=== PATIENT | female | born 1985 | race Caucasian/White ===

== ENCOUNTER 2020-05-22 14:00 | Outpatient (REF) | payer OTHER, SELFPAY ==
[2020-05-25 16:51] LABS: BV Int Neg Control Negative (Negative); BV Int Pos Control Positive (Positive)
[2020-05-26 09:27] LABS: CT PCR NOT DETECTED (Not Detect.); NG PCR NOT DETECTED (Not Detect.)
[2020-06-11 21:22] LABS: HPV mRNA E6/E7 Not Detected (Not Detected)
== END 2020-05-22 14:01 | disposition home or self-care (01) ==
LOC: HO.LNP 14:00
PROVIDERS: Visit Provider Physician Assistant
DX: Z12.4 Encounter for screening for malignant neoplasm of cervix (principal); Z11.51 Encounter for screening for human papillomavirus (HPV); Z13.1 Encounter for screening for diabetes mellitus; Z20.2 Contact with and (suspected) exposure to infections with a predominantly sexual mode of transmission
CPT/HCPCS: 87480; 87491; 87510; 87591; 87624; 87625; 87660; 88142

== ENCOUNTER → 2020-05-22 15:44 | Outpatient (BNVA) | payer OTHER, SELFPAY | PROVIDERS: Visit Provider Advanced Practice Midwife | DX: N92.0 Excessive and frequent menstruation with regular cycle (principal); N94.6 Dysmenorrhea, unspecified; R10.2 Pelvic and perineal pain; Z87.42 Personal history of other diseases of the female genital tract; Z53.29 Procedure and treatment not carried out because of patient's decision for other reasons | CPT/HCPCS: 99214 ==

== ENCOUNTER → 2020-06-08 16:03 | Outpatient (BNVA) | payer OTHER, SELFPAY | PROVIDERS: Visit Provider Obstetrics & Gynecology | DX: N92.0 Excessive and frequent menstruation with regular cycle (principal); R10.2 Pelvic and perineal pain | CPT/HCPCS: 99212 ==

== ENCOUNTER 2020-06-22 16:17 | Outpatient (REF) | payer OTHER, SELFPAY ==
--- NOTE | 2020-06-22 16:21 | US_ITS ---
EXAMINATION: PELVIC ULTRASOUND CLINICAL INFORMATION: Excessive and frequent menstruation with irregular cycle COMPARISON: Previous pelvic ultrasound most recent February [address] of the abdomen and pelvis March 2018 TECHNIQUE: Transabdominal and transvaginal pelvic ultrasound was performed. Transvaginal exam was performed for better visualization of the uterus and ovaries. FINDINGS: The uterus is anteverted and measures 8.3 x 3.5 x 5.3 cm in dimension. There is a heterogeneous predominantly hyperechoic area in the right side of the uterus in the myometrium. This measures approximately 0.8 cm. This was not appreciated on previous ultrasound exams. No other focal uterine lesion is seen. Endometrial thickness is normal estimated at 1.3 cm. There are nabothian cysts in the cervix. The ovaries are normal-appearing. The right ovary measures 3 x 1.8 x 2 cm and the left ovary measures 2.7 x 1.6 x 2.1 cm. There is no fluid in the pelvis. US/US transvaginal IMPRESSION: Normal thickness endometrium. 0.8 cm heterogeneous predominantly hyperechoic area in the right side of the uterus questionable for a fibroid. This was not seen on previous ultrasound.
--- NOTE | 2020-06-22 16:21 | US_ITS ---
EXAMINATION: PELVIC ULTRASOUND CLINICAL INFORMATION: Excessive and frequent menstruation with irregular cycle COMPARISON: Previous pelvic ultrasound most recent February [address] of the abdomen and pelvis March 2018 TECHNIQUE: Transabdominal and transvaginal pelvic ultrasound was performed. Transvaginal exam was performed for better visualization of the uterus and ovaries. FINDINGS: The uterus is anteverted and measures 8.3 x 3.5 x 5.3 cm in dimension. There is a heterogeneous predominantly hyperechoic area in the right side of the uterus in the myometrium. This measures approximately 0.8 cm. This was not appreciated on previous ultrasound exams. No other focal uterine lesion is seen. Endometrial thickness is normal estimated at 1.3 cm. There are nabothian cysts in the cervix. The ovaries are normal-appearing. The right ovary measures 3 x 1.8 x 2 cm and the left ovary measures 2.7 x 1.6 x 2.1 cm. There is no fluid in the pelvis. US/US pelvic complete IMPRESSION: Normal thickness endometrium. 0.8 cm heterogeneous predominantly hyperechoic area in the right side of the uterus questionable for a fibroid. This was not seen on previous ultrasound.
== END 2020-06-22 16:18 | disposition home or self-care (01) ==
LOC: HO.US 16:17
PROVIDERS: Visit Provider Advanced Practice Midwife
DX: N92.1 Excessive and frequent menstruation with irregular cycle (principal); Z20.2 Contact with and (suspected) exposure to infections with a predominantly sexual mode of transmission
CPT/HCPCS: 76830; 76856

== ENCOUNTER 2020-06-22 16:57 | Outpatient (REF) | payer OTHER, SELFPAY ==
[2020-06-22 17:57] LABS: Hematocrit 40.3 % (37-47); Hemoglobin 13.4 g/dl (12.0-16.0); Mean Corpuscular HGB Conc 33.3 g/dl (31.0-35.0); Mean Corpuscular Hemoglobin 30.4 pg (27.0-33.0); Mean Corpuscular Volume 91.4 fL (80-98); Mean Platelet Volume 10.5 fL (9.4-12.3); Platelet Count 364 X10*3/uL (160-400); Red Blood Count 4.41 X10*6/uL (4.20-5.50); Red Cell Distribution Width 12.7 % (11.0-16.0); White Blood Count 11.2 X10*3/uL (4.8-10.8)
[2020-06-22 18:42] LABS: HCG Quantitative < 2 mIU/mL; Thyroid Stimulating Hormone 0.46 uIU/mL (0.32-4.0)
[2020-06-22 18:45] LABS: Glucose Urine UA NEG (NEG); Leukocyte Esterase Urine NEG (NEG); Nitrite Urine NEG (NEG); Urine Blood NEG (NEG); Urine Ketones NEG (NEG); Urine Protein NEG (NEG-TRACE)
[2020-06-22 18:46] LABS: Appearance Urine CLEAR; Color Urine YELLOW
[2020-06-22 18:47] LABS: UPreg QC Valid YES; Urine Pregnancy NEGATIVE (NEGATIVE)
== END 2020-06-22 16:58 | disposition home or self-care (01) ==
LOC: HO.LAB 16:57
PROVIDERS: Visit Provider Obstetrics & Gynecology
DX: N92.0 Excessive and frequent menstruation with regular cycle (principal); R10.2 Pelvic and perineal pain; Z20.2 Contact with and (suspected) exposure to infections with a predominantly sexual mode of transmission
CPT/HCPCS: 36415; 81003; 81025; 84443; 84702; 85027

== ENCOUNTER → 2020-07-15 11:36 | Outpatient (BNVA) | payer OTHER, SELFPAY | PROVIDERS: Visit Provider Obstetrics & Gynecology | DX: Z76.89 Persons encountering health services in other specified circumstances (principal) ==

== ENCOUNTER → 2020-07-17 13:02 | Outpatient (BNVA) | payer OTHER, SELFPAY | PROVIDERS: Visit Provider Obstetrics & Gynecology | DX: N92.0 Excessive and frequent menstruation with regular cycle (principal) | CPT/HCPCS: 96372; J1050 ==

== ENCOUNTER → 2020-10-05 13:28 | Outpatient (BNVA) | payer OTHER, SELFPAY | PROVIDERS: Visit Provider Advanced Practice Midwife | DX: Z30.42 Encounter for surveillance of injectable contraceptive (principal) | CPT/HCPCS: 96372; 99211 ==

== ENCOUNTER → 2020-12-28 15:31 | Outpatient (BNVA) | payer OTHER, SELFPAY | PROVIDERS: Visit Provider Advanced Practice Midwife | DX: Z30.42 Encounter for surveillance of injectable contraceptive (principal) | CPT/HCPCS: 96372; 99211; J1050 ==

== ENCOUNTER → 2021-02-16 09:40 | Outpatient (BNVA) | payer OTHER, SELFPAY | PROVIDERS: Visit Provider Obstetrics & Gynecology | DX: N92.0 Excessive and frequent menstruation with regular cycle (principal) | CPT/HCPCS: 99212 ==

== ENCOUNTER 2021-03-16 14:46 | Outpatient (REF) | payer OTHER, SELFPAY ==
--- NOTE | ~2021-03-16 | US_ITS ---
EXAMINATION: US PELVIS CLINICAL INFORMATION: Abnormal uterine and vaginal bleeding. COMPARISON: CT abdomen/pelvis 03/10/2018. Ultrasound pelvis 06/22/2020. TECHNIQUE: Ultrasound of the pelvis is performed using both transabdominal and transvaginal transducers along with Doppler. Transvaginal imaging is performed due to inadequate visualization transabdominally. FINDINGS: Uterus: The uterus is anteverted and anteflexed measuring 9.1 cm in length, 3.6 cm AP and 4.3 cm in transverse dimension. The endometrial thickness is 0.8 cm. There is a hypoechoic lesion in the right body of uterus measuring 0.8 x 0.7 x 0.9 cm, likely a small fibroid. It was not seen previously. No additional lesions seen. The double wall endometrial thickness is 0.8 mm. A small nabothian cyst is seen in the cervix. A scar is seen. The uterus is smooth in contour and has normal myometrial echogenicity. No visible fibroid. Adnexa: Both ovaries are visualized. There is normal color flow to the adnexa. There is no ovarian torsion. There is no pelvic ascites or fluid collection. Right ovary measures 2.3 x 1.4 x 1.3 cm and volume 2.2 mL. There is a small echogenic calcification. Previously right ovary measured 3.0 x 1.8 x 2.0 cm. Left ovary measures 2.7 x 1.9 x 1.9 cm and volume 5.1 mL. There is a small dominant ovarian follicle. Previously left ovary measured 2.7 x 1.6 x 2.1 cm. US/US pelvic and transvaginal IMPRESSION: New small right uterine fibroid. Small nabothian cysts in the cervix. Punctate calcification right ovary. Otherwise, both ovaries are unremarkable.
== END 2021-03-16 14:47 | disposition home or self-care (01) ==
LOC: HO.US 14:46
PROVIDERS: Visit Provider Obstetrics & Gynecology
DX: N93.9 Abnormal uterine and vaginal bleeding, unspecified (principal)
CPT/HCPCS: 76830; 76856

== ENCOUNTER 2021-03-17 10:17 | Outpatient (REF) | payer OTHER, SELFPAY ==
[2021-03-17 11:18] LABS: Hematocrit 40.7 % (37-47); Hemoglobin 13.9 g/dl (12.0-16.0); Mean Corpuscular HGB Conc 34.2 g/dl (31.0-35.0); Mean Corpuscular Hemoglobin 31.3 pg (27.0-33.0); Mean Corpuscular Volume 91.7 fL (80-98); Mean Platelet Volume 10.8 fL (9.4-12.3); Platelet Count 311 X10*3/uL (160-400); Red Blood Count 4.44 X10*6/uL (4.20-5.50); Red Cell Distribution Width 13.2 % (11.0-16.0); White Blood Count 11.4 X10*3/uL (4.8-10.8)
[2021-03-17 12:50] LABS: TSH reflex Free T4 1.33 uIU/mL (0.32-4.0)
[2021-03-17 13:14] LABS: HCG Quantitative < 2 mIU/mL
== END 2021-03-17 10:18 | disposition home or self-care (01) ==
LOC: HO.LAB 10:17
PROVIDERS: Visit Provider Obstetrics & Gynecology
DX: N93.9 Abnormal uterine and vaginal bleeding, unspecified (principal); N92.0 Excessive and frequent menstruation with regular cycle
CPT/HCPCS: 36415; 84443; 84702; 85027; 99212

== ENCOUNTER → 2021-03-24 12:05 | Outpatient (BNVA) | payer OTHER, SELFPAY | PROVIDERS: Visit Provider Obstetrics & Gynecology ==

== ENCOUNTER → 2021-03-26 11:12 | Outpatient (BNVA) | payer OTHER, SELFPAY | PROVIDERS: Visit Provider Obstetrics & Gynecology | DX: Z30.42 Encounter for surveillance of injectable contraceptive (principal) | CPT/HCPCS: 96372; 99211 ==

== ENCOUNTER → 2021-06-17 15:20 | Outpatient (BNVA) | payer OTHER, SELFPAY | PROVIDERS: Visit Provider Obstetrics & Gynecology | DX: Z30.42 Encounter for surveillance of injectable contraceptive (principal) | CPT/HCPCS: 96372; 99211 ==

== ENCOUNTER → 2021-09-02 15:16 | Outpatient (BNVA) | payer OTHER, SELFPAY | PROVIDERS: Visit Provider Obstetrics & Gynecology | DX: Z30.42 Encounter for surveillance of injectable contraceptive (principal) | CPT/HCPCS: 96372; 99211 ==

== ENCOUNTER → 2021-09-22 16:10 | Outpatient (BNVA) | payer OTHER, SELFPAY | PROVIDERS: Visit Provider Obstetrics & Gynecology ==

== ENCOUNTER → 2021-11-16 12:16 | Outpatient (BNVA) | payer OTHER, SELFPAY | PROVIDERS: Visit Provider Obstetrics & Gynecology | DX: Z13.89 Encounter for screening for other disorder (principal) ==

== ENCOUNTER 2021-11-24 14:32 | Outpatient (REF) | payer OTHER, SELFPAY ==
--- NOTE | ~2021-11-24 | US_ITS ---
EXAMINATION: US PELVIS CLINICAL INFORMATION: Pelvic pain COMPARISON: Previous pelvic ultrasound most recent March 2021 TECHNIQUE: Ultrasound of the pelvis is performed using both transabdominal and transvaginal transducers along with Doppler. Transvaginal imaging is performed due to inadequate visualization transabdominally. FINDINGS: The uterus is anteverted and measures 7.8 x 3.9 x 5.2 cm. There is a 0.8 x 0.6 x 0.8 cm hypoechoic area in the right uterine body and 0.4 x 0.4 x 0.5 cm hypoechoic area in the posterior uterine body questionable for small fibroids. No other focal uterine lesion is seen. Endometrial thickness is normal. The ovaries are normal. The right ovary measures 2.8 x 1.8 x 1.6 cm. The left ovary measures 2.3 x 1.7 x 1.5 cm. There is no fluid in the pelvis. US/US pelvic and transvaginal IMPRESSION: 2 small hypoechoic areas questionable for small fibroids. Otherwise unremarkable exam.
== END 2021-11-24 14:33 | disposition home or self-care (01) ==
LOC: HO.US 14:32
PROVIDERS: Visit Provider Obstetrics & Gynecology
DX: N93.9 Abnormal uterine and vaginal bleeding, unspecified (principal)
CPT/HCPCS: 76830; 76856

== ENCOUNTER → 2021-11-26 09:42 | Outpatient (BNVA) | payer OTHER, SELFPAY | PROVIDERS: Visit Provider Obstetrics & Gynecology | DX: Z30.42 Encounter for surveillance of injectable contraceptive (principal) | CPT/HCPCS: 96372; 99211 ==

== ENCOUNTER 2022-01-07 13:29 | Outpatient (REF) | payer OTHER, SELFPAY ==
[2022-01-08 10:20] LABS: CT PCR NOT DETECTED (Not Detect.); NG PCR NOT DETECTED (Not Detect.)
[2022-01-08 10:25] LABS: BV Int Neg Control Negative (Negative); BV Int Pos Control Positive (Positive)
[2022-01-12 06:08] LABS: HPV mRNA E6/E7 rflx Not Detected (Not Detected)
== END 2022-01-07 13:30 | disposition home or self-care (01) ==
LOC: HO.LAB 13:29
PROVIDERS: Visit Provider Advanced Practice Midwife
DX: Z01.419 Encounter for gynecological examination (general) (routine) without abnormal findings (principal); Z11.3 Encounter for screening for infections with a predominantly sexual mode of transmission; Z11.4 Encounter for screening for human immunodeficiency virus [HIV]; Z11.51 Encounter for screening for human papillomavirus (HPV); Z11.59 Encounter for screening for other viral diseases; N94.6 Dysmenorrhea, unspecified; E66.01 Morbid (severe) obesity due to excess calories; Z68.38 Body mass index [BMI] 38.0-38.9, adult; Z87.42 Personal history of other diseases of the female genital tract
CPT/HCPCS: 87480; 87491; 87510; 87591; 87624; 87660; 88142

== ENCOUNTER → 2022-02-14 15:23 | Outpatient (BNVA) | payer OTHER, SELFPAY | PROVIDERS: Visit Provider Obstetrics & Gynecology | DX: Z30.42 Encounter for surveillance of injectable contraceptive (principal); N93.9 Abnormal uterine and vaginal bleeding, unspecified | CPT/HCPCS: 96372; 99211 ==

== ENCOUNTER → 2022-05-05 13:22 | Outpatient (BNVA) | payer OTHER, SELFPAY | PROVIDERS: Visit Provider Obstetrics & Gynecology | DX: Z30.42 Encounter for surveillance of injectable contraceptive (principal) | CPT/HCPCS: 96372; 99211 ==

== ENCOUNTER → 2022-07-28 09:54 | Outpatient (BNVA) | payer OTHER, SELFPAY | PROVIDERS: Visit Provider Advanced Practice Midwife | DX: Z30.42 Encounter for surveillance of injectable contraceptive (principal) | CPT/HCPCS: 96372; 99211 ==

== ENCOUNTER → 2022-10-24 09:22 | Outpatient (BNVA) | payer MEDICAID, SELFPAY | PROVIDERS: Visit Provider Advanced Practice Midwife | DX: N93.9 Abnormal uterine and vaginal bleeding, unspecified (principal) | CPT/HCPCS: 96372; 99211 ==

== ENCOUNTER → 2023-01-11 09:17 | Outpatient (BNVA) | payer MEDICAID, SELFPAY | PROVIDERS: Visit Provider Advanced Practice Midwife | DX: Z30.42 Encounter for surveillance of injectable contraceptive (principal) | CPT/HCPCS: 96372; 99211 ==

== ENCOUNTER 2023-03-29 09:07 | Outpatient (AMB) | payer MEDICAID, SELFPAY ==
[2023-03-29 09:26] VITALS: BMI 39.8
--- NOTE | 2023-03-29 09:26 | AM.OFFVISNUR ---
Intake Vital Signs 03/29/23 09:26 Height 5 ft 2 in Weight 98.6 kg BMI 39.8 Intake Visit Reasons: Depo Allergies ibuprofen [From MOTRIN] Allergy (Unknown, Verified 01/07/22 13:33) ITCHY/HIVES Office Procedures Depo Questionnaire If YES to any of the following questions, please consult a provider. Date of last injection: 01/11/23 Date of last menstrual period: 02/13/23 Date of last gynecology exam: 02/03/22 Menstrual pattern since last injection has been: Normal Irregular bleeding?: Yes Breast lumps or other breast changes?: No Changes in weight or appetite?: No Depression or changes in mood?: No Abnormal hair growth or loss?: No Skin problems (rash, acne, discoloration)?: No Pain at the injection site?: No Headaches?: No Nervousness?: No Abdominal pain or cramping?: Yes Dizziness or nausea?: No Fatigue or weakness?: No Decrease in sexual drive?: Yes Chest pain or shortness of breath?: No Swelling in arms or legs?: No Any other problems or concerns?: c/o irr bleeding, month prior to her shot being due. Form completed by?: Tima Mullen LPN Office Meds Depo-Provera Performing Provider: Milan Burns MD Administered by: Triny Mullen LPN on 03/29/23 09:27 Dose Route Admin Location Lot Number Expiration Date NDC Color Tester 150 mg IM rt. deltoid [id number] 01/04/25 36498-400-03 [facility] Coding Level of Care Code Established Pt Est Pt Level 1 (91319) Patient Type Established History Problem Focused Exam Problem Focused Medical Decision Making Straight Forward Diagnoses Time Spent (min) 20 Assessment & Plan Assessment & Plan Orders: Orders AMB Medroxyprogesterone Injection Patient Supplied Today N93.9 - Abnormal uterine and vaginal bleeding, unspecified
== END 2023-03-29 10:04 | disposition home or self-care (01) ==
LOC: HO.HWS 09:07
PROVIDERS: Visit Provider Obstetrics & Gynecology
DX: N93.9 Abnormal uterine and vaginal bleeding, unspecified (principal)

== ENCOUNTER → 2023-03-29 09:07 | Outpatient (BNVA) | payer MEDICAID, SELFPAY | PROVIDERS: Visit Provider Obstetrics & Gynecology | DX: Z30.42 Encounter for surveillance of injectable contraceptive (principal) | CPT/HCPCS: 96372; 99211; J1050 ==

== ENCOUNTER 2023-07-17 10:18 | Outpatient (AMB) | payer MEDICAID, SELFPAY ==
[2023-07-17 11:01] VITALS: BMI 39.8
--- NOTE | 2023-07-17 11:01 | AM.OFFVISNUR ---
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 Pt is late for injection, last injection 03/29/23 and pt missed appts d/t transportation issues. Pt does not have sex with men. Discussed issues with Irene BryantGuán[place] and she okays late injection. Pt has no c/o today except for cramping as this injection is late (should have been completed by 06/28/23). Today, denies any sexual activity in the past 2 weeks. Pt tolerated injection well. She will return in 12 weeks for next scheduled injection. Office Procedures Depo Questionnaire If YES to any of the following questions, please consult a provider. Date of last injection: 03/29/23 Date of last gynecology exam: 01/07/22 Menstrual pattern since last injection has been: Not Applicable Irregular bleeding?: No Breast lumps or other breast changes?: No Changes in weight or appetite?: No Depression or changes in mood?: No Abnormal hair growth or loss?: No Skin problems (rash, acne, discoloration)?: No Pain at the injection site?: No Headaches?: No Nervousness?: No Abdominal pain or cramping?: No Dizziness or nausea?: No Fatigue or weakness?: No Decrease in sexual drive?: No Chest pain or shortness of breath?: No Swelling in arms or legs?: No Form completed by?: Nohemi Mai press worker helper Meds Depo-Provera 150 mg/mL intramuscular syringe Performing Provider: Milan Burns MD [place] [facility] [place] [facility] Administered by: Nohemi Mai on 07/17/23 11:02 Dose Route Admin Location Dispensed Lot Number Expiration Date [facility] Education Supervisor 150 mg IM right deltoid 1 mL [id number] 08/07/25 21077-081-55 [facility] Results AMB Test Urine AMB Test Urine Negative Last Edit by Nohemi Mai on 07/17/23 11:22 Coding Level of Care Code Established Pt Est Pt Level 1 (85215) Patient Type Established History Problem Focused Medical Decision Making Straight Forward Time Spent (min) 12 Assessment & Plan Assessment & Plan Plan Schedule next depo injection in 12 weeks. Orders: Orders AMB Medroxyprogesterone Injection Patient Supplied Today Z30.42 - Encounter for surveillance of injectable contraceptive Patient Instructions: Pt will schedule next depo provera injection in 12 weeks. Pt verbalizes understanding and agrees with plan. No further questions.
== END 2023-07-17 10:31 | disposition home or self-care (01) ==
LOC: HO.HWS 10:18
PROVIDERS: Visit Provider Obstetrics & Gynecology
DX: Z30.42 Encounter for surveillance of injectable contraceptive (principal)

== ENCOUNTER → 2023-07-17 10:18 | Outpatient (BNVA) | payer MEDICAID, SELFPAY | PROVIDERS: Visit Provider Obstetrics & Gynecology | DX: Z30.42 Encounter for surveillance of injectable contraceptive (principal) | CPT/HCPCS: 96372; 99211; J1050 ==

== ENCOUNTER 2023-10-13 09:36 | Outpatient (AMB) | payer MEDICAID, SELFPAY ==
--- NOTE | 2023-10-13 10:10 | AM.OFFVISNUR ---
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 She reports she has AUB and cramping ~1 month before her injection is due. She has lost ~9 lbs in the last 3 months. She also reports a new diagnosis of diverticulitis for which she has been hospitalized She is watching her diet, cutting back on sugars and she has joined a gym. She is excited about her weight loss and feels proud. She was encouraged to keep up the good work! Brooks has an appt with Dr Burns for AG on 11/22/23. She wants to discuss further interventions to control AUB and cramping but she is aware she needs to start the process with a control trial to see if that helps. Pt tolerated injection well and has scheduled her next injection for the end of December. She will need refills on Depo provera which she will discuss with Dr Burns in November. Office Procedures Depo Questionnaire If YES to any of the following questions, please consult a provider. Menstrual pattern since last injection has been: Not Applicable Irregular bleeding?: Yes Breast lumps or other breast changes?: No Changes in weight or appetite?: Yes Depression or changes in mood?: No Abnormal hair growth or loss?: No Skin problems (rash, acne, discoloration)?: No Pain at the injection site?: No Headaches?: No Nervousness?: No Abdominal pain or cramping?: Yes Dizziness or nausea?: No Fatigue or weakness?: No Decrease in sexual drive?: No Chest pain or shortness of breath?: No Swelling in arms or legs?: No Any other problems or concerns?: Pt reports she has been hospitalized recently for diverticulitis Form completed by?: Nohemi Mai RN Office Meds Depo-Provera 150 mg/mL intramuscular syringe Performing Provider: Milan Burns MD Performing [place] [facility] [place] [facility] [place] [facility] Administered by: Nohemi Mai on 10/13/23 10:20 Dose Route Admin Location Dispensed Lot Number Expiration Date NDC Generalist 150 mg IM right deltoid 1 mL [id number] 11/04/25 84423-736-11 [facility] Coding Level of Care Code Established Pt Est Pt Level 1 (96975) Patient Type Established History Problem Focused Medical Decision Making Low Complexity Time Spent (min) 15 Assessment & Plan Assessment & Plan Plan Pt has already scheduled her next injection for the end of December Orders: Orders AMB Medroxyprogesterone Injection Patient Supplied Today Z30.42 - Encounter for surveillance of injectable contraceptive
[2023-10-13 10:11] VITALS: BMI 38.2
== END 2023-10-13 10:09 | disposition home or self-care (01) ==
LOC: HO.HWS 09:36
PROVIDERS: Visit Provider Obstetrics & Gynecology
DX: Z30.42 Encounter for surveillance of injectable contraceptive (principal)

== ENCOUNTER → 2023-10-13 09:36 | Outpatient (BNVA) | payer MEDICAID, SELFPAY | PROVIDERS: Visit Provider Obstetrics & Gynecology | DX: Z30.42 Encounter for surveillance of injectable contraceptive (principal) | CPT/HCPCS: 96372; 99211; J1050 ==

== ENCOUNTER 2024-01-02 10:49 | Outpatient (AMB) | payer MEDICAID, SELFPAY ==
--- NOTE | 2024-01-02 11:27 | A.OFFVIS_ITS ---
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 Allergies ibuprofen [From MOTRIN] Allergy (Unknown, Verified 01/07/22 13:33) ITCHY/HIVES HPI Comments Details: Here for Depo-Provera and annual exam [facility] Medical History Anxiety Morbid obesity with BMI of 45.0-49.9, adult Dysmenorrhea (~2017) Hx of ectopic Surgical History H/O hand surgery Hx of section Family History Maternal Aunt Breast cancer Cervical cancer Social History Alcohol intake: current Alcohol intake frequency: a few times a month Sexual orientation: Lesbian/Gifford/Homosexual Gender identity: Female Female Reproductive History Menstrual Age of Menarche: 14 Date of last pap smear: 01/10/22 Assessment & Plan Assessment & Plan (1) Depo-Provera contraceptive status: Code(s): Z30.42 - Encounter for surveillance of injectable contraceptive Category: Medical Plan: Depo-Provera 150 mg IM given to the patient by the RN. The patient was not seen by the provider. The patient rescheduled her annual exam Plan The patient is schedule her annual exam Orders: Orders AMB Medroxyprogesterone Injection Patient Supplied Today Z30.42 - Encounter for surveillance of injectable contraceptive Medications: New Depo-Provera (medroxyprogesterone) 150 mg IM ONCE 1 mL 0RF NS Z30.42 - Encounter for surveillance of injectable contraceptive Coding Level of Care Code Left Without Being Seen Diagnoses Depo-Provera contraceptive status Z30.42
== END 2024-01-02 11:34 | disposition left against medical advice (07) ==
PROVIDERS: Visit Provider Obstetrics & Gynecology
DX: Z30.42 Encounter for surveillance of injectable contraceptive (principal)

== ENCOUNTER → 2024-01-02 10:49 | Outpatient (BNVA) | payer MEDICAID, SELFPAY | PROVIDERS: Visit Provider Obstetrics & Gynecology | DX: Z30.42 Encounter for surveillance of injectable contraceptive (principal) | CPT/HCPCS: 96372; J1050 ==

== ENCOUNTER 2024-03-25 09:25 | Outpatient (AMB) | payer MEDICAID, SELFPAY ==
--- NOTE | 2024-03-25 09:46 | AM.OFFVISNUR ---
Vital Signs 03/25/24 09:47 Height 5 ft 2 in Weight 90.889 kg BMI 36.6 Intake Visit Reasons: depo Allergies ibuprofen [From MOTRIN] Allergy (Unknown, Verified 01/07/22 13:33) ITCHY/HIVES Nursing Note Brooks is here for her Depo-provera inj, She is recovering from having her Ostomy reversed. Pt denies any complaints re her Depo-Provera. pt aware she needs to have her AG or she may not be able to get refills. Office Procedures Depo Questionnaire If YES to any of the following questions, please consult a provider. Date of last injection: 01/02/24 Date of last gynecology exam: 01/27/22 Menstrual pattern since last injection has been: Not Applicable Irregular bleeding?: No Breast lumps or other breast changes?: No Changes in weight or appetite?: No Depression or changes in mood?: No Abnormal hair growth or loss?: No Skin problems (rash, acne, discoloration)?: No Pain at the injection site?: No Headaches?: No Nervousness?: No Abdominal pain or cramping?: No Dizziness or nausea?: No Fatigue or weakness?: No Decrease in sexual drive?: No Chest pain or shortness of breath?: No Swelling in arms or legs?: No Form completed by?: Tima Mullen LPN Office Meds Depo-Provera 150 mg/mL intramuscular syringe Performing Provider: Brandi Castle CNM Performing Location: [facility] [place] [facility] Administered by: Triny Mlulen LPN on 03/25/24 09:50 Dose Route Admin Location Dispensed Lot Number Expiration Date [facility] Branding Machine Operator 150 mg IM left deltoid 1 mL [id number] 07/06/26 90746-103-88 [facility] Assessment & Plan Assessment & Plan Orders: Orders AMB Medroxyprogesterone Injection Patient Supplied Today N93.9 - Abnormal uterine and vaginal bleeding, unspecified Medications: New Depo-Provera (medroxyprogesterone) 150 mg IM ONCE 1 mL 0RF NS N93.9 - Abnormal uterine and vaginal bleeding, unspecified
[2024-03-25 09:47] VITALS: BMI 36.6
--- OUTSIDE RECORDS SUMMARY | 2024-03-27 07:38 | XMS_ITS | Continuity of Care Document ---
Author Organization [facility] As formerly [facility] Address [address] [place] [address] [address] [place] [address]- Care Team Providers Care Sheet Rock Installer Name Role Phone Cindy DALEY, Melyssa Primary Care Physician Encounter [facility] Date(s): 02/14/24 - 03/15/24 [facility] [address] [place] [address]- Allergies, Adverse Reactions, Alerts Substance Reaction Severity Status ibuprofen 1 Hives Active 1swelling,hives Immunizations Given and Recorded Vaccine Date Status Refusal Reason tetanus/diphtheria/pertussis, acel(Tdap) 06/06/13 Given Medications Barrier strips [id number] Barrier strips [id number], See Instructions, # 80 each, Refills 11, Tot. Refills 11, Maintenance, use as needed for ostomy maintaince. Dx ileostomy Z93.2, 02/13/24 9:14:00 EDT, Supply Start Date: 02/13/24 Status: Ordered Brava barrier rings Brava barrier rings, See Instructions, # 40 each, Refills 11, Tot. Refills 11, Maintenance, use as needed for ostomy maintaince. Dx ileostomy Z93.2, 02/13/24 9:14:00 EDT, Supply Start Date: 02/13/24 Status: Ordered coloplast bags #85924 coloplast bags #[id number], See Instructions, # 20 each, Refills 11, Tot. Refills 11, Maintenance, use as needed for ostomy care Dx. ileostomy Z93.2, 01/02/24 15:45:00 EDT, Compound Start Date: 01/02/24 Status: Ordered convatec bags #[id number] convatec bags #[id number], See Instructions, # 20 each, Refills 11, Tot. Refills 11, Maintenance, use as needed for ostomy care Dx. ileostomy Z93.2, 01/11/24 13:19:00 EDT, Compound Start Date: 01/11/24 Status: Ordered Convatec bags (#[id number]) Convatec bags (#[id number]), See Instructions, # 40 each, Refills 11, Tot. Refills 11, Maintenance, useas needed for ostomy maintaince. Dx ileostomy Z93.2, 02/13/24 9:14:00 EDT, Supply Start Date: 02/13/24 Status: Ordered Convatec flange (#280792) Convatec flange (#731769), See Instructions, # 40 each, Refills 11, Tot. Refills 11, Maintenance, use as needed for ostomy maintaince. Dx ileostomy Z93.2, 02/13/24 9:14:00 EDT, Supply Start Date: 02/13/24 Status: Ordered convatec flange# [id number] convatec flange# [id number], See Instructions, # 20 each, Refills 11, Tot. Refills 11, Maintenance, useas needed for ostomy care Dx. ileostomy Z93.2, 01/11/24 13:27:00 EDT, Compound Start Date: 01/11/24 Status: Ordered ConvaTec Ostomy [facility] #[id number] ConvaTec Ostomy [facility] #[id number], See Instructions, # 20 each, Refills 11, Tot. Refills 11,Maintenance, Use as needed for ostomy maintaince. Dx ileostomy Z93.2, 01/05/24 15:39:00 EDT, Supply Start Date: 01/05/24 Status: Ordered ConvaTec Ostomy Pouch #[id number] ConvaTec Ostomy Pouch #[id number], See Instructions, # 20 each, Refills 11, Tot. Refills 11, Maintenance, Use as needed for ostomy maintaince. Dx ileostomy Z93.2, 01/05/24 15:27:00 EDT, Supply Start Date: 01/05/24 Status: Ordered diazepam 5 mg oral tablet 5 mg, 1, tablet, By Mouth, Every 8 hours, PRN, Do not take the same time as oxycodone., # 21 tablet, Refills 0, Tot. Refills 0, Maintenance, Spasm, 12/20/23 16:46:00 EDT, Route to Pharmacy Electronically, [facility] #[id number], Partial fill upon... Start Date: 12/20/23 Status: Ordered lidocaine 5% topical film 1 patch, Topically, 2 times a day, remove patches after 12 hours, # 15 patch, 0 Refills, Maintenance, 01/30/24 12:17:00 EDT, Film, [facility] #[id number], Partial fill upon patient request if the prescription is for a schedule II opioid drug., 1... Start Date: 01/30/24 Status: Ordered loperamide 2 mg oral capsule 4 mg, 2, capsule, By Mouth, 4 times a day, for 30 days, take 1/2 hour before meals and at bed time,# 240 capsule, Refills 5, Tot. Refills 5, Acute 07/17/24 15:35:00 EST, 01/19/24 15:35:00 EDT, [facility], [facility] #0... Start Date: 01/19/24 Stop Date: 07/17/24 Status: Ordered loperamide 2 mg oral tablet See Instructions, take 2 tablets by mouth 30 minutes before meals and at bedtime, # 240 tablet, 4 Refills, Maintenance, 01/03/24 16:27:00 EDT, Tablet, [facility] #[id number], Partial fill upon patient request if the prescription is for a schedule... Start Date: 01/03/24 Status: Ordered loperamide 2 mg oral tablet See Instructions, take 1 tablet by mouth 30 minutes before meals and at bedtime, # 120 tablet, 4 Refills, Maintenance, 12/21/23 15:35:00 EDT, Tablet, [facility] #[id number], Partial fill upon patient request if the prescription is for a schedule... Start Date: 12/21/23 Status: Ordered medroxyPROGESTERone 150 mg/mL intramuscular suspension 1 mL = 150 mg, Intramuscular, Every 3 months, Maintenance, 11/26/23 18:41:00 EDT, Suspension, Partial fill upon patient request if the prescription is for a schedule II opioid drug. Start Date: 11/26/23 Status: Ordered No sting skin prep spray No sting skin prep spray, See Instructions, # 1 each, Refills 11, Tot. Refills 11, Maintenance, useas needed for ostomy maintaince. Dx ileostomy Z93.2, 02/13/24 9:14:00 EDT, Supply Start Date: 02/13/24 Status: Ordered ondansetron 4 mg oral tablet, disintegrating 1 tablet = 4 mg, By Mouth, Every 8 hours, PRN Nausea & Vomiting, # 24 tablet, 0 Refills, Maintenance, 11/19/23 9:55:00 EDT, Tablet, [facility] #[id number], Partial fill upon patient request if the prescription is for a schedule II opioid drug., 1... Start Date: 11/19/23 Status: Ordered ostomy belt 4215 ostomy belt 4215, See Instructions, # 1 each, Refills 11, Tot. Refills 11, Maintenance, use as needed for ostomy care. Dx ileostomy Z93.2, 01/11/24 13:19:00 EDT, Compound Start Date: 01/11/24 Status: Ordered oxyCODONE 10 mg oral tablet 1 tablet = 10 mg, By Mouth, 3 times a day, PRN as needed for pain, # 12 tablet, 0 Refills, Maintenance, 01/30/24 13:16:00 EDT, Tablet, [facility] #[id number], Partial fill upon patient request if the prescription is for a schedule II opioid drug.... Start Date: 01/30/24 Status: Ordered oxyCODONE 20 mg oral tablet 1 tablet = 20 mg, By Mouth, Every 8 hours, Do not take the same time as diazepam., # 21 tablet, 0 Refills, Maintenance, 12/20/23 16:46:00 EDT, Tablet, [facility] #[id number], Partial fill upon patient request if the prescription is for a schedule... Start Date: 12/20/23 Status: Ordered straight brava strips [id number] straight brava strips 857127, See Instructions, # 80 each, Refills 11, Tot. Refills 11, Maintenance, use as needed for ostomy care Dx ileostomy Z 93.2, 01/11/24 13:19:00 EDT, Compound Start Date: 01/11/24 Status: Ordered walker walker, See Instructions, # 1 each, Refills 0, Tot. Refills 0, Maintenance, walker, 12/14/23 10:15:00 EDT, Supply Start Date: 12/14/23 Status: Ordered Problem List Condition Confirmation Course Effective Dates Status H ealth Status Informant Diverticulitis large intestine Confirmed Active Obese class I Confirmed Active Social History Social History Type Response Smoking Status Use: 4 or less cigar ettes(less than 1/4 pack)/day in last 30 days;Former smoker, quit more than 30 days ago entered on: 07/13/23 Sex Female Implantable Device List Procedure Provider Procedure Date Device Type Site Resection Colon Left Open Jada Chiang MD 12/07/23 Unk nown Colon Device Identifier Serial Number Lot or Batch Number Manufacturing Date Expiration Date Distinct Identification Code MRI Safety Implantable Status Assigning Authority Unknown Unknown [id number] Unknown 07/06/27 Unknown Unknown Active Un known Procedure Provider Procedure Date Device Type Site Resection Colon Left Open Jada Chiang MD 12/07/23 Unk nown Colon Device Identifier Serial Number Lot or Batch Number Manufacturing Date Expiration Date Distinct Identification Code MRI Safety Implantable Status Assigning Authority Unknown Unknown [id number] Unknown 12/05/27 Unknown Unknown Active Unk nown Procedure Provider Procedure Date Device Type Site Resection Colon Left Open Jada Chiang MD 12/07/23 Unk nown Colon Device Identifier Serial Number Lot or Batch Number Manufacturing Date Expiration Date Distinct Identification Code MRI Safety Implantable Status Assigning Authority Unknown Unknown [id number] Unknown 05/06/28 Unknown Unknown Active Unknown Procedure Provider Procedure Date Device Type Site Resection Colon Left Open Jada Chiang MD 12/07/23 Unk nown Colon Device Identifier Serial Number Lot or Batch Number Manufacturing Date Expiration Date Distinct Identification Code MRI Safety Implantable Status Assigning Authority Unknown Unknown Unknown 02/04/28 Unknown Unknown Active Unk nown Procedure Provider Procedure Date Device Type Site Resection Colon Left Open Jada Chiang MD 12/07/23 Unk nown Colon Device Identifier Serial Number Lot or Batch Number Manufacturing Date Expiration Date Distinct Identification Code MRI Safety Implantable Status Assigning Authority Unknown Unknown [id number] Y Unknown 11/05/27 Unknown Unknown Active Unknown Procedure Provider Procedure Date Device Type Site Resection Colon Left Open Jada Chiang MD 12/07/23 Unk nown Colon Device Identifier Serial Number Lot or Batch Number Manufacturing Date Expiration Date Distinct Identification Code MRI Safety Implantable Status Assigning Authority Unknown Unknown [id number] Unknown 01/05/28 Unknown Unknown Active Unk nown Procedure Provider Procedure Date Device Type Site Resection Colon Left Open Андрей Jada 12/07/23 Unk nown Colon Device Identifier Serial Number Lot or Batch Number Manufacturing Date Expiration Date Distinct Identification Code MRI Safety Implantable Status Assigning Authority Unknown Unknown [id number] Unknown 03/06/28 Unknown Unknown Active Unk nown Procedure Provider Procedure Date Device Type Site Resection Colon Left Open Jada Chiang MD 12/07/23 Unk nown Colon Device Identifier Serial Number Lot or Batch Number Manufacturing Date Expiration Date Distinct Identification Code MRI Safety Implantable Status Assigning Authority Unknown Unknown [id number] Unknown 12/05/27 Unknown Unknown Active Unk nown Patient Care team information Care Team Personnel Name: Bertha Kolb RN Position: [facility] RN Member Role: Primary Care Nurse Name: Ashley Domínguez RN Position: [facility] RN Member Role: Primary Care Nurse Name: Maame Pearce Position: [facility] Outreach Member Role: Lifetime Consulting Physician Name: Charline Terrazas RN Position: [facility] RN Member Role: Primary Care Nurse Name: Efrain Long RN Position: [facility] RN Member Role: Primary Care Nurse Name: Melyssa White NP Position: Reference Physician Member Role: PCP Address: Address: [address] [place] [address] Name: Nida Ferro RN Position: [facility] RN Member Role: Primary Care Nurse Name: Kaur Wilson RN Position: [facility] RN Member Role: Primary Care Nurse Name: Shasha Chou RN Position: [facility] RN Member Role: Primary Care Nurse Name: Alison Brewer RN Position: [facility] RN Member Role: Primary Care Nurse Name: Adamaris Lynn RN Position: [facility] RN Member Role: Primary Care Nurse Name: Rosario Schwarz RN Position: [facility] SN RN Member Role: Primary Care Nurse Name: Marianne Jesus RN Position: [facility] RN Member Role: Primary Care Nurse Name: Jacquelyn Merchant RN Position: [facility] RN Member Role: Primary Care Nurse Name: Susannah Scanlon RN Position: [facility] RN Member Role: Primary Care Nurse Name: Kriss Pena RN Position: [facility] RN Member Role: Primary Care Nurse Name: Maine Marcial RN Position: S RN Member Role: Primary Care Nurse Name: Lolita Peres RN Position: S RN Member Role: Primary Care Nurse Name: Michael Syed RN Position: S RN Member Role: Primary Care Nurse Care Team Related Persons Name: SERGIO GORDON Address: home [address] [place] [address] Name: EMILY REYNOLDS Address: [place] [address] Name: KATHERIN MONDRAGON Address: home [address] [address]
--- OUTSIDE RECORDS SUMMARY | 2024-03-27 07:38 | XMS_ITS | Continuity of Care Document ---
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 Trade Promotion Analyst Name Role Phone Melyssa White NP Primary Care Physician Encounter [facility] Date(s): 02/09/24 - 03/10/24 [facility] [address] [place] [address]- Allergies, Adverse Reactions, Alerts Substance Reaction Severity Status ibuprofen 1 Hives Active 1swelling,hives Immunizations Given and Recorded Vaccine Date Status Refusal Reason tetanus/diphtheria/pertussis, acel(Tdap) 06/06/13 Given Medications Barrier strips [id number] Barrier strips 183255, See Instructions, # 80 each, Refills 11, [...] Start Date: 02/13/24 Status: Ordered coloplast bags #76439 coloplast bags #57079, See Instructions, # 20 each, Refills 11, Tot. Refills 11, Maintenance, use as needed for ostomy care Dx. ileostomy Z93.2, 01/02/24 15:45:00 EDT, Compound Start Date: 01/02/24 Status: Ordered convatec bags #045041 convatec bags #476525, See Instructions, # 20 each, Refills 11, Tot. Refills 11, Maintenance, use as needed for ostomy care Dx. ileostomy Z93.2, 01/11/24 13:19:00 EDT, Compound Start Date: 01/11/24 Status: Ordered Convatec bags (#549632) Convatec bags (#809524), See Instructions, # 40 each, Refills 11, Tot. Refills 11, Maintenance, useas needed for ostomy maintaince. Dx ileostomy Z93.2, 02/13/24 9:14:00 EDT, Supply Start Date: 02/13/24 Status: Ordered Convatec flange (#482942) Convatec flange (#723194), See Instructions, # 40 each, Refills 11, Tot. Refills 11, Maintenance, use as needed for ostomy maintaince. Dx ileostomy Z93.2, 02/13/24 9:14:00 EDT, Supply Start Date: 02/13/24 Status: Ordered convatec flange# [id number] convatec flange# 082587, See Instructions, # 20 each, Refills 11, Tot. Refills 11, Maintenance, useas needed for ostomy care Dx. ileostomy Z93.2, 01/11/24 13:27:00 EDT, Compound Start Date: 01/11/24 Status: Ordered ConvaTec Ostomy [facility] #038806 ConvaTec Ostomy [facility] #884859, See Instructions, # 20 each, Refills 11, Tot. Refills 11,Maintenance, Use as needed for ostomy maintaince. Dx ileostomy Z93.2, 01/05/24 15:39:00 EDT, Supply Start Date: 01/05/24 Status: Ordered ConvaTec Ostomy Pouch #449696 ConvaTec Ostomy Pouch #[id number], See Instructions, # 20 each, Refills 11, [...] 12/20/23 16:46:00 EDT, Route to Pharmacy Electronically, [facility] #[id number], Partial fill upon... Start Date: 12/20/23 Status: Ordered lidocaine 5% topical film 1 patch, Topically, 2 times a day, remove patches after 12 hours, # 15 patch, 0 Refills, Maintenance, 01/30/24 12:17:00 EDT, Film, [facility] #[id number], Partial fill upon patient request if the [...] EST, 01/19/24 15:35:00 EDT, [facility], [facility] #0... Start Date: 01/19/24 Stop Date: 07/17/24 Status: Ordered loperamide 2 mg oral tablet See Instructions, take 2 tablets by mouth 30 minutes before meals and at bedtime, # 240 tablet, 4 Refills, Maintenance, 01/03/24 16:27:00 EDT, Tablet, [facility] #[id number], Partial fill upon patient request if the prescription is for a schedule... Start Date: 01/03/24 Status: Ordered loperamide 2 mg oral tablet See Instructions, take 1 tablet by mouth 30 minutes before meals and at bedtime, # 120 tablet, 4 Refills, Maintenance, 12/21/23 15:35:00 EDT, Tablet, [facility] #[id number], Partial fill upon patient request if the [...] 0 Refills, Maintenance, 11/19/23 9:55:00 EDT, Tablet, [facility] #[id number], Partial fill upon patient request if the [...] 0 Refills, Maintenance, 01/30/24 13:16:00 EDT, Tablet, [facility] #[id number], Partial fill upon patient request if the prescription is for a schedule II opioid drug.... Start Date: 01/30/24 Status: Ordered oxyCODONE 20 mg oral tablet 1 tablet = 20 mg, By Mouth, Every 8 hours, Do not take the same time as diazepam., # 21 tablet, 0 Refills, Maintenance, 12/20/23 16:46:00 EDT, Tablet, [facility] #[id number], Partial fill upon patient request if the prescription is for a schedule... Start Date: 12/20/23 Status: Ordered straight brava strips 580042 straight brava strips 501807, See Instructions, # 80 each, Refills 11, [...] Safety Implantable Status Assigning Authority Unknown Unknown [id number] Unknown 07/06/27 Unknown Unknown Active Un known Procedure Provider Procedure Date Device Type Site Resection Colon Left Open Jada Chiang MD 12/07/23 Unk nown Colon Device Identifier Serial Number Lot or Batch Number Manufacturing Date Expiration Date Distinct Identification Code MRI Safety Implantable Status Assigning Authority Unknown Unknown [id number] Unknown 12/05/27 Unknown Unknown Active Unk nown Procedure Provider Procedure Date Device Type Site Resection Colon Left Open Jada Chiang MD 12/07/23 Unk nown Colon Device Identifier Serial Number Lot or Batch Number Manufacturing Date Expiration Date Distinct Identification Code MRI Safety Implantable Status Assigning Authority Unknown Unknown [id number] Y Unknown 05/06/28 Unknown Unknown Active Unknown [...] Safety Implantable Status Assigning Authority Unknown Unknown [id number] Y Unknown 11/05/27 Unknown Unknown Active Unknown Procedure Provider Procedure Date Device Type Site Resection Colon Left Open Jada Chiang MD 12/07/23 Unk nown Colon Device Identifier Serial Number Lot or Batch Number Manufacturing Date Expiration Date Distinct Identification Code MRI Safety Implantable Status Assigning Authority Unknown Unknown [id number] Unknown 01/05/28 Unknown Unknown Active Unk nown Procedure Provider Procedure Date Device Type Site Resection Colon Left Open Андрей Jada 12/07/23 Unk nown Colon Device Identifier Serial Number Lot or Batch Number Manufacturing Date Expiration Date Distinct Identification Code MRI Safety Implantable Status Assigning Authority Unknown Unknown [id number] Unknown 03/06/28 Unknown Unknown Active Unk nown Procedure Provider Procedure Date Device Type Site Resection Colon Left Open Андрей Jada 12/07/23 Unk nown Colon Device Identifier Serial Number Lot or Batch Number Manufacturing Date Expiration Date Distinct Identification Code MRI Safety Implantable Status Assigning Authority Unknown Unknown [id number] Unknown 12/05/27 Unknown Unknown Active Unk nown Patient Care team information Care Team Personnel Name: Bertha Kolb RN Position: [facility] RN Member Role: Primary Care Nurse Name: Ashley Domínguez RN Position: [facility] RN Member Role: Primary Care Nurse Name: Maame Pearce Position: [facility] Outreach Member Role: Lifetime Consulting Physician Name: Charline Terrazas RN Position: [facility] RN Member Role: Primary Care Nurse Name: Efrain Long RN Position: [facility] RN Member Role: Primary Care Nurse Name: Melyssa White NP Position: Reference Physician Member Role: PCP Address: Address: [address] [place] [address] Name: Nida Ferro RN Position: [facility] RN Member Role: Primary Care Nurse Name: Kaur Wilson RN Position: [facility] RN Member Role: Primary Care Nurse Name: Shasha Chou RN Position: [facility] RN Member Role: Primary Care Nurse Name: Alison Brewer RN Position: [facility] RN Member Role: Primary Care Nurse Name: Adamaris Lynn RN Position: [facility] RN Member Role: Primary Care Nurse Name: Rosario Schwarz RN Position: [facility] SN RN Member Role: Primary Care Nurse Name: Marianne Jesus RN Position: [facility] RN Member Role: Primary Care Nurse Name: Kriss Pena RN Position: [facility] RN Member Role: Primary Care Nurse Name: [place] Marcial RN Position: [facility] RN Member Role: Primary Care Nurse Name: Lolita Peres RN Position: S RN Member Role: Primary Care Nurse Name: Michael Syed RN Position: S RN Member Role: Primary Care Nurse Care Team Related Persons Name: SERGIO GORDON Address: [address] [place] [address] Name: EMILY REYNOLDS Address: [place] [address] Name: KATHERIN MONDRAGON Address: home [address] [address]
--- OUTSIDE RECORDS SUMMARY | 2024-03-27 07:38 | XMS_ITS | Continuity of Care Document ---
Author Organization [facility] Address [address] [place] [address] [address] [place] [address]- Care Team Providers Care Insurance Policy Clerk Name Role Phone Cindy DALEY, Melyssa Primary Care Physician [place] [facility] [place]15[place] - 02/14/[address] [place] [address]- Allergies, Adverse Reactions, Alerts Substance Reaction Severity Status ibuprofen 1 Hives Active 1swelling,hives Immunizations Given and Recorded Vaccine Date Status Refusal Reason tetanus/diphtheria/pertussis, acel(Tdap) 06/06/13 Given Medications Barrier strips [id number] Barrier strips [id number], See Instructions, # 80 each, Refills 11, [...] Start Date: 02/13/24 Status: Ordered coloplast bags #84612 coloplast bags #09691, See Instructions, # 20 each, Refills 11, Tot. Refills 11, Maintenance, use as needed for ostomy care Dx. ileostomy Z93.2, 01/02/24 15:45:00 EDT, Compound Start Date: 01/02/24 Status: Ordered convatec bags #[id number] convatec bags #[id number], See Instructions, # 20 each, Refills 11, Tot. Refills 11, Maintenance, use as needed for ostomy care Dx. ileostomy Z93.2, 01/11/24 13:19:00 EDT, Compound Start Date: 01/11/24 Status: Ordered Convatec bags (#076041) Convatec bags (#497147), See Instructions, # 40 each, Refills 11, Tot. Refills 11, Maintenance, useas needed for ostomy maintaince. Dx ileostomy Z93.2, 02/13/24 9:14:00 EDT, Supply Start Date: 02/13/24 Status: Ordered Convatec flange (#379648) Convatec flange (#540062), See Instructions, # 40 each, Refills 11, Tot. Refills 11, Maintenance, use as needed for ostomy maintaince. Dx ileostomy Z93.2, 02/13/24 9:14:00 EDT, Supply Start Date: 02/13/24 Status: Ordered convatec flange# [id number] convatec flange# [id number], See Instructions, # 20 each, Refills 11, Tot. Refills 11, Maintenance, useas needed for ostomy care Dx. ileostomy Z93.2, 01/11/24 13:27:00 EDT, Compound Start Date: 01/11/24 Status: Ordered ConvaTec Ostomy [facility] Flange #[id number] ConvaTec Ostomy [place] Flange #[id number], See Instructions, # 20 each, Refills 11, Tot. Refills 11,Maintenance, Use as needed for ostomy maintaince. Dx ileostomy Z93.2, 01/05/24 15:39:00 EDT, Supply Start Date: 01/05/24 Status: Ordered ConvaTec Ostomy Pouch #[id number] ConvaTec Ostomy Pouch #[id number], See Instructions, # 20 each, Refills 11, [...] 12/20/23 16:46:00 EDT, Route to Pharmacy Electronically, [facility][id number], Partial fill upon... Start Date: 12/20/23 Status: Ordered lidocaine 5% topical film 1 patch, Topically, 2 times a day, remove patches after 12 hours, # 15 patch, 0 Refills, Maintenance, 01/30/24 12:17:00 EDT, Film, [facility] #[id number], Partial fill upon patient request if the [...] EST, 01/19/24 15:35:00 EDT, [facility], [facility]... Start Date: 01/19/24 Stop Date: 07/17/24 Status: Ordered loperamide 2 mg oral tablet See Instructions, take 2 tablets by mouth 30 minutes before meals and at bedtime, # 240 tablet, 4 Refills, Maintenance, 01/03/24 16:27:00 EDT, Tablet, [facility] #[id number], Partial fill upon patient request if the prescription is for a schedule... Start Date: 01/03/24 Status: Ordered loperamide 2 mg oral tablet See Instructions, take 1 tablet by mouth 30 minutes before meals and at bedtime, # 120 tablet, 4 Refills, Maintenance, 12/21/23 15:35:00 EDT, Tablet, [facility] #[id number], Partial fill upon patient request if the [...] 0 Refills, Maintenance, 11/19/23 9:55:00 EDT, Tablet, [facility][id number], Partial fill upon patient request if the [...] 0 Refills, Maintenance, 01/30/24 13:16:00 EDT, Tablet, [facility][id number], Partial fill upon patient request if the prescription is for a schedule II opioid drug.... Start Date: 01/30/24 Status: Ordered oxyCODONE 20 mg oral tablet 1 tablet = 20 mg, By Mouth, Every 8 hours, Do not take the same time as diazepam., # 21 tablet, 0 Refills, Maintenance, 12/20/23 16:46:00 EDT, Tablet, [facility] #[id number], Partial fill upon patient request if the prescription is for a schedule... Start Date: 12/20/23 Status: Ordered straight brava strips [id number] straight brava strips [id number], See Instructions, # 80 each, Refills 11, [...] Safety Implantable Status Assigning Authority Unknown Unknown [id number] Unknown 07/06/27 Unknown Unknown Active Un known Procedure Provider Procedure Date Device Type Site Resection Colon Left Open Jada Chiang MD 12/07/23 Unk nown Colon Device Identifier Serial Number Lot or Batch Number Manufacturing Date Expiration Date Distinct Identification Code MRI Safety Implantable Status Assigning Authority Unknown Unknown [id number] Unknown 12/05/27 Unknown Unknown Active Unk nown Procedure Provider Procedure Date Device Type Site Resection Colon Left Open Jada Chiang MD 12/07/23 Unk nown Colon Device Identifier Serial Number Lot or Batch Number Manufacturing Date Expiration Date Distinct Identification Code MRI Safety Implantable Status Assigning Authority Unknown Unknown [id number] Y Unknown 05/06/28 Unknown Unknown Active Unknown [...] Left Open Jada Chiang MD 12/07/23 Unk nowheath Colon Device Identifier Serial Number Lot or Batch Number Manufacturing Date Expiration Date Distinct Identification Code MRI Safety Implantable Status Assigning Authority Unknown Unknown [id number] Y Unknown 11/05/27 Unknown Unknown Active Unknown Procedure Provider Procedure Date Device Type Site Resection Colon Left Open Jada Chiang MD 12/07/23 Unk nown Colon Device Identifier Serial Number Lot or Batch Number Manufacturing Date Expiration Date Distinct Identification Code MRI Safety Implantable Status Assigning Authority Unknown Unknown [id number] Unknown 01/05/28 Unknown Unknown Active Unk nown Procedure Provider Procedure Date Device Type Site Resection Colon Left Open Jada Chiang MD 12/07/23 Unk nown Colon Device Identifier Serial Number Lot or Batch Number Manufacturing Date Expiration Date Distinct Identification Code MRI Safety Implantable Status Assigning Authority Unknown Unknown [id number] Unknown 03/06/28 Unknown Unknown Active Unk nown Procedure Provider Procedure Date Device Type Site Resection Colon Left Open Jada Chiang MD 12/07/23 Unk nown Colon Device Identifier Serial Number Lot or Batch Number Manufacturing Date Expiration Date Distinct Identification Code MRI Safety Implantable Status Assigning Authority Unknown Unknown [id number] Unknown 12/05/27 Unknown Unknown Active Unk nown Patient Care team information Care Team Personnel Name: Bertha Kolb RN Position: [facility] RN Member Role: Primary Care Nurse Name: Ashley Domínguez RN Position: [facility] RN Member Role: Primary Care Nurse Name: Maame Pearce Position: [facility] Outreach Member Role: Lifetime Consulting Physician Name: Charline Terrazas RN Position: [facility] RN Member Role: Primary Care Nurse Name: Efrain Long RN Position: [facility] RN Member Role: Primary Care Nurse Name: Melyssa White NP Position: Reference Physician Member Role: PCP Address: Address: [address] [place] [address] Name: Nida Ferro RN Position: [facility] RN Member Role: Primary Care Nurse Name: Kaur Wilson RN Position: [facility] RN Member Role: Primary Care Nurse Name: Shasha Chou RN Position: [facility] RN Member Role: Primary Care Nurse Name: Alison Brewer RN Position: [facility] RN Member Role: Primary Care Nurse Name: Adamaris Lynn RN Position: [facility] RN Member Role: Primary Care Nurse Name: Rosario Schwarz RN Position: [facility] SN RN Member Role: Primary Care Nurse Name: Marianne Jesus RN Position: [facility] RN Member Role: Primary Care Nurse Name: Kriss Pena RN Position: [facility] RN Member Role: Primary Care Nurse Name: Maine Marcial RN Position: [facility] RN Member Role: Primary Care Nurse Name: Lolita Peres RN Position: S RN Member Role: Primary Care Nurse Name: Michael Syed RN Position: S RN Member Role: Primary Care Nurse Care Team Related Persons Name: SERGIO GORDON Address: [address] [place] [address] Name: EMILY REYNOLDS Address: [place] [address] Name: KATHERIN MONDRAGON Address: home [address] [address]
--- OUTSIDE RECORDS SUMMARY | 2024-03-27 07:38 | XMS_ITS | Continuity of Care Document ---
Author Organization [facility] Address [address] [place] [address] [address] [place] [address]- Care Team Providers Care General Agent Name Role Phone Melyssa White NP Primary Care Physician [phone] Encounter [facility] [place] Date(s): 01/31/24 - 03/01/24 [facility] [address] [place] [address]- Allergies, Adverse Reactions, Alerts Substance Reaction Severity Status ibuprofen 1 Hives Active 1swelling,hives Immunizations Given and Recorded Vaccine Date Status Refusal Reason tetanus/diphtheria/pertussis, acel(Tdap) 06/06/13 Given Medications Barrier strips [id number] Barrier strips 406520, See Instructions, # 80 each, Refills 11, [...] Start Date: 02/13/24 Status: Ordered coloplast bags #71215 coloplast bags #89780, See Instructions, # 20 each, Refills 11, Tot. Refills 11, Maintenance, use as needed for ostomy care Dx. ileostomy Z93.2, 01/02/24 15:45:00 EDT, Compound Start Date: 01/02/24 Status: Ordered convatec bags #[id number] convatec bags #388664, See Instructions, # 20 each, Refills 11, Tot. Refills 11, Maintenance, use as needed for ostomy care Dx. ileostomy Z93.2, 01/11/24 13:19:00 EDT, Compound Start Date: 01/11/24 Status: Ordered Convatec bags (#616701) Convatec bags (#965464), See Instructions, # 40 each, Refills 11, Tot. Refills 11, Maintenance, useas needed for ostomy maintaince. Dx ileostomy Z93.2, 02/13/24 9:14:00 EDT, Supply Start Date: 02/13/24 Status: Ordered Convatec flange (#481094) Convatec flange (#514241), See Instructions, # 40 each, Refills 11, Tot. Refills 11, Maintenance, use as needed for ostomy maintaince. Dx ileostomy Z93.2, 02/13/24 9:14:00 EDT, Supply Start Date: 02/13/24 Status: Ordered convatec flange# 175245 convatec flange# 049135, See Instructions, # 20 each, Refills 11, Tot. Refills 11, Maintenance, useas needed for ostomy care Dx. ileostomy Z93.2, 01/11/24 13:27:00 EDT, Compound Start Date: 01/11/24 Status: Ordered ConvaTec Ostomy [facility] #261589 ConvaTec Ostomy [facility]ange #428535, See Instructions, # 20 each, Refills 11, Tot. Refills 11,Maintenance, Use as needed for ostomy maintaince. Dx ileostomy Z93.2, 01/05/24 15:39:00 EDT, Supply Start Date: 01/05/24 Status: Ordered ConvaTec Ostomy Pouch #026640 ConvaTec Ostomy Pouch #[id number], See Instructions, # 20 each, Refills 11, [...] 12/20/23 16:46:00 EDT, Route to Pharmacy Electronically, [facility] #[id number], Partial fill upon... Start Date: 12/20/23 Status: Ordered lidocaine 5% topical film 1 patch, Topically, 2 times a day, remove patches after 12 hours, # 15 patch, 0 Refills, Maintenance, 01/30/24 12:17:00 EDT, Film, [facility][id number], Partial fill upon patient request if the [...] EST, 01/19/24 15:35:00 EDT, [facility]... Start Date: 01/19/24 Stop Date: 07/17/24 Status: Ordered loperamide 2 mg oral tablet See Instructions, take 2 tablets by mouth 30 minutes before meals and at bedtime, # 240 tablet, 4 Refills, Maintenance, 01/03/24 16:27:00 EDT, Tablet, [facility] #[id number], Partial fill upon patient request if the prescription is for a schedule... Start Date: 01/03/24 Status: Ordered loperamide 2 mg oral tablet See Instructions, take 1 tablet by mouth 30 minutes before meals and at bedtime, # 120 tablet, 4 Refills, Maintenance, 12/21/23 15:35:00 EDT, Tablet, [facility] #[id number], Partial fill upon patient request if the [...] 0 Refills, Maintenance, 11/19/23 9:55:00 EDT, Tablet, [facility][id number], Partial fill upon patient request if the [...] 0 Refills, Maintenance, 01/30/24 13:16:00 EDT, Tablet, [facility] #[id number], Partial fill upon patient request if the prescription is for a schedule II opioid drug.... Start Date: 01/30/24 Status: Ordered oxyCODONE 20 mg oral tablet 1 tablet = 20 mg, By Mouth, Every 8 hours, Do not take the same time as diazepam., # 21 tablet, 0 Refills, Maintenance, 12/20/23 16:46:00 EDT, Tablet, [facility] #[id number], Partial fill upon patient request if the prescription is for a schedule... Start Date: 12/20/23 Status: Ordered straight brava strips 326178 straight brava strips 430385, See Instructions, # 80 each, Refills 11, [...] Safety Implantable Status Assigning Authority Unknown Unknown [id number] Unknown 07/06/27 Unknown Unknown Active Un known Procedure Provider Procedure Date Device Type Site Resection Colon Left Open Jada Chiang MD 12/07/23 Unk nown Colon Device Identifier Serial Number Lot or Batch Number Manufacturing Date Expiration Date Distinct Identification Code MRI Safety Implantable Status Assigning Authority Unknown Unknown [id number] Unknown 12/05/27 Unknown Unknown Active Unk nown Procedure Provider Procedure Date Device Type Site Resection Colon Left Open Jada Chiang MD 12/07/23 Unk nown Colon Device Identifier Serial Number Lot or Batch Number Manufacturing Date Expiration Date Distinct Identification Code MRI Safety Implantable Status Assigning Authority Unknown Unknown [id number] Unknown 05/06/28 Unknown Unknown Active Unknown [...] Safety Implantable Status Assigning Authority Unknown Unknown [id number] Unknown 11/05/27 Unknown Unknown Active Unknown Procedure Provider Procedure Date Device Type Site Resection Colon Left Open Jada Chiang MD 12/07/23 Unk nown Colon Device Identifier Serial Number Lot or Batch Number Manufacturing Date Expiration Date Distinct Identification Code MRI Safety Implantable Status Assigning Authority Unknown Unknown [id number] Unknown 01/05/28 Unknown Unknown Active Unk nown Procedure Provider Procedure Date Device Type Site Resection Colon Left Open Андрей Jada 12/07/23 Unk nown Colon Device Identifier Serial Number Lot or Batch Number Manufacturing Date Expiration Date Distinct Identification Code MRI Safety Implantable Status Assigning Authority Unknown Unknown [id number] Unknown 03/06/28 Unknown Unknown Active Unk nown Procedure Provider Procedure Date Device Type Site Resection Colon Left Open Андрей Jada 12/07/23 Unk nown Colon Device Identifier Serial Number Lot or Batch Number Manufacturing Date Expiration Date Distinct Identification Code MRI Safety Implantable Status Assigning Authority Unknown Unknown [id number] Unknown 12/05/27 Unknown Unknown Active Unk nown Patient Care team information Care Team Personnel Name: Bertha Kolb [facility] RN Member Role: Primary Care Nurse Name: Ashley Domínguez RN [facility] RN Member Role: Primary Care Nurse Name: Maame Pearce Position: [facility] Outreach Member Role: Lifetime Consulting Physician Name: Charline Terrazas RN Position: [facility] RN Member Role: Primary Care Nurse Name: Efrain Long RN Position: [facility] RN Member Role: Primary Care Nurse Name: Melyssa White NP Position: Reference Physician Member Role: PCP Address: Address: [address] [place] [address] Name: Nida Ferro RN Position: [facility] RN Member Role: Primary Care Nurse Name: Kaur Wilosn RN Position: [facility] RN Member Role: Primary Care Nurse Name: Shasha Chou RN Position: [facility] RN Member Role: Primary Care Nurse Name: Alison Brewer RN Position: [facility] RN Member Role: Primary Care Nurse Name: Adamaris Lynn RN Position: [facility] RN Member Role: Primary Care Nurse Name: Rosario Schwarz RN Position: [facility] SN RN Member Role: Primary Care Nurse Name: Marianne Jesus RN Position: [facility] RN Member Role: Primary Care Nurse Name: Kriss Pena RN Position: [facility] RN Member Role: Primary Care Nurse Name: Maine Marcial RN Position: [facility] RN Member Role: Primary Care Nurse Name: Lolita Peres RN Position: S RN Member Role: Primary Care Nurse Name: Michael Syed RN Position: S RN Member Role: Primary Care Nurse Care Team Related Persons Name: SERGIO GORDON Address: [address] [place] [address] Name: EMILY REYNOLDS Address: [place] [address] Name: KATHERIN MONDRAGON Address: home [address] [address]
--- OUTSIDE RECORDS SUMMARY | 2024-03-27 07:38 | XMS_ITS | Continuity of Care Document ---
Author Organization [facility] Address [address] [place] [address] [address] [place] [address]- Care Team Providers Care Geomagnetist Name Role Phone Melyssa White NP Primary Care Physician Encounter [facility] Date(s): 01/08/24 - 02/07/[address] [place] [address]- Allergies, Adverse Reactions, Alerts Substance Reaction Severity Status ibuprofen 1 Hives Active 1swelling,hives Immunizations Given and Recorded Vaccine Date Status Refusal Reason tetanus/diphtheria/pertussis, acel(Tdap) 06/06/13 Given Medications coloplast bags #[id number] coloplast bags #[id number], See Instructions, # 20 each, Refills 11, Tot. Refills 11, Maintenance, use as needed for ostomy care Dx. ileostomy Z93.2, 01/02/24 15:45:00 EDT, Compound Start Date: 01/02/24 Status: Ordered convatec bags #[id number] convatec bags #[id number], See Instructions, # 20 each, Refills 11, Tot. Refills 11, Maintenance, use as needed for ostomy care Dx. ileostomy Z93.2, 01/11/24 13:19:00 EDT, Compound Start Date: 01/11/24 Status: Ordered convatec flange# [id number] convatec flange# [id number], See Instructions, # 20 each, Refills 11, Tot. Refills 11, Maintenance, useas needed for ostomy care Dx. ileostomy Z93.2, 01/11/24 13:27:00 EDT, Compound Start Date: 01/11/24 Status: Ordered ConvaTec Ostomy [place] [facility]ange #[id number] ConvaTec Ostomy [place] Flange #[id number], See Instructions, # 20 each, Refills 11, Tot. Refills 11,Maintenance, Use as needed for ostomy maintaince. Dx ileostomy Z93.2, 01/05/24 15:39:00 EDT, Supply Start Date: 01/05/24 Status: Ordered ConvaTec Ostomy Pouch #[id number] ConvaTec Ostomy Pouch #[id number], See Instructions, # 20 each, Refills 11, [...] 12/20/23 16:46:00 EDT, Route to Pharmacy Electronically, [facility] #[id number], Partial fill upon... Start Date: 12/20/23 Status: Ordered lidocaine 5% topical film 1 patch, Topically, 2 times a day, remove patches after 12 hours, # 15 patch, 0 Refills, Maintenance, 01/30/24 12:17:00 EDT, Film, [facility] #[id number], Partial fill upon patient request if the [...] EST, 01/19/24 15:35:00 EDT, [facility] Electronically, [facility] #[facility]... Start Date: 01/19/24 Stop Date: 07/17/24 Status: Ordered loperamide 2 mg oral tablet See Instructions, take 2 tablets by mouth 30 minutes before meals and at bedtime, # 240 tablet, 4 Refills, Maintenance, 01/03/24 16:27:00 EDT, Tablet, [facility] #[id number], Partial fill upon patient request if the prescription is for a schedule... Start Date: 01/03/24 Status: Ordered loperamide 2 mg oral tablet See Instructions, take 1 tablet by mouth 30 minutes before meals and at bedtime, # 120 tablet, 4 Refills, Maintenance, 12/21/23 15:35:00 EDT, Tablet, [facility] #[id number], Partial fill upon patient request if the prescription is for a schedule... Start Date: 12/21/23 Status: Ordered medroxyPROGESTERone 150 mg/mL intramuscular suspension 1 mL = 150 mg, Intramuscular, Every 3 months, Maintenance, 11/26/23 18:41:00 EDT, Suspension, Partial fill upon patient request if the prescription is for a schedule II opioid drug. Start Date: 11/26/23 Status: Ordered ondansetron 4 mg oral tablet, disintegrating 1 tablet = 4 mg, By Mouth, Every 8 hours, PRN Nausea & Vomiting, # 24 tablet, 0 Refills, Maintenance, 11/19/23 9:55:00 EDT, Tablet, [facility] #[id number], Partial fill upon patient request if the [...] 0 Refills, Maintenance, 01/30/24 13:16:00 EDT, Tablet, [facility] #[id number], Partial fill upon patient request if the prescription is for a schedule II opioid drug.... Start Date: 01/30/24 Status: Ordered oxyCODONE 20 mg oral tablet 1 tablet = 20 mg, By Mouth, Every 8 hours, Do not take the same time as diazepam., # 21 tablet, 0 Refills, Maintenance, 12/20/23 16:46:00 EDT, Tablet, [facility] #[id number], Partial fill upon patient request if the prescription is for a schedule... Start Date: 12/20/23 Status: Ordered straight brava strips [id number] straight brava strips [id number], See Instructions, # 80 each, Refills 11, [...] Safety Implantable Status Assigning Authority Unknown Unknown [id number] Unknown 07/06/27 Unknown Unknown Active Un known Procedure Provider Procedure Date Device Type Site Resection Colon Left Open Jada Chinag MD 12/07/23 Unk nown Colon Device Identifier Serial Number Lot or Batch Number Manufacturing Date Expiration Date Distinct Identification Code MRI Safety Implantable Status Assigning Authority Unknown Unknown [id number] Unknown 12/05/27 Unknown Unknown Active Unk nown Procedure Provider Procedure Date Device Type Site Resection Colon Left Open Jada Chiang MD 12/07/23 Unk nowheath Colon Device Identifier Serial Number Lot or Batch Number Manufacturing Date Expiration Date Distinct Identification Code MRI Safety Implantable Status Assigning Authority Unknown Unknown [id number] Unknown 05/06/28 Unknown Unknown Active Unknown [...] Type Site Resection Colon Left Open Андрей MASTERSJada 12/07/23 Unk nown Colon Device Identifier Serial Number Lot or Batch Number Manufacturing Date Expiration Date Distinct Identification Code MRI Safety Implantable Status Assigning Authority Unknown Unknown [id number] Unknown 11/05/27 Unknown Unknown Active Unknown Procedure Provider Procedure Date Device Type Site Resection Colon Left Open Андрей MASTERSJada 12/07/23 Unk nown Colon Device Identifier Serial Number Lot or Batch Number Manufacturing Date Expiration Date Distinct Identification Code MRI Safety Implantable Status Assigning Authority Unknown Unknown [id number] Unknown 01/05/28 Unknown Unknown Active Unk nown Procedure Provider Procedure Date Device Type Site Resection Colon Left Open Андрей MASTERSJada 12/07/23 Unk nown Colon Device Identifier Serial Number Lot or Batch Number Manufacturing Date Expiration Date Distinct Identification Code MRI Safety Implantable Status Assigning Authority Unknown Unknown [id number] Unknown 03/06/28 Unknown Unknown Active Unk nown Procedure Provider Procedure Date Device Type Site Resection Colon Left Open Андрей MASTERSJada 12/07/23 Unk nown Colon Device Identifier Serial Number Lot or Batch Number Manufacturing Date Expiration Date Distinct Identification Code MRI Safety Implantable Status Assigning Authority Unknown Unknown [id number] Unknown 12/05/27 Unknown Unknown Active Unk nown Patient Care team information Care Team Personnel Name: Bertha Kolb RN Position: [facility] RN Member Role: Primary Care Nurse Name: Ashley Domínguez RN Position: [facility] RN Member Role: Primary Care Nurse Name: Maame Pearce Position: [facility] Outreach Member Role: Lifetime Consulting Physician Name: Charline Terrazas RN Position: [facility] RN Member Role: Primary Care Nurse Name: Efrain Long RN Position: S RN Member Role: Primary Care Nurse Name: Melyssa White NP Position: Reference Physician Member Role: PCP Address: Address: [address] [place] [id number] Name: Nida Ferro RN Position: S RN Member Role: Primary Care Nurse Name: Kaur Wilson RN Position: S RN Member Role: Primary Care Nurse Name: Shasha Chou RN Position: S RN Member Role: Primary Care Nurse Name: Alison Brewer RN Position: [facility] RN Member Role: Primary Care Nurse Name: Adamaris Lynn RN Position: [facility] RN Member Role: Primary Care Nurse Name: Rosario Schwarz RN Position: [facility] SN RN Member Role: Primary Care Nurse Name: Marianne Jesus RN Position: [facility] RN Member Role: Primary Care Nurse Name: Kriss Pena RN Position: [facility] RN Member Role: Primary Care Nurse Name: Maine Marcial RN Position: [facility] RN Member Role: Primary Care Nurse Name: Lolita Peres RN Position: [facility] RN Member Role: Primary Care Nurse Name: Michael Syed RN Position: [facility] RN Member Role: Primary Care Nurse Care Team Related Persons Name: GORDON SERGIO Address: [address] [place] [address] Name: EMILY REYNOLDS Address: [place] [address] Name: KATHERIN MONDRAGON Address: home [address] [address]
--- OUTSIDE RECORDS SUMMARY | 2024-03-27 07:38 | XMS_ITS | Continuity of Care Document ---
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 Date(s): 01/23/24 - 02/22/24 [facility] [address] [place] [address]- Allergies, Adverse Reactions, Alerts Substance Reaction Severity Status ibuprofen 1 Hives Active 1swelling,hives Immunizations Given and Recorded Vaccine Date Status Refusal Reason tetanus/diphtheria/pertussis, acel(Tdap) 06/06/13 Given Medications Barrier strips [id number] Barrier strips [id number], See Instructions, # 80 each, Refills 11, [...] Start Date: 02/13/24 Status: Ordered coloplast bags #91049 coloplast bags #33571, See Instructions, # 20 each, Refills 11, Tot. Refills 11, Maintenance, use as needed for ostomy care Dx. ileostomy Z93.2, 01/02/24 15:45:00 EDT, Compound Start Date: 01/02/24 Status: Ordered convatec bags #866136 convatec bags #[id number], See Instructions, # 20 each, Refills 11, Tot. Refills 11, Maintenance, use as needed for ostomy care Dx. ileostomy Z93.2, 01/11/24 13:19:00 EDT, Compound Start Date: 01/11/24 Status: Ordered Convatec bags (#561205) Convatec bags (#[id number]), See Instructions, # 40 each, Refills 11, Tot. Refills 11, Maintenance, useas needed for ostomy maintaince. Dx ileostomy Z93.2, 02/13/24 9:14:00 EDT, Supply Start Date: 02/13/24 Status: Ordered Convatec flange (#686817) Convatec flange (#443758), See Instructions, # 40 each, Refills 11, Tot. Refills 11, Maintenance, use as needed for ostomy maintaince. Dx ileostomy Z93.2, 02/13/24 9:14:00 EDT, Supply Start Date: 02/13/24 Status: Ordered convatec flange# [id number] convatec flange# 276289, See Instructions, # 20 each, Refills 11, Tot. Refills 11, Maintenance, useas needed for ostomy care Dx. ileostomy Z93.2, 01/11/24 13:27:00 EDT, Compound Start Date: 01/11/24 Status: Ordered ConvaTec Ostomy [facility] #142837 ConvaTec Ostomy [place] [facility]ange #473833, See Instructions, # 20 each, Refills 11, Tot. Refills 11,Maintenance, Use as needed for ostomy maintaince. Dx ileostomy Z93.2, 01/05/24 15:39:00 EDT, Supply Start Date: 01/05/24 Status: Ordered ConvaTec Ostomy Pouch #[id number] ConvaTec Ostomy Pouch #[id number], See Instructions, # 20 each, Refills 11, [...] 12/20/23 16:46:00 EDT, Route to Pharmacy Electronically, [facility] #[id number], Partial fill upon... Start Date: 12/20/23 Status: Ordered lidocaine 5% topical film 1 patch, Topically, 2 times a day, remove patches after 12 hours, # 15 patch, 0 Refills, Maintenance, 01/30/24 12:17:00 EDT, Film, [facility] #[id number], Partial fill upon patient request if the [...] EST, 01/19/24 15:35:00 EDT, [facility] Electronically, [facility] #[facility]... Start Date: 01/19/24 Stop Date: 07/17/24 Status: Ordered loperamide 2 mg oral tablet See Instructions, take 2 tablets by mouth 30 minutes before meals and at bedtime, # 240 tablet, 4 Refills, Maintenance, 01/03/24 16:27:00 EDT, Tablet, [facility] #[id number], Partial fill upon patient request if the prescription is for a schedule... Start Date: 01/03/24 Status: Ordered loperamide 2 mg oral tablet See Instructions, take 1 tablet by mouth 30 minutes before meals and at bedtime, # 120 tablet, 4 Refills, Maintenance, 12/21/23 15:35:00 EDT, Tablet, [facility] #[id number], Partial fill upon patient request if the [...] 0 Refills, Maintenance, 11/19/23 9:55:00 EDT, Tablet, [facility] #[id number], Partial fill upon patient request if the [...] 0 Refills, Maintenance, 01/30/24 13:16:00 EDT, Tablet, [facility] #[id number], Partial fill upon patient request if the prescription is for a schedule II opioid drug.... Start Date: 01/30/24 Status: Ordered oxyCODONE 20 mg oral tablet 1 tablet = 20 mg, By Mouth, Every 8 hours, Do not take the same time as diazepam., # 21 tablet, 0 Refills, Maintenance, 12/20/23 16:46:00 EDT, Tablet, [facility] #[id number], Partial fill upon patient request if the prescription is for a schedule... Start Date: 12/20/23 Status: Ordered straight brava strips [id number] straight brava strips 276166, See Instructions, # 80 each, Refills 11, [...] Safety Implantable Status Assigning Authority Unknown Unknown [id number] Unknown 07/06/27 Unknown Unknown Active Un known Procedure Provider Procedure Date Device Type Site Resection Colon Left Open Jada hCiang MD 12/07/23 Unk nown Colon Device Identifier Serial Number Lot or Batch Number Manufacturing Date Expiration Date Distinct Identification Code MRI Safety Implantable Status Assigning Authority Unknown Unknown [id number] Unknown 12/05/27 Unknown Unknown Active Unk nown Procedure Provider Procedure Date Device Type Site Resection Colon Left Open Jada Chiang MD 12/07/23 Unk nown Colon Device Identifier Serial Number Lot or Batch Number Manufacturing Date Expiration Date Distinct Identification Code MRI Safety Implantable Status Assigning Authority Unknown Unknown [id number] Unknown 05/06/28 Unknown Unknown Active Unknown [...] Safety Implantable Status Assigning Authority Unknown Unknown [id number] Unknown 11/05/27 Unknown Unknown Active Unknown Procedure Provider Procedure Date Device Type Site Resection Colon Left Open Jada Chiang MD 12/07/23 Unk nown Colon Device Identifier Serial Number Lot or Batch Number Manufacturing Date Expiration Date Distinct Identification Code MRI Safety Implantable Status Assigning Authority Unknown Unknown [id number] Unknown 01/05/28 Unknown Unknown Active Unk nown Procedure Provider Procedure Date Device Type Site Resection Colon Left Open Андрей Jada 12/07/23 Unk nown Colon Device Identifier Serial Number Lot or Batch Number Manufacturing Date Expiration Date Distinct Identification Code MRI Safety Implantable Status Assigning Authority Unknown Unknown [id number] Unknown 03/06/28 Unknown Unknown Active Unk nown Procedure Provider Procedure Date Device Type Site Resection Colon Left Open Андрей Jada 12/07/23 Unk nown Colon Device Identifier Serial Number Lot or Batch Number Manufacturing Date Expiration Date Distinct Identification Code MRI Safety Implantable Status Assigning Authority Unknown Unknown [id number] Unknown 12/05/27 Unknown Unknown Active Unk nown Patient Care team information Care Team Personnel Name: Bertha Kolb RN Position: [facility] RN Member Role: Primary Care Nurse Name: Ashley Domínguez RN Position: [facility] RN Member Role: Primary Care Nurse Name: Maame Pearce Position: [facility] Outreach Member Role: Lifetime Consulting Physician Name: Charline Terrazas RN Position: [facility] RN Member Role: Primary Care Nurse Name: Efrain Long RN Position: [facility] RN Member Role: Primary Care Nurse Name: Melyssa White NP Position: Reference Physician Member Role: PCP Address: Address: [address] [place] [address] Name: Nida Ferro RN Position: [facility] RN Member Role: Primary Care Nurse Name: Kaur Wilson RN Position: [facility] RN Member Role: Primary Care Nurse Name: Shasha Chou RN Position: [facility] RN Member Role: Primary Care Nurse Name: Alison Brewer RN Position: [facility] RN Member Role: Primary Care Nurse Name: Adamaris Lynn RN Position: [facility] RN Member Role: Primary Care Nurse Name: Rosario Schwarz RN Position: [facility] SN RN Member Role: Primary Care Nurse Name: Marianne Jesus RN Position: [facility] RN Member Role: Primary Care Nurse Name: Kriss Pena RN Position: [facility] RN Member Role: Primary Care Nurse Name: [place] Marcial RN Position: [facility] RN Member Role: Primary Care Nurse Name: Lolita Peres RN Position: S RN Member Role: Primary Care Nurse Name: Michael Syed RN Position: S RN Member Role: Primary Care Nurse Care Team Related Persons Name: SERGIO GORDON Address: [address] [place] [address] Name: EMILY REYNOLDS Address: [place] [address] Name: KATHERIN MONDRAGON Address: home [address] [address]
--- OUTSIDE RECORDS SUMMARY | 2024-03-27 07:38 | XMS_ITS | Continuity of Care Document ---
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 Name Role Phone Cindy DALEY, Melyssa Primary Care Physician [place] [facility] [id number] Date(s): 02/07/24 - 02/07/[address] [address]- Discharge Disposition: A-D/C Home Attending Physician: Jada Chiang MD Admitting Physician: Jada Chiang MD Referring Physician: Jada Chiang MD Allergies, Adverse Reactions, Alerts Substance Reaction Severity Status ibuprofen 1 Hives Active 1swelling,hives Immunizations Given and Recorded Vaccine Date Status Refusal Reason tetanus/diphtheria/pertussis, acel(Tdap) 06/06/13 Given Medications coloplast bags #49467 coloplast bags #30024, See Instructions, # 20 each, Refills 11, Tot. Refills 11, Maintenance, use as needed for ostomy care Dx. ileostomy Z93.2, 01/02/24 15:45:00 EDT, Compound Start Date: 01/02/24 Status: Ordered convatec bags #358294 convatec bags #714150, See Instructions, # 20 each, Refills 11, Tot. Refills 11, Maintenance, use as needed for ostomy care Dx. ileostomy Z93.2, 01/11/24 13:19:00 EDT, Compound Start Date: 01/11/24 Status: Ordered convatec flange# [id number] convatec flange# [id number], See Instructions, # 20 each, Refills 11, Tot. Refills 11, Maintenance, useas needed for ostomy care Dx. ileostomy Z93.2, 01/11/24 13:27:00 EDT, Compound Start Date: 01/11/24 Status: Ordered ConvaTec Ostomy Accordion Flange #[id number] ConvaTec Ostomy Accordion Flange #[id number], See Instructions, # 20 each, Refills 11, Tot. Refills 11,Maintenance, Use as needed for ostomy maintaince. Dx ileostomy Z93.2, 01/05/24 15:39:00 EDT, Supply Start Date: 01/05/24 Status: Ordered ConvaTec Ostomy Pouch #[id number] ConvaTec Ostomy Pouch #[id number], See Instructions, # 20 each, Refills 11, [...] 12/20/23 16:46:00 EDT, Route to Pharmacy Electronically, [facility] #[id number], Partial fill upon... Start Date: 12/20/23 Status: Ordered lidocaine 5% topical film 1 patch, Topically, 2 times a day, remove patches after 12 hours, # 15 patch, 0 Refills, Maintenance, 01/30/24 12:17:00 EDT, Film, [facility] #[id number], Partial fill upon patient request if the [...] EST, 01/19/24 15:35:00 EDT, Routeto Pharmacy Electronically, [id number]... Start Date: 01/19/24 Stop Date: 07/17/24 Status: Ordered loperamide 2 mg oral tablet See Instructions, take 2 tablets by mouth 30 minutes before meals and at bedtime, # 240 tablet, 4 Refills, Maintenance, 01/03/24 16:27:00 EDT, Tablet, [facility] #[id number], Partial fill upon patient request if the prescription is for a schedule... Start Date: 01/03/24 Status: Ordered loperamide 2 mg oral tablet See Instructions, take 1 tablet by mouth 30 minutes before meals and at bedtime, # 120 tablet, 4 Refills, Maintenance, 12/21/23 15:35:00 EDT, Tablet, [facility] #[id number], Partial fill upon patient request if the [...] 0 Refills, Maintenance, 11/19/23 9:55:00 EDT, Tablet, [facility] #[id number], Partial fill upon patient request if the [...] 0 Refills, Maintenance, 01/30/24 13:16:00 EDT, Tablet, [facility] #[id number], Partial fill upon patient request if the prescription is for a schedule II opioid drug.... Start Date: 01/30/24 Status: Ordered oxyCODONE 20 mg oral tablet 1 tablet = 20 mg, By Mouth, Every 8 hours, Do not take the same time as diazepam., # 21 tablet, 0 Refills, Maintenance, 12/20/23 16:46:00 EDT, Tablet, [facility] #[id number], Partial fill upon patient request if the prescription is for a schedule... Start Date: 12/20/23 Status: Ordered straight brava strips [id number] straight brava strips [id number], See Instructions, # 80 each, Refills 11, [...] Confirmed Active Obese class I Confirmed Active Vital Signs Most recent to oldest [Reference Range]: 1 2 3 Height 158 cm (02/07/24 11:12 AM) Oxygen Saturation [94-100 %] 99 % (02/07/24 12:24 PM) 99 % (02/07/24 12:09 PM) 100 % (02/07/24 11:12 AM) Pulse Rate [55-90 bpm] 75 bpm (02/07/24 11:12 AM) Blood Pressure [90-138/55-84 mm Hg] 119/80mm Hg (02/07/24 12:24 PM) 110/76mm Hg (02/07/24 12:09 PM) Systolic Blood Pressure [90-138 mm Hg] 107 mm Hg (02/07/24 11:12 AM) Respiratory Rate [16-30 br/min] 18 br/min (02/07/24 12:24 PM) 16 br/min (02/07/24 12:09 PM) 20 br/min (02/07/24 11:12 AM) Temperature [96.8-100.4 DegF] 97.6 DegF (02/07/24 12:09 PM) 97.4 DegF (02/07/24 11:12 AM) Mode of Delivery (Oxygen) Room air (02/07/24 12:24 PM) Room air (02/07/24 12:09 PM) Room air (02/07/24 11:12 AM) Temperature Route Temporal (02/07/24 12:09 PM) Temporal (02/07/24 11:12 AM) Dry Weight 86.5 kg (02/07/24 11:12 AM) Social History Social History Type Response Smoking [...] Safety Implantable Status Assigning Authority Unknown Unknown [id number] Unknown 07/06/27 Unknown Unknown Active Un known Procedure Provider Procedure Date Device Type Site Resection Colon Left Open Jada Chiang MD 12/07/23 Unk nown Colon Device Identifier Serial Number Lot or Batch Number Manufacturing Date Expiration Date Distinct Identification Code MRI Safety Implantable Status Assigning Authority Unknown Unknown [id number] Unknown 12/05/27 Unknown Unknown Active Unk nown Procedure Provider Procedure Date Device Type Site Resection Colon Left Open Jada Chiang MD 12/07/23 Unk nowheath Colon Device Identifier Serial Number Lot or Batch Number Manufacturing Date Expiration Date Distinct Identification Code MRI Safety Implantable Status Assigning Authority Unknown Unknown [id number] Unknown 05/06/28 Unknown Unknown Active Unknown [...] Safety Implantable Status Assigning Authority Unknown Unknown [id number] Unknown 11/05/27 Unknown Unknown Active Unknown Procedure Provider Procedure Date Device Type Site Resection Colon Left Open Jada Chiang MD 12/07/23 Unk nown Colon Device Identifier Serial Number Lot or Batch Number Manufacturing Date Expiration Date Distinct Identification Code MRI Safety Implantable Status Assigning Authority Unknown Unknown [id number] Unknown 01/05/28 Unknown Unknown Active Unk nown Procedure Provider Procedure Date Device Type Site Resection Colon Left Open Андрей MASTERSJada 12/07/23 Unk nown Colon Device Identifier Serial Number Lot or Batch Number Manufacturing Date Expiration Date Distinct Identification Code MRI Safety Implantable Status Assigning Authority Unknown Unknown [id number] Unknown 03/06/28 Unknown Unknown Active Unk nown Procedure Provider Procedure Date Device Type Site Resection Colon Left Open Андрей MASTERSJada 12/07/23 Unk nown Colon Device Identifier Serial Number Lot or Batch Number Manufacturing Date Expiration Date Distinct Identification Code MRI Safety Implantable Status Assigning Authority Unknown Unknown [id number] Unknown 12/05/27 Unknown Unknown Active Unk nown Flexible sigmoidoscopy study * Event Display: GG Sigmoidoscopy Please click on pdf link to open report Note * Brijesh CHANG, Irene Urrutia: PERFORM Event Display: Discharge/Transfer Note Hospital Authored Date: [id number] Nursing Discharge Note Entered On: 02/07/2024 12:17 EDT Performed On: 02/07/2024 12:16 EDT by Irene Coley RN Nursing Discharge Note 2 Discharge Time : 02/07/2024 12:37 EDT Charles Monroy RN - 02/07/2024 12:41 EDT Discharge Level of Care at Discharge : Home/Long Term/Foster Care Patient Left Unit Via : Wheelchair Patient Accompanied Off Unit with : Significant other DC Instructions Provided & Signed by Pt : Yes Patient Understands D/C Instructions : Yes Patient Instructions Discharge Signed : Yes Did Pt have Specialty Bed or Wound Vac : No Irene Coley RN - 02/07/2024 12:16 EDT * Irene Coley RN: PERFORM Event Display: Patient Education/Instruction Authored Date: [id number] Inpatient Adult Discharge Instructions. [address] [id number] Name: ARMANDOAshley GAIL GORDON : 1985?? Visit: 02/07/2024 10:47?? Current Date: 02/07/2024 12:17 ?? Account: [id number]?? Inpatient Adult Discharge Instructions We would like to thank you for allowing us to assist you with your healthcare needs. The following includes patient education materials and information regarding your injury/illness. Our entire staffstrives to provide an excellent experience for our patients and their families. PLEASE ENSURE YOU FOLLOW-UP PER THE INSTRUCTIONS BELOW! ?? YOUR OPINION IS IMPORTANT TO US! Please complete the survey you may receive by mail or email. Your feedback will be used to make improvements to the healthcare experiences of our patients and their families. Surveys are administered by [employer]. ?? If further treatment with your primary care physician or another doctor is recommended, it is important for you to keep the appointment. Call your primary care physician or return to the Emergency Department immediately if your condition worsens, fails to improve, or new symptoms develop. If you need to find a doctor, you can call [facility] [employer] for a referral at [phone] or toll free at [phone]) or log in to [email or web address].. ?? [facility], in keeping with [facility] guidance, no longer requires face masks for staff, patientsor visitors in most situations. Similiar to time spent indoors at other locations, there is the chance that you were exposed to repiratory viruses during your time with us (such as flu or COVID-19). If you develop symptoms concerning for a viral respiratory infection, please seek testing (and treatment if indicated) from your medical provider or home test kit. ?? You can view and manage your care through the patient portal or by using a health care brice of your choosing. [employer] is a website that allows you to securely view your medical information including your hospital discharge summary, office visit summaries, medications and follow-up visits. You can also request appointments, renew medications, and request access to your medical information using a health care brice of your choosing, or just ask a question. You can enroll at [email or web address] or register during your next office visit. You have been discharged from [facility], Patient Care Unit: ENDO??. If you have any questions regarding these instructions, including results of studies pending, afteryou leave, please call us and we will be happy to assist you 27/02. [facility] Nursing Unit Direct Phone Number, for 27/02 contact and results of studies pending ENDO [address] [place] [address] Your Care Team Attending Physician Андрей MASTERS, Jada Ward?? Consulting Providers Jada Chiang MD?? Discharging Providers Isidoro Pryor MD Tests Performed Below is a partial list of the tests performed during your hospitalization. You may have had other tests and procedures not included in this list. Please discuss all test results with your provider. No tests performed during this visit.?? Primary Care Provider Melyssa White NP? Advance Directive Health Care Proxy on File Yes - Health Care Proxy Discharge Vitals Temperature: 97.6 DegF Height: 158 cm Pulse Rate: 75 bpm ?? Respiratory Rate: 16 br/min ?? Systolic Blood Pressure: 110 mm Hg ?? Diastolic Blood Pressure: 76 mm Hg ?? Oxygen Saturation: 99 % ?? Studies Pending All studies ordered during this hospital stay have been completed unless listed below. Please discuss all pending results with your provider listed above in these instructions. ?? No incomplete studies found?? What to do next Instructions From Your Doctor ?? Orders? 02/07/24 12:06:00 EDT?? Scheduled Follow-Up Appointments Monday 1:00 PM EDT ?? Where: [facility] OR Status: Pending You Need to Schedule the Following Appointments Follow Up with??Melyssa White NP Where: [address] [place] [address]- Discharge Medications CANDIDO PATIÑO :1985 Visit Date:02/07/2024 Medications: Please continue your medications until treatment is completed or stopped by your provider. Medications not listed below should be discontinued. Discuss any questions related to medications with your provider. What How Much When Why Instructions Next Dose Unchanged Diazepam (diazepam 5 mg oral tablet) 1 tab(s) Oral Every 8 hours as needed for Spasm Do not take the same time as oxycodone. ?? Unchanged Durable Medical Equipment (coloplast bags #54575) See instructions use as needed for ostomy care Dx. ileostomy Z93.2 ?? Unchanged Durable Medical Equipment (convatec bags #072055) See instructions use as needed for ostomy care Dx. ileostomy Z93.2 ?? Unchanged Durable Medical Equipment (convatec flange# 488782) See instructions use as needed for ostomy care Dx. ileostomy Z93.2 ?? Unchanged Durable Medical Equipment ([facility] Accordion Flange #229646) See instructions Ileostomy care Use as needed for ostomy maintaince. Dx ileostomy Z93.2 ?? Unchanged Durable Medical Equipment (ConvaTec Ostomy Pouch #639255) See instructions Ileostomy care Use as needed for ostomy maintaince. Dx ileostomy Z93.2 ?? Unchanged Durable Medical Equipment (ostomy belt 4215) See instructions use as needed for ostomy care. Dx ileostomy ??Z93.2 ?? Unchanged Durable Medical Equipment (straight brava strips 213408) See instructions use as needed for ostomy care Dx ileostomy Z 93.2 ?? Unchanged Durable Medical Equipment (walker) See instructions walker ?? Unchanged Lidocaine Topical (lidocaine 5% topical film) 1 patch Topically Twice a day remove patches after 12 hours ?? Unchanged Loperamide (loperamide 2 mg oral capsule) 2 capsule Oral 4 times a day Duration: 30 Days take 1/ 2 hour before meals and at bed time ?? Unchanged Loperamide (loperamide 2 mg oral tablet) See instructions take 1 tablet by mouth 30 minutes before meals and at bedtime ?? Unchanged Loperamide (loperamide 2 mg oral tablet) See instructions take 2 tablets by mouth 30 minutes before meals and at bedtime ?? Unchanged MedroxyPROGESTERone (medroxyPROGESTERone 150 mg/ mL intramuscular suspension) 1 Milliliter Intramuscular Every 3 months Unchanged Ondansetron (ondansetron 4 mg oral tablet, disintegrating) 1 tab(s) Oral Every 8 hours as needed for Nausea & Vomiting Unchanged Oxycodone (oxyCODONE 10 mg oral tablet) 1 tab(s) Oral 3 times a day as needed for as needed for pain Unchanged Oxycodone (oxyCODONE 20 mg oral tablet) 1 tab(s) Oral Every 8 hours Do not take the same time as diazepam. ?? Prescription Given During Visit No new medications prescribed at time of discharge.?? Laboratory Results Below is a partial list of the most recent Laboratory test results done prior to this discharge. You may have had other tests and procedures not included in this list. Please discuss all test resultswith your provider. Allergies (NKA means No Known Allergies) ibuprofen??(Hives) Problems Active Problems??(2) Diverticulitis large intestine?? Obese class I?? Education Materials Below is the list of Educational Leaflet Providered with your Discharge Instructions. Valuables and Belongings I fully understand and agree that [facility] accepts no responsibility for all my personal property including clothing, toilet articles, radios, jewelry, dentures, hearing aids, rings, money, or any other property that is in my possession or is brought to me after admission. I understand certain valuables may be placed in a hospital safe for a short period of time. I understand that the hospital is not liable for loss or damage due to accident, fire, or other natural occurrence while said property is in the safe. I accept full responsibility for any personal property that I keep with me, and will not hold the hospital responsible in case of loss or disappearance. I acknowledge that i have been encouraged to send valuables and belongings home. ?? Date for Pt to Sign Valuables/Belongings: 02/07/24 11:12:00 ?? Valuables & Belongings ?? Clothes Electronic devices Jewelry Monetary Items Personal devices Miscellaneous Medications (Valuables) Valuables at Bedside Pants, Shirt, Shoes, Undergarments ? Valuables Sent Home ? Valuables Sent to Security ? Other Discharge Information ? Case Management Discharge Plan?? Discharge Plan?? Discharge Level of Care at Discharge: Home/Long Term/Foster Care ?? Pulmonary Rehab Status?? Pulmonary Rehab Discharge Status?? Respiratory Rate: 16 br/min ? Common Emergency Awareness Tips IS IT A STROKE? Act FAST and Check for these signs: FACE Does the face look uneven? ARM Does one arm drift down? SPEECH Does their speech sound strange? TIME Call at any sign of stroke ?? Heart Attack Signs Chest discomfort: Most heart attacks involve discomfort in the center of the chest and lasts more than a few minutes, or goes away and comes back. It can feel like uncomfortable pressure, squeezing, fullness or pain. Discomfort in upper body: Symptoms can include pain or discomfort in one or both arms, back, neck, jaw or stomach. Shortness of breath: With or without discomfort. Other signs: Breaking out in a cold sweat, nausea, or lightheaded. Remember, MINUTES DO MATTER. If you experience any of these heart attack warning signs, call to get immediate medical attention! ?? Smoking can increase your chances of developing chronic health problems and can cause harmful effects to other family members in your house. If you smoke, you are strongly encouraged to quit. Please call [facility] [employer] at [phone] or [phone]) or log in to [email or web address] for referrals to smoking cessation programs. ?? 337 Suicide & Crisis Lifeline is available 27/02 if you or someone you know needs to find a reason to keep living. By calling 932 you'll be connected to a skilled, trained counselor at a crisis center in your area. INPATIENT DISCHARGE INSTRUCTIONS SIGNATURE PAGE CANDIDO PATIÑO Location:[facility] Registration Date and Time:02/07/2024 10:47 EDT Primary Care Physician: Melyssa White NP, Attending Physician: Андрей MASTERS, Jada Ward, I CANDIDO PATIÑO, have received the above patient education materials/instructions and have verbalized understanding. If ambulance or transport services are being used I further acknowledge being given a choice of service. ?? If you need to contact me, please call me at this number: . Patient/Glass Etcher Helper Name: Patient/Glass Etcher Helper Signature: Relationship to Patient: Witness Name/Signature: Date: Patient Care team information Care Team Personnel Name: Bertha Kolb RN Position: [facility] RN Member Role: Primary Care Nurse Name: Ashley Domínguez RN Position: [facility] RN Member Role: Primary Care Nurse Name: Maame Pearce Position: [facility] Outreach Member Role: Lif[employer] Consulting Physician Name: Charline Terrazas RN Position: [facility] RN Member Role: Primary Care Nurse Name: Efrain Long RN Position: [facility] RN Member Role: Primary Care Nurse Name: Melyssa White NP Position: Reference Physician Member Role: PCP Address: Address: [address] [place] [address] Name: Nida Ferro RN Position: [facility] RN Member Role: Primary Care Nurse Name: Kaur Wilson RN Position: S RN Member Role: Primary Care Nurse Name: Shasha Chou RN Position: [facility] RN Member Role: Primary Care Nurse Name: Alison Brewer RN Position: [facility] RN Member Role: Primary Care Nurse Name: Adamaris Lynn RN Position: [facility] RN Member Role: Primary Care Nurse Name: Rosario Schwarz RN Position: [facility] RN Member Role: Primary Care Nurse Name: Marianne Jesus RN Position: [facility] RN Member Role: Primary Care Nurse [...] Persons Name: SERGIO GORDON Address: home [address] [place] [address] Name: EMILY REYNOLDS Address: [place] [address] Name: KATHERIN MONDRAGON Address: home [address] [address]
--- OUTSIDE RECORDS SUMMARY | 2024-03-27 07:38 | XMS_ITS | Continuity of Care Document ---
Author Organization [facility] ter Address [address] [place] [id number]- Care Team Providers Care Bar Staff Name Role Phone Cindy DALEY, Melyssa Primary Care Physician Encounter [facility] Date(s): 11/25/23 - 12/14/[address] [address]- Encounter Diagnosis Abdominal pain(Final) - 11/26/23 Discharge Disposition: A-Transfer VNA/Home Health Attending Physician: Андрей MASTERS, Jada Ward Admitting Physician: Josef MASTERS, Georgette Osuna Referring Physician: Not on Staff, Referring MD Allergies, Adverse Reactions, Alerts Substance Reaction Severity Status ibuprofen 1 Hives Active 1swelling,hives Immunizations Given and Recorded Vaccine Date Status Refusal Reason tetanus/diphtheria/pertussis, acel(Tdap) 06/06/13 Given Medications lidocaine 3.5% topical film 1 patch, Topically, Daily, remove patches after 12 hours, # 10 patch, 0 Refills, Acute 12/21/23 11:15:00 EDT, 12/14/23 11:11:00 EDT, Film, [facility], Partial fill upon patient request if the prescription is for a schedule II opioid drug... Start Date: 12/14/23 Stop Date: 12/21/23 Status: Ordered medroxyPROGESTERone 150 mg/mL [...] 0 Refills, Maintenance, 11/19/23 9:55:00 EDT, Tablet, [id number], Partial fill upon patient request if the prescription is for a schedule II opioid drug., 1... Start Date: 11/19/23 Status: Ordered oxyCODONE 10 mg oral tablet 1 tablet = 10 mg, By Mouth, Every 6 hours, PRN Pain , Moderate, 2 tabs every 6hr as needed for severe pain, # 20 tablet, 0 Refills, Maintenance, 11/19/23 9:52:00 EDT, Tablet, [id number], Partial fill upon patient request if the prescr... Start Date: 11/19/23 Status: Ordered oxyCODONE 20 mg oral tablet 1 tablet = 20 mg, By Mouth, Every 8 hours, PRN as needed for pain, for 7 days, # 24 tablet, 0 Refills, Acute 12/21/23 11:22:00 EDT, 12/14/23 11:22:00 EDT, Tablet, [facility], Partial fill upon patient request if the prescription is for a... Start Date: 12/14/23 Stop Date: 12/21/23 Status: Ordered oxyCODONE 5 mg oral tablet 20 mg, Tablet, By Mouth, Every 6 hours, PRN for Pain , Severe, Routine, 12/13/23 10:33:00 EDT, Stopdate 12/20/23 12:00:00 EDT Start Date: 12/13/23 Stop Date: 12/14/23 Status: Discontinued Valium 5 mg oral tablet 5 mg, 1, tablet, By Mouth, 3 times a day, # 21 tablet, Refills 0, Tot. Refills 0, Acute 12/21/23 11:15:00 EDT, 12/14/23 11:11:00 EDT, Route to Pharmacy Electronically, [facility], Partial fill upon patient request if the prescription is... Start Date: 12/14/23 Stop Date: 12/21/23 Status: Ordered elsy chin, See Instructions, # 1 each, Refills 0, Tot. Refills 0, Maintenance, elsy, 12/14/23 10:15:00 EDT, Supply Start Date: 12/14/23 Status: Ordered Problem List Condition Confirmation Course Effective Dates Status H ealth Status Informant Diverticulitis large intestine Confirmed Active Obese class II Confirmed Active Results Radiology Reports * Exam Date Time Procedure Performing Provider Status 12/09/23 7:05 AM Abdomen AP Jayla Mesa; Auth ( Verified) Notes: (Abdomen AP) Reason For Exam: Postop RESULT: XR Abdomen AP XR Abdomen AP 1 view INDICATION/CLINICAL QUESTION: Reason: Postop; Clinical Question(s): Perforation COMPARISON: 11/17/2023 FINDINGS: Nonspecific bowel gas pattern, possibility of gas in the left colon and sigmoid region. Drain present in the upper pelvis. No organomegaly, masses or calcifications. No acute bone findings. Midline skin mason are noted. IMPRESSION: Drain present in the upper pelvis. Nonspecific bowel gas pattern but there is paucity of gas in theleft colon and sigmoid region. If the clinical question is questioned perforation as indicated above, CT scan is recommended. WSN: [id number] Ordering Physician: Lance Benitez Dictated By: Marlys Ospina MD, I Dictated Date/Time: 12/09/23 10:34 a Reviewed By: Marlys Ospina MD, I Signed By: Marlys Ospina MD, I Signed Date/Time: 12/09/23 10:34 am Transcribed By: SOHAN Transcribed Date/Time: 12/09/23 10:28 am * Exam Date Time Procedure Performing Provider Status 12/05/23 8:[address] Abd/Pelvis W/ IV Contrast Only Jolie Smith; Auth (Verified) Notes: (CT Abd/Pelvis W/ IV Contrast Only) Reason For Exam: diverticulitis, progression, pre-op;Pain RESULT: CT Abd/Pelvis W/ IV Contrast Only CT Abd/Pelvis W/ IV Contrast Only Reason: Follow-up sigmoidal inflammatory changes. History of persistent diverticulitis with plan for colonoscopy. TECHNIQUE: Spiral CT through the abdomen and pelvis with IV contrast formatted in 3 planes. 100 cc of Omnipaque 300 was administered intravenously. This study was performed without oral contrast. Weight-based protocol using automatic tube modulation was used to optimize exposure parameters. CTDIvol Body: 20.20 mGy, DLP Body: 1059 mGy*cm. COMPARISON: 11/27/2023 and multiple priors FINDINGS: Head Chopper View Findings, Lines and Tubes: None. Visualized Chest: Lung bases are clear. No pleural effusion. The heart is normal in size. No pericardial effusion. Diaphragm: Normal. Liver: Normal. Gallbladder: No CT evidence of gallbladder pathology. Bile ducts: No biliary ductal dilation. Spleen: Normal. Pancreas: Normal. Adrenal glands: Normal. Kidneys and ureters: No hydronephrosis, stones, or suspicious masses. Bladder: Underdistended urinary bladder limiting evaluation. Reproductive organs: Unremarkable. Stomach, small bowel, and large bowel: Relatively unchanged persistent circumferential wall thickening of the distal descending and sigmoid colon with surrounding pericolonic inflammatory changes involving an approximately 11 cm segment of descending colon and proximal sigmoid colon (coronal image 52). New few tiny foci of eccentric gasalong the anterior portion of inflamed colon (series 201, image 102) . No phlegmon or abscess. No evidence of obstruction or perforation. Mild stool retention throughout the colon with improved colonic dilation compared to 11/27/2023. Appendix: Not seen, but no evidence of appendicitis. Peritoneum and retroperitoneum: No ascites or pneumoperitoneum. No omental or mesenteric lesions. Lymph nodes: No enlarged lymph nodes. Blood vessels: Normal. No aneurysm. No evidence of venous thrombosis. Abdominal and pelvic wall: Multiple small foci of gas and soft tissue nodularity in anterior abdominal wall likely related to subcutaneous injection. Tiny fat- containing right inguinal hernia. Bones: No acute abnormality. IMPRESSION: Persistent and relatively unchanged circumferential wall thickening involving approximately 11 cm segment of descending and proximal sigmoid colon. Multiple tiny foci of eccentric gas in the anteriorportion of the descending colon are new from 11/27/2023. Unclear if this is intraluminal versus along the wall. Findings are most consistent with ongoing diverticulitis. Early ischemic changes versus focal contained perforation cannot be completely excluded but are less likely. No evidence of phlegmon or abscess. I have personally reviewed the images and I agree with this report. WSN: [id number] Ordering Physician: Kyle Patel Dictated By: Cindy Ibrahim MD Dictated Date/Time: 12/05/23 10:04 a Reviewed By: Alejandro Banks MD Signed By: Alejandro Banks MD Signed Date/Time: 12/05/23 10:09 am Transcribed By: SOHAN Transcribed Date/Time: 12/05/23 9:36 am * Exam Date Time Procedure Performing Provider Status 12/01/23 7:31 PM Chest Portable Yefri Jamison; Auth (Jose ified) Notes: (Chest Portable) Reason For Exam: Line Placement RESULT: Chest Portable Chest Portable Reason: Line Placement; Clinical Question(s): Line Placement; Special Instructions: Pt having some flickering feelings in her chest. Plese confirm picc tip placement. COMPARISON: Multiple priors, most recently August 13, 2019. FINDINGS: LINES AND TUBES: Right approach PICC with tip projecting over the low SVC. LUNGS AND PLEURA: Clear lungs. Normal pulmonary vascularity. No pleural effusion. No pneumothorax. HEART, MEDIASTINUM AND RUSS: Heart is normal in size. Normal mediastinal and hilar contour. BONES AND SOFT TISSUES: No acute abnormality. IMPRESSION: 1. No acute abnormality. 2. Tip of the right approach PICC projects over the low SVC. WSN: [id number] Ordering Physician: Aida Rojas Dictated By: Arie Mitchell MD Dictated Date/Time: 12/01/23 7:47 pm Reviewed By: Arie Mitchell MD Signed By: Arie Mitchell MD Signed Date/Time: 12/01/23 7:47 pm Transcribed By: SOHAN Transcribed Date/Time: 12/01/23 7:46 pm * Exam Date Time Procedure Performing Provider Status 11/27/23 5:[address] Enterography Van Meme; Sveta (Verified) Notes: (CT Enterography) Reason For Exam: colitis v diverticulitis;Other: RESULT: CT Enterography CT Enterography INDICATION: Recurrent sigmoid diverticulitis. Clinical Question(s): Colitis TECHNIQUE: During uneventful administration of intravenous contrast, helical CT of the abdomen and pelvis was performed. 100 cc of Omnipaque 300 was administered intravenously. Coronal and sagittal reformatted images generated. Oral Volumen contrast was administered. Weight-based protocol using automatic tube modulation was used to optimize exposure parameters. RADIATION DOSE PARAMETERS: CTDIvol Body: 13.30 mGy, DLP Body: 679 mGy*cm. COMPARISON: Multiple priors, most recent dated 11/25/2023. FINDINGS: Distention of small bowel loops is suboptimal. The small bowel wall demonstrates no thickening, abnormal enhancement or mass. The terminal ileum is unremarkable. The appendix is normal, and retrocecal location. The right colon is again distended and stool-filled, measuring up to 6.8 cm in caliber. Moderate stool burden also present in the splenic flexure. There is moderate circumferential wall thickening of the distal descending/proximal sigmoid colon, with associated surrounding fat stranding. Several large diverticula are noted at the posterior wallof the proximal sigmoid (axial 192, 204), similar to prior studies. There is no pneumoperitoneum or ascites. The celiac, superior mesenteric and inferior mesenteric arteries are patent without significant stenosis. Hepatic arterial anatomy is conventional. No SMV, splenic, portal or hepatic vein thrombus.. Lung Bases: Lung bases are clear. No pleural effusion. Liver: Unremarkable. Gallbladder: Unremarkable. Bile ducts: No intra or extra hepatic bile duct dilation. Spleen: Normal in size and attenuation. Pancreas: Normal. Adrenal Glands: Normal. Kidneys and Ureters: No calculi or hydronephrosis. No suspicious masses. Lymph nodes: No pathologically enlarged lymph nodes. Vascular structures:The aorta is normal in caliber. Abdominal wall: Unremarkable. Pelvic Organs and Bladder: Unremarkable. Bones: No acute findings. Sacralization of L5. IMPRESSION: 1. Persistent inflammatory changes of the distal descending/proximal sigmoid colon, consistent withdiverticulitis or infectious/inflammatory colitis with likely wall abscess.. 2. Unchanged mildly distended and stool-filled right colon. 3. No inflammatory changes in the small bowel. No bowel obstruction. I have personally reviewed the images and I agree with this report. WSN: [id number] Ordering Physician: Yue Pascual Dictated By: Jose Antonio Canales MD Dictated Date/Time: 11/27/23 9:23 pm Reviewed By: Morgan Kumar MD Signed By: Morgan Kumar MD Signed Date/Time: 11/27/23 9:28 pm Transcribed By: SOHAN Transcribed Date/Time: 11/27/23 9:07 pm Vital Signs Most recent to oldest [Reference Range]: 1 2 3 Height 158 cm (12/14/23 11:39 AM) 158 cm (12/14/23 7:46 AM) 158 cm (12/13/23 3:34 PM) Weight 90.4 kg (12/07/23 8:45 AM) 90.4 kg (12/05/23 7:00 PM) 92 kg (12/04/23 1:01 PM) Oxygen Saturation [94-100 %] 100 % (12/14/23 11:39 AM) 100 % (12/14/23 7:46 AM) 100 % (12/14/23 3:53 AM) Pulse Rate [55-90 bpm] 97 bpm *H* (12/14/23 11:39 AM) 104 bpm *H* (12/14/23 7:46 AM) 95 bpm *H* (12/14/23 3:53 AM) Body Mass Index [18.5-24.99 kg/m2] 36.21 kg/m2 *>HHI* (12/07/23 8:45 AM) 36.85 kg/m2 *>HHI* (12/04/23 1:01 PM) 36.85 kg/m2 *>HHI* (11/26/23 12:56 PM) Blood Pressure [90-138/55-84 mm Hg] 95/63mm Hg (12/14/23 11:39 AM) 106/60mm Hg (12/14/23 7:46 AM) 92/55mm Hg (12/14/23 3:53 AM) Respiratory Rate [16-30 br/min] 20 br/min (12/14/23 12:55 PM) 16 br/min (12/14/23 11:55 AM) 16 br/min (12/14/23 11:39 AM) Temperature [96.8-100.4 DegF] 98.9 DegF (12/14/23 11:39 AM) 98.8 DegF (12/14/23 7:46 AM) 98.7 DegF (12/14/23 3:53 AM) Liters per Minute 6 L/min (12/07/23 3:30 PM) Mode of Delivery (Oxygen) Room air (12/14/23 11:39 AM) Room air (12/14/23 7:46 AM) Room air (12/14/23 3:53 AM) Blood pressure sites Arm, left (12/14/23 11:39 AM) Arm, left (12/14/23 7:46 AM) Arm, right (12/14/23 3:53 AM) Temperature Route Oral (12/14/23 11:39 AM) Oral (12/14/23 7:46 AM) Oral (12/14/23 3:53 AM) Dry Weight 92 kg (11/26/23 12:56 PM) 92 kg (11/26/23 8:30 AM) 92 kg (11/25/23 9:21 PM) Weight Obtained Via Standing scale (12/05/23 7:00 PM) Social History Social History Type Response Smoking Status Use: 4 or less cigar ettes(less than 1/4 pack)/day in last 30 days;Former smoker, quit more than 30 days ago entered on: 07/13/23 Sex Implantable Device List Procedure Provider Procedure Date Device Type Site Resection Colon Left Open Jada Chiang MD 12/07/23 Unk nown Colon Device Identifier Serial Number Lot or Batch Number Manufacturing Date Expiration Date Distinct Identification Code MRI Safety Implantable Status Assigning Authority Unknown Unknown [id number] Unknown 07/06/27 Unknown Unknown Active Un known Procedure Provider Procedure Date Device Type Site Resection Colon Left Open Jada Chiang MD 12/07/23 Unk nown Colon Device Identifier Serial Number Lot or Batch Number Manufacturing Date Expiration Date Distinct Identification Code MRI Safety Implantable Status Assigning Authority Unknown Unknown [id number] Unknown 12/05/27 Unknown Unknown Active Unk nown Procedure Provider Procedure Date Device Type Site Resection Colon Left Open Jada Chiang MD 12/07/23 Unk nown Colon Device Identifier Serial Number Lot or Batch Number Manufacturing Date Expiration Date Distinct Identification Code MRI Safety Implantable Status Assigning Authority Unknown Unknown [id number] Unknown 05/06/28 Unknown Unknown Active Unknown Procedure Provider Procedure Date Device Type Site Resection Colon Deedee Open Jada Chiang MD 12/07/23 Unk nown [...] Safety Implantable Status Assigning Authority Unknown Unknown [id number] Unknown 11/05/27 Unknown Unknown Active Unknown Procedure Provider Procedure Date Device Type Site Resection Colon Left Open Jada Chiang MD 12/07/23 Unk nown Colon Device Identifier Serial Number Lot or Batch Number Manufacturing Date Expiration Date Distinct Identification Code MRI Safety Implantable Status Assigning Authority Unknown Unknown [id number] Unknown 01/05/28 Unknown Unknown Active Unk nown Procedure Provider Procedure Date Device Type Site Resection Colon Left Open Jada Chiang MD Sylvia 12/07/23 Unk nown Colon Device Identifier Serial Number Lot or Batch Number Manufacturing Date Expiration Date Distinct Identification Code MRI Safety Implantable Status Assigning Authority Unknown Unknown [id number] Unknown 03/06/28 Unknown Unknown Active Unk nown Procedure Provider Procedure Date Device Type Site Resection Colon Left Open Андрей MASTERS Jada Ward 12/07/23 Unk nown Colon Device Identifier Serial Number Lot or Batch Number Manufacturing Date Expiration Date Distinct Identification Code MRI Safety Implantable Status Assigning Authority Unknown Unknown [id number] Unknown 12/05/27 Unknown Unknown Active Unk nown Flexible sigmoidoscopy study * Event Display: GG Sigmoidoscopy Please click on pdf link to open report Note * Nate Dee RN: PERFORM Event Display: Discharge/Transfer Note Hospital Authored Date: [id number] Nursing Discharge Note Entered On: 12/14/2023 14:07 EDT Performed On: 12/14/2023 14:07 EDT by Nate Dee RN Nursing Discharge Note 2 Discharge Time : 12/14/2023 14:00 EDT Discharge Level of Care at Discharge : Homehealth/VNA Discharge VNA/Hospice/Home Care(v001) : [facility] [phone] Patient Left Unit Via : Wheelchair Patient Accompanied Off Unit with : Responsible adult DC Instructions Provided & Signed by Pt : Yes Patient Understands D/C Instructions : Yes Patient Instructions Discharge Signed : Yes Did Pt have Specialty Bed or Wound Vac : No Nate Dee RN - 12/14/2023 14:07 EDT * Anthony MASTERS, Juan Daniel S: PERFORM Event Display: Discharge/Transfer Note Hospital Authored Date: [id number] Patient: ??BROOKS PATIÑO ? Age:??38 Years?Sex:??Female?:??1985?? Admit Date Admission Date: 11/25/2023 Discharge Date 12/14/2023 Discharge Diagnoses Abdominal pain, 11/26/2023 General medical, 11/26/2023 Hospital Course Pt is a 38 y/o obese??female with a PMH of diverticulitis and??endometriosis who presented with recurrent??diverticulitis x3 and [facility] requested a 2nd opinion from colorectal surgery and was transferred to Dr. Chiang's service and has been undergoing conservative management with bowel rest and IV antibiotics.CT enterography showed inflammatory changes in the descending/sigmoid colon with some suspicion forinflammatory bowel disease, for which GI was consulted and performed a flexible sigmoidoscopy 12/03.Flex sig revealed some edema of the sigmoid colon, but no concerning findings for IBD. Patient underwent a repeat CT with IV contrast, which showed persistent circumferential wall thickening and inflammation involving descending and proximal sigmoid colon.??Patient underwent??laparoscopic convertedto open sigmoidectomy with colorectal anastamosis and diverting loop ileostomy??with Dr. Chiang 12/06.Patient has been having ongoing issues with pain control,??but had resumption of bowel function over the weekend. Venegas and??ureteral catheter have been removed without complication. Patient advancedto low fiber diet and tolerating, TPN discontinued. Patient completed her postop course of zosyn. Ho spital course has been complicated by difficulties with pain control, APS consulted, recommendations appreciated. Patient has been weaned off her [employer]PER[employer], and was initially transitioned to morphine per APS recs, now requesting oxycodone instead. Will transition PO pain meds to oxycodone.?? 12/14/2023 patient was adamant about leaving the hospital,??we determined she was safe for discharge. ??Plan to discharge on??oral oxycodone 20 mg every 6 hours,??Valium and??lidocaine patches for a week.?? Patientwill be??instructed to follow-up in outpatient setting. ??Patient will be sent home with VNA for ostomy care. Objective/Physical Exam on Day of Discharge Vitals & Measurements T:??98.8?F?? HR:??104??(Peripheral)?? RR:??17?? BP:??106/60?? SpO2:??100%?? HT:??158??cm?? WT:??90.4??kg?? BMI:??36.21?? General: no acute distress, non toxic, resting comfortably HEENT: PERRLA, MMM Neck: midline trachea, no deformities Lungs: nonlabored breathing. Not on supplemental O2 Heart: RRR Abdomen: Soft, nondistended, left sided abdominal pain without rebound tenderness or guarding. Ostomy appliance in place with bilious stool and gas present (600cc/24hr). Stoma is moist and well perfused. Midline incision covered with aquacel, no??significant staining.?? Extremities: no deformities, no edema, palpable pulses Assessment/Plan Multimodal pain control with oxycodone,??patches, Valium Follow-up in the office with Dr. Андрей HERBERT for ostomy care ?? Pending Results None Patient Discharge Condition Stable Discharge Disposition Home with VNA for ostomy [facility] Face to Face *Denotes mandatory brown ?? *I certify that this patient is under my care and that I or an allowed non- physician working with me had a face to face encounter with the patient on this date:??12/14/2023 11:06 ?? *The encounter with the patient was in whole, or in part, for the following medical condition, which is the primary diagnosis(es) for home health care:??Abdominal pain (R10.9) ?? *Select the indications for the discipline/s that are being arranged for this patient. Nursing (select all that apply): [_] None [_] Medication management (reconciliation, teaching)?? [_] Chronic disease management?? [_] Wound care and treatment?? [_] Home safety evaluation [_] Administer SQ/IM/IV medications?? [_] Cath care?? [_] Drain care?? [_] Trach or GT care?? Other VNA for ostomy care Occupation Therapy (select all that apply): [_] None [_] ADL Management [_] Fall prevention training [_] Energy conservation [_] Cognitive training Other _ Physical Therapy (select all that apply): [_] None [_] Functional mobility training [_] Home exercise program to strengthen [_] Increase ROM?? [_] Falls prevention training [_] Home maintenance program for chronic disease Other _ Speech Therapy (select all that apply): [_] None [_] Swallow evaluation and training [_] Speech and language training [_] Cognitive training to process, organize, and/or recall information Other _ ? *Homebound due to (select all that apply): [_] Inability to leave home without assistance/supervision [_] Inability to ambulate without assistance [_] Pain [_] Decreased strength and endurance [_] Unsteady gait [_] Severe SOB and fatigue [_] Impaired transfers [_] Inability to negotiate stairs [_] Limited weight bearing [_] Mental status change? *Physician Signature:??Juan Daniel [place] ?? *By signing this, I certify that I have personally evaluated the patient and agree with the findings and recommendations as documented above. ? Inpatient Medications Medications (16) Active SCHEDULED: (8) Acetaminophen 325 mg Tablet (acetaminophen 325 mg oral tablet) ??975 mg, By Mouth, Every 6 hours Enoxaparin 40 mg Inj (Enoxaparin Inj) ??40 mg 0.4 mL, Subcutaneous Injection, Daily Lidocaine 5% Topical Patch (Lidocaine 5% Patch) ??2 each, Topically, Daily NaCL 0.9% Flush 10ml (Flush NaCl 0.9%) ??10 mL, IV Push, Every 8 hours Pantoprazole 40 mg EC Tablet (Protonix 40 mg oral delayed release tablet) ??40 mg, By Mouth, Daily Remove Patch (Remove ??Patch) ??1 each, Topically, Every 72 hours Remove Patch (Remove Lidocaine Patch) ??2 each, Topically, Daily at bedtime Scopolamine 1 mg Patch ??1 mg 1 each, Topically, Every 72 hours CONTINUOUS: (0) PRN: (8) Diazepam 5 mg Tablet (diazepam 5 mg oral tablet) ??5 mg, By Mouth, Every 6 hours diphenhydrAMINE 50 mg/mL Inj (DiphenhydrAMINE Inj) ??12.5 mg 0.25 mL, IV Push, Every 6 hours Haloperidol Lactate 5 mg/mL Inj (1 mL) (Haloperidol LACTATE Inj) ??1 mg 0.2 mL, IV Push, Every 6 hours NaCL 0.9% Flush 10ml (Flush NaCl 0.9% (10mL)) ??10 mL, IV Push, Every 8 hours nalOXONE ??400mcg/mL Inj (nalOXONE Inj) ??0.1 mg 0.25 mL, IV Push Slowly, Every 5 minutes Ondansetron 2mg/mL Inj (2mL Vial) (Ondansetron Inj) ??4 mg, IV Push, Every 6 hours OxyCODONE 5 mg IR Tablet (oxyCODONE 5 mg oral tablet) ??20 mg, By Mouth, Every 6 hours PROCHLORperazine 5mg/ml Inj (Compazine Inj) ??5 mg 1 mL, IV Push, Every 6 hours Discharge Medications Durable Medical Equipment (walker)?See Instructions?walker MedroxyPROGESTERone (medroxyPROGESTERone 150 mg/mL intramuscular suspension)?1?Milliliter?150?Milligram?Intramuscular?Every 3 months Ondansetron (ondansetron 4 mg oral tablet, disintegrating)?1?tab(s)?4?Milligram?By Mouth?Every 8 hours?as needed?Nausea & Vomiting Oxycodone (oxyCODONE 10 mg oral tablet)?1?tab(s)?10?Milligram?By Mouth?Every 6 hours?as needed?Pain , Moderate?2 tabs every 6hr as needed for severe pain Labs Last 24 Hours BLOOD COUNT & DIFF ? Event Name?? Event Result?? Date/Time?? WBC 13.1 k/mm3??High 12/14/23 06:15:00 RBC 3.46 m/mm3??Low 12/14/23 06:15:00 Hgb 10.7 Gm/dL??Low 12/14/23 06:15:00 Hct 31.8 %??Low 12/14/23 06:15:00 MCV 91.9 femtoliters 12/14/23 06:15:00 MCH 30.9 pg 12/14/23 06:15:00 MCHC 33.6 g/dL 12/14/23 06:15:00 Platelet Count 448 k/mm3 12/14/23 06:15:00 MPV 10.3 femtoliters 12/14/23 06:15:00 Nucleated RBC (Automated) 0 #/100 WBC'S 12/14/23 06:15:00 ? CHEM GENERAL ? Event Name?? Event Result?? Date/Time?? Sodium 138 mmol/L 12/14/23 06:15:00 Chloride 100 mmol/L 12/14/23 06:15:00 Bicarbonate Level 24 mmol/L 12/14/23 06:15:00 Anion Gap 14 12/14/23 06:15:00 Glucose Level 88 mg/dL 12/14/23 06:15:00 BUN 8 mg/dL 12/14/23 06:15:00 Creatinine-Blood 0.84 mg/dL 12/14/23 06:15:00 Calcium, Ionized pH Corrected 1.25 mmol/L 12/14/23 06:15:00 Phosphorus 4.7 mg/dL??High 12/14/23 06:15:00 Magnesium 2 mg/dL 12/14/23 06:15:00 ? Follow-Up Appointments Added Follow Up ?Time Frame ?Comments Jada Chiang MD?2 to 3 weeks Patient Instructions Colorectal Patients Discharge Instructions For Dr. Chiang, Dr. Nye, Dr. Lea & Dr. Mcclelland/Main office phone [phone]?Avoid strenuous activity until the follow-up appointment with your MD. ?No lifting greater than 5-10 pounds. ?? (5 lbs is a bag of sugar) ?No driving until completely off??narcotic pain medication and when cleared with your MD. ?Light walking is allowed and encouraged. ?Daily showering is allowed and encouraged. ?Continue to use your incentive spirometer at home, (as you did in the hospital) until the follow-up appointment with your MD. ?No bathing, No swimming and No hot tubs until the follow-up appointment with your MD. ?If your ileostomy output increases to more than ??1200mls??per day and is very watery then begin to follow the guidelines for Loperamide use provided for you upon discharge. ? Follow-up appointments: ?You are scheduled for a nursing??staple??removal appointment of 06/21/21 at 9:00am in the surgery clinic. ?You have a follow-up appointment with your surgeon??on 07/16/21 at 2:40pm. ?? Signs and Symptoms of Infection: ??Call MD office for these:?Fever over 101 degrees ?Increasing redness & swelling of incisions ?Pus or foul smelling drainage coming from your incisions. ?Increasing pain at your incision sites unrelieved by pain medication. ?? Call MD office for: ?Persistent nausea and vomiting. ?If your abdomen is getting increasingly bloated, firm and painful. ?Increasing abdominal pain that is not relieved by your pain medication. ?If your ileostomy STOPS regularly producing gas and stool. ?If your ileostomy is functioning too much, over a liter of liquid stool in a day despite following the all the steps of the Loperamide Guidelines. ?If you need to change your ileostomy pouch frequently due to leaking stool or because the skin under the wafer is becoming raw, wet and painful.?If the color of your stoma becomes deep purple or black. ?If your stoma seems to have pulled away from the skin or has receded into the skin.? Guidelines??for??Loperamide (Imodium??) Use with Ileostomy?? 1.??Monitor, measure, and record your output from your ileostomy ??at home. ??Note: You may have a Visiting Nurse to assist you after discharge. ?? 2.??Your goal should be to keep the output??thick and pasty??and??LESS THAN??1200mls??per day. ?? 3.??If your??output INCREASES to MORE THAN??1200mls??a day??and is??very watery: a.??Start by taking ONE (1) tablet of loperamide (Imodium??) in the morning and at night. ??TOTAL DAILY DOSE: 2 tablets (2 tablets = 4mg) ?? 4.??If your??output??CONTINUES??to be MORE THAN??1200mls??per day,??increase to ONE (1) tablet of loperamide (Imodium??) before each meal (breakfast lunch and dinner) and before bedtime. ??TOTAL DAILY DOSE: 4 tablets (4 tablets = 8mg) ?? 5.??If your??output CONTINUES??to be MORE THAN??1200mls?per day, increase to TWO (2) tablets of??loperamide (Imodium??) before each meal (breakfast lunch and dinner) and before bedtime. ??TOTAL DAILY DOSE: 8 tablets (8 tablets = 16mg), Note: this is the MAXIMUM dose per day ?? 6.??If your??output CONTINUES??to be MORE THAN??1200mls??per day??(thin and watery): Call your surgeon???s office. ?? a.??You may need additional or different antidiarrheals if your output continues to be high on the maximum dose of loperamide (Imodium??) ?? * Dakota CHANG [place]: PERFORM Event Display: Patient Education/Instruction Authored Date: [id number] Inpatient Adult Discharge Instructions. [address] [id number] Name: BROOKS GAIL GORDON : 1985?? Visit: 11/25/2023 22:34?? Current Date: 12/14/2023 11:31 ?? Account: [id number]?? Inpatient Adult Discharge Instructions We would like [...] and their families. Surveys are administered by [employer] ?? If further treatment with your primary care physician or another doctor is recommended, it is important for you to keep the appointment. Call your primary care physician or return to the Emergency Department immediately if your condition worsens, fails to improve, or new symptoms develop. If you need to find a doctor, you can call [facility] Smartsheet for a referral at [phone] or toll free at [phone]) or log in to [email or web address].. ?? [facility], in keeping with [facility] guidance, no longer requires face masks for [...] a health care brice of your choosing. [employer] is a website that allows you to securely view your medical information including your hospital discharge summary, office visit summaries, medications and follow-up visits. You can also request appointments, renew medications, and request access to your medical information using a health care brice of your choosing, or just ask a question. You can enroll at [email or web address] or register during your next office visit. You have been discharged from [facility], Patient Care Unit: SW6??. If you have any questions regarding these instructions, including results of studies pending, afteryou leave, please call us and we will be happy to assist you 27/02. [facility] Your Care Team Attending Physician Jada Chiang MD?? Consulting Providers Jada Chiang MD?? Discharging Providers Juan Daniel Cruz MD Reason for Your Visit Transfer from [place] for surg consult d/t diverticulitis.?? Your Diagnosis Abdominal pain General medical Tests Performed Below is a partial list of the tests performed during your hospitalization. You may have had other tests and procedures not included in this list. Please discuss all test results with your provider. 15079 Albumin Level BUN Calcium Ionized Calprotectin Fecal CBC w/ Differential COVID-19 (Novel Coronavirus), Rapid PCR Creatinine CRP Electrolytes Ferritin Glucose Level GLUCOSE POC HEPATIC FUNCTION PANEL Iron Binding Capacity Unsaturated Iron Level Lactate Level Lytes Magnesium Level Phosphorus Level Prealbumin PT (INR) Total Protein TRIGLYCERIDE UA CT Abd/Pelvis W/ IV Contrast Only CT Enterography CXR Portable XR Abdomen AP Add On Lab Order?? BUN?? CBC w/ Differential?? Creatinine?? Electrolytes?? Glucose Level?? Ionized Calcium (Calcium Ionized)?? Magnesium Level?? Phosphorus Level?? Type and Screen?? Primary Care Provider Henrry Molina MD? Advance Directive Health Care Proxy on File Yes - Health Care Proxy Discharge Vitals Temperature: 98.8 DegF Height: 158 cm Pulse Rate:??104 bpm??High Weight: 90.4 kg Respiratory Rate: 17 br/min Body Mass Index:??36.21 kg/m2??Critical Systolic Blood Pressure: 106 mm Hg Body surface area: 1.99 Diastolic Blood Pressure: 60 mm Hg ?? Oxygen Saturation: 100 % ?? Studies Pending All studies ordered during this hospital stay have been completed unless listed below. Please discuss all pending results with your provider listed above in these instructions. ?? Add On Lab Order?? BUN?? CBC w/ Differential?? Creatinine?? Electrolytes?? Glucose Level?? Ionized Calcium (Calcium Ionized)?? Magnesium Level?? Phosphorus Level?? Type and Screen?? What to do next Instructions From Your Doctor Colorectal Patients Discharge Instructions For Dr. Chiang, Dr. Nye, Dr. Lea & Dr. Mcclelland/Main office phone [phone]?Avoid strenuous activity until the follow-up appointment with your MD. ?No lifting greater than 5-10 pounds. ?? (5 lbs is a bag of sugar) ?No driving until completely off??narcotic pain medication and when cleared with your MD. ?Light walking is allowed and encouraged. ?Daily showering is allowed and encouraged. ?Continue to use your incentive spirometer at home, (as you did in the hospital) until the follow-up appointment with your MD. ?No bathing, No swimming and No hot tubs until the follow-up appointment with your MD. ?If your ileostomy output increases to more than ??1200mls??per day and is very watery then begin to follow the guidelines for Loperamide use provided for you upon discharge. ? Follow-up appointments: ?You are scheduled for a nursing??staple??removal appointment of 06/21/21 at 9:00am in the surgery clinic. ?You have a follow-up appointment with your surgeon??on 07/16/21 at 2:40pm. ?? Signs and Symptoms of Infection: ??Call MD office for these:?Fever over 101 degrees ?Increasing redness & swelling of incisions ?Pus or foul smelling drainage coming from your incisions. ?Increasing pain at your incision sites unrelieved by pain medication. ?? Call MD office for: ?Persistent nausea and vomiting. ?If your abdomen is getting increasingly bloated, firm and painful. ?Increasing abdominal pain that is not relieved by your pain medication. ?If your ileostomy STOPS regularly producing gas and stool. ?If your ileostomy is functioning too much, over a liter of liquid stool in a day despite following the all the steps of the Loperamide Guidelines. ?If you need to change your ileostomy pouch frequently due to leaking stool or because the skin under the wafer is becoming raw, wet and painful.?If the color of your stoma becomes deep purple or black. ?If your stoma seems to have pulled away from the skin or has receded into the skin.? Guidelines??for??Loperamide (Imodium??) Use with Ileostomy?? 1.??Monitor, measure, and record your output from your ileostomy ??at home. ??Note: You may have a Visiting Nurse to assist you after discharge. ?? 2.??Your goal should be to keep the output??thick and pasty??and??LESS THAN??1200mls??per day. ?? 3.??If your??output INCREASES to MORE THAN??1200mls??a day??and is??very watery: a.??Start by taking ONE (1) tablet of loperamide (Imodium??) in the morning and at night. ??TOTAL DAILY DOSE: 2 tablets (2 tablets = 4mg) ?? 4.??If your??output??CONTINUES??to be MORE THAN??1200mls??per day,??increase to ONE (1) tablet of loperamide (Imodium??) before each meal (breakfast lunch and dinner) and before bedtime. ??TOTAL DAILY DOSE: 4 tablets (4 tablets = 8mg) ?? 5.??If your??output CONTINUES??to be MORE THAN??1200mls?per day, increase to TWO (2) tablets of??loperamide (Imodium??) before each meal (breakfast lunch and dinner) and before bedtime. ??TOTAL DAILY DOSE: 8 tablets (8 tablets = 16mg), Note: this is the MAXIMUM dose per day ?? 6.??If your??output CONTINUES??to be MORE THAN??1200mls??per day??(thin and watery): Call your surgeon???s office. ?? a.??You may need additional or different antidiarrheals if your output continues to be high on the maximum dose of loperamide (Imodium??) ? Orders? 12/14/23 11:24:00 EDT?? Prescriptions??, ??12/14/23 11:24:00 EDT?? Durable Medical Equipment??, ??See Instructions, # 1, ??each, Refills 0, Tot. Refills 0, ??Maintenance, ??walker, ??12/14/23 10:15:00 EDT, ??Supply?? Scheduled Follow-Up Appointments December. 2023 1:00 PM EDT ?? Where: [address] [place] [address]- Status: Pending Monday 11:40 AM EDT ?? With: Jada Chiang MD Where: [facility] General Surgery [address] [place] [address] [address] [place] [address]- Status: Pending You Need to Schedule the Following Appointments Follow Up with??Jada Chiang MD When:??01/16/2024 11:40 AM EDT Why: Postop visit Where: [address] [place] [address], [address] [place] [address]- Follow Up with??Colorecal Gen Surg BSA Nurse When:??12/21/2023 01:00 PM EDT Why: Nursing visit for staple removal/wound evaluation. Where: [address] [place] [address], [address] [place], [place] Discharge Medications BROOKS PATIÑO :1985 Visit Date:11/25/2023 Medications: Please continue your medications until treatment is completed or stopped by your provider. Medications not listed below should be discontinued. Discuss any questions related to medications with your provider. What How Much When Instructions Next Dose New Diazepam (Valium 5 mg oral tablet) 1 tab(s) Oral 3 times a day Pickup at [place] [address] as directed New Durable Medical Equipment (walker) See instructions walker ?? Printed Prescription New Lidocaine Topical (lidocaine 3.5% topical film) 1 patch(es) Topically Daily remove patches after 12 hours ?? Pickup at [place] [address] apply at 8am and take off at 8pm Changed Oxycodone (oxyCODONE 10 mg oral tablet) 1 tab(s) Oral Every 6 hours as needed for Pain , Moderate 2 tabs every 6hr as needed for severe pain ?? Changed Oxycodone (oxyCODONE 20 mg oral tablet) 1 tab(s) Oral Every 8 hours as needed for as needed for pain Duration: 7 Days Pickup at [place] [address] take as needed last dose at 6am Unchanged MedroxyPROGESTERone (medroxyPROGESTERone 150 mg/ mL intramuscular suspension) 1 Milliliter Intramuscular Every 3 months as directed Unchanged Ondansetron (ondansetron 4 mg oral tablet, disintegrating) 1 tab(s) Oral Every 8 hours as needed for Nausea & Vomiting as needed Pharmacy Information [facility] 3: [address] [place], [place] [id number] [phone] Prescription Given During Visit Diazepam (Valium 5 mg oral tablet) - 1 tablet = 5 mg, By Mouth, 3 times a day, # 21 tablet, 0 Refills, [address] [address] [phone]?? Durable Medical Equipment (walker) - , # 1 each, 0 Refills, walker?? Lidocaine Topical (lidocaine 3.5% topical film) - 1 patch, Topically, Daily, # 10 patch, 0 Refills,remove patches after 12 hours, [facility] [address] [address] [phone]?? Oxycodone (oxyCODONE 20 mg oral tablet) - 1 tablet = 20 mg, By Mouth, Every 8 hours, # 24 tablet, 0Refills, [facility] [address] [address] [phone]?? Laboratory Results Below is a partial list of the most recent Laboratory test results done prior to this discharge. You may have had other tests and procedures not included in this list. Please discuss all test resultswith your provider. Antibody Screen - Negative (12/06/2023) Blood Type - O Positive (12/06/2023) Est Creatinine Clearance - 73.92 mL/min (12/14/2023) [address] (12/07/2023) ? ?Surgical Pathology - Patient Name: BROOKS PATIÑO
Lab
Patient : 1985 (Age: 38)
Collection Date: 12/07/2023
Accession Date: 12/07/2023
SignOut Date: 12/12/2023

Tissue Source:
1:SIGMOID COLON AND RECTUM AND DESCENDING COLON AND NEW MARGINS

Final Diagnosis:
Sigmoid colon, rectum and descending colon, segmental resections and new margins, excision:
- Segment of colon with extensive diverticulosis, diverticulitis with abscess formation in pericolonic adipose tissue and acute serositis.
- Two additional segments of colon with no significant pathologic changes.
- Two portions of colon, consistent with anastomotic donuts with no pathologic changes.

Primary Pathologist:David Smiley M.D.
electronically signed out by: David Smiley M.D. / CRYSTAL

Clinical History:
Diverticulitis

Gross Description:
Labeled sigmoid colon and rectum and descending colon and new margins . Received in formalin are 3 unoriented segments of large bowel which range from 5.5 cm in length by 2.3 cm in diameter up to 15 cm in length by 5.2 cm in diameter as well as two guevara-pink, annular fragments of mucosa consistent with donuts which are 2.2 x 1.9 x 0.7 cm and 2.3 x 1.7 x 0.7 cm. The segments of bowel total 34.5 cm in length and are arbitrarily designated segment 1, 2, and 3 by the prosector shortest to largest. The serosal surfaces are pink-red, focally surfaced by moderate to pink-red, fibrous adhesions. Bowel segment two displays a 0.4 x 0.3 cm probe patent, full-thickness defect (inked orange) which is 3 cm from the closest stapled end of bowel. The mesorectum is not grossly present.
On opening, bowel segment 2 displays numerous diverticula, some of which extend into the subjacent adipose. The subjacent adipose displays focal, minimal guevara-pink, softened cavitary areas consistent with presumptive abscess formation. The remaining segments display guevara-pink, glistening mucosa. No masses or polyps can be identified grossly. The wall thickness ranges from 0.3 cm up to 1.4 cm.
Tool Salvage Worker sections are submitted as follows:
1- 1 piece, bowel segment 2, defect
2- 1 piece, bowel segment 2, diverticula
3- 1 piece, bowel segment 2, presumptive abscess
4- 2 pieces, bowel segment 1 and 3
5- 2 pieces, donuts. (KM)*

As of October 14, 2023, the specimen processing and staining is [facility], [address] [place] [address] (CLIA#[id number]). Its performance characteristics are determined by [facility].

Phone #: [phone], On-Call Pathologist: &am p;nbsp;[phone] Albumin Level (11/29/2023) ???Albumin - 3.7 Gm/dL BUN (12/14/2023) ???BUN - 8 mg/dL Calcium Ionized (12/14/2023) ???Calcium, Ionized pH Corrected - 1.25 mmol/L Calprotectin Fecal (11/28/2023) ???Calprotectin Fecal - 4430 CBC w/ Differential (12/14/2023) ???WBC - 13.1 k/mm3???RBC - 3.46 m/mm3???Hgb - 10.7 Gm/dL???Hct - 31.8 %???MCV - 91.9 femtoliters???MCH - 30.9 pg???MCHC - 33.6 g/dL???Platelet Count - 448 k/mm3???RDW-SD - 42.6 femtoliters???MPV - 10.3 femtoliters???Nucleated RBC (Automated) - 0.0 #/100 WBC'S???Abs. NRBC - 0.0 k/mm3???Abs. Neut - 7.1 k/mm3???Abs. Lymph - 4.1 k/mm3???Abs. Pope - 1.3 k/mm3???Abs. Eo - 0.4 k/mm3???Abs. Baso - 0.1 k/mm3???Neut % - 53.9 %???Lymph % - 31.1 %???Pope % - 10.2 %???Eos % - 3.1 %???Baso % - 0.5 %???Imm Gran - 1.2 %???Abs. Imm Gran - 0.2 k/mm3 COVID-19 (Novel Coronavirus), Rapid PCR (11/26/2023) ???COVID-19 by RT-PCR - NEGATIVE Creatinine (12/14/2023) ???Creatinine-Blood - 0.84 mg/dL???Estimated GFR Creatinine - 92 ML/MIN/1.73 M2 CRP (11/28/2023) ???C-Reactive Protein - 3.2 mg/dL Electrolytes (12/14/2023) ???Sodium - 138 mmol/L???Potassium - 4.4 mmol/L???Chloride - 100 mmol/L???Bicarbonate Level - 24 mmol/L???Anion Gap - 14 Ferritin (11/29/2023) ???Ferritin Level - 194 ng/mL Glucose Level (12/14/2023) ???Glucose Level - 88 mg/dL GLUCOSE POC (12/07/2023) ???Glucose, POC - 132 mg/dL HEPATIC FUNCTION PANEL (12/05/2023) ???Protein, Total - 6.2 Gm/dL???Albumin - 3.8 Gm/dL???Alkaline Phosphatase - 78 units/L???AST (SGOT) - 17 units/L? ?ALT (SGPT) - 42 units/L? ?Bilirubin, Total - 0.2 mg/dL? ?Bilirubin, Direct - <0.2 mg/dL???Bilirubin, Indirect - Direct bilirubin is less than the measureable limit. Therefore, indirect Iron Binding Capacity Unsaturated (11/29/2023) ???Iron Binding Capacity, Unsaturated - 194 mcg/dL Iron Level (11/29/2023) ???Iron Level - 31 mcg/dL Lactate Level (12/09/2023) ???Lactate - 1.7 mmol/L Lytes (12/09/2023) ???Sodium - 138 mmol/L???Potassium - 3.6 mmol/L???Chloride - 102 mmol/L???Bicarbonate Level - 26 mmol/L???Anion Gap - 10 Magnesium Level (12/14/2023) ???Magnesium - 2.0 mg/dL Phosphorus Level (12/14/2023) ???Phosphorus - 4.7 mg/dL Prealbumin (11/29/2023) ???Prealbumin - 12.4 mg/dL PT (INR) (12/06/2023) ???INR - 1.1???Protime (PT) - 11.9 seconds Total Protein (11/29/2023) ???Protein, Total - 6.1 Gm/dL TRIGLYCERIDE (12/08/2023) ???Triglycerides - 72 mg/dL UA (12/11/2023) ???Appear/Color, Urine - COLORLESS???Specific Archbold, Urine - 1.009???pH, Urine - 7.0???Albumin, Urine - NEGATIVE???Glucose, Urine - NEGATIVE???Ketones, Urine - NEGATIVE???Bilirubin, Urine - NEGATIVE???Hemoglobin, Urine - 3+???Nitrite, Urine - NEGATIVE???Leukocyte, Urine - NEGATIVE???Urobilinogen - NORMAL? ?WBC's, Urine - 2 /HPF? ?RBC's, Urine - 91 /HPF? ?Bacteria - SLIGHT? ?Squamous Epith - <1 /HPF???Mucus - SLIGHT Allergies (NKA means No Known Allergies) ibuprofen??(Hives) Problems Active Problems??(2) Diverticulitis large intestine?? Obese class II?? Education Materials Below is the list of Educational Leaflet Providered with your Discharge Instructions. Valuables and Belongings I fully understand and agree that [facility] accepts no responsibility for all my [...] to send valuables and belongings home. ?? No Valuables/Belongings: No valuables/belongings present Review of Valuable and Belonging List: With patient Date for Pt to Sign Valuables/Belongings: 12/07/23 09:15:00 ?? Other Discharge Information ? Case Management Discharge Plan?? Discharge Plan?? Discharge Agency Information?? Discharge Level of Care at Discharge: Homehealth/VNA Name of Agency #1: [facility] Mode of Transportation Arranged: CAR Agency Width Stripper #1: INTAKE Discharge VNA/Hospice/Home Care: [facility] [phone] Service Categories #1: Alf, Other: Ostomy care and teaching ?? Service Comments #1: The VNA will call you to set up an appointment. Please call the agency with any questions [phone] ?? Pulmonary Rehab Status?? Pulmonary Rehab Discharge Status?? Respiratory Rate: 17 br/min ? Common Emergency Awareness Tips IS [...] are strongly encouraged to quit. Please call [facility] Link at [phone] or [phone] ([phone]) or log in to [email or web address] for referrals to smoking cessation programs. ?? 736 Suicide & Crisis Lifeline is available 27/02 if you or someone you know needs to find a reason to keep living. By calling 710 you'll be connected to a skilled, trained counselor at a crisis center in your area. INPATIENT DISCHARGE INSTRUCTIONS SIGNATURE PAGE BROOKS PATIÑO Location:[facility] Registration Date and Time:11/25/2023 22:34 EDT Primary Care Physician: Melyssa White NP, Attending Physician: Jada Chiang MD, I GAIL BROOKS GORDON, have received the above patient education materials/instructions and have verbalized understanding. If ambulance or transport services are being used I further acknowledge being given a choice of service. ?? If you need to contact me, please call me at this number: . Patient/Tool Salvage Worker Name: Patient/Tool Salvage Worker Signature: Relationship to Patient: Witness Name/Signature: Date: * Event Display: Provider Clarification Note Please click on pdf link to open report * Faye Lehman: PERFORM Event Display: Procedures Invasive Line Authored Date: [id number] Vascular Access Insertion Entered On: 11/29/2023 13:14 EDT Performed On: 11/29/2023 13:11 EDT by Faye Lehman Vascular Access Insertion Time Out Performed : Yes Time Out Data : Patient identified, Site verified, Procedure verified, Consent signed, RN attendance Hand Hygiene prior to insertion : Yes Maximal sterile barriers used : Mask, Sterile gown, Large sterile full body drape, Sterile gloves, Ultrasound sterile cover, Cap Sterile Field Maintained : Yes Skin Preparation : Chlorhexidine (CHG) Skin Prep dry at first skin puncture : Yes Antimicrobial coated catheter used : No Successful central line placement : Yes Vascular Access Catheter Type : PICC line Vascular Access Insertion Site : Other: RUE basilic vein Vascular Access Insertion Side : Right Vascular Access Catheter Size : 4fr Vascular Access Catheter Length : 41cm Vessel Identified By : Ultrasound Vascular Access Insertion Circumstance : Non-emergent Vascular Access Catheter Securement : Statlock Vascular Access Dressing : Occlusive Follow-up CXR : Not applicable CXR Comment : distal SVC confirmed with Sherlock 3CG technology Faye Lehman - 11/29/2023 14:27 EDT DCP GENERIC CODE Suture needles : 0 [place] : 3 Scalpels : 1 Clamps : 0 Guide Wires : 1 Faye Lehman 11/29/2023 14:27 EDT Complications during Insertion : None Tolerated CLIP procedure well : Yes Insertion Attempts : 1 Vascular Access Device QA : BARD CTPICC DL 4fr @ 41cm (1cm out) Vascular Access Insertion Comments : mid arm circumference 10cm above AC Fossa-31cm Faye Lehman - 11/29/2023 14:27 EDT Date of Vascular Access Insertion : 11/29/2023 EDT Procedure Location Vascular Access : IV Room W4 Person recording insertion : Stone Rougher Stone Rougher of Vascular Access : Faye Lehman Occupation of Vascular Access Stone Rougher : Registered nurse Was rolled glass crosscutter a member of PICC/IV Team : Yes Faye Lehman - 11/29/2023 13:11 EDT Faye Lehman - 11/29/2023 13:11 EDT Procedural Comments Risk Factors and Labs Reviewed : Yes Faye Lehman - 11/29/2023 14:27 EDT Anticoagulation Therapy : No Antiplatelet Therapy : No Was vascular access order placed : Yes Vascular Access Type : Central line Reason for Vascular Access Insertion : Medication requires use of vascular access Suspected Vascular Access Infection : No, the access was not exchanged over a guide wire Vascular Access Procedure Check : Consent obtained Vascular Access Device Lot Number : [id number] Vascular Access Device Code : [id number] Vascular Access Device Expiration Date : 01/04/2025 EDT Faye Lehman - 11/29/2023 13:11 EDT History and physical note * Ankur MASTERS, Yue: PERFORM, MODIFY, MODIFY Event Display: History and Physical Hospital Authored Date: [id number] Patient: ??GAIL BROOKS GORDON ? Age:??38 Years?Sex:??Female?:??1985?? Chief Complaint/Reason for Consult Transfer from [place] for surg consult d/t diverticulitis. History of Present Illness Brooks is a 38 year old female with history of endometriosis and obesity who presented to [facility] on11/25/23 as a transfer from [facility] for evaluation and management of persistent colitis. Patient states that she has been having recurrent bouts of abdominal pain in the LLQ since the start of this year and reports multiple attacks since this, however, denies being given any antibiotic treatment during this time??until??her most recent hospitalization??which she states is??the first time she has been??treated for??diverticulitis.?? She??states that she was hospitalized??at [place] for roughly a week where she was given IV antibiotics??and her diet was attempted to be advanced. ??She states ultimately that??she could not tolerate the advancement??but requested to leave??on a clear liquiddiet??and was instructed to self advance at home??while finishing her course of antibiotics by mouth.?? She states that when she??arrived home,??she tried to progress her diet and could not tolerate this, experience worsening pain again??prompting her??reevaluation to the hospital.?? Upon arrival to the ED??she underwent??a repeat??CT??abdomen pelvis with IV contrast that??demonstrated??a??left??colonic/sigmoid??wall thickening??involving a focal segment spanning??roughly 12 cm with surrounding inflammation??suggestive of focal colitis with upstream??partial??colonic obstruction, without small bowel dilatation.?? Thus she was??transferred to??[facility], and admitted to the general surgery??service??for management and evaluation of??recurrent??diverticulitis.?? Given her??smoldering presentation? ?and??abnormal imaging findings, colorectal surgery??has been consulted for second opinion, as wellas per patient request. At this time, patient does report that her pain has significantly improved since readmission, initiation of??bowel rest, and IV antibiotics. ??She denies current or any previous symptoms of urinary??d iscomfort,??frequency,??pneumaturia, or frequent UTIs.?? She also denies any??abnormal vaginal discharge. ??She denies fevers, chills, nausea, emesis. ??She??is??passing some flatus and had??a small bowel movement earlier today. Review of Systems A 14-point review of systems was negative except as documented above. Physical Exam Vitals & Measurements T:??98.4?F?? HR:??72??(Peripheral)?? RR:??20?? BP:??116/74?? SpO2:??99%?? HT:??158??cm?? WT:??92??kg?? BMI:??36.85?? Physical Examination ?General: no acute distress, alert, awake ?HEENT: sclera nonicteric, PERRLA and EOMI bilaterally, ??voice normal, neck supple, moist mucous membranes ?Cardiac: regular rate and rhythm, no murmurs appreciated ?Respiratory: clear to auscultation bilaterally, no wheezes, rales, or ronchi, nonlabored breathing ?Abdomen: soft, obese, mildly distended,??LLQ??and??left mid-abdominal ttp without guarding,no rebound, bowel sounds present, no hepatosplenomegaly ?Genitourinary: no inguinal masses or bulges with valsalva ?Extremities: warm, well perfused, no edema, cyanosis, or clubbing ?Musculoskeletal: moves all four extremities spontaneously, range of motion grossly intact ?Skin: warm, no diaphoresis, or jaundice, good skin turgor ?Neurologic: alert and oriented x3, GCS 15, CNII to XII grossly intact, no apparent focal defects ?Psychiatric: mood and affect within normal limits, cooperative Assessment/Plan Brooks is a 38 year old female with history of endometriosis and obesity who presented to [facility] on11/25/23 as a transfer from [facility] for evaluation and management of persistent colitis despite conservative management with IV antibiotics and bowel rest. At this??time,??patient is requesting??a second opinion for further management options, prompting colorectal surgical evaluation. ?? Following review of her recent course and history, and recent imaging up to this point, recommend additional work up with CT enterography for better characterization of her focal segment of distalcolitis and proximal colon. Obtain fecal calprotectin. Recommend GI consultation for consideration of flexible sigmoidoscopy and further delineation as to whether this is nonspecific colitis or sigmoid diverticulitis, which may alter future management course. ?? Discussed with attending surgeon, ??[facility] [id number] Problem List/Past Medical History Ongoing Diverticulitis large intestine Obese class II Procedure/Surgical History No qualifying data available. Home Medications Amoxicillin-Clavulanate: 1 tablet, By Mouth, Every 12 hours, next dose tonight MedroxyPROGESTERone: 150 mg = 1 mL, Intramuscular, Every 3 months Ondansetron: 4 mg = 1 tablet, By Mouth, Every 8 hours, PRN (Nausea & Vomiting) Oxycodone: 10 mg = 1 tablet, By Mouth, Every 6 hours, PRN (Pain , Moderate), 2 tabs every 6hr as needed for severe pain Allergies ibuprofen??(Hives) Social History Alcohol Use: Current. Frequency: 1-2 times per month. Substance Abuse Use: Never. Tobacco Use: 4 or less cigarettes(less than 1/4 pack)/day in last 30 days, Former smoker, quit more than 30days ago. Family History Denies hx of IBD or colorectal malignancies Lab Results Labs Last 24 Hours BLOOD COUNT & DIFF ? Event Name?? Event Result?? Date/Time?? WBC 11.2 k/mm3??High 11/27/23 00:18:00 RBC 4.31 m/mm3 11/27/23 00:18:00 Hgb 13.4 Gm/dL 11/27/23 00:18:00 Hct 38.8 % 11/27/23 00:18:00 MCV 90 femtoliters 11/27/23 00:18:00 MCH 31.1 pg 11/27/23 00:18:00 MCHC 34.5 g/dL 11/27/23 00:18:00 Platelet Count 377 k/mm3 11/27/23 00:18:00 MPV 11.4 femtoliters 11/27/23 00:18:00 Nucleated RBC (Automated) 0 #/100 WBC'S 11/27/23 00:18:00 ? CHEM GENERAL ? Event Name?? Event Result?? Date/Time?? Sodium 138 mmol/L 11/27/23 00:23:00 Chloride 101 mmol/L 11/27/23 00:23:00 Bicarbonate Level 17 mmol/L??Low 11/27/23 00:23:00 Anion Gap 20??High 11/27/23 00:23:00 Glucose Level 53 mg/dL??Low 11/27/23 00:23:00 BUN 7 mg/dL 11/27/23 00:23:00 Creatinine-Blood 0.8 mg/dL 11/27/23 00:23:00 Calcium, Ionized pH Corrected 1.27 mmol/L 11/27/23 00:23:00 Phosphorus 3.1 mg/dL 11/27/23 00:23:00 Magnesium 2.8 mg/dL??High 11/27/23 00:23:00 ? * Андрей MASTERS, Jada Ward: PERFORM Event Display: History and Physical Hospital Authored Date: [id number] Attending Attestation: I have seen and evaluated this patient.?? I have discussed the case and its management with the resident and agree with the findings and plan as documented in the resident???s note. Patient seen on 11/26 as she was in CT on the evening of .?? I have reviewed her history, recent course,??hospital course, as well as her??vitals, labs, imaging, as well as her exam.?? Briefly, she is a 38-year-old female who has had difficulty since last July with abdominal pain.?? She has several??CT scans in our system related to several visits to the ED for the pain. ??They are allconsistent with??inflammation of the sigmoid colon with narrowing.?? There is question of diverticulitis versus colitis.?? She returned on this admission with recurrent pain. ??There was suggestion that he undergo a resection with colostomy given the chronicity of the issue and the lack of resolution without surgical intervention.?? The patient asked the colorectal team??to provide a second opinion.?? I have reviewed all of her imaging available to me in the system and interviewed the patient. ??Her abdomen is soft and she does have some left lower quadrant pain.?? There is no peritonitis.?? When I was asked to see her we did recommend a CT enterography which confirms the stricture but doesnot necessarily delineate between diverticulitis and colitis from other causes.?? We additionally had GI see the patient and they have recommended flexible sigmoidoscopy which I think would be helpful??with diagnostics. ??This could certainly influence the??approach??to surgery.?? The patient is reticent related to the risks. ?? I have explained to her that she has had??multiple CT scans and has had ongoing symptoms since July. ??These have become progressive and are now not relenting.?? She will certainly require surgical intervention but I am understanding that she does not want to proceed??with a colectomy and colostomy tomorrow. ??She would like to consider??anastomosis and I have explained that that is not out of the question but she would require a diverting loop ileostomy to protect it given the ongoing inflammation.?? We talked about the differential including diverticulitis,??colitis??including autoimmune colitis as well as??ischemic colitis, and in rare cases??neoplasm.?? She does have a history of endometriosis which could also be contributing although it does not necessarily??present at this location and this pattern frequently.?? She is understanding of this and is going to consider whether or not she would like to proceed with sigmoidoscopy. ??We will otherwise??care for her on the colorectal service and monitor her course.?? We will decide on the need for surgery and timing as we move forward.?? Please see our attached consult note for additional details. ?? Total time:??80 minutes was spent on??review of the patient's records including??notes, imaging,??as well as??previous??CT scans and images.?? Care was coordinated with the blue service as well as gastroenterology.?? In person time including the interview as well as the exam and counseling along with documentation are included in the time. Admission evaluation note * Shasta Morales: PERFORM, MODIFY Wilber Bruce MD: MODIFY Event Display: Admission Note Authored Date: Patient: ??GAIL GORDON BROOKS ? Age:??38 Years?Sex:??Female?:??1985?? Chief Complaint 38 year old woman with abdominal pain following a week long admission for diverticulitis last week at [place] History of Present Illness Patient is a 38 year old woman with a PMH of diverticulitis, endometriosis, and obesity??who presents with abdominal pain and concern for diverticulitis that has now failed conservative management. ?? She presented to [facility] today with generalized abdominal pain and not feeling like herself. She wasdischarged from [facility] on 11/18 following a week long admission for diverticulitis. She received amoxicillin-clavulanate IV for 1 week during hospitalization??and has been taking oral tablets since discharge. Upon her discharge she was on a clear liquid diet and started crackers and bread that she ate without nausea and vomiting until 2 days ago. She endorses vomiting??green/yellow yesterday.??She has been moving her bowels since discharge but they have been very little. Her last BM/passing gas??was yesterday.??She has been taking Miralax and Gas X since discharge as well. ?? When they got to ED, CT scan showed left colonic colonic/sigmoid colon wall thickening involvinga relatively focal segment spanning approximately 12 cm with surrounding inflammation. Suggesting focal colitis. Small bowel does not appear dilated. WBC 11.6 today (at her discharge 11/18 at [place] was 12.3). Absolute neutrophils slightly elevated (8.6). Low potassium (3/2). Physical Exam Vitals & Measurements T:??98.7?F?? HR:??102??(Peripheral)?? RR:??24?? BP:??115/54?? SpO2:??100%?? Constitutional: Alert and aware Mental Status: Oriented to person, place and time. Head: Normocephalic. Gastrointestinal: Abdomen soft,?? non distended with tenderness to palpation the LLQ with??guardingno diffuse peritonitis. Genitourinary: No costovertebral angle tenderness. Skin: No rashes or lesions. No petechiae or purpura.?? Musculoskeletal: No cyanosis or clubbing. No gross deformities. Normal range of motion. Heme/Lymphatics/Immun: Palpation of neck reveals no swelling or tenderness of neck nodes. Palpationof groin reveals no swelling or tenderness of groin nodes. Psychiatric: Normal mood and affect Assessment/Plan Patient is a 38 year old woman with a PMH of diverticulitis, endometriosis, and obesity??who presents with abdominal pain and concern for diverticulitis that has now failed conservative management. ?? On my review of the imaging patient??has??persistent sigmoid inflammation??with proximal dilation of colon??suggestive of possible??stricture.?? There is no evidence of large bowel obstruction at this time she is passing??stool and flatus although she has diminished caliber of stools. ??Patient??has persistent abdominal pain??and??has failed conservative management of diverticulitis with??IV and oral antibiotics. ??At this time she will??likely require operative intervention with sigmoid resection in the next 48 hours. ?? plan: N.p.o. IV fluids Zosyn Antiemetics and pain control Patient to be reviewed in the morning??and discuss surgical intervention by Blue surgery service versus colorectal surgery team DVT prophylaxis ?? This note was prepared with the assistance of Shasta morales ms??MS This plan was discussed with Dr. Bahena Blue surgery Service [id number] ? Problem List/Past Medical History Ongoing Diverticulitis large intestine Obese class II Procedure/Surgical History No qualifying data available. Home Medications Amoxicillin-Clavulanate: 1 tablet, By Mouth, Every 12 hours, next dose tonight MedroxyPROGESTERone: Intramuscular Ondansetron: 4 mg = 1 tablet, By Mouth, Every 8 hours, PRN (Nausea & Vomiting) Oxycodone: 10 mg = 1 tablet, By Mouth, Every 6 hours, PRN (Pain , Moderate), 2 tabs every 6hr as needed for severe pain Allergies ibuprofen??(Hives) Social History Alcohol Use: Current. Frequency: 1-2 times per month. Substance Abuse Use: Never. Tobacco Use: 4 or less cigarettes(less than 1/4 pack)/day in last 30 days, Former smoker, quit more than 30days ago. Family History No family history recorded. Lab Results Labs Last 24 Hours No qualifying data available. EKG study * Event Display: ECG 12-Lead Authored Date: Please click on pdf link to open report * Event Display: ECG 12-Lead Authored Date: Ventricular Rate: 122 BPM Atrial Rate: 122 BPM P-R Interval: 162 ms QRS Duration: 68 ms Q-T Interval: 300 ms QTC Calculation(Bazett): 427 ms P Lima: 35 degrees R Lima: -6 degrees T Lima: 10 degrees Sinus tachycardia Minimal voltage criteria for LVH, may be normal variant Nonspecific T wave abnormality Abnormal ECG When compared with ECG of 06-DEC-2023 23:36, Nonspecific T wave abnormality now evident in Anterior leads Confirmed by Tremayne Nuñez ([id number]) on 12/11/2023 10:26:24 AM [place]: Tremayne Nuñez * Event Display: ECG 12-Lead Authored Date: Please click on pdf link to open report * Event Display: ECG 12-Lead Authored Date: [id number] Ventricular Rate: 107 BPM Atrial Rate: 107 BPM P-R Interval: 160 ms QRS Duration: 66 ms Q-T Interval: 326 ms QTC Calculation(Bazett): 435 ms P Lima: 36 degrees R Lima: -11 degrees T Lima: 18 degrees Sinus tachycardia Otherwise normal ECG When compared with ECG of 01-DEC-2023 22:22, No significant change was found Confirmed by DEENA KRISHNAN ([id number]) on 12/07/2023 11:31:44 AM [place]: DEENA KRISHNAN * Event Display: EKG Authored Date: * Event Display: ECG 12-Lead Authored Date: Please click on pdf link to open report * Event Display: ECG 12-Lead Authored Date: Ventricular Rate: 81 BPM Atrial Rate: 81 BPM P-R Interval: 156 ms QRS Duration: 68 ms Q-T Interval: 360 ms QTC Calculation(Bazett): 418 ms P Lima: 12 degrees R Lima: -9 degrees T Lima: 13 degrees Normal sinus rhythm Minimal voltage criteria for LVH, may be normal variant Borderline ECG When compared with ECG of 19-FEB-2018 11:39, No significant change was found Confirmed by NALLELY MURDOCK MD ([id number]) on 12/02/2023 11:27:55 AM [place]: NALLELY MURDOCK MD [facility] Progress note * Nate Dee RN: PERFORM, SIGN, VERIFY Event Display: Progress Note Hospital Authored Date: Patient: BROOKS PATIÑO Age: 38 years Sex: Female : 1985 Associated Diagnoses: None Author: Nate Dee RN Findings Problem Related to Alteration in Gastrointestinal : Alteration in Gastrointestinal Func/new 12/14/2023 10:00 EDT Alteration in GI status Related to Other: Diverticulitis-> 2 Lap to open sigmoid colectomy w/ ostomy creation Goals & Outcomes, Gastrointestinal Establish a regular pattern of elimination for pt, Nutritional intake is adequate for metabolic needs, Pt will achieve normal/improved fluid balance, Pt will have a bowel movement prior to discharge, Pt will maintain adequate GI function appropriate for pt, Ptwill maintain normal elimination patterns, Pt will resume/maintain adequate hemodynamic status, Pt will tolerate age appropriate diet prior to discharge, Ostomy will be functioning properly prior to D/C, Pt will correctly state/demonstrate applying ostomy pouch, Pt will correctly state/demonstrate emptying ostomy pouch, Pt will view ostomy, Pt will experience progressive wound healing, Pt will not experience s/s of infection prior to discharge Interventions, Gastrointestinal Assess/monitor abdomen for distention, tenderness, Assess/monitor abdominal girth & bowel function, Assess/monitor bowel pattern, bowel sounds, flatus, Assess/monitor number of bowel movements, Assess/monitor color, quantity, quality, consistency of stoo, Assess/monitor pt for nausea, vomiting, Assess/monitor intake & output, Assess if pt tolerating diet, DVT prophylaxis as ordered, Elevate HOB to facilitate lung expansion, prevent aspiration, Establish toileting schedule for patient, Taking PO: Encourage/monitor intake & swallowing ability, Teach Pt/caregiver diet & give copy of dietary instructions, Teach Pt/caregiver on bowel elimination int erventions, Teach Pt/caregiver re: importance of bowel regime, Teach Pt/caregiver re: nutritional intake & dietary restrict, Teach/encourage deep breath & cough exercises, Teach/encourage useof incentive spirometer Goals/Interventions, Gastrointestinal Yes Gastrointestinal, Problem Start 11/26/2023 13:00 Reviewed plan with, Gastrointestinal Patient Patient Progression, Gastrointestinal Pt progressing according to plan . Evaluation Took over patient care at 0930. Pt is A/Ox4. VSS. Pt reports 10/10 pain but appears to be resting comfortably. PICC line removed by IV team per order. Lungs are clear on room air. Pt refused to use incentive spirometer. Pt has +PP and trace bilateral lower extremity edema. +BSx4 quadrants. Abdomen is soft, round, and tender. Pt denies N/v. Pt has ileostomy putting out mushy brown stool. Stoma is pink and moist. Pt is on an ostomy diet, tolerating well. Pt voids. Pt has a midline incision open to air, clean, and dry. Pt has 2 lap sites with steris open to air, clean, and dry. Pt ambulating in room with walker. Pt is resting in bed with call caballero in reach. Plan to discharge pt via chair van at 1300. . Discharge Information Case Management Discharge Plan : Case Management Discharge Plan Data 12/12/2023 12:46 EDT Discharge Level of Care at Discharge Homehealth/VNA Discharge VNA/Hospice/Home Care [facility] [phone] Mode of Transportation Arranged CAR Name of Agency #1 [facility] Width Stripper #1 INTAKE Service Categories #1 Alf, Other: Ostomy care and teaching Service Comments #1 The VNA will call you to set up an appointment. Please call the agency with anyquestions [phone] * Sissy Spaulding RN: PERFORM, SIGN, VERIFY Event Display: Progress Note Hospital Authored Date: Patient: BROOKS PATIÑO Age: 38 years Sex: Female : 1985 Associated Diagnoses: None Author: Sissy Spaulding RN Findings Problem Related to Alteration in Gastrointestinal : Alteration in Gastrointestinal Func/new 12/14/2023 10:00 EDT Alteration in GI status Related to Other: Diverticulitis-> 5/2 Lap to open sigmoid colectomy w/ ostomy creation Goals & Outcomes, Gastrointestinal Establish a regular pattern of elimination for pt, Nutritional intake is adequate for metabolic needs, Pt will achieve normal/improved fluid balance, Pt will have a bowel movement prior to discharge, Pt will maintain adequate GI function appropriate for pt, Ptwill maintain normal elimination patterns, Pt will resume/maintain adequate hemodynamic status, Pt will tolerate age appropriate diet prior to discharge, Ostomy will be functioning properly prior to D/C, Pt will correctly state/demonstrate applying ostomy pouch, Pt will correctly state/demonstrate emptying ostomy pouch, Pt will view ostomy, Pt will experience progressive wound healing, Pt will not experience s/s of infection prior to discharge Interventions, Gastrointestinal Assess/monitor abdomen for distention, tenderness, Assess/monitor abdominal girth & bowel function, Assess/monitor bowel pattern, bowel sounds, flatus, Assess/monitor number of bowel movements, Assess/monitor color, quantity, quality, consistency of stoo, Assess/monitor pt for nausea, vomiting, Assess/monitor intake & output, Assess if pt tolerating diet, DVT prophylaxis as ordered, Elevate HOB to facilitate lung expansion, prevent aspiration, Establish toileting schedule for patient, Taking PO: Encourage/monitor intake & swallowing ability, Teach Pt/caregiver diet & give copy of dietary instructions, Teach Pt/caregiver on bowel elimination int erventions, Teach Pt/caregiver re: importance of bowel regime, Teach Pt/caregiver re: nutritional intake & dietary restrict, Teach/encourage deep breath & cough exercises, Teach/encourage useof incentive spirometer Goals/Interventions, Gastrointestinal Yes Gastrointestinal, Problem Start 11/26/2023 13:00 Reviewed plan with, Gastrointestinal Patient Patient Progression, Gastrointestinal Pt progressing according to plan . Evaluation Alert and oriented times 3. Resting in the bed at present. Plan of care reviewed with pt. 1 liter LR bolus infused as ordered. Midline abdominal incision with mason is open to the air. Ostomy is intact draining mushy brown stool. Refused Lovenox administration to abdomen. Lovenox injection administered to left arm per pt request. Refused oral Protonox stating that it 'caused her stomach to hurtand could only take via IV'. Service provider paged and communicated that pt requesting Protonix IV. Provider explained that in anticipation of discharge home medication changed from iv to PO. The above was communicaed to the patient and reiterated by a second nurse. See [facility] for meds administerd.. * Rosario Schwarz RN: PERFORM, MODIFY, SIGN, VERIFY Event Display: Progress Note Hospital Authored Date: [id number] Patient: BROOKS PATIÑO Age: 38 years Sex: Female : 1985 Associated Diagnoses: None Author: Rosario Schwarz RN Findings Problem Related to Alteration in Gastrointestinal : Alteration in Gastrointestinal Func/new 12/13/2023 19:00 EDT Alteration in GI status Related to Other: Diverticulitis-> 5/2 Lap to open sigmoid colectomy w/ ostomy creation Goals & Outcomes, Gastrointestinal Establish a regular pattern of elimination for pt, Nutritional intake is adequate for metabolic needs, Pt will achieve normal/improved fluid balance, Pt will have a bowel movement prior to discharge, Pt will maintain adequate GI function appropriate for pt, Ptwill maintain normal elimination patterns, Pt will resume/maintain adequate hemodynamic status, Pt will tolerate age appropriate diet prior to discharge, Ostomy will be functioning properly prior to D/C, Pt will correctly state/demonstrate applying ostomy pouch, Pt will correctly state/demonstrate emptying ostomy pouch, Pt will view ostomy, Pt will experience progressive wound healing, Pt will not experience s/s of infection prior to discharge Interventions, Gastrointestinal Assess/monitor abdomen for distention, tenderness, Assess/monitor abdominal girth & bowel function, Assess/monitor bowel pattern, bowel sounds, flatus, Assess/monitor number of bowel movements, Assess/monitor color, quantity, quality, consistency of stoo, Assess/monitor pt for nausea, vomiting, Assess/monitor effects of re-hydration, Assess/monitor intake &output, Assess if pt tolerating diet, DVT prophylaxis as ordered, Teach/encourage deep breath &cough exercises, Teach/encourage use of incentive spirometer Goals/Interventions, Gastrointestinal Yes Gastrointestinal, Problem Start 11/26/2023 13:00 Reviewed plan with, Gastrointestinal Patient Patient Progression, Gastrointestinal Pt progressing according to plan . Nursing Data Vital Signs : VITAL SIGNS SECTION 12/13/2023 19:39 EDT Temperature 98.4 DegF Temperature Route Oral Pulse Rate 90 bpm Respiratory Rate 16 br/min Systolic Blood Pressure 102 mm Hg Diastolic Blood Pressure 70 mm Hg Blood pressure sites Arm, right Pulse Pressure 32 mm Hg Oxygen Saturation 100 % Mode of Delivery (Oxygen) Room air . Evaluation Patient stating that pain regimen is working for her. Patient denies nausea and vomiting. Tolerating ostomy diet. LBM 58 via colostomy. Stoma moist and pink. Positive bowel sounds. Abdomen soft, distended and non-tender to palpation. Abdominal midline with mason clean, dry and well approximated.Dressing to the RLQ clean, dry and intact. 2 lap sites with steris in place. Ambulating independently. Bed in lowest locked position. Call caballero within reach. Will continue to follow gastrointestinal status. . Consult note * Faye Nix RN: PERFORM, SIGN, VERIFY Event Display: Consultation Note Authored Date: [id number] Patient: BROOKS PATIÑO Age: 38 years Sex: Female : 1985 Associated Diagnoses: None Author: Faye Nix RN History of Presenting Problem Date of Service 12/14/2023 Reason for referral I was asked by the direct care RN and head gauge unit operator to see patient for ostomy teaching today. Patient wanting to be discharged and reports that she doesn't know how to do anything with my pouch. No one has taught me . Upon arrival to bedside, patient is found lying in bed. IV nurse in the process of removing her PICC line. After she was completed, I introduced myself to the patient. She is alert and oriented x 3 and agreeable with proceeding with visit. She tells me that she doesn't know how to change her pouch and requesting to change it today. After reviewing her EMR, it is noted that my colleague provided patient and her partner with a full ostomy teach 2 days ago. She went back yesterday for ongoing teaching, however patient was not in a place mentally to absorb or comprehend education. Her partner didnot want education without the patient being involved. Please see notes for details. Patient was able to perform a return demonstration on how to open, empty and close the Velcro closure pouch with very little cueing. I reminded her not to stick her fingers tin the pouch to open the mouth of the pouch, rather to push the 2 ends together like a change purse. She was able to perform a return demonstration then without cueing. We reviewed to empty the pouch when 1/3 to 1/2 full. Sheinquried about rinsing the pouch out with water. I educated her that this is not advised at the water may get between the wafer and her skin, cause peristomal breakdown thus leading to the pouch not adhering to her skin and decreasing the wear time. She verbalized understanding. Patient expressed anxiety about not knowing how to change her pouch. I reminded her that she will be getting VNA services once home and they will continue working with her until she is independent with all aspects of care. She was content with this answer. We reviewed the [id number] process on how to remove pouch, cleanse area with warm water only then dry well, inspect stoma and peristomal skin (apply Stomahesive powder and no-sting skin prep only for peristomal skin breakdown), measure stoma, cut pouch to the appropriate size, how to apply Convatec small cohesive Clif ring (#[id number]) snuggly around stoma, place wafer over ring and press firmly into abdomen, i Patient was shown that she was given some ostomy pouches, clif rings, Stomahesive powder and no-sting skin prep for transitionto home. Aware that Rx written for pouches and rings and put in chart for MD to sign prior to discharge. All questions and concerns addressed at this time and states that she feels much better about going home with her ostomy. She is aware that our team will reach out to her in 1-2 weeks to see howmarlen is doing but encouraged to call our office (number provided) or Dr Chiang's office with questions or concerns prior to this if issues arise. She verbalized understanding of all and thanked me for the time I spent with her. Update provided to direct care RN, head gauge unit operator and surgical PAChica. Plan Time spent 31-45 minutes * Beth Flores RN: PERFORM, SIGN, VERIFY Event Display: Consultation Note Authored Date: [id number] Patient: BROOKS PATIÑO Age: 38 years Sex: Female : 1985 Associated Diagnoses: None Author: Beth Flores RN History of Presenting Problem Date of Service 12/13/2023 behavioral analyst consulted for second post-operative teaching following new loop ileostomy creation on 12/07/23 by MD Esther Chiang, POD#6. Upon entering the room patient is lying in bed eyes closed and slowly opened eyes with partner Shahnaz verbal and light touch stimuli, she appears pale and diaphoretic. Partner Shahnaz at bedside for planned session this morning, very kind a supportive. Patient making whining/moaning sounds complaining of pain and asking for IV Dilaudid. I discussed I did not think patient appropriate for education at this time, Shahnaz agreeable, I offered to just teach Shahnaz although she denied and wants to have education when patient is ready and they can do it together. They are aware I will follow peripherally via chart review and call Shahnaz to coordinate a future time for education session. When I left they were aware I would update the nurse. Post visit spoke with BERNARDO Weeks in [facility] and discussed above, encouraged to take photo of ostomy at next pouch change. Updated HEIDY Rojas of above and spoke over the phone, she stated plan to consult APS again. PA aware pouch changed yesterday with bridge intact, did not view ostomy today. Plan Time spent 16-30 minutes * Beth Flores RN: MODIFY, PERFORM, MODIFY, MODIFY, SIGN, VERIFY Event Display: Consultation Note Authored Date: [id number] Patient: BROOKS PATIÑO Age: 38 years Sex: Female : 1985 Associated Diagnoses: None Author: Beth Flores RN History of Presenting Problem Date of Service 12/12/2023 Reason for referral Reason for referral: new ostomy, patient teaching. Type of Ostomy Type of ostomy: DIVERTING LOOP ILEOSTOMY. Past Medical History Date of Surgery 12/07/2023 Surgeon MD Jada Chiang Significant Past Medical History sigmoid stricture . behavioral analyst consulted for first post-operative teaching following new loop ileostomy creation on 12/07/23 by MD Esther Chiang, POD#5. behavioral analyst team consulted on POD#4 by surgical team. Upon first encounter with patient around 1230, I had walked into room and introduced myself, she stated she does not want a pouch change until she receives alternate pain medication (described 05/16 pain constant I can't walk )- I provided brief review of pain medication education/expectations post surgery, I was agreeable and relayed information to HEIDY Rojas via Smeet, she pushed her tray back for my assessment of pouch- with light touches to clear plastic she was guarding and pushing my hands away at times. I encouraged for time being to just empty the pouch due to largely full, she became agitated discussing topics that she was upset about like how the later time her partner could come in today didn't work for me. At this point of my visit I did not feel like I was assisting the patients behavior s and politely stepped out but relaying to patient that I will speak with PA and RN about pain and what we discussed. BERNARDO Alfred updated outside of room, spoke with PA over phone. PA later reached out stated plan for IV pain medication to be given before I changed her pouch, I coordinated with Nehemias returned to room to complete. Upon entering for the second time patient is lying in bed, alert and awake- looks slightly sleepy. Similar affect as prior, seemed mildly agitated stating she was supposed to get a 'pump' of pain medication- although I verified with her that I spoke with provider before entering via [employer] about plan, she then wanted to take a drink and was agitated she couldn't drink while laying down although I had all of my pouch changing supplies in front of me. Started with pouch change, agreeable for photodocumentation although refused the removal of her midline dressing. She called her partner Oneyda and put her on Facetime. OR pouch currently intact, pouch change initiated for behavioral analystloss prevention manager. Step by step instructions of how to remove and replace an ostomy pouch using verbal instructions instituted while actions being performed in the following manner: Ostomy pouch removed (per patient per her request due to pain) exposing red, moist, warm, congested stoma, seated above skin level, os not seen active although with collection of stool centrally below red rubber bridge suspected central placement, MCJ intact, peristomal skin intact and soft/supple. No photo taken. Stool liquid green with flecks of undigested bile and mushy consistency at stoma base/os. Warm water moistened towelette used to cleanse area and pat dry. Patient educated on importance of cleansing with warm water only no soap. Stoma round, measured to 35mm. and ostomy pouch cut to match. Clif ring applied snuggly around stoma. Ostomy pouch backing was removed and placed on the abdomen, pressed lightly (due to pain) to ensure an appropriate seal. Patient did well viewing stoma. Patient educated pouch to be changed every 3-4 days and with leaking and signs/symptoms'silent leak'. She stated she will be changing it every other day due to doesn't like the look of it, we discussing disadvantages of excess removal of 'extended wear adhesive' but verified I will send a 2 piece sample pouch to her at home- she can assess if she wants to trial to just be able to remove the pouch and keep wafer in place for a 'cleaner assistant look', she was agreeable. Patient supported with education about VNA services for home. Of note, midline incision covered in Aquacel OR dressing with minimal strike through. Patient stated she has been emptying her own pouch. Although upon demonstration she did not know how to flip the tab, she stated she was not taught this, when I demonstrated she was able to demonstrate independently. Educated to empty pouch when 1/3-1/2 full. Reviewed procedure when showering and swimming, reinforcing charcoal filter and when to cover it. Reinforced goal of emptying the pouch befo re leaving the hospital. [employer] Ostomy Home Skills Kit brought to bedsidebut not reviewed. We verbally discussed basics of GI anatomy & stoma health. Oneyda stayed on Facetime throughout visit- assisting to view stoma, she seems very supportive of patient with kind words, she was agreeable to meeting tomorrow morning at 0900. Much emotional encouragement provided to patient throughout visit, she appears to become calmer after pouch change completed but was weepy and making moaning noises at beginning. Patient asked great critical thinking questions, subjects educated about would have been deferred from this visit but due to questions I proceeded with brief explanations. Limited visit seemed appropriate for patient today. Appreciative ofmy visit before I left. Update provided to direct care RN post teaching. Prescriptions written and p laced in patient's chart and supplies left at bedside. Nutrition currently following patient. PA aware post visit stoma congested, refused me taking off her midline dressing, aware I will be meeting tomorrow with her & partner to finish education... made aware that she was very anxious (patientrequested Valium after I left) and to consider psych consult due to weepy very often during visit. Topics for next visit: with partner Oneyda 12/12 at 0900 ~Review watson topics ~Emptying review ~Pouch change with model Stoma Current Pouching System Coloplast #13925 with Clif ring #[id number] Wear Time 3-4 days Pouching system recommended Coloplast #10447 with Clif ring #[id number] Plan Time spent > 60 minutes Patient Care team information Care Team Personnel Name: Bertha Kolb RN Position: S RN Member Role: Primary Care Nurse Name: Ashley Domínguez RN Position: S RN Member Role: Primary Care Nurse Name: Maame Pearce Position: S Outreach Member Role: Lifetime Consulting Physician Name: Charline Terrazas RN Position: S RN Member Role: Primary Care Nurse Name: Efrain Long RN Position: S RN Member Role: Primary Care Nurse Name: Melyssa White NP Position: Reference Physician Member Role: PCP Address: Address: [address] [place] [address]- Name: Nida Ferro RN Position: S RN Member Role: Primary Care Nurse Name: Kaur Wilson RN Position: [facility] RN Member Role: Primary Care Nurse Name: Daniela Chou RN Position: [facility] RN Member Role: Primary Care Nurse Name: Alison Brewer RN Position: [facility] RN Member Role: Primary Care Nurse Name: Adamaris Lynn RN Position: [facility] RN Member Role: Primary Care Nurse Name: Rosario Schwarz RN Position: [facility] RN Member Role: Primary Care Nurse Name: Marianne Jesus RN Position: [facility] RN Member Role: Primary Care Nurse Name: Kriss Pena RN Position: [facility] RN Member Role: Primary Care Nurse Name: Maine Marcial RN Position: [facility] RN Member Role: Primary Care Nurse Name: Lolita Peres RN Position: [facility] RN Member Role: Primary Care Nurse Name: Michael Syed RN Position: [facility] RN Member Role: Primary Care Nurse Care Team Related Persons Name: SERGIO GORDON Address: home [address] [place] [address] Name: EMILY REYNOLDS Address: [place] [address] Name: ONEYDA MONDRAGON Address: home [address] [address]
--- OUTSIDE RECORDS SUMMARY | 2024-03-27 07:38 | XMS_ITS | Continuity of Care Document ---
Author Organization [facility] Address [address] [place] [address] Dri ve [address] [place] [address]- Care Team Providers Care Clay Grinder Name Role Phone Cindy DALEY, Melyssa Primary Care Physician [phone] Encounter [facility] Date(s): 12/19/23 - 01/18/[address] [place] [address]- Allergies, Adverse Reactions, Alerts Substance Reaction Severity Status ibuprofen 1 Hives Active 1swelling,hives Immunizations Given and Recorded Vaccine Date Status Refusal Reason tetanus/diphtheria/pertussis, acel(Tdap) 06/06/13 Given Medications coloplast bags #98135 coloplast bags #67198, See Instructions, # 20 each, Refills 11, Tot. Refills 11, Maintenance, use as needed for ostomy care Dx. ileostomy Z93.2, 01/02/24 15:45:00 EDT, Compound Start Date: 01/02/24 Status: Ordered convatec bags #906532 convatec bags #410025, See Instructions, # 20 each, Refills 11, Tot. Refills 11, Maintenance, use as needed for ostomy care Dx. ileostomy Z93.2, 01/11/24 13:19:00 EDT, Compound Start Date: 01/11/24 Status: Ordered convatec flange# [id number] convatec flange# 112152, See Instructions, # 20 each, Refills 11, Tot. Refills 11, Maintenance, useas needed for ostomy care Dx. ileostomy Z93.2, 01/11/24 13:27:00 EDT, Compound Start Date: 01/11/24 Status: Ordered ConvaTec Ostomy [place]ange #957308 ConvaTec Ostomy [place] #435110, See Instructions, # 20 each, Refills 11, Tot. Refills 11,Maintenance, Use as needed for ostomy maintaince. Dx ileostomy Z93.2, 01/05/24 15:39:00 EDT, Supply Start Date: 01/05/24 Status: Ordered ConvaTec Ostomy Pouch #071906 ConvaTec Ostomy Pouch #753451, See Instructions, # 20 each, Refills 11, [...] 12/20/23 16:46:00 EDT, Route to Pharmacy Electronically, [facility] #[id number], Partial fill upon... Start Date: 12/20/23 Status: Ordered loperamide 2 mg oral tablet See Instructions, take 2 tablets by mouth 30 minutes before meals and at bedtime, # 240 tablet, 4 Refills, Maintenance, 01/03/24 16:27:00 EDT, Tablet, [facility] #[id number], Partial fill upon patient request if the prescription is for a schedule... Start Date: 01/03/24 Status: Ordered loperamide 2 mg oral tablet See Instructions, take 1 tablet by mouth 30 minutes before meals and at bedtime, # 120 tablet, 4 Refills, Maintenance, 12/21/23 15:35:00 EDT, Tablet, [facility] #[id number], Partial fill upon patient request if the [...] 0 Refills, Maintenance, 11/19/23 9:55:00 EDT, Tablet, [facility] #[id number], Partial fill upon patient request if the prescription is for a schedule II opioid drug., 1... Start Date: 11/19/23 Status: Ordered ostomy belt 4215 ostomy belt 4215, See Instructions, # 1 each, Refills 11, Tot. Refills 11, Maintenance, use as needed for ostomy care. Dx ileostomy Z93.2, 01/11/24 13:19:00 EDT, Compound Start Date: 01/11/24 Status: Ordered oxyCODONE 20 mg oral tablet 1 tablet = 20 mg, By Mouth, Every 8 hours, Do not take the same time as diazepam., # 21 tablet, 0 Refills, Maintenance, 12/20/23 16:46:00 EDT, Tablet, [facility] #[id number], Partial fill upon patient request if the prescription is for a schedule... Start Date: 12/20/23 Status: Ordered straight brava strips 181885 straight brava strips 822060, See Instructions, # 80 each, Refills 11, Tot. Refills 11, Maintenance, use as needed for ostomy care Dx ileostomy Z 93.2, 01/11/24 13:19:00 EDT, Compound Start Date: 01/11/24 Status: Ordered traMADol 50 mg oral tablet 1 tablet = 50 mg, By Mouth, Every 8 hours, for 7 days, # 21 tablet, 0 Refills, Acute 01/23/24 11:38:00 EDT, 01/16/24 11:38:00 EDT, [facility] #[id number], Partial fill upon patient request if the prescription is for a schedule II opioid drug., 15... Start Date: 01/16/24 Stop Date: 01/23/24 Status: Ordered elsy chin, See Instructions, # 1 each, Refills 0, Tot. Refills 0, Maintenance, elsy, 12/14/23 10:15:00 EDT, Supply Start Date: 12/14/23 Status: Ordered Problem List Condition Confirmation Course Effective Dates Status H ealth Status Informant Diverticulitis large intestine Confirmed Active Obese class II Confirmed Active Social History Social History Type [...] Safety Implantable Status Assigning Authority Unknown Unknown [id number] Unknown 07/06/27 Unknown Unknown Active Un known Procedure Provider Procedure Date Device Type Site Resection Colon Left Open Jada Chiang MD 12/07/23 Unk nown Colon Device Identifier Serial Number Lot or Batch Number Manufacturing Date Expiration Date Distinct Identification Code MRI Safety Implantable Status Assigning Authority Unknown Unknown [id number] Unknown 12/05/27 Unknown Unknown Active Unk nown Procedure Provider Procedure Date Device Type Site Resection Colon Left Open Jada Chiang MD 12/07/23 Unk nown Colon Device Identifier Serial Number Lot or Batch Number Manufacturing Date Expiration Date Distinct Identification Code MRI Safety Implantable Status Assigning Authority Unknown Unknown [id number] Unknown 05/06/28 Unknown Unknown Active Unknown [...] Safety Implantable Status Assigning Authority Unknown Unknown [id number] Unknown 11/05/27 Unknown Unknown Active Unknown Procedure Provider Procedure Date Device Type Site Resection Colon Left Open Jada Chiang MD 12/07/23 Unk nown Colon Device Identifier Serial Number Lot or Batch Number Manufacturing Date Expiration Date Distinct Identification Code MRI Safety Implantable Status Assigning Authority Unknown Unknown [id number] Unknown 01/05/28 Unknown Unknown Active Unk nown Procedure Provider Procedure Date Device Type Site Resection Colon Left Open Jada Chiang MD 12/07/23 Unk nown Colon Device Identifier Serial Number Lot or Batch Number Manufacturing Date Expiration Date Distinct Identification Code MRI Safety Implantable Status Assigning Authority Unknown Unknown [id number] Unknown 03/06/28 Unknown Unknown Active Unk nown Procedure Provider Procedure Date Device Type Site Resection Colon Left Open Андрей MASTERSJada 12/07/23 Unk nown Colon Device Identifier Serial Number Lot or Batch Number Manufacturing Date Expiration Date Distinct Identification Code MRI Safety Implantable Status Assigning Authority Unknown Unknown [id number] Unknown 12/05/27 Unknown Unknown Active Unk nown Patient Care team information Care Team Personnel Name: Bertha Kolb RN Position: [facility] RN Member Role: Primary Care Nurse Name: Ashley Domínguez RN Position: [facility] RN Member Role: Primary Care Nurse Name: Maame Pearce Position: [facility] Outreach Member Role: Lifetime Consulting Physician Name: Charline Terrazas RN Position: [facility] RN Member Role: Primary Care Nurse Name: Efrain Long RN Position: [facility] RN Member Role: Primary Care Nurse Name: Melyssa White NP Position: Reference Physician Member Role: PCP Address: Address: [address] [place] [address] Name: Nida Ferro RN Position: [facility] RN Member Role: Primary Care Nurse Name: Kaur Wilson RN Position: [facility] RN Member Role: Primary Care Nurse Name: Shasha Chou RN Position: [facility] RN Member Role: Primary Care Nurse Name: Alison Brewer RN Position: [facility] RN Member Role: Primary Care Nurse Name: Adamaris Lynn RN Position: [facility] RN Member Role: Primary Care Nurse Name: Rosario Schwarz RN Position: [facility] SN RN Member Role: Primary Care Nurse Name: Marianne Jesus RN Position: [facility] RN Member Role: Primary Care Nurse Name: Kriss Pena RN Position: [facility] RN Member Role: Primary Care Nurse Name: [place] Marcial RN Position: [facility] RN Member Role: Primary Care Nurse Name: Loliat Peres RN Position: [facility] RN Member Role: Primary Care Nurse Name: Michael Syed RN Position: S RN Member Role: Primary Care Nurse Care Team Related Persons Name: SERGIO GORDON Address: [address] [place] [address] Name: EMILY REYNOLDS Address: [place] [address] Name: KATHERIN MONDRAGON Address: home [address] [place] [id number]
--- OUTSIDE RECORDS SUMMARY | 2024-03-27 07:38 | XMS_ITS | Continuity of Care Document ---
Author Organization [facility] Address [address] [place] [address]- Care Team Providers Care Gallery Host Name Role Phone Cindy DALEY, Melyssa Primary Care Physician [phone] Encounter [facility] [place] Date(s): 10/08/21 - 02/05/22 [facility] [address] [place] [address]- Attending Physician: Yosvany Chung MD Admitting Physician: Yosvany Chung MD Referring Physician: Flower DALEY, Laurel Allergies, Adverse Reactions, Alerts Substance Reaction Severity Status ibuprofen 1 Active 1swelling,hives Immunizations Given and Recorded Vaccine Date Status Refusal Reason tetanus/diphtheria/pertussis, acel(Tdap) 06/06/13 Given Medications albuterol 0.083% inhalation solution 3 mL = 2.5 mg, Inhalation, Every 6 hours, PRN for wheezing, # 60 each, 0 Refills, Maintenance, 08/13/19 17:17:00 EST, Solution, [id number], 158, cm, 08/13/19 15:11:00 EST, Height, 95, kg, 08/13/19 15:11:00 EST, Dry Weight Start Date: 08/13/19 Status: Ordered Depo-Provera Intramuscular, 0 Refills, Maintenance, 09/01/21 15:22:00 EST, Partial fill upon patient request if the prescription is for a schedule II opioid drug. Start Date: 09/01/21 Status: Ordered Tylenol Extra Strength 500 mg oral tablet 2 tablet = 1,000 mg, By Mouth, Every 6 hours, 0 Refills, Maintenance, 09/01/21 15:21:00 EST, Partial fill upon patient request if the prescription is for a schedule II opioid drug. Start Date: 09/01/21 Status: Ordered Problem List No Known Problems Social History Social History Type Response Tobacco Use: 4 or less cigar ettes(less than 1/4 pack)/day in last 30 days. Sex
--- OUTSIDE RECORDS SUMMARY | 2024-03-27 07:38 | XMS_ITS | Continuity of Care Document ---
Author Organization [facility] Address [address] [place] [address]- Care Team Providers Care Quenching Machine Operator Name Role Phone Melyssa White NP Primary Care Physician Encounter [facility] [place] Date(s): 07/21/21 - 09/03/[address] [address] Attending Physician: Not on Staff, Attending MD Admitting Physician: Not on Staff, Admitting MD Referring Physician: Not on Staff, Referring MD [...] opioid drug. Start Date: 09/01/21 Status: Ordered Social History Social History Type Response Tobacco Use: 4 or less cigar ettes(less than 1/4 pack)/day in last 30 days. Sex
--- OUTSIDE RECORDS SUMMARY | 2024-03-27 07:38 | XMS_ITS | Continuity of Care Document ---
Author Organization [facility] Address [address] [place] [address] [address] [place] [address]- Care Team Providers Care Heel Wheeler Name Role Phone Melyssa White NP Primary Care Physician Encounter [facility] [place] Date(s): 01/03/24 - 02/02/[address] [place] [address]- Allergies, Adverse Reactions, Alerts Substance Reaction Severity Status ibuprofen 1 Hives Active 1swelling,hives Immunizations Given and Recorded Vaccine Date Status Refusal Reason tetanus/diphtheria/pertussis, acel(Tdap) 06/06/13 Given Medications coloplast bags #85479 coloplast bags #17399, See Instructions, # 20 each, Refills 11, Tot. Refills 11, Maintenance, use as needed for ostomy care Dx. ileostomy Z93.2, 01/02/24 15:45:00 EDT, Compound Start Date: 01/02/24 Status: Ordered convatec bags #[id number] convatec bags #219200, See Instructions, # 20 each, Refills 11, Tot. Refills 11, Maintenance, use as needed for ostomy care Dx. ileostomy Z93.2, 01/11/24 13:19:00 EDT, Compound Start Date: 01/11/24 Status: Ordered convatec flange# [id number] convatec flange# [id number], See Instructions, # 20 each, Refills 11, Tot. Refills 11, Maintenance, useas needed for ostomy care Dx. ileostomy Z93.2, 01/11/24 13:27:00 EDT, Compound Start Date: 01/11/24 Status: Ordered ConvaTec Ostomy [facility] Flange #[id number] ConvaTec Ostomy [facility] Flange #[id number], See Instructions, # 20 each, Refills 11, Tot. Refills 11,Maintenance, Use as needed for ostomy maintaince. Dx ileostomy Z93.2, 01/05/24 15:39:00 EDT, Supply Start Date: 01/05/24 Status: Ordered ConvaTec Ostomy Pouch #[id number] ConvaTec Ostomy Pouch #[id number], See Instructions, # 20 each, Refills 11, [...] 12/20/23 16:46:00 EDT, Route to Pharmacy Electronically, [facility] #[id number], Partial fill upon... Start Date: 12/20/23 Status: Ordered lidocaine 5% topical film 1 patch, Topically, 2 times a day, remove patches after 12 hours, # 15 patch, 0 Refills, Maintenance, 01/30/24 12:17:00 EDT, Film, [facility] #[id number], Partial fill upon patient request if the [...] EST, 01/19/24 15:35:00 EDT, Routeto Pharmacy Electronically, [facility]... Start Date: 01/19/24 Stop Date: 07/17/24 Status: Ordered loperamide 2 mg oral tablet See Instructions, take 2 tablets by mouth 30 minutes before meals and at bedtime, # 240 tablet, 4 Refills, Maintenance, 01/03/24 16:27:00 EDT, Tablet, [facility] #[id number], Partial fill upon patient request if the prescription is for a schedule... Start Date: 01/03/24 Status: Ordered loperamide 2 mg oral tablet See Instructions, take 1 tablet by mouth 30 minutes before meals and at bedtime, # 120 tablet, 4 Refills, Maintenance, 12/21/23 15:35:00 EDT, Tablet, [facility] #[id number], Partial fill upon patient request if the prescription is for a schedule... Start Date: 12/21/23 Status: Ordered medroxyPROGESTERone 150 mg/mL intramuscular suspension 1 mL = 150 mg, Intramuscular, Every 3 months, Maintenance, 11/26/23 18:41:00 EDT, Suspension, Partial fill upon patient request if the prescription is for a schedule II opioid drug. Start Date: 11/26/23 Status: Ordered methocarbamol 500 mg oral tablet 2 tablet = 1,000 mg, By Mouth, 3 times a day, for 5 days, # 30 tablet, 0 Refills, Acute 02/04/24 12:15:00 EDT, 01/30/24 12:15:00 EDT, Tablet, [facility] #[id number], Partial fill upon patient request if the prescription is for a schedule II opioi... Start Date: 01/30/24 Stop Date: 02/04/24 Status: Ordered ondansetron 4 mg oral tablet, disintegrating 1 tablet = 4 mg, By Mouth, Every 8 hours, PRN Nausea & Vomiting, # 24 tablet, 0 Refills, Maintenance, 11/19/23 9:55:00 EDT, Tablet, [facility] #[id number], Partial fill upon patient request if the [...] 0 Refills, Maintenance, 01/30/24 13:16:00 EDT, Tablet, [facility] #[id number], Partial fill upon patient request if the prescription is for a schedule II opioid drug.... Start Date: 01/30/24 Status: Ordered oxyCODONE 20 mg oral tablet 1 tablet = 20 mg, By Mouth, Every 8 hours, Do not take the same time as diazepam., # 21 tablet, 0 Refills, Maintenance, 12/20/23 16:46:00 EDT, Tablet, [facility] #[id number], Partial fill upon patient request if the prescription is for a schedule... Start Date: 12/20/23 Status: Ordered straight brava strips [id number] straight brava strips [id number], See Instructions, # 80 each, Refills 11, Tot. Refills 11, Maintenance, use as needed for ostomy care Dx ileostomy Z 93.2, 01/11/24 13:19:00 EDT, Compound Start Date: 01/11/24 Status: Ordered elsy walker, See Instructions, # 1 each, Refills [...] Safety Implantable Status Assigning Authority Unknown Unknown [id number] Unknown 07/06/27 Unknown Unknown Active Un known Procedure Provider Procedure Date Device Type Site Resection Colon Left Open Jada Chiang MD 12/07/23 Unk nown Colon Device Identifier Serial Number Lot or Batch Number Manufacturing Date Expiration Date Distinct Identification Code MRI Safety Implantable Status Assigning Authority Unknown Unknown [id number] Unknown 12/05/27 Unknown Unknown Active Unk nown Procedure Provider Procedure Date Device Type Site Resection Colon Left Open Андрей MASTERS Jada Sylvia 12/07/23 Unk nown Colon Device Identifier Serial Number Lot or Batch Number Manufacturing Date Expiration Date Distinct Identification Code MRI Safety Implantable Status Assigning Authority Unknown Unknown [id number] Unknown 05/06/28 Unknown Unknown Active Unknown [...] Safety Implantable Status Assigning Authority Unknown Unknown [id number] Unknown 11/05/27 Unknown Unknown Active Unknown Procedure Provider Procedure Date Device Type Site Resection Colon Left Open Jada Chiang MD 12/07/23 Unk nown Colon Device Identifier Serial Number Lot or Batch Number Manufacturing Date Expiration Date Distinct Identification Code MRI Safety Implantable Status Assigning Authority Unknown Unknown [id number] Unknown 01/05/28 Unknown Unknown Active Unk nown Procedure Provider Procedure Date Device Type Site Resection Colon Left Open Jada Chiang MD 12/07/23 Unk nown Colon Device Identifier Serial Number Lot or Batch Number Manufacturing Date Expiration Date Distinct Identification Code MRI Safety Implantable Status Assigning Authority Unknown Unknown [id number] Unknown 03/06/28 Unknown Unknown Active Unk nown Procedure Provider Procedure Date Device Type Site Resection Colon Left Open Jada Chiang MD 12/07/23 Unk nown Colon Device Identifier Serial Number Lot or Batch Number Manufacturing Date Expiration Date Distinct Identification Code MRI Safety Implantable Status Assigning Authority Unknown Unknown [id number] Unknown 12/05/27 Unknown Unknown Active Unk nown Patient Care team information Care Team Personnel Name: Bertha Kolb RN Position: [facility] RN Member Role: Primary Care Nurse Name: Ashley Domínguez RN Position: [facility] RN Member Role: Primary Care Nurse Name: Maame Pearce Position: [facility] Outreach Member Role: Lifetime Consulting Physician Name: Charline Terrazas RN Position: [facility] RN Member Role: Primary Care Nurse Name: Efrain Long RN Position: [facility] RN Member Role: Primary Care Nurse Name: Melyssa White NP Position: Reference Physician Member Role: PCP Address: Address: [address] [place] [address]- Name: Nida Ferro RN Position: [facility] RN Member Role: Primary Care Nurse Name: Kaur Wilson RN Position: S RN Member Role: Primary Care Nurse Name: Shasha Chou RN Position: [facility] RN Member Role: Primary Care Nurse Name: Alison Brewer RN Position: [facility] RN Member Role: Primary Care Nurse Name: Adamaris Lynn RN Position: [facility] RN Member Role: Primary Care Nurse Name: Rosario Schwarz RN Position: [facility] SN RN Member Role: Primary Care Nurse Name: Marianne Jesus RN Position: [facility] RN Member Role: Primary Care Nurse Name: Kriss Pena RN Position: [facility] RN Member Role: Primary Care Nurse Name: Maine Marcial RN Position: [facility] RN Member Role: Primary Care Nurse Name: Lolita Peres RN Position: [facility] RN Member Role: Primary Care Nurse Name: Michael Syed RN Position: [facility] RN Member Role: Primary Care Nurse Care Team Related Persons Name: HEIDI SERGIO Address: home [address] [place] [address] Name: EMILY REYNOLDS Address: [place] [address] Name: KATHERIN MONDRAGON Address: home [address] [address]
--- OUTSIDE RECORDS SUMMARY | 2024-03-27 07:38 | XMS_ITS | Continuity of Care Document ---
Author Organization [facility] Address [address] [place] [address]- Care Team Providers Care Microelectronics Assembler Name Role Phone Cindy DALEY, Melyssa Primary Care Physician [phone] [place] [facility] [place] Date(s): 12/18/23 - 01/17/24 [facility] [address] [place] [address]- [place] Allergies, Adverse Reactions, Alerts Substance Reaction Severity Status ibuprofen 1 Hives Active 1swelling,hives Immunizations Given and Recorded Vaccine Date Status Refusal Reason tetanus/diphtheria/pertussis, acel(Tdap) 06/06/13 Given Medications coloplast bags #69593 coloplast bags #47351, See Instructions, # 20 each, Refills 11, Tot. Refills 11, Maintenance, use as needed for ostomy care Dx. ileostomy Z93.2, 01/02/24 15:45:00 EDT, Compound Start Date: 01/02/24 Status: Ordered convatec bags #[id number] convatec bags #723991, See Instructions, # 20 each, Refills 11, Tot. Refills 11, Maintenance, use as needed for ostomy care Dx. ileostomy Z93.2, 01/11/24 13:19:00 EDT, Compound Start Date: 01/11/24 Status: Ordered convatec flange# [id number] convatec flange# [id number], See Instructions, # 20 each, Refills 11, Tot. Refills 11, Maintenance, useas needed for ostomy care Dx. ileostomy Z93.2, 01/11/24 13:27:00 EDT, Compound Start Date: 01/11/24 Status: Ordered ConvaTec Ostomy [facility] #086242 ConvaTec Ostomy [facility]ange #008262, See Instructions, # 20 each, Refills 11, Tot. Refills 11,Maintenance, Use as needed for ostomy maintaince. Dx ileostomy Z93.2, 01/05/24 15:39:00 EDT, Supply Start Date: 01/05/24 Status: [facility][id number] ConvaTec Ostomy Pouch #[id number], See Instructions, # 20 each, Refills 11, [...] 12/20/23 16:46:00 EDT, Route to Pharmacy Electronically, [facility] #[id number], Partial fill upon... Start Date: 12/20/23 Status: Ordered loperamide 2 mg oral tablet See Instructions, take 2 tablets by mouth 30 minutes before meals and at bedtime, # 240 tablet, 4 Refills, Maintenance, 01/03/24 16:27:00 EDT, Tablet, [facility] #[id number], Partial fill upon patient request if the prescription is for a schedule... Start Date: 01/03/24 Status: Ordered loperamide 2 mg oral tablet See Instructions, take 1 tablet by mouth 30 minutes before meals and at bedtime, # 120 tablet, 4 Refills, Maintenance, 12/21/23 15:35:00 EDT, Tablet, [facility] #[id number], Partial fill upon patient request if the [...] 0 Refills, Maintenance, 11/19/23 9:55:00 EDT, Tablet, [facility] #[id number], Partial fill upon patient request if the [...] 0 Refills, Maintenance, 12/20/23 16:46:00 EDT, Tablet, [facility] #[id number], Partial fill upon patient request if the prescription is for a schedule... Start Date: 12/20/23 Status: Ordered straight brava strips [id number] straight brava strips [id number], See Instructions, # 80 each, Refills 11, Tot. Refills 11, Maintenance, use as needed for ostomy care Dx ileostomy Z 93.2, 01/11/24 13:19:00 EDT, Compound Start Date: 01/11/24 Status: Ordered traMADol 50 mg oral tablet 1 tablet = 50 mg, By Mouth, Every 8 hours, for 7 days, # 21 tablet, 0 Refills, Acute 01/23/24 11:38:00 EDT, 01/16/24 11:38:00 EDT, [facility] #[id number], Partial fill upon patient request if the [...] Safety Implantable Status Assigning Authority Unknown Unknown [id number] Unknown 07/06/27 Unknown Unknown Active Un known Procedure Provider Procedure Date Device Type Site Resection Colon Left Open Jada Chiang MD 12/07/23 Unk nown Colon Device Identifier Serial Number Lot or Batch Number Manufacturing Date Expiration Date Distinct Identification Code MRI Safety Implantable Status Assigning Authority Unknown Unknown [id number] Unknown 12/05/27 Unknown Unknown Active Unk nown Procedure Provider Procedure Date Device Type Site Resection Colon Left Open Jada Chiang MD 12/07/23 Unk nown Colon Device Identifier Serial Number Lot or Batch Number Manufacturing Date Expiration Date Distinct Identification Code MRI Safety Implantable Status Assigning Authority Unknown Unknown [id number] Y Unknown 05/06/28 Unknown Unknown Active Unknown [...] Safety Implantable Status Assigning Authority Unknown Unknown [id number] Y Unknown 11/05/27 Unknown Unknown Active Unknown Procedure Provider Procedure Date Device Type Site Resection Colon Left Open Jada Chiang MD 12/07/23 Unk nown Colon Device Identifier Serial Number Lot or Batch Number Manufacturing Date Expiration Date Distinct Identification Code MRI Safety Implantable Status Assigning Authority Unknown Unknown [id number] Unknown 01/05/28 Unknown Unknown Active Unk nown Procedure Provider Procedure Date Device Type Site Resection Colon Left Open Jada Chiang MD 12/07/23 Unk nown Colon Device Identifier Serial Number Lot or Batch Number Manufacturing Date Expiration Date Distinct Identification Code MRI Safety Implantable Status Assigning Authority Unknown Unknown [id number] Unknown 03/06/28 Unknown Unknown Active Unk nown Procedure Provider Procedure Date Device Type Site Resection Colon Left Open Jada Chiang MD 12/07/23 Unk nown Colon Device Identifier Serial Number Lot or Batch Number Manufacturing Date Expiration Date Distinct Identification Code MRI Safety Implantable Status Assigning Authority Unknown Unknown [id number] Unknown 12/05/27 Unknown Unknown Active Unk nown Patient Care team information Care Team Personnel Name: Bertha Kolb RN Position: [facility] RN Member Role: Primary Care Nurse Name: Ashley Domínguez RN Position: [facility] RN Member Role: Primary Care Nurse Name: Maame Pearce Position: S Outreach Member Role: Lifetime Consulting Physician Name: Charline Terrazas RN Position: [facility] RN Member Role: Primary Care Nurse Name: Efrain Long RN Position: [facility] RN Member Role: Primary Care Nurse Name: Melyssa White NP Position: Reference Physician Member Role: PCP Address: Address: [address] [place] [address] Name: Nida Ferro RN Position: [facility] RN Member Role: Primary Care Nurse Name: Kaur Wilson RN Position: [facility] RN Member Role: Primary Care Nurse Name: Shasha Chou RN Position: [facility] RN Member Role: Primary Care Nurse Name: Alison Brewer RN Position: [facility] RN Member Role: Primary Care Nurse Name: Adamaris Lynn RN Position: [facility] RN Member Role: Primary Care Nurse Name: Rosario Schwarz RN Position: [facility] SN RN Member Role: Primary Care Nurse Name: Marianne Jesus RN Position: [facility] RN Member Role: Primary Care Nurse Name: Kriss Pena RN Position: [facility] RN Member Role: Primary Care Nurse Name: [place] Marcial RN Position: [facility] RN Member Role: Primary Care Nurse Name: Lolita Peres RN Position: [facility] RN Member Role: Primary Care Nurse Name: Michael Syed RN Position: [facility] RN Member Role: Primary Care Nurse Care Team Related Persons Name: SERGIO GORDON Address: [address] [place] [address] Name: EMILY REYNOLDS Address: [place] [address] Name: KATHERIN MONDRAGON Address: [address] [address]
--- OUTSIDE RECORDS SUMMARY | 2024-03-27 07:39 | XMS_ITS | Continuity of Care Document ---
Author Organization [facility] ter Address [address] [place] [id number]- Care Team Providers Care Vise Hand Name Role Phone Melyssa White NP Primary Care Physician Encounter [facility] Date(s): 12/14/23 - 01/13/[address] [address]- Attending Physician: Not on Staff, Attending MD Admitting Physician: Not on Staff, Admitting MD Referring Physician: Not on Staff, Referring MD Allergies, Adverse Reactions, Alerts Substance Reaction Severity Status ibuprofen 1 Hives Active 1swelling,hives Immunizations Given and Recorded Vaccine Date Status Refusal Reason tetanus/diphtheria/pertussis, acel(Tdap) 06/06/13 Given Medications coloplast bags #47936 coloplast bags #31356, See Instructions, # 20 each, Refills 11, Tot. Refills 11, Maintenance, use as needed for ostomy care Dx. ileostomy Z93.2, 01/02/24 15:45:00 EDT, Compound Start Date: 01/02/24 Status: Ordered convatec bags #[id number] convatec bags #[id number], See Instructions, # 20 each, Refills 11, Tot. Refills 11, Maintenance, use as needed for ostomy care Dx. ileostomy Z93.2, 01/11/24 13:19:00 EDT, Compound Start Date: 01/11/24 Status: Ordered convatec flange# [id number] convatec flange# [id number], See Instructions, # 20 each, Refills 11, Tot. Refills 11, Maintenance, useas needed for ostomy care Dx. ileostomy Z93.2, 01/11/24 13:27:00 EDT, Compound Start Date: 01/11/24 Status: Ordered ConvaTec Ostomy [place] Flange #[id number] ConvaTec Ostomy [place] Flange #[id number], See Instructions, # 20 each, Refills 11, Tot. Refills 11,Maintenance, Use as needed for ostomy maintaince. Dx ileostomy Z93.2, 01/05/24 15:39:00 EDT, Supply Start Date: 01/05/24 Status: Ordered ConvaTec Ostomy Pouch #[id number] ConvaTec Ostomy Pouch #[id number], See Instructions, # 20 each, Refills 11, [...] 12/20/23 16:46:00 EDT, Route to Pharmacy Electronically, [facility] #[id number], Partial fill upon... Start Date: 12/20/23 Status: Ordered loperamide 2 mg oral tablet See Instructions, take 2 tablets by mouth 30 minutes before meals and at bedtime, # 240 tablet, 4 Refills, Maintenance, 01/03/24 16:27:00 EDT, Tablet, [facility] #[id number], Partial fill upon patient request if the prescription is for a schedule... Start Date: 01/03/24 Status: Ordered loperamide 2 mg oral tablet See Instructions, take 1 tablet by mouth 30 minutes before meals and at bedtime, # 120 tablet, 4 Refills, Maintenance, 12/21/23 15:35:00 EDT, Tablet, [facility] #[id number], Partial fill upon patient request if the [...] 0 Refills, Maintenance, 11/19/23 9:55:00 EDT, Tablet, [facility] #[id number], Partial fill upon patient request if the [...] 0 Refills, Maintenance, 12/20/23 16:46:00 EDT, Tablet, [facility] #[id number], Partial fill upon patient request if the prescription is for a schedule... Start Date: 12/20/23 Status: Ordered straight brava strips [id number] straight brava strips [id number], See Instructions, # 80 each, Refills 11, Tot. Refills 11, Maintenance, use as needed for ostomy care Dx ileostomy Z 93.2, 01/11/24 13:19:00 EDT, Compound Start Date: 01/11/24 Status: Ordered elsy chin, See Instructions, # [...] Type Site Resection Colon Left Open Андрей MD, Jada M 12/07/23 Unk nown Colon Device Identifier Serial Number Lot or Batch Number Manufacturing Date Expiration Date Distinct Identification Code MRI Safety Implantable Status Assigning Authority Unknown Unknown [id number] Unknown 07/06/27 Unknown Unknown Active Un known Procedure Provider Procedure Date Device Type Site Resection Colon Left Open Jada Chiang MD 12/07/23 Unk nown Colon Device Identifier Serial Number Lot or Batch Number Manufacturing Date Expiration Date Distinct Identification Code MRI Safety Implantable Status Assigning Authority Unknown Unknown [id number] Unknown 12/05/27 Unknown Unknown Active Unk nown Procedure Provider Procedure Date Device Type Site Resection Colon Left Open Jada Chiang MD 12/07/23 Unk nown Colon Device Identifier Serial Number Lot or Batch Number Manufacturing Date Expiration Date Distinct Identification Code MRI Safety Implantable Status Assigning Authority Unknown Unknown [id number] Unknown 05/06/28 Unknown Unknown Active Unknown [...] Safety Implantable Status Assigning Authority Unknown Unknown [id number] Y Unknown 11/05/27 Unknown Unknown Active Unknown Procedure Provider Procedure Date Device Type Site Resection Colon Left Open Jada Chiang MD 12/07/23 Unk nown Colon Device Identifier Serial Number Lot or Batch Number Manufacturing Date Expiration Date Distinct Identification Code MRI Safety Implantable Status Assigning Authority Unknown Unknown [id number] Unknown 01/05/28 Unknown Unknown Active Unk nown Procedure Provider Procedure Date Device Type Site Resection Colon Left Open Jada Chiang MD 12/07/23 Unk nown Colon Device Identifier Serial Number Lot or Batch Number Manufacturing Date Expiration Date Distinct Identification Code MRI Safety Implantable Status Assigning Authority Unknown Unknown [id number] Unknown 03/06/28 Unknown Unknown Active Unk nown Procedure Provider Procedure Date Device Type Site Resection Colon Left Open Jada Chiang MD 12/07/23 Unk nown Colon Device Identifier Serial Number Lot or Batch Number Manufacturing Date Expiration Date Distinct Identification Code MRI Safety Implantable Status Assigning Authority Unknown Unknown [id number] Unknown 12/05/27 Unknown Unknown Active [facility] Patient Care team information Care Team Personnel [...] Reference Physician Member Role: PCP Address: Address: [address] [place] [id number] Name: Nida Ferro RN Position: [facility] RN Member Role: Primary Care Nurse Name: Kaur Wilson RN Position: [facility] RN Member Role: Primary Care Nurse Name: Daniela Chou RN Position: [facility] RN Member Role: Primary Care Nurse Name: Alison Brewer RN Position: [facility] RN Member Role: Primary Care Nurse Name: Adamaris Lynn RN Position: [facility] RN Member Role: Primary Care Nurse Name: Rosario Schwarz RN Position: [facility] SN RN Member Role: Primary Care Nurse Name: Marianne Jesus RN Position: [facility] RN Member Role: Primary Care Nurse Name: Kriss Pena RN Position: [facility] RN Member Role: Primary Care Nurse Name: Maine Marcial RN Position: [facility] RN Member Role: Primary Care Nurse Name: Lolita Peres RN Position: [facility] RN Member Role: Primary Care Nurse Name: Michael Syed RN Position: S RN Member Role: Primary Care Nurse Care Team Related Persons Name: SERGIO GORDON Address: home [address] [place] [address] Name: EMILY REYNOLDS Address: [place] [address] Name: KATHERIN MONDRAGON Address: home [address] [address]
--- OUTSIDE RECORDS SUMMARY | 2024-03-27 07:39 | XMS_ITS | Continuity of Care Document ---
Author Organization [facility] Address [address] [place] [address] [address] [place] [address]- Care Team Providers Care Internal Combustion Engineer Name Role Phone Melyssa White NP Primary Care Physician [phone] Encounter [facility] [place] Date(s): 12/27/23 - 01/03/[address] [place] [address]- Attending Physician: Jada Chiang MD Referring Physician: Melyssa White NP Allergies, Adverse Reactions, Alerts Substance Reaction Severity Status ibuprofen 1 Hives Active 1swelling,hives Immunizations Given and Recorded Vaccine Date Status Refusal Reason tetanus/diphtheria/pertussis, acel(Tdap) 06/06/13 Given Medications coloplast bags #62191 coloplast bags #52967, See Instructions, # 20 each, Refills 11, Tot. Refills 11, Maintenance, use as needed for ostomy care Dx. ileostomy Z93.2, 01/02/24 15:45:00 EDT, Compound Start Date: 01/02/24 Status: Ordered diazepam 5 mg oral tablet 5 mg, 1, tablet, By Mouth, Every 8 hours, PRN, Do not take the same time as oxycodone., # 21 tablet, Refills 0, Tot. Refills 0, Maintenance, Spasm, 12/20/23 16:46:00 EDT, Route to Pharmacy Electronically, [facility] #[id number], Partial fill upon... Start Date: 12/20/23 Status: Ordered loperamide 2 mg oral tablet See Instructions, take 2 tablets by mouth 30 minutes before meals and at bedtime, # 240 tablet, 4 Refills, Maintenance, 01/03/24 16:27:00 EDT, Tablet, [facility] #[id number], Partial fill upon patient request if the prescription is for a schedule... Start Date: 01/03/24 Status: Ordered loperamide 2 mg oral tablet See Instructions, take 1 tablet by mouth 30 minutes before meals and at bedtime, # 120 tablet, 4 Refills, Maintenance, 12/21/23 15:35:00 EDT, Tablet, [facility] #[id number], Partial fill upon patient request if the [...] 0 Refills, Maintenance, 11/19/23 9:55:00 EDT, Tablet, [facility] #[id number], Partial fill upon patient request if the prescription is for a schedule II opioid drug., 1... Start Date: 11/19/23 Status: Ordered oxyCODONE 10 mg oral tablet 1 tablet = 10 mg, By Mouth, Every 6 hours, # 24 tablet, 0 Refills, Maintenance, 01/03/24 21:32:00 EDT, Tablet, [facility] #[id number], Partial fill upon patient request if the prescription is for a schedule II opioid drug., 158, cm, 01/03/24 13:1... Start Date: 01/03/24 Status: Ordered oxyCODONE 10 mg oral tablet 1 tablet = 10 mg, By Mouth, Every 8 hours, PRN Pain , Severe, # 21 tablet, 0 Refills, Maintenance, 12/28/23 13:38:00 EDT, Tablet, [facility] #[id number], Partial fill upon patient request if theprescription is for a schedule II opioid drug., 158... Start Date: 12/28/23 Status: Ordered oxyCODONE 10 mg oral tablet 1 tablet = 10 mg, By Mouth, Every 6 hours, PRN Pain , Moderate, 2 tabs every 6hr as needed for severe pain, # 20 tablet, 0 Refills, Maintenance, 11/19/23 9:52:00 EDT, Tablet, [facility] #[id number], Partial fill upon patient request if the prescr... Start Date: 11/19/23 Status: Ordered oxyCODONE 20 mg oral tablet 1 tablet = 20 mg, By Mouth, Every 8 hours, Do not take the same time as diazepam., # 21 tablet, 0 Refills, Maintenance, 12/20/23 16:46:00 EDT, Tablet, [facility] #[id number], Partial fill upon patient request if the prescription is for a schedule... Start Date: 12/20/23 Status: Ordered Valium 5 mg oral tablet 5 mg, 1, tablet, By Mouth, 3 times a day, PRN, # 40 tablet, Refills 0, Tot. Refills 0, Maintenance,Anal Spasm, 01/03/24 21:32:00 EDT, Route to Pharmacy Electronically, [facility] #[id number], Partial fill upon patient request if the prescription... Start Date: 01/03/24 Status: Ordered elsy chin, See Instructions, # [...] Colon Left Open Jada Chiang MD 12/07/23 Efrain valerio Colon Device Identifier Serial Number Lot or Batch Number Manufacturing Date Expiration Date Distinct Identification Code MRI Safety Implantable Status Assigning Authority Unknown Unknown [id number] Unknown 07/06/27 Unknown Unknown Active Un known Procedure Provider Procedure Date Device Type Site Resection Colon Left Open Jada Chiang MD 12/07/23 Unk iman Colon Device Identifier Serial Number Lot or Batch Number Manufacturing Date Expiration Date Distinct Identification Code MRI Safety Implantable Status Assigning Authority Unknown Unknown [id number] Unknown 12/05/27 Unknown Unknown Active Unk nown Procedure Provider Procedure Date Device Type Site Resection Colon Left Open Jada Chiang MD Sylvia 12/07/23 Unk nown Colon Device Identifier Serial Number Lot or Batch Number Manufacturing Date Expiration Date Distinct Identification Code MRI Safety Implantable Status Assigning Authority Unknown Unknown [id number] Y Unknown 05/06/28 Unknown Unknown Active Unknown [...] Safety Implantable Status Assigning Authority Unknown Unknown [id number] Y Unknown 11/05/27 Unknown Unknown Active Unknown Procedure Provider Procedure Date Device Type Site Resection Colon Left Open Jada Chiang MD Sylvia 12/07/23 Unk nown Colon Device Identifier Serial Number Lot or Batch Number Manufacturing Date Expiration Date Distinct Identification Code MRI Safety Implantable Status Assigning Authority Unknown Unknown [id number] Unknown 01/05/28 Unknown Unknown Active Unk nown Procedure Provider Procedure Date Device Type Site Resection Colon Left Open Jada Chiang MD Sylvia 12/07/23 Unk nown Colon Device Identifier Serial Number Lot or Batch Number Manufacturing Date Expiration Date Distinct Identification Code MRI Safety Implantable Status Assigning Authority Unknown Unknown [id number] Unknown 03/06/28 Unknown Unknown Active Unk nown Procedure Provider Procedure Date Device Type Site Resection Colon Left Open Jada Chiang MD Sylvia 12/07/23 Unk nown Colon Device Identifier Serial Number Lot or Batch Number Manufacturing Date Expiration Date Distinct Identification Code MRI Safety Implantable Status Assigning Authority Unknown Unknown [id number] Unknown 12/05/27 Unknown Unknown Active Unk nown [...] Care Nurse Name: Melyssa White NP Position: [facility] Physician Member Role: PCP Address: Address: [address] [place] [id number] Name: Nida Ferro RN Position: [facility] RN Member Role: Primary Care Nurse Name: Kaur Wilson RN Position: [facility] RN Member Role: Primary Care Nurse Name: Daniela Chou RN Position: [facility] RN Member Role: Primary Care Nurse Name: Alison Brewer RN Position: [facility] RN Member Role: Primary Care Nurse Name: Adamaris Lynn RN Position: [facility] RN Member Role: Primary Care Nurse Name: Rosario Schwarz RN Position: [facility] SN RN Member Role: Primary Care Nurse Name: Marianne Jesus RN Position: [facility] RN Member Role: Primary Care Nurse Name: Kirss Pena RN Position: [facility] RN Member Role: Primary Care Nurse Name: Maine Marcial RN Position: [facility] RN Member Role: Primary Care Nurse Name: Lolita Peres RN Position: [facility] RN Member Role: Primary Care Nurse Name: Michael Syed RN Position: [facility] RN Member Role: Primary Care Nurse Care Team Related Persons Name: SERGIO GORDON Address: [address] [place] [address] Name: EMILY REYNOLDS Address: [place] [address] Name: KATHERIN MONDRAGON Address: [address] [address]
--- OUTSIDE RECORDS SUMMARY | 2024-03-27 07:39 | XMS_ITS | Continuity of Care Document ---
Author Organization [facility] Address [address] [place] [address] [address] [place] [address]- Care Team Providers Care Flight Hostess Name Role Phone Cindy DALEY, Melyssa Primary Care Physician [place] [facility] [place](s): 01/17/24 - 02/16/[address] [place] [address]- Allergies, Adverse Reactions, Alerts Substance Reaction Severity Status ibuprofen 1 Hives Active 1swelling,hives Immunizations Given and Recorded Vaccine Date Status Refusal Reason tetanus/diphtheria/pertussis, acel(Tdap) 06/06/13 Given Medications Barrier strips [id number] Barrier strips 498293, See Instructions, # 80 each, Refills 11, [...] Start Date: 02/13/24 Status: Ordered coloplast bags #04522 coloplast bags #30163, See Instructions, # 20 each, Refills 11, Tot. Refills 11, Maintenance, use as needed for ostomy care Dx. ileostomy Z93.2, 01/02/24 15:45:00 EDT, Compound Start Date: 01/02/24 Status: Ordered convatec bags #[id number] convatec bags #640728, See Instructions, # 20 each, Refills 11, Tot. Refills 11, Maintenance, use as needed for ostomy care Dx. ileostomy Z93.2, 01/11/24 13:19:00 EDT, Compound Start Date: 01/11/24 Status: Ordered Convatec bags (#443156) Convatec bags (#634083), See Instructions, # 40 each, Refills 11, Tot. Refills 11, Maintenance, useas needed for ostomy maintaince. Dx ileostomy Z93.2, 02/13/24 9:14:00 EDT, Supply Start Date: 02/13/24 Status: Ordered Convatec flange (#725374) Convatec flange (#218906), See Instructions, # 40 each, Refills 11, Tot. Refills 11, Maintenance, use as needed for ostomy maintaince. Dx ileostomy Z93.2, 02/13/24 9:14:00 EDT, Supply Start Date: 02/13/24 Status: Ordered convatec flange# [id number] convatec flange# 597685, See Instructions, # 20 each, Refills 11, Tot. Refills 11, Maintenance, useas needed for ostomy care Dx. ileostomy Z93.2, 01/11/24 13:27:00 EDT, Compound Start Date: 01/11/24 Status: Ordered ConvaTec Ostomy [facility] [facility] #296230 ConvaTec Ostomy [place] #601615, See Instructions, # 20 each, Refills 11, Tot. Refills 11,Maintenance, Use as needed for ostomy maintaince. Dx ileostomy Z93.2, 01/05/24 15:39:00 EDT, Supply Start Date: 01/05/24 Status: Ordered ConvaTec Ostomy Pouch #[id number] ConvaTec Ostomy Pouch #[id number], See Instructions, # 20 each, Refills 11, [...] 12/20/23 16:46:00 EDT, Route to Pharmacy Electronically, [facility] #[id number], Partial fill upon... Start Date: 12/20/23 Status: Ordered lidocaine 5% topical film 1 patch, Topically, 2 times a day, remove patches after 12 hours, # 15 patch, 0 Refills, Maintenance, 01/30/24 12:17:00 EDT, Film, [facility] #[id number], Partial fill upon patient request if the [...] EST, 01/19/24 15:35:00 EDT, [facility] Electronically, [email or web address] #[email or web address]... Start Date: 01/19/24 Stop Date: 07/17/24 Status: Ordered loperamide 2 mg oral tablet See Instructions, take 2 tablets by mouth 30 minutes before meals and at bedtime, # 240 tablet, 4 Refills, Maintenance, 01/03/24 16:27:00 EDT, Tablet, [facility] #[id number], Partial fill upon patient request if the prescription is for a schedule... Start Date: 01/03/24 Status: Ordered loperamide 2 mg oral tablet See Instructions, take 1 tablet by mouth 30 minutes before meals and at bedtime, # 120 tablet, 4 Refills, Maintenance, 12/21/23 15:35:00 EDT, Tablet, [facility] #[id number], Partial fill upon patient request if the [...] 0 Refills, Maintenance, 11/19/23 9:55:00 EDT, Tablet, [facility] #[id number], Partial fill upon patient request if the [...] 0 Refills, Maintenance, 01/30/24 13:16:00 EDT, Tablet, [facility] #[id number], Partial fill upon patient request if the prescription is for a schedule II opioid drug.... Start Date: 01/30/24 Status: Ordered oxyCODONE 20 mg oral tablet 1 tablet = 20 mg, By Mouth, Every 8 hours, Do not take the same time as diazepam., # 21 tablet, 0 Refills, Maintenance, 12/20/23 16:46:00 EDT, Tablet, [facility] #[id number], Partial fill upon patient request if the prescription is for a schedule... Start Date: 12/20/23 Status: Ordered straight brava strips 129661 straight brava strips 813885, See Instructions, # 80 each, Refills 11, [...] Safety Implantable Status Assigning Authority Unknown Unknown [id number] Unknown 07/06/27 Unknown Unknown Active Un known Procedure Provider Procedure Date Device Type Site Resection Colon Left Open Jada Chiang MD 12/07/23 Unk nown Colon Device Identifier Serial Number Lot or Batch Number Manufacturing Date Expiration Date Distinct Identification Code MRI Safety Implantable Status Assigning Authority Unknown Unknown [id number] Unknown 12/05/27 Unknown Unknown Active Unk nown Procedure Provider Procedure Date Device Type Site Resection Colon Left Open Jada Chiang MD 12/07/23 Unk nowheath Colon Device Identifier Serial Number Lot or Batch Number Manufacturing Date Expiration Date Distinct Identification Code MRI Safety Implantable Status Assigning Authority Unknown Unknown [id number] Y Unknown 05/06/28 Unknown Unknown Active Unknown [...] Safety Implantable Status Assigning Authority Unknown Unknown [id number] Y Unknown 11/05/27 Unknown Unknown Active Unknown Procedure Provider Procedure Date Device Type Site Resection Colon Left Open Jada Chiang MD 12/07/23 Unk nown Colon Device Identifier Serial Number Lot or Batch Number Manufacturing Date Expiration Date Distinct Identification Code MRI Safety Implantable Status Assigning Authority Unknown Unknown [id number] Unknown 01/05/28 Unknown Unknown Active Unk nown Procedure Provider Procedure Date Device Type Site Resection Colon Left Open Jada Chiang MD 12/07/23 Unk nown Colon Device Identifier Serial Number Lot or Batch Number Manufacturing Date Expiration Date Distinct Identification Code MRI Safety Implantable Status Assigning Authority Unknown Unknown [id number] Unknown 03/06/28 Unknown Unknown Active Unk nown Procedure Provider Procedure Date Device Type Site Resection Colon Left Open Jada Chiang MD 12/07/23 Unk nown Colon Device Identifier Serial Number Lot or Batch Number Manufacturing Date Expiration Date Distinct Identification Code MRI Safety Implantable Status Assigning Authority Unknown Unknown [id number] Unknown 12/05/27 Unknown Unknown Active Unk nown Patient Care team information Care Team Personnel Name: Bertha Kolb RN Position: [facility] RN Member Role: Primary Care Nurse Name: Ashley Domínguez RN Position: [facility] RN Member Role: Primary Care Nurse Name: Maame Pearce Position: [facility] Outreach Member Role: Lifetime Consulting Physician Name: Charline Terrazas RN Position: [facility] RN Member Role: Primary Care Nurse Name: Efrain Long RN Position: [facility] RN Member Role: Primary Care Nurse Name: Melyssa White NP Position: Reference Physician Member Role: PCP Address: Address: [address] [place] [address] Name: Nida Ferro RN Position: [facility] RN Member Role: Primary Care Nurse Name: Kaur Wilson RN Position: [facility] RN Member Role: Primary Care Nurse Name: Shasha Chou RN Position: [facility] RN Member Role: Primary Care Nurse Name: Alison Brewer RN Position: [facility] RN Member Role: Primary Care Nurse Name: Adamaris Lynn RN Position: [facility] RN Member Role: Primary Care Nurse Name: Rosario Schwarz RN Position: [facility] SN RN Member Role: Primary Care Nurse Name: Marianne Jesus RN Position: [facility] RN Member Role: Primary Care Nurse Name: Kriss Pena RN Position: [facility] RN Member Role: Primary Care Nurse Name: Maine Marcial RN Position: [facility] RN Member Role: Primary Care Nurse Name: Lolita Peres RN Position: [facility] RN Member Role: Primary Care Nurse Name: Michael Syed RN Position: S RN Member Role: Primary Care Nurse Care Team Related Persons Name: SERGIO GORDON Address: [address] [place] [address] Name: EMILY REYNOLDS Address: [place] [address] Name: KATHERIN MONDRAGON Address: home [address] [address]
--- OUTSIDE RECORDS SUMMARY | 2024-03-27 07:39 | XMS_ITS | Continuity of Care Document ---
Author Organization [facility] Address [address] [place] [address] [address] [place] [address]- Care Team Providers Care Acetone Button Paster Name Role Phone Cindy DALEY, Melyssa Primary Care Physician Encounter [facility] Date(s): 12/26/23 - 01/25/[address] [place] [address]- Allergies, Adverse Reactions, Alerts Substance Reaction Severity Status ibuprofen 1 Hives Active 1swelling,hives Immunizations Given and Recorded Vaccine Date Status Refusal Reason tetanus/diphtheria/pertussis, acel(Tdap) 06/06/13 Given Medications coloplast bags #02327 coloplast bags #56058, See Instructions, # 20 each, Refills 11, Tot. Refills 11, Maintenance, use as needed for ostomy care Dx. ileostomy Z93.2, 01/02/24 15:45:00 EDT, Compound Start Date: 01/02/24 Status: Ordered convatec bags #[id number] convatec bags #[id number], See Instructions, # 20 each, Refills 11, Tot. Refills 11, Maintenance, use as needed for ostomy care Dx. ileostomy Z93.2, 01/11/24 13:19:00 EDT, Compound Start Date: 01/11/24 Status: Ordered convatec flange# [id number] convatec flange# [id number], See Instructions, # 20 each, Refills 11, Tot. Refills 11, Maintenance, useas needed for ostomy care Dx. ileostomy Z93.2, 01/11/24 13:27:00 EDT, Compound Start Date: 01/11/24 Status: Ordered ConvaTec Ostomy Accordion Flange #[id number] ConvaTec Ostomy [place]ion Flange #[id number], See Instructions, # 20 each, Refills 11, Tot. Refills 11,Maintenance, Use as needed for ostomy maintaince. Dx ileostomy Z93.2, 01/05/24 15:39:00 EDT, Supply Start Date: 01/05/24 Status: Ordered ConvaTec Ostomy Pouch #[id number] ConvaTec Ostomy Pouch #[id number], See Instructions, # 20 each, Refills 11, [...] 12/20/23 16:46:00 EDT, Route to Pharmacy Electronically, [facility] #[id number], Partial fill upon... Start Date: 12/20/23 Status: Ordered loperamide 2 mg oral capsule 4 mg, 2, capsule, By Mouth, 4 times a day, for 30 days, take 1/2 hour before meals and at bed time,# 240 capsule, Refills 5, Tot. Refills 5, Acute 07/17/24 15:35:00 EST, 01/19/24 15:35:00 EDT, [facility] Electronically, [facility] #0... Start Date: 01/19/24 Stop Date: 07/17/24 Status: Ordered loperamide 2 mg oral tablet See Instructions, take 2 tablets by mouth 30 minutes before meals and at bedtime, # 240 tablet, 4 Refills, Maintenance, 01/03/24 16:27:00 EDT, Tablet, [facility] #[id number], Partial fill upon patient request if the prescription is for a schedule... Start Date: 01/03/24 Status: Ordered loperamide 2 mg oral tablet See Instructions, take 1 tablet by mouth 30 minutes before meals and at bedtime, # 120 tablet, 4 Refills, Maintenance, 12/21/23 15:35:00 EDT, Tablet, [facility] #[id number], Partial fill upon patient request if the [...] 0 Refills, Maintenance, 11/19/23 9:55:00 EDT, Tablet, [facility] #[id number], Partial fill upon patient request if the [...] 0 Refills, Maintenance, 12/20/23 16:46:00 EDT, Tablet, [facility] #[id number], Partial fill upon patient request if the prescription is for a schedule... Start Date: 12/20/23 Status: Ordered straight brava strips [id number] straight brava strips [id number], See Instructions, # 80 each, Refills 11, [...] Safety Implantable Status Assigning Authority Unknown Unknown [id number] Unknown 07/06/27 Unknown Unknown Active Un known Procedure Provider Procedure Date Device Type Site Resection Colon Left Open Jada Chiang MD 12/07/23 Unk nown Colon Device Identifier Serial Number Lot or Batch Number Manufacturing Date Expiration Date Distinct Identification Code MRI Safety Implantable Status Assigning Authority Unknown Unknown [id number] Unknown 12/05/27 Unknown Unknown Active Unk nown Procedure Provider Procedure Date Device Type Site Resection Colon Left Open Jada Chiang MD 12/07/23 Unk nown Colon Device Identifier Serial Number Lot or Batch Number Manufacturing Date Expiration Date Distinct Identification Code MRI Safety Implantable Status Assigning Authority Unknown Unknown [id number] Unknown 05/06/28 Unknown Unknown Active Unknown [...] Safety Implantable Status Assigning Authority Unknown Unknown [id number] Unknown 11/05/27 Unknown Unknown Active Unknown Procedure Provider Procedure Date Device Type Site Resection Colon Left Open Jada Chiang MD 12/07/23 Unk nown Colon Device Identifier Serial Number Lot or Batch Number Manufacturing Date Expiration Date Distinct Identification Code MRI Safety Implantable Status Assigning Authority Unknown Unknown [id number] Unknown 01/05/28 Unknown Unknown Active Unk nown Procedure Provider Procedure Date Device Type Site Resection Colon Left Open Jada Chiang MD 12/07/23 Unk nown Colon Device Identifier Serial Number Lot or Batch Number Manufacturing Date Expiration Date Distinct Identification Code MRI Safety Implantable Status Assigning Authority Unknown Unknown [id number] Unknown 03/06/28 Unknown Unknown Active Unk nown Procedure Provider Procedure Date Device Type Site Resection Colon Left Open Андрей Jada 12/07/23 Unk nown Colon Device Identifier Serial Number Lot or Batch Number Manufacturing Date Expiration Date Distinct Identification Code MRI Safety Implantable Status Assigning Authority Unknown Unknown [id number] Unknown 12/05/27 Unknown Unknown Active Unk nown Patient Care team information Care Team Personnel Name: Bertha Kolb RN Position: [facility] RN Member Role: Primary Care Nurse Name: Ashley Domínguez RN Position: [facility] RN Member Role: Primary Care Nurse Name: Maame Pearce Position: [facility] Outreach Member Role: Lifetime Consulting Physician Name: Charline Terrazas RN Position: [facility] RN Member Role: Primary Care Nurse Name: Efrain Long RN Position: [facility] RN Member Role: Primary Care Nurse Name: Melyssa White NP Position: Reference Physician Member Role: PCP Address: Address: [address] [place] [address] Name: Nida Ferro RN Position: [facility] RN Member Role: Primary Care Nurse Name: Kaur Wilson RN Position: [facility] RN Member Role: Primary Care Nurse Name: Shasha Chou RN Position: [facility] RN Member Role: Primary Care Nurse Name: Alison Brewer RN Position: [facility] RN Member Role: Primary Care Nurse Name: Adamaris Lynn RN Position: [facility] RN Member Role: Primary Care Nurse Name: Rosario Schwarz RN Position: [facility] SN RN Member Role: Primary Care Nurse Name: Marianne Jesus RN Position: [facility] RN Member Role: Primary Care Nurse Name: Kriss Pena RN Position: [facility] RN Member Role: Primary Care Nurse Name: Maine Marcial RN Position: [facility] RN Member Role: Primary Care Nurse Name: Lolita Peres RN Position: [facility] RN Member Role: Primary Care Nurse Name: Michael Syed RN Position: [facility] RN Member Role: Primary Care Nurse Care Team Related Persons Name: SERGIO GORDON Address: home [address] [place] [id number] Name: EMILY REYNOLDS Address: [place] [address] Name: KATHERIN MONDRAGON Address: home [address] [place] [id number]
--- OUTSIDE RECORDS SUMMARY | 2024-03-27 07:39 | XMS_ITS | Continuity of Care Document ---
Author Organization [facility] ter Address [address] [place] [id number]- Care Team Providers Care Client Integration Manager Name Role Phone Melyssa White NP Primary Care Physician [phone] Encounter [facility] Date(s): 11/08/22 - 12/11/[address] [address] Attending Physician: Alejandro Mcgowan Admitting Physician: Alejandro Mcgowan Referring Physician: Alejandro Mcgowan Allergies, Adverse Reactions, Alerts Substance Reaction Severity [...] 1/4 pack)/day in last 30 days. Sex Patient Care team information Care Team Personnel Name: Melyssa White NP Position: Reference Physician Member Role: PCP Address: Address: [address] [place] [address]- Care Team Related Persons Name: SERGIO GORDON Address: home [address] [place] [address] Name: EMILY REYNOLDS Address: [place] [address]
--- OUTSIDE RECORDS SUMMARY | 2024-03-27 07:39 | XMS_ITS | Continuity of Care Document ---
Author Organization [facility] Address [address] [place] [address]- Care Team Providers Care Diet Tech Name Role Phone Cindy DALEY, Melyssa Primary Care Physician [phone] Encounter [facility] Date(s): 01/31/24 - 03/01/24 [facility] [address] [place] [id number]- Attending Physician: Admtr, Ar8 Admitting Physician: Admtr, Ar8 Referring Physician: Admtr, Ar8 Allergies, Adverse Reactions, Alerts Substance Reaction Severity Status ibuprofen 1 Hives Active 1swelling,hives Immunizations Given and Recorded Vaccine Date Status Refusal Reason tetanus/diphtheria/pertussis, acel(Tdap) 06/06/13 Given Medications Barrier strips [id number] Barrier strips 657258, See Instructions, # 80 each, Refills 11, [...] Start Date: 02/13/24 Status: Ordered coloplast bags #95620 coloplast bags #79238, See Instructions, # 20 each, Refills 11, Tot. Refills 11, Maintenance, use as needed for ostomy care Dx. ileostomy Z93.2, 01/02/24 15:45:00 EDT, Compound Start Date: 01/02/24 Status: Ordered convatec bags #[id number] convatec bags #690672, See Instructions, # 20 each, Refills 11, Tot. Refills 11, Maintenance, use as needed for ostomy care Dx. ileostomy Z93.2, 01/11/24 13:19:00 EDT, Compound Start Date: 01/11/24 Status: Ordered Convatec bags (#178601) Convatec bags (#680196), See Instructions, # 40 each, Refills 11, Tot. Refills 11, Maintenance, useas needed for ostomy maintaince. Dx ileostomy Z93.2, 02/13/24 9:14:00 EDT, Supply Start Date: 02/13/24 Status: Ordered Convatec flange (#869658) Convatec flange (#699609), See Instructions, # 40 each, Refills 11, Tot. Refills 11, Maintenance, use as needed for ostomy maintaince. Dx ileostomy Z93.2, 02/13/24 9:14:00 EDT, Supply Start Date: 02/13/24 Status: Ordered convatec flange# 011909 convatec flange# 074876, See Instructions, # 20 each, Refills 11, Tot. Refills 11, Maintenance, useas needed for ostomy care Dx. ileostomy Z93.2, 01/11/24 13:27:00 EDT, Compound Start Date: 01/11/24 Status: Ordered ConvaTec Ostomy [place]ordion Flange #744792 ConvaTec Ostomy [place] Flange #957388, See Instructions, # 20 each, Refills 11, Tot. Refills 11,Maintenance, Use as needed for ostomy maintaince. Dx ileostomy Z93.2, 01/05/24 15:39:00 EDT, Supply Start Date: 01/05/24 Status: Ordered ConvaTec Ostomy Pouch #[id number] ConvaTec Ostomy Pouch #680044, See Instructions, # 20 each, Refills 11, [...] 12/20/23 16:46:00 EDT, Route to Pharmacy Electronically, [facility] #[id number], Partial fill upon... Start Date: 12/20/23 Status: Ordered lidocaine 5% topical film 1 patch, Topically, 2 times a day, remove patches after 12 hours, # 15 patch, 0 Refills, Maintenance, 01/30/24 12:17:00 EDT, Film, [facility] #[id number], Partial fill upon patient request if the [...] EST, 01/19/24 15:35:00 EDT, [facility] Electronically, [facility]... Start Date: 01/19/24 Stop Date: 07/17/24 Status: Ordered loperamide 2 mg oral tablet See Instructions, take 2 tablets by mouth 30 minutes before meals and at bedtime, # 240 tablet, 4 Refills, Maintenance, 01/03/24 16:27:00 EDT, Tablet, [facility] #[id number], Partial fill upon patient request if the prescription is for a schedule... Start Date: 01/03/24 Status: Ordered loperamide 2 mg oral tablet See Instructions, take 1 tablet by mouth 30 minutes before meals and at bedtime, # 120 tablet, 4 Refills, Maintenance, 12/21/23 15:35:00 EDT, Tablet, [facility] #[id number], Partial fill upon patient request if the [...] 0 Refills, Maintenance, 11/19/23 9:55:00 EDT, Tablet, [facility] #[id number], Partial fill upon patient request if the [...] 0 Refills, Maintenance, 01/30/24 13:16:00 EDT, Tablet, [facility] #[id number], Partial fill upon patient request if the prescription is for a schedule II opioid drug.... Start Date: 01/30/24 Status: Ordered oxyCODONE 20 mg oral tablet 1 tablet = 20 mg, By Mouth, Every 8 hours, Do not take the same time as diazepam., # 21 tablet, 0 Refills, Maintenance, 12/20/23 16:46:00 EDT, Tablet, [facility] #[id number], Partial fill upon patient request if the prescription is for a schedule... Start Date: 12/20/23 Status: Ordered straight brava strips 824561 straight brava strips 540650, See Instructions, # 80 each, Refills 11, [...] Safety Implantable Status Assigning Authority Unknown Unknown [id number] Unknown 07/06/27 Unknown Unknown Active Un known Procedure Provider Procedure Date Device Type Site Resection Colon Left Open Jada Chiang MD 12/07/23 Unk nown Colon Device Identifier Serial Number Lot or Batch Number Manufacturing Date Expiration Date Distinct Identification Code MRI Safety Implantable Status Assigning Authority Unknown Unknown [id number] Unknown 12/05/27 Unknown Unknown Active Unk nown Procedure Provider Procedure Date Device Type Site Resection Colon Left Open Jada Chiang MD 12/07/23 Unk nowheath Colon Device Identifier Serial Number Lot or Batch Number Manufacturing Date Expiration Date Distinct Identification Code MRI Safety Implantable Status Assigning Authority Unknown Unknown [id number] Unknown 05/06/28 Unknown Unknown Active Unknown [...] Safety Implantable Status Assigning Authority Unknown Unknown [id number] Unknown 11/05/27 Unknown Unknown Active Unknown Procedure Provider Procedure Date Device Type Site Resection Colon Left Open Jada Chiang MD 12/07/23 Unk nown Colon Device Identifier Serial Number Lot or Batch Number Manufacturing Date Expiration Date Distinct Identification Code MRI Safety Implantable Status Assigning Authority Unknown Unknown [id number] Unknown 01/05/28 Unknown Unknown Active Unk nown Procedure Provider Procedure Date Device Type Site Resection Colon Left Open Jada Chiang MD 12/07/23 Unk nown Colon Device Identifier Serial Number Lot or Batch Number Manufacturing Date Expiration Date Distinct Identification Code MRI Safety Implantable Status Assigning Authority Unknown Unknown [id number] Unknown 03/06/28 Unknown Unknown Active Unk nown Procedure Provider Procedure Date Device Type Site Resection Colon Left Open Jada Chiang MD 12/07/23 Unk nown Colon Device Identifier Serial Number Lot or Batch Number Manufacturing Date Expiration Date Distinct Identification Code MRI Safety Implantable Status Assigning Authority Unknown Unknown [id number] Unknown 12/05/27 Unknown Unknown Active Unk nown Patient Care team information Care Team Personnel Name: Bertha Kolb RN Position: [facility] RN Member Role: Primary Care Nurse Name: Ashley Domínguez RN Position: [facility] RN Member Role: Primary Care Nurse Name: Maame Pearce Position: [facility] Outreach Member Role: Lifetime Consulting Physician Name: Charline Terrazas RN Position: [facility] RN Member Role: Primary Care Nurse Name: Efrain Long RN Position: [facility] RN Member Role: Primary Care Nurse Name: Melyssa White NP Position: Reference Physician Member Role: PCP Address: Address: [address] [place] [address] Name: Nida Ferro RN Position: [facility] RN Member Role: Primary Care Nurse Name: Kaur Wilson RN Position: [facility] RN Member Role: Primary Care Nurse Name: Shasha Chou RN Position: [facility] RN Member Role: Primary Care Nurse Name: Alison Brewer RN Position: [facility] RN Member Role: Primary Care Nurse Name: Adamaris Lynn RN Position: [facility] RN Member Role: Primary Care Nurse Name: Rosario Schwarz RN Position: [facility] SN RN Member Role: Primary Care Nurse Name: Marianne Jesus RN Position: [facility] RN Member Role: Primary Care Nurse Name: Kriss Pena RN Position: [facility] RN Member Role: Primary Care Nurse Name: Maine Marcial RN Position: [facility] RN Member Role: Primary Care Nurse Name: Lolita Peres RN Position: S RN Member Role: Primary Care Nurse Name: Michael Syed RN Position: S RN Member Role: Primary Care Nurse Care Team Related Persons Name: SERGIO GORDON Address: [address] [place] [address] Name: EMILY REYNOLDS Address: [place] [address] Name: KATHERIN MONDRAGON Address: home [address] [address]
--- OUTSIDE RECORDS SUMMARY | 2024-03-27 07:39 | XMS_ITS | Continuity of Care Document ---
Author Organization [facility] Address [address] [place] [address] [address] [place] [address]- Care Team Providers Care Ply Splicer Name Role Phone Melyssa White NP Primary Care Physician Encounter [facility] [place] Date(s): 01/29/24 - 02/28/24 [facility] [address] [place] [address]- Allergies, Adverse Reactions, Alerts Substance Reaction Severity Status ibuprofen 1 Hives Active 1swelling,hives Immunizations Given and Recorded Vaccine Date Status Refusal Reason tetanus/diphtheria/pertussis, acel(Tdap) 06/06/13 Given Medications Barrier strips [id number] Barrier strips [id number], See Instructions, # 80 each, Refills 11, [...] Start Date: 02/13/24 Status: Ordered coloplast bags #20961 coloplast bags #30934, See Instructions, # 20 each, Refills 11, Tot. Refills 11, Maintenance, use as needed for ostomy care Dx. ileostomy Z93.2, 01/02/24 15:45:00 EDT, Compound Start Date: 01/02/24 Status: Ordered convatec bags #[id number] convatec bags #[id number], See Instructions, # 20 each, Refills 11, Tot. Refills 11, Maintenance, use as needed for ostomy care Dx. ileostomy Z93.2, 01/11/24 13:19:00 EDT, Compound Start Date: 01/11/24 Status: Ordered Convatec bags (#[id number]) Convatec bags (#[id number]), See Instructions, # 40 each, Refills 11, Tot. Refills 11, Maintenance, useas needed for ostomy maintaince. Dx ileostomy Z93.2, 02/13/24 9:14:00 EDT, Supply Start Date: 02/13/24 Status: Ordered Convatec flange (#370674) Convatec flange (#435747), See Instructions, # 40 each, Refills 11, Tot. Refills 11, Maintenance, use as needed for ostomy maintaince. Dx ileostomy Z93.2, 02/13/24 9:14:00 EDT, Supply Start Date: 02/13/24 Status: Ordered convatec flange# [id number] convatec flange# 370387, See Instructions, # 20 each, Refills 11, Tot. Refills 11, Maintenance, useas needed for ostomy care Dx. ileostomy Z93.2, 01/11/24 13:27:00 EDT, Compound Start Date: 01/11/24 Status: Ordered ConvaTec Ostomy [facility] #643136 ConvaTec Ostomy [employer] Flange #[id number], See Instructions, # 20 each, Refills 11, Tot. Refills 11,Maintenance, Use as needed for ostomy maintaince. Dx ileostomy Z93.2, 01/05/24 15:39:00 EDT, Supply Start Date: 01/05/24 Status: Ordered ConvaTec Ostomy Pouch #467360 ConvaTec Ostomy Pouch #[id number], See Instructions, # 20 each, Refills 11, [...] 12/20/23 16:46:00 EDT, Route to Pharmacy Electronically, [facility] #[id number], Partial fill upon... Start Date: 12/20/23 Status: Ordered lidocaine 5% topical film 1 patch, Topically, 2 times a day, remove patches after 12 hours, # 15 patch, 0 Refills, Maintenance, 01/30/24 12:17:00 EDT, Film, [facility] #[id number], Partial fill upon patient request if the [...] EST, 01/19/24 15:35:00 EDT, Routeto Pharmacy Electronically, [facility]... Start Date: 01/19/24 Stop Date: 07/17/24 Status: Ordered loperamide 2 mg oral tablet See Instructions, take 2 tablets by mouth 30 minutes before meals and at bedtime, # 240 tablet, 4 Refills, Maintenance, 01/03/24 16:27:00 EDT, Tablet, [facility] #[id number], Partial fill upon patient request if the prescription is for a schedule... Start Date: 01/03/24 Status: Ordered loperamide 2 mg oral tablet See Instructions, take 1 tablet by mouth 30 minutes before meals and at bedtime, # 120 tablet, 4 Refills, Maintenance, 12/21/23 15:35:00 EDT, Tablet, [facility] #[id number], Partial fill upon patient request if the [...] 0 Refills, Maintenance, 11/19/23 9:55:00 EDT, Tablet, [facility] #[id number], Partial fill upon patient request if the [...] 0 Refills, Maintenance, 01/30/24 13:16:00 EDT, Tablet, [facility] #[id number], Partial fill upon patient request if the prescription is for a schedule II opioid drug.... Start Date: 01/30/24 Status: Ordered oxyCODONE 20 mg oral tablet 1 tablet = 20 mg, By Mouth, Every 8 hours, Do not take the same time as diazepam., # 21 tablet, 0 Refills, Maintenance, 12/20/23 16:46:00 EDT, Tablet, [facility] #[id number], Partial fill upon patient request if the prescription is for a schedule... Start Date: 12/20/23 Status: Ordered straight brava strips [id number] straight brava strips 514995, See Instructions, # 80 each, Refills 11, [...] Safety Implantable Status Assigning Authority Unknown Unknown [id number] Unknown 07/06/27 Unknown Unknown Active Un known Procedure Provider Procedure Date Device Type Site Resection Colon Left Open Jada Chiang MD 12/07/23 Unk nown Colon Device Identifier Serial Number Lot or Batch Number Manufacturing Date Expiration Date Distinct Identification Code MRI Safety Implantable Status Assigning Authority Unknown Unknown [id number] Unknown 12/05/27 Unknown Unknown Active Unk nown Procedure Provider Procedure Date Device Type Site Resection Colon Left Open Jada Chiang MD 12/07/23 Unk nown Colon Device Identifier Serial Number Lot or Batch Number Manufacturing Date Expiration Date Distinct Identification Code MRI Safety Implantable Status Assigning Authority Unknown Unknown [id number] Unknown 05/06/28 Unknown Unknown Active Unknown [...] Safety Implantable Status Assigning Authority Unknown Unknown [id number] Unknown 11/05/27 Unknown Unknown Active Unknown Procedure Provider Procedure Date Device Type Site Resection Colon Left Open Jada Chiang MD 12/07/23 Unk nown Colon Device Identifier Serial Number Lot or Batch Number Manufacturing Date Expiration Date Distinct Identification Code MRI Safety Implantable Status Assigning Authority Unknown Unknown [id number] Unknown 01/05/28 Unknown Unknown Active Unk nown Procedure Provider Procedure Date Device Type Site Resection Colon Left Open Андрей Jada 12/07/23 Unk nown Colon Device Identifier Serial Number Lot or Batch Number Manufacturing Date Expiration Date Distinct Identification Code MRI Safety Implantable Status Assigning Authority Unknown Unknown [id number] Unknown 03/06/28 Unknown Unknown Active Unk nown Procedure Provider Procedure Date Device Type Site Resection Colon Left Open Андрей Jada 12/07/23 Unk nown Colon Device Identifier Serial Number Lot or Batch Number Manufacturing Date Expiration Date Distinct Identification Code MRI Safety Implantable Status Assigning Authority Unknown Unknown [id number] Unknown 12/05/27 Unknown Unknown Active Unk nown Patient Care team information Care Team Personnel Name: Bertha Kolb RN Position: [facility] RN Member Role: Primary Care Nurse Name: Ashley Domínguez RN Position: [facility] RN Member Role: Primary Care Nurse Name: Maame Pearce Position: [facility] Outreach Member Role: Lifetime Consulting Physician Name: Charline Terrazas RN Position: [facility] RN Member Role: Primary Care Nurse Name: Efrain Long RN Position: [facility] RN Member Role: Primary Care Nurse Name: Melyssa White NP Position: Reference Physician Member Role: PCP Address: Address: [address] [place] [address] Name: Nida Ferro RN Position: [facility] RN Member Role: Primary Care Nurse Name: Kaur Wilson RN Position: [facility] RN Member Role: Primary Care Nurse Name: Shasha Chou RN Position: [facility] RN Member Role: Primary Care Nurse Name: Alison Brewer RN Position: [facility] RN Member Role: Primary Care Nurse Name: Adamaris Lynn RN Position: [facility] RN Member Role: Primary Care Nurse Name: Rosario Schwarz RN Position: [facility] SN RN Member Role: Primary Care Nurse Name: Marianne Jesus RN Position: [facility] RN Member Role: Primary Care Nurse Name: Kriss Pena RN Position: [facility] RN Member Role: Primary Care Nurse Name: Maine Marcial RN Position: [facility] RN Member Role: Primary Care Nurse Name: Lolita Peres RN Position: S RN Member Role: Primary Care Nurse Name: Michael Syed RN Position: S RN Member Role: Primary Care Nurse Care Team Related Persons Name: SERGIO GORDON Address: home [address] [place] [address] Name: EMILY REYNOLDS Address: [place] [address] Name: KATHERIN MONDRAGON Address: home [address] [address]
--- OUTSIDE RECORDS SUMMARY | 2024-03-27 07:39 | XMS_ITS | Continuity of Care Document ---
Author Organization [facility] Address [address] [place] [address]- Care Team Providers Care Policeman Name Role Phone Not on Staff, PCP Primary Care Physician Unavail able Encounter [facility] Date(s): 08/13/19 - 08/20/19 [facility] [address] [place] [address]- [facility] Attending Physician: Davon Antunez MD Allergies, Adverse Reactions, Alerts Substance Reaction [...] Dry Weight Start Date: 08/13/19 Status: Ordered predniSONE 20 mg oral tablet See Instructions, 3 tabs PO QD x3days, then 2 tabs PO QD x3days, then 1 tabs PO QD x3days., # 18 tablet, 0 Refills, Acute 09/03/19 17:18:00 EST, 08/13/19 17:17:00 EST, [id number], 158, cm, 08/13/19 15:11:00 EST, Height, 95, kg, 08/13/19 15:11:... Start Date: 08/13/19 Stop Date: 09/03/19 Status: Ordered Vital Signs Most recent to oldest [Reference Range]: 1 Height 158 cm (08/13/19 3:11 PM) Oxygen Saturation [94-100 %] 100 % (08/13/19 3:11 PM) Pulse Rate [55-90 bpm] 105 bpm *H* (08/13/19 3:11 PM) Blood Pressure [90-138/55-84 mm Hg] 130/ 81mm Hg (08/13/19 3:11 PM) Respiratory Rate [16-30 br/min] 20 br/mi n (08/13/19 3:11 PM) Temperature [96.8-100.4 DegF] 98.7 DegF (08/13/19 3:11 PM) Mode of Delivery (Oxygen) Room air (08/13/19 3:11 PM) Blood pressure sites Arm, right (08/13/19 3:11 PM) Temperature Route Oral (08/13/19 3:11 PM) Dry Weight 95.0 kg (08/13/19 3:11 PM) Dry Weight Obtained Via Standing scale (08/13/19 3:11 PM) Social History Social History Type Response Tobacco Use: 4 or less cigar ettes(less than 1/4 pack)/day in last 30 days. Sex
--- OUTSIDE RECORDS SUMMARY | 2024-03-27 07:39 | XMS_ITS | Continuity of Care Document ---
Author Organization [facility] Address [address] [place] [address] [address] [place] [address]- Care Team Providers Care Grain Trimmer Name Role Phone Cindy DALEY, Melyssa Primary Care Physician [phone] Encounter [facility] [place] Date(s): 01/10/24 - 01/17/[address] [place] [address]- Attending Physician: Андрей MASTERS, Jada Ward Referring Physician: Melyssa White NP Allergies, Adverse Reactions, Alerts Substance Reaction Severity Status ibuprofen 1 Hives Active 1swelling,hives Immunizations Given and Recorded Vaccine Date Status Refusal Reason tetanus/diphtheria/pertussis, acel(Tdap) 06/06/13 Given Medications coloplast bags #26965 coloplast bags #76166, See Instructions, # 20 each, Refills 11, Tot. Refills 11, Maintenance, use as needed for ostomy care Dx. ileostomy Z93.2, 01/02/24 15:45:00 EDT, Compound Start Date: 01/02/24 Status: Ordered convatec bags #[id number] convatec bags #[id number], See Instructions, # 20 each, Refills 11, Tot. Refills 11, Maintenance, use as needed for ostomy care Dx. ileostomy Z93.2, 01/11/24 13:19:00 EDT, Compound Start Date: 01/11/24 Status: Ordered convatec flange# [id number] convatec flange# [id number], See Instructions, # 20 each, Refills 11, Tot. Refills 11, Maintenance, useas needed for ostomy care Dx. ileostomy Z93.2, 01/11/24 13:27:00 EDT, Compound Start Date: 01/11/24 Status: Ordered ConvaTec Ostomy [facility] #956851 ConvaTec Ostomy [facility] #207386, See Instructions, # 20 each, Refills 11, Tot. Refills 11,Maintenance, Use as needed for ostomy maintaince. Dx ileostomy Z93.2, 01/05/24 15:39:00 EDT, Supply Start Date: 01/05/24 Status: Ordered ConvaTec Ostomy Pouch #[id number] ConvaTec Ostomy Pouch #[id number], See Instructions, # 20 each, Refills 11, [...] 12/20/23 16:46:00 EDT, Route to Pharmacy Electronically, [facility] #[id number], Partial fill upon... Start Date: 12/20/23 Status: Ordered loperamide 2 mg oral tablet See Instructions, take 2 tablets by mouth 30 minutes before meals and at bedtime, # 240 tablet, 4 Refills, Maintenance, 01/03/24 16:27:00 EDT, Tablet, [facility] #[id number], Partial fill upon patient request if the prescription is for a schedule... Start Date: 01/03/24 Status: Ordered loperamide 2 mg oral tablet See Instructions, take 1 tablet by mouth 30 minutes before meals and at bedtime, # 120 tablet, 4 Refills, Maintenance, 12/21/23 15:35:00 EDT, Tablet, [facility] #[id number], Partial fill upon patient request if the [...] 0 Refills, Maintenance, 11/19/23 9:55:00 EDT, Tablet, [facility] #[id number], Partial fill upon patient request if the [...] 0 Refills, Maintenance, 12/20/23 16:46:00 EDT, Tablet, [facility] #[id number], Partial fill upon patient request if the prescription is for a schedule... Start Date: 12/20/23 Status: Ordered straight brava strips [id number] straight brava strips 584999, See Instructions, # 80 each, Refills 11, Tot. Refills 11, Maintenance, use as needed for ostomy care Dx ileostomy Z 93.2, 01/11/24 13:19:00 EDT, Compound Start Date: 01/11/24 Status: Ordered traMADol 50 mg oral tablet 1 tablet = 50 mg, By Mouth, Every 8 hours, for 7 days, # 21 tablet, 0 Refills, Acute 01/23/24 11:38:00 EDT, 01/16/24 11:38:00 EDT, [facility] #[id number], Partial fill upon patient request if the [...] Safety Implantable Status Assigning Authority Unknown Unknown [id number] Unknown 07/06/27 Unknown Unknown Active Un known Procedure Provider Procedure Date Device Type Site Resection Colon Left Open Jada Chiang MD 12/07/23 Unk nown Colon Device Identifier Serial Number Lot or Batch Number Manufacturing Date Expiration Date Distinct Identification Code MRI Safety Implantable Status Assigning Authority Unknown Unknown [id number] Unknown 12/05/27 Unknown Unknown Active Unk nown Procedure Provider Procedure Date Device Type Site Resection Colon Left Open Jada Chiang MD 12/07/23 Unk nown Colon Device Identifier Serial Number Lot or Batch Number Manufacturing Date Expiration Date Distinct Identification Code MRI Safety Implantable Status Assigning Authority Unknown Unknown [id number] Y Unknown 05/06/28 Unknown Unknown Active Unknown [...] Safety Implantable Status Assigning Authority Unknown Unknown [id number] Y Unknown 11/05/27 Unknown Unknown Active Unknown Procedure Provider Procedure Date Device Type Site Resection Colon Left Open Jada Chiang MD 12/07/23 Unk nown Colon Device Identifier Serial Number Lot or Batch Number Manufacturing Date Expiration Date Distinct Identification Code MRI Safety Implantable Status Assigning Authority Unknown Unknown [id number] Unknown 01/05/28 Unknown Unknown Active Unk nown Procedure Provider Procedure Date Device Type Site Resection Colon Left Open Jada Chiang MD 12/07/23 Unk nown Colon Device Identifier Serial Number Lot or Batch Number Manufacturing Date Expiration Date Distinct Identification Code MRI Safety Implantable Status Assigning Authority Unknown Unknown [id number] Unknown 03/06/28 Unknown Unknown Active Unk nown Procedure Provider Procedure Date Device Type Site Resection Colon Left Open Jada Chiang MD 12/07/23 Unk nown Colon Device Identifier Serial Number Lot or Batch Number Manufacturing Date Expiration Date Distinct Identification Code MRI Safety Implantable Status Assigning Authority Unknown Unknown [id number] Unknown 12/05/27 Unknown Unknown Active Unk nown Patient Care team information Care Team Personnel Name: Bertha Kolb RN Position: [facility] RN Member Role: Primary Care Nurse Name: Ashley Domínguez RN Position: [facility] RN Member Role: Primary Care Nurse Name: Maame Pearce Position: [facility] Outreach Member Role: Lifetime Consulting Physician Name: Charline Terrazas RN Position: [facility] RN Member Role: Primary Care Nurse Name: Efrain Long RN Position: [facility] RN Member Role: Primary Care Nurse Name: Melyssa White NP Position: Reference Physician Member Role: PCP Address: Address: [address] [place] [address] Name: Nida Ferro RN Position: [facility] RN Member Role: Primary Care Nurse Name: Kaur Wilson RN Position: [facility] RN Member Role: Primary Care Nurse Name: Shasha Chou RN Position: [facility] RN Member Role: Primary Care Nurse Name: Alison Brewer RN Position: [facility] RN Member Role: Primary Care Nurse Name: Adamaris Lynn RN Position: [facility] RN Member Role: Primary Care Nurse Name: Rosario Schwarz RN Position: [facility] SN RN Member Role: Primary Care Nurse Name: Marianne Jesus RN Position: [facility] RN Member Role: Primary Care Nurse Name: Kriss Pena RN Position: [facility] RN Member Role: Primary Care Nurse Name: [place] Marcial RN Position: [facility] RN Member Role: Primary Care Nurse Name: Lolita Peres RN Position: [facility] RN Member Role: Primary Care Nurse Name: Michael Syed RN Position: [facility] RN Member Role: Primary Care Nurse Care Team Related Persons Name: SERGIO GORDON Address: home [address] [place] [address] Name: EMILY REYNOLDS Address: [place] [address] Name: KATHERIN MONDRAGON Address: home [address] [address]
--- OUTSIDE RECORDS SUMMARY | 2024-03-27 07:39 | XMS_ITS | Continuity of Care Document ---
Author Organization [facility] Address [address] [place] [address] [address] [place] [address]- Care Team Providers Care Porcelain Enameler Name Role Phone Melyssa White NP Primary Care Physician [phone] Encounter [facility] Date(s): 01/04/24 - 02/03/[address] [place] [address]- Allergies, Adverse Reactions, Alerts Substance Reaction Severity Status ibuprofen 1 Hives Active 1swelling,hives Immunizations Given and Recorded Vaccine Date Status Refusal Reason tetanus/diphtheria/pertussis, acel(Tdap) 06/06/13 Given Medications coloplast bags #60539 coloplast bags #29537, See Instructions, # 20 each, Refills 11, Tot. Refills 11, Maintenance, use as needed for ostomy care Dx. ileostomy Z93.2, 01/02/24 15:45:00 EDT, Compound Start Date: 01/02/24 Status: Ordered convatec bags #[id number] convatec bags #[id number], See Instructions, # 20 each, Refills 11, Tot. Refills 11, Maintenance, use as needed for ostomy care Dx. ileostomy Z93.2, 01/11/24 13:19:00 EDT, Compound Start Date: 01/11/24 Status: Ordered convatec flange# [id number] convatec flange# [id number], See Instructions, # 20 each, Refills 11, Tot. Refills 11, Maintenance, useas needed for ostomy care Dx. ileostomy Z93.2, 01/11/24 13:27:00 EDT, Compound Start Date: 01/11/24 Status: Ordered ConvaTec Ostomy [place] Flange #[id number] ConvaTec Ostomy [place] Flange #[id number], See Instructions, # 20 each, Refills 11, Tot. Refills 11,Maintenance, Use as needed for ostomy maintaince. Dx ileostomy Z93.2, 01/05/24 15:39:00 EDT, Supply Start Date: 01/05/24 Status: Ordered ConvaTec Ostomy Pouch #[id number] ConvaTec Ostomy Pouch #[id number], See Instructions, # 20 each, Refills 11, [...] 12/20/23 16:46:00 EDT, Route to Pharmacy Electronically, [facility] #[id number], Partial fill upon... Start Date: 12/20/23 Status: Ordered lidocaine 5% topical film 1 patch, Topically, 2 times a day, remove patches after 12 hours, # 15 patch, 0 Refills, Maintenance, 01/30/24 12:17:00 EDT, Film, [facility] #[id number], Partial fill upon patient request if the [...] EST, 01/19/24 15:35:00 EDT, [facility], [facility]... Start Date: 01/19/24 Stop Date: 07/17/24 Status: Ordered loperamide 2 mg oral tablet See Instructions, take 2 tablets by mouth 30 minutes before meals and at bedtime, # 240 tablet, 4 Refills, Maintenance, 01/03/24 16:27:00 EDT, Tablet, [facility] #[id number], Partial fill upon patient request if the prescription is for a schedule... Start Date: 01/03/24 Status: Ordered loperamide 2 mg oral tablet See Instructions, take 1 tablet by mouth 30 minutes before meals and at bedtime, # 120 tablet, 4 Refills, Maintenance, 12/21/23 15:35:00 EDT, Tablet, [facility] #[id number], Partial fill upon patient request if the [...] 02/04/24 12:15:00 EDT, 01/30/24 12:15:00 EDT, Tablet, [facility] #[id number], Partial fill upon patient request if the prescription is for a schedule II opioi... Start Date: 01/30/24 Stop Date: 02/04/24 Status: Ordered ondansetron 4 mg oral tablet, disintegrating 1 tablet = 4 mg, By Mouth, Every 8 hours, PRN Nausea & Vomiting, # 24 tablet, 0 Refills, Maintenance, 11/19/23 9:55:00 EDT, Tablet, [facility] #[id number], Partial fill upon patient request if the [...] 0 Refills, Maintenance, 01/30/24 13:16:00 EDT, Tablet, [facility] #[id number], Partial fill upon patient request if the prescription is for a schedule II opioid drug.... Start Date: 01/30/24 Status: Ordered oxyCODONE 20 mg oral tablet 1 tablet = 20 mg, By Mouth, Every 8 hours, Do not take the same time as diazepam., # 21 tablet, 0 Refills, Maintenance, 12/20/23 16:46:00 EDT, Tablet, [facility] #[id number], Partial fill upon patient request if the prescription is for a schedule... Start Date: 12/20/23 Status: Ordered straight brava strips [id number] straight brava strips [id number], See Instructions, # 80 each, Refills 11, [...] Safety Implantable Status Assigning Authority Unknown Unknown [id number] Unknown 07/06/27 Unknown Unknown Active Un known Procedure Provider Procedure Date Device Type Site Resection Colon Left Open Jada Chiang MD 12/07/23 Unk nown Colon Device Identifier Serial Number Lot or Batch Number Manufacturing Date Expiration Date Distinct Identification Code MRI Safety Implantable Status Assigning Authority Unknown Unknown [id number] Unknown 12/05/27 Unknown Unknown Active Unk nown Procedure Provider Procedure Date Device Type Site Resection Colon Left Open Андрей MASTERS Jada Sylvia 12/07/23 Unk nown Colon Device Identifier Serial Number Lot or Batch Number Manufacturing Date Expiration Date Distinct Identification Code MRI Safety Implantable Status Assigning Authority Unknown Unknown [id number] Unknown 05/06/28 Unknown Unknown Active Unknown [...] Safety Implantable Status Assigning Authority Unknown Unknown [id number] Unknown 11/05/27 Unknown Unknown Active Unknown Procedure Provider Procedure Date Device Type Site Resection Colon Left Open Jada Chiang MD 12/07/23 Unk nown Colon Device Identifier Serial Number Lot or Batch Number Manufacturing Date Expiration Date Distinct Identification Code MRI Safety Implantable Status Assigning Authority Unknown Unknown [id number] Unknown 01/05/28 Unknown Unknown Active Unk nown Procedure Provider Procedure Date Device Type Site Resection Colon Left Open Jada Chiang MD 12/07/23 Unk nown Colon Device Identifier Serial Number Lot or Batch Number Manufacturing Date Expiration Date Distinct Identification Code MRI Safety Implantable Status Assigning Authority Unknown Unknown [id number] Unknown 03/06/28 Unknown Unknown Active Unk nown Procedure Provider Procedure Date Device Type Site Resection Colon Left Open Jada Chiang MD 12/07/23 Unk nown Colon Device Identifier Serial Number Lot or Batch Number Manufacturing Date Expiration Date Distinct Identification Code MRI Safety Implantable Status Assigning Authority Unknown Unknown [id number] Unknown 12/05/27 Unknown Unknown Active Unk nown Patient Care team information Care Team Personnel Name: Bertha Kolb RN Position: [facility] RN Member Role: Primary Care Nurse Name: Ashley Domínguez RN Position: [facility] RN Member Role: Primary Care Nurse Name: Maame Pearce Position: [facility] Outreach Member Role: Lifetime Consulting Physician Name: Charline Terrazas RN Position: [facility] RN Member Role: Primary Care Nurse Name: Efrain Long RN Position: [facility] RN Member Role: Primary Care Nurse Name: Melyssa White NP Position: Reference Physician Member Role: PCP Address: Address: [address] [place] [id number]- Name: Nida Ferro RN [facility] Persons Name: HEIDI SERGIO Address: home [address] [place] [address] Name: EMILY REYNOLDS Address: [place] [address] Name: KATHERIN MONDRAGON Address: home [address] [address]
--- OUTSIDE RECORDS SUMMARY | 2024-03-27 07:39 | XMS_ITS | Continuity of Care Document ---
Author Organization [facility] Address [address] [place] [address] [address] [place] [address]- Care Team Providers Care Retail Sales Advisor Name Role Phone Cindy DALEY, Melyssa Primary Care Physician Encounter [facility] Date(s): 12/26/23 - 01/25/[address] [place] [address]- Allergies, Adverse Reactions, Alerts Substance Reaction Severity Status ibuprofen 1 Hives Active 1swelling,hives Immunizations Given and Recorded Vaccine Date Status Refusal Reason tetanus/diphtheria/pertussis, acel(Tdap) 06/06/13 Given Medications coloplast bags #39051 coloplast bags #01904, See Instructions, # 20 each, Refills 11, Tot. Refills 11, Maintenance, use as needed for ostomy care Dx. ileostomy Z93.2, 01/02/24 15:45:00 EDT, Compound Start Date: 01/02/24 Status: Ordered convatec bags #[id number] convatec bags #[id number], See Instructions, # 20 each, Refills 11, Tot. Refills 11, Maintenance, use as needed for ostomy care Dx. ileostomy Z93.2, 01/11/24 13:19:00 EDT, Compound Start Date: 01/11/24 Status: Ordered convatec flange# [id number] convatec flange# [id number], See Instructions, # 20 each, Refills 11, Tot. Refills 11, Maintenance, useas needed for ostomy care Dx. ileostomy Z93.2, 01/11/24 13:27:00 EDT, Compound Start Date: 01/11/24 Status: Ordered ConvaTec Ostomy [place] Flange #092451 ConvaTec Ostomy [place] Flange #581850, See Instructions, # 20 each, Refills 11, Tot. Refills 11,Maintenance, Use as needed for ostomy maintaince. Dx ileostomy Z93.2, 01/05/24 15:39:00 EDT, Supply Start Date: 01/05/24 Status: Ordered ConvaTec Ostomy Pouch #[id number] ConvaTec Ostomy Pouch #[id number], See Instructions, # 20 each, Refills 11, [...] 12/20/23 16:46:00 EDT, Route to Pharmacy Electronically, [facility] #[id number], Partial fill upon... Start Date: 12/20/23 Status: Ordered loperamide 2 mg oral capsule 4 mg, 2, capsule, By Mouth, 4 times a day, for 30 days, take 1/2 hour before meals and at bed time,# 240 capsule, Refills 5, Tot. Refills 5, Acute 07/17/24 15:35:00 EST, 01/19/24 15:35:00 EDT, [facility], [facility]... Start Date: 01/19/24 Stop Date: 07/17/24 Status: Ordered loperamide 2 mg oral tablet See Instructions, take 2 tablets by mouth 30 minutes before meals and at bedtime, # 240 tablet, 4 Refills, Maintenance, 01/03/24 16:27:00 EDT, Tablet, [facility] #[id number], Partial fill upon patient request if the prescription is for a schedule... Start Date: 01/03/24 Status: Ordered loperamide 2 mg oral tablet See Instructions, take 1 tablet by mouth 30 minutes before meals and at bedtime, # 120 tablet, 4 Refills, Maintenance, 12/21/23 15:35:00 EDT, Tablet, [facility] #[id number], Partial fill upon patient request if the [...] 0 Refills, Maintenance, 11/19/23 9:55:00 EDT, Tablet, [facility] #[id number], Partial fill upon patient request if the [...] 0 Refills, Maintenance, 12/20/23 16:46:00 EDT, Tablet, [facility] #[id number], Partial fill upon patient request if the prescription is for a schedule... Start Date: 12/20/23 Status: Ordered straight brava strips [id number] straight brava strips 265896, See Instructions, # 80 each, Refills 11, [...] Safety Implantable Status Assigning Authority Unknown Unknown [id number] Unknown 07/06/27 Unknown Unknown Active Un known Procedure Provider Procedure Date Device Type Site Resection Colon Left Open Jada Chiang MD 12/07/23 Unk nown Colon Device Identifier Serial Number Lot or Batch Number Manufacturing Date Expiration Date Distinct Identification Code MRI Safety Implantable Status Assigning Authority Unknown Unknown [id number] Unknown 12/05/27 Unknown Unknown Active Unk nown Procedure Provider Procedure Date Device Type Site Resection Colon Left Open Jada Chiang MD 12/07/23 Unk nown Colon Device Identifier Serial Number Lot or Batch Number Manufacturing Date Expiration Date Distinct Identification Code MRI Safety Implantable Status Assigning Authority Unknown Unknown [id number] Unknown 05/06/28 Unknown Unknown Active Unknown [...] Safety Implantable Status Assigning Authority Unknown Unknown [id number] Unknown 11/05/27 Unknown Unknown Active Unknown Procedure Provider Procedure Date Device Type Site Resection Colon Left Open Jada Chiang MD 12/07/23 Unk nown Colon Device Identifier Serial Number Lot or Batch Number Manufacturing Date Expiration Date Distinct Identification Code MRI Safety Implantable Status Assigning Authority Unknown Unknown [id number] Unknown 01/05/28 Unknown Unknown Active Unk nown Procedure Provider Procedure Date Device Type Site Resection Colon Left Open Jada Chiang MD 12/07/23 Unk nown Colon Device Identifier Serial Number Lot or Batch Number Manufacturing Date Expiration Date Distinct Identification Code MRI Safety Implantable Status Assigning Authority Unknown Unknown [id number] Unknown 03/06/28 Unknown Unknown Active Unk nown Procedure Provider Procedure Date Device Type Site Resection Colon Left Open Андрей Jada 12/07/23 Unk nown Colon Device Identifier Serial Number Lot or Batch Number Manufacturing Date Expiration Date Distinct Identification Code MRI Safety Implantable Status Assigning Authority Unknown Unknown [id number] Unknown 12/05/27 Unknown Unknown Active Unk nown Patient Care team information Care Team Personnel Name: Bertha Kolb RN Position: [facility] RN Member Role: Primary Care Nurse Name: Ashley Domínguez RN Position: [facility] RN Member Role: Primary Care Nurse Name: Maame Pearce Position: [facility] Outreach Member Role: Lifetime Consulting Physician Name: Charline Terrazas RN Position: [facility] RN Member Role: Primary Care Nurse Name: Efrain Long RN Position: [facility] RN Member Role: Primary Care Nurse Name: Melyssa White NP Position: Reference Physician Member Role: PCP Address: Address: [address] [place] [address] Name: Nida Ferro RN Position: [facility] RN Member Role: Primary Care Nurse Name: Kaur Wilson RN Position: [facility] RN Member Role: Primary Care Nurse Name: Shasha Chou RN Position: [facility] RN Member Role: Primary Care Nurse Name: Alison Brewer RN Position: [facility] RN Member Role: Primary Care Nurse Name: Adamaris Lynn RN Position: [facility] RN Member Role: Primary Care Nurse Name: Rosario Schwarz RN Position: [facility] SN RN Member Role: Primary Care Nurse Name: Marianne Jesus RN Position: [facility] RN Member Role: Primary Care Nurse Name: Kriss Pena RN Position: [facility] RN Member Role: Primary Care Nurse Name: Maine Marcial RN Position: [facility] RN Member Role: Primary Care Nurse Name: Lolita Peres RN Position: [facility] RN Member Role: Primary Care Nurse Name: Michael Syed RN Position: [facility] RN Member Role: Primary Care Nurse Care Team Related Persons Name: SERGIO GORDON Address: [address] [place] [address] Name: EMILY REYNOLDS Address: [place] [address] Name: KATHERIN MONDRAGON Address: home [address] [address]
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
--- OUTSIDE RECORDS SUMMARY | 2024-03-27 07:39 | XMS_ITS | Continuity of Care Document ---
Author Organization [facility] Address [address] [place] [address] [address] [place] [address]- Care Team Providers Care Crown Blocker Name Role Phone Melyssa White NP Primary Care Physician Encounter [facility] Date(s): 01/03/24 - 02/02/[address] [place] [address]- Allergies, Adverse Reactions, Alerts Substance Reaction Severity Status ibuprofen 1 Hives Active 1swelling,hives Immunizations Given and Recorded Vaccine Date Status Refusal Reason tetanus/diphtheria/pertussis, acel(Tdap) 06/06/13 Given Medications coloplast bags #[id number] coloplast bags #[id number], See Instructions, # 20 each, Refills 11, Tot. Refills 11, Maintenance, use as needed for ostomy care Dx. ileostomy Z93.2, 01/02/24 15:45:00 EDT, Compound Start Date: 01/02/24 Status: Ordered convatec bags #[id number] convatec bags #[id number], See Instructions, # 20 each, Refills 11, Tot. Refills 11, Maintenance, use as needed for ostomy care Dx. ileostomy Z93.2, 01/11/24 13:19:00 EDT, Compound Start Date: 01/11/24 Status: Ordered convatec flange# [id number] convatec flange# [id number], See Instructions, # 20 each, Refills 11, Tot. Refills 11, Maintenance, useas needed for ostomy care Dx. ileostomy Z93.2, 01/11/24 13:27:00 EDT, Compound Start Date: 01/11/24 Status: Ordered ConvaTec Ostomy [place] Flange #[id number] ConvaTec Ostomy [place] Flange #[id number], See Instructions, # 20 each, Refills 11, Tot. Refills 11,Maintenance, Use as needed for ostomy maintaince. Dx ileostomy Z93.2, 01/05/24 15:39:00 EDT, Supply Start Date: 01/05/24 Status: Ordered ConvaTec Ostomy Pouch #[id number] ConvaTec Ostomy Pouch #[id number], See Instructions, # 20 each, Refills 11, [...] 12/20/23 16:46:00 EDT, Route to Pharmacy Electronically, [facility] #[id number], Partial fill upon... Start Date: 12/20/23 Status: Ordered lidocaine 5% topical film 1 patch, Topically, 2 times a day, remove patches after 12 hours, # 15 patch, 0 Refills, Maintenance, 01/30/24 12:17:00 EDT, Film, [facility] #[id number], Partial fill upon patient request if the [...] EST, 01/19/24 15:35:00 EDT, Routeto Pharmacy Electronically, [id number]... Start Date: 01/19/24 Stop Date: 07/17/24 Status: Ordered loperamide 2 mg oral tablet See Instructions, take 2 tablets by mouth 30 minutes before meals and at bedtime, # 240 tablet, 4 Refills, Maintenance, 01/03/24 16:27:00 EDT, Tablet, [facility] #[id number], Partial fill upon patient request if the prescription is for a schedule... Start Date: 01/03/24 Status: Ordered loperamide 2 mg oral tablet See Instructions, take 1 tablet by mouth 30 minutes before meals and at bedtime, # 120 tablet, 4 Refills, Maintenance, 12/21/23 15:35:00 EDT, Tablet, [facility] #[id number], Partial fill upon patient request if the [...] 02/04/24 12:15:00 EDT, 01/30/24 12:15:00 EDT, Tablet, [facility] #[id number], Partial fill upon patient request if the prescription is for a schedule II opioi... Start Date: 01/30/24 Stop Date: 02/04/24 Status: Ordered ondansetron 4 mg oral tablet, disintegrating 1 tablet = 4 mg, By Mouth, Every 8 hours, PRN Nausea & Vomiting, # 24 tablet, 0 Refills, Maintenance, 11/19/23 9:55:00 EDT, Tablet, [facility] #[id number], Partial fill upon patient request if the [...] 0 Refills, Maintenance, 01/30/24 13:16:00 EDT, Tablet, [facility] #[id number], Partial fill upon patient request if the prescription is for a schedule II opioid drug.... Start Date: 01/30/24 Status: Ordered oxyCODONE 20 mg oral tablet 1 tablet = 20 mg, By Mouth, Every 8 hours, Do not take the same time as diazepam., # 21 tablet, 0 Refills, Maintenance, 12/20/23 16:46:00 EDT, Tablet, [facility] #[id number], Partial fill upon patient request if the prescription is for a schedule... Start Date: 12/20/23 Status: Ordered straight brava strips [id number] straight brava strips [id number], See Instructions, # 80 each, Refills 11, [...] Safety Implantable Status Assigning Authority Unknown Unknown [id number] Unknown 07/06/27 Unknown Unknown Active Un known Procedure Provider Procedure Date Device Type Site Resection Colon Left Open Jada Chiang MD 12/07/23 Unk nown Colon Device Identifier Serial Number Lot or Batch Number Manufacturing Date Expiration Date Distinct Identification Code MRI Safety Implantable Status Assigning Authority Unknown Unknown [id number] Unknown 12/05/27 Unknown Unknown Active Unk nown Procedure Provider Procedure Date Device Type Site Resection Colon Left Open Андрей MASTERS Jada Sylvia 12/07/23 Unk nown Colon Device Identifier Serial Number Lot or Batch Number Manufacturing Date Expiration Date Distinct Identification Code MRI Safety Implantable Status Assigning Authority Unknown Unknown [id number] Unknown 05/06/28 Unknown Unknown Active Unknown [...] Safety Implantable Status Assigning Authority Unknown Unknown [id number] Unknown 11/05/27 Unknown Unknown Active Unknown Procedure Provider Procedure Date Device Type Site Resection Colon Left Open Jada Chiang MD 12/07/23 Unk nown Colon Device Identifier Serial Number Lot or Batch Number Manufacturing Date Expiration Date Distinct Identification Code MRI Safety Implantable Status Assigning Authority Unknown Unknown [id number] Unknown 01/05/28 Unknown Unknown Active Unk nown Procedure Provider Procedure Date Device Type Site Resection Colon Left Open Jada Chiang MD 12/07/23 Unk nown Colon Device Identifier Serial Number Lot or Batch Number Manufacturing Date Expiration Date Distinct Identification Code MRI Safety Implantable Status Assigning Authority Unknown Unknown [id number] Unknown 03/06/28 Unknown Unknown Active Unk nown Procedure Provider Procedure Date Device Type Site Resection Colon Left Open Jada Chiang MD 12/07/23 Unk nown Colon Device Identifier Serial Number Lot or Batch Number Manufacturing Date Expiration Date Distinct Identification Code MRI Safety Implantable Status Assigning Authority Unknown Unknown [id number] Unknown 12/05/27 Unknown Unknown Active Unk nown Patient Care team information Care Team Personnel Name: Bertha Kolb RN Position: [facility] RN Member Role: Primary Care Nurse Name: Ashley Domínguez RN Position: [facility] RN Member Role: Primary Care Nurse Name: Maame Pearce Position: [facility] Outreach Member Role: Lifetime Consulting Physician Name: Charline Terrazas RN Position: [facility] RN Member Role: Primary Care Nurse Name: Efrain Long RN Position: [facility] RN Member Role: Primary Care Nurse Name: Melyssa White NP Position: Reference Physician Member Role: PCP Address: Address: [address] [place] [id number]- Name: Nida Ferro RN Position: S RN Member Role: Primary Care Nurse Name: Kaur Wilson RN Position: S RN Member Role: Primary Care Nurse Name: Shasha Chou RN Position: [facility] RN Member Role: Primary Care Nurse Name: Alison Brewer RN Position: [facility] RN Member Role: Primary Care Nurse Name: Adamaris Lynn RN Position: [facility] RN Member Role: Primary Care Nurse Name: Rosario Schwarz RN Position: [facility] SN RN Member Role: Primary Care Nurse Name: Marianne Jesus RN Position: [facility] RN Member Role: Primary Care Nurse Name: Kriss Pena RN Position: [facility] RN Member Role: Primary Care Nurse Name: [place] Marcial RN Position: [facility] RN Member Role: Primary Care Nurse Name: Lolita Peres RN Position: [facility] RN Member Role: Primary Care Nurse Name: Michael Syed RN Position: [facility] RN Member Role: Primary Care Nurse Care Team Related Persons Name: HEIDI SERGIO Address: home [address] [place] [address] Name: EMILY REYNOLDS Address: [place] [address] Name: KATHERIN MONDRAGON Address: home [address] [address]
--- OUTSIDE RECORDS SUMMARY | 2024-03-27 07:39 | XMS_ITS | Continuity of Care Document ---
Author Organization [facility] Address [address] [place] [address] [address] [place] [address]- Care Team Providers Care Psychology Physician Name Role Phone Cindy DALEY, Melyssa Primary Care Physician [place] [facility] [place] - 02/18/[address] [place] [address]- Allergies, Adverse Reactions, Alerts Substance Reaction Severity Status ibuprofen 1 Hives Active 1swelling,hives Immunizations Given and Recorded Vaccine Date Status Refusal Reason tetanus/diphtheria/pertussis, acel(Tdap) 06/06/13 Given Medications Barrier strips [id number] Barrier strips [id number], See Instructions, # 80 each, Refills 11, [...] Start Date: 02/13/24 Status: Ordered coloplast bags #43896 coloplast bags #38946, See Instructions, # 20 each, Refills 11, Tot. Refills 11, Maintenance, use as needed for ostomy care Dx. ileostomy Z93.2, 01/02/24 15:45:00 EDT, Compound Start Date: 01/02/24 Status: Ordered convatec bags #112596 convatec bags #[id number], See Instructions, # 20 each, Refills 11, Tot. Refills 11, Maintenance, use as needed for ostomy care Dx. ileostomy Z93.2, 01/11/24 13:19:00 EDT, Compound Start Date: 01/11/24 Status: Ordered Convatec bags (#720366) Convatec bags (#[id number]), See Instructions, # 40 each, Refills 11, Tot. Refills 11, Maintenance, useas needed for ostomy maintaince. Dx ileostomy Z93.2, 02/13/24 9:14:00 EDT, Supply Start Date: 02/13/24 Status: Ordered Convatec flange (#896516) Convatec flange (#488987), See Instructions, # 40 each, Refills 11, Tot. Refills 11, Maintenance, use as needed for ostomy maintaince. Dx ileostomy Z93.2, 02/13/24 9:14:00 EDT, Supply Start Date: 02/13/24 Status: Ordered convatec flange# [id number] convatec flange# [id number], See Instructions, # 20 each, Refills 11, Tot. Refills 11, Maintenance, useas needed for ostomy care Dx. ileostomy Z93.2, 01/11/24 13:27:00 EDT, Compound Start Date: 01/11/24 Status: Ordered ConvaTec Ostomy [facility]ange #037061 ConvaTec Ostomy [facility] Flange #599309, See Instructions, # 20 each, Refills 11, Tot. Refills 11,Maintenance, Use as needed for ostomy maintaince. Dx ileostomy Z93.2, 01/05/24 15:39:00 EDT, Supply Start Date: 01/05/24 Status: Ordered ConvaTec Ostomy Pouch #[id number] ConvaTec Ostomy Pouch #[id number], See Instructions, # 20 each, Refills 11, [...] 12/20/23 16:46:00 EDT, Route to Pharmacy Electronically, [facility] #[id number], Partial fill upon... Start Date: 12/20/23 Status: Ordered lidocaine 5% topical film 1 patch, Topically, 2 times a day, remove patches after 12 hours, # 15 patch, 0 Refills, Maintenance, 01/30/24 12:17:00 EDT, Film, [facility] #[id number], Partial fill upon patient request if the [...] EST, 01/19/24 15:35:00 EDT, [facility], [facility]... Start Date: 01/19/24 Stop Date: 07/17/24 Status: Ordered loperamide 2 mg oral tablet See Instructions, take 2 tablets by mouth 30 minutes before meals and at bedtime, # 240 tablet, 4 Refills, Maintenance, 01/03/24 16:27:00 EDT, Tablet, [facility] #[id number], Partial fill upon patient request if the prescription is for a schedule... Start Date: 01/03/24 Status: Ordered loperamide 2 mg oral tablet See Instructions, take 1 tablet by mouth 30 minutes before meals and at bedtime, # 120 tablet, 4 Refills, Maintenance, 12/21/23 15:35:00 EDT, Tablet, [facility] #[id number], Partial fill upon patient request if the [...] 0 Refills, Maintenance, 11/19/23 9:55:00 EDT, Tablet, [facility] #[id number], Partial fill upon patient request if the [...] 0 Refills, Maintenance, 01/30/24 13:16:00 EDT, Tablet, [facility] #[id number], Partial fill upon patient request if the prescription is for a schedule II opioid drug.... Start Date: 01/30/24 Status: Ordered oxyCODONE 20 mg oral tablet 1 tablet = 20 mg, By Mouth, Every 8 hours, Do not take the same time as diazepam., # 21 tablet, 0 Refills, Maintenance, 12/20/23 16:46:00 EDT, Tablet, [facility] #[id number], Partial fill upon patient request if the prescription is for a schedule... Start Date: 12/20/23 Status: Ordered straight brava strips [id number] straight brava strips [id number], See Instructions, # 80 each, Refills 11, [...] Safety Implantable Status Assigning Authority Unknown Unknown [id number] Unknown 07/06/27 Unknown Unknown Active Un known Procedure Provider Procedure Date Device Type Site Resection Colon Left Open Jada Chiang MD 12/07/23 Unk nown Colon Device Identifier Serial Number Lot or Batch Number Manufacturing Date Expiration Date Distinct Identification Code MRI Safety Implantable Status Assigning Authority Unknown Unknown [id number] Unknown 12/05/27 Unknown Unknown Active Unk nown Procedure Provider Procedure Date Device Type Site Resection Colon Left Open Jada Chiang MD 12/07/23 Unk nown Colon Device Identifier Serial Number Lot or Batch Number Manufacturing Date Expiration Date Distinct Identification Code MRI Safety Implantable Status Assigning Authority Unknown Unknown [id number] Unknown 05/06/28 Unknown Unknown Active Unknown [...] Safety Implantable Status Assigning Authority Unknown Unknown [id number] Unknown 11/05/27 Unknown Unknown Active Unknown Procedure Provider Procedure Date Device Type Site Resection Colon Left Open Jada Chiang MD 12/07/23 Unk nown Colon Device Identifier Serial Number Lot or Batch Number Manufacturing Date Expiration Date Distinct Identification Code MRI Safety Implantable Status Assigning Authority Unknown Unknown [id number] Unknown 01/05/28 Unknown Unknown Active Unk nown Procedure Provider Procedure Date Device Type Site Resection Colon Left Open Jada Chiang MD 12/07/23 Unk nown Colon Device Identifier Serial Number Lot or Batch Number Manufacturing Date Expiration Date Distinct Identification Code MRI Safety Implantable Status Assigning Authority Unknown Unknown [id number] Unknown 03/06/28 Unknown Unknown Active Unk nown Procedure Provider Procedure Date Device Type Site Resection Colon Left Open Jada Chiang MD 12/07/23 Unk nown Colon Device Identifier Serial Number Lot or Batch Number Manufacturing Date Expiration Date Distinct Identification Code MRI Safety Implantable Status Assigning Authority Unknown Unknown [id number] Unknown 12/05/27 Unknown Unknown Active Unk nown Patient Care team information Care Team Personnel Name: Bertha Kolb RN Position: [facility] RN Member Role: Primary Care Nurse Name: Ashley Domínguez RN Position: [facility] RN Member Role: Primary Care Nurse Name: Maame Pearce Position: [facility] Outreach Member Role: Lifetime Consulting Physician Name: Charline Terrazas RN Position: [facility] RN Member Role: Primary Care Nurse Name: Efrain Long RN Position: [facility] RN Member Role: Primary Care Nurse Name: Melyssa White NP Position: Reference Physician Member Role: PCP Address: Address: [address] [place] [address] Name: Nida Ferro RN Position: [facility] RN Member Role: Primary Care Nurse Name: Kaur Wilson RN Position: [facility] RN Member Role: Primary Care Nurse Name: Shasha Chou RN Position: [facility] RN Member Role: Primary Care Nurse Name: Alison Brewer RN Position: [facility] RN Member Role: Primary Care Nurse Name: Adamaris Lynn RN Position: [facility] RN Member Role: Primary Care Nurse Name: Rosario Schwarz RN Position: [facility] SN RN Member Role: Primary Care Nurse Name: Marianne Jesus RN Position: [facility] RN Member Role: Primary Care Nurse Name: Kriss Pena RN Position: [facility] RN Member Role: Primary Care Nurse Name: Maine Marcial RN Position: [facility] RN Member Role: Primary Care Nurse Name: Lolita Peres RN Position: S RN Member Role: Primary Care Nurse Name: Michael Syed RN Position: S RN Member Role: Primary Care Nurse Care Team Related Persons Name: SERGIO GORDON Address: [address] [place] [address] Name: EMILY REYNOLDS Address: [place] [address] Name: KATHERIN MONDRAGON Address: home [address] [address]
--- OUTSIDE RECORDS SUMMARY | 2024-03-27 07:39 | XMS_ITS | Continuity of Care Document ---
Author Organization [facility] ter Address [address] [place] [address]- Care Team Providers Care Deputy Brand Inspector Name Role Phone Not on Staff, PCP Primary Care Physician Unavail able Encounter [facility] Date(s): 05/20/20 - 05/20/[address] [address]- [facility] Discharge Disposition: A-D/C Walkout Attending Physician: Not on Staff, Attending MD [...] Dry Weight Start Date: 08/13/19 Status: Ordered Vital Signs Most recent to oldest [Reference Range]: 1 2 Oxygen Saturation [94-100 %] 100 % (05/20/20 5:05 PM) 98 % (05/20/20 11:43 AM) Pulse Rate [55-90 bpm] 86 bpm (05/20/20 5:05 PM) 84 bpm (05/20/20 11:43 AM) Blood Pressure [90-138/55-84 mm Hg] 121/ 76mm Hg (05/20/20 5:05 PM) 124/84mm Hg (05/20/20 11:43 AM) Respiratory Rate [16-30 br/min] 15 br/mi n *L* (05/20/20 5:05 PM) 18 br/min (05/20/20 11:43 AM) Temperature [96.8-100.4 DegF] 98.6 DegF (05/20/20 5:05 PM) 98.1 DegF (05/20/20 11:43 AM) Mode of Delivery (Oxygen) Room air (05/20/20 5:05 PM) Room air (05/20/20 11:43 AM) Blood pressure sites Arm, right (05/20/20 5:05 PM) Arm, left (05/20/20 11:43 AM) Temperature Route Oral (05/20/20 5:05 PM) Oral (05/20/20 11:43 AM) Social History Social History Type Response Tobacco Use: 4 or less cigar ettes(less than 1/4 pack)/day in last 30 days. Sex
--- OUTSIDE RECORDS SUMMARY | 2024-03-27 07:39 | XMS_ITS | Continuity of Care Document ---
Author Organization [facility] Address [address] [place] [address]- Care Team Providers Care Beater Engineer Name Role Phone Cindy DALEY, Melyssa Primary Care Physician [phone] [place] [facility] [place]22 [facility] [address] [place] [address]- Attending Physician: Admtr, Ar8 Admitting Physician: Admtr, [...]
--- OUTSIDE RECORDS SUMMARY | 2024-03-27 07:39 | XMS_ITS | Continuity of Care Document ---
Author Organization [facility] Address [address] [place] [address] [address] [place] [address]- Care Team Providers Care Curatorial Assistant Name Role Phone Melyssa White NP Primary Care Physician [place] [facility] [place] 01/05/24 - 02/04/[address] [place] [address]- Allergies, Adverse Reactions, Alerts Substance Reaction Severity Status ibuprofen 1 Hives Active 1swelling,hives Immunizations Given and Recorded Vaccine Date Status Refusal Reason tetanus/diphtheria/pertussis, acel(Tdap) 06/06/13 Given Medications coloplast bags #27568 coloplast bags #54215, See Instructions, # 20 each, Refills 11, Tot. Refills 11, Maintenance, use as needed for ostomy care Dx. ileostomy Z93.2, 01/02/24 15:45:00 EDT, Compound Start Date: 01/02/24 Status: Ordered convatec bags #230738 convatec bags #437837, See Instructions, # 20 each, Refills 11, Tot. Refills 11, Maintenance, use as needed for ostomy care Dx. ileostomy Z93.2, 01/11/24 13:19:00 EDT, Compound Start Date: 01/11/24 Status: Ordered convatec flange# [id number] convatec flange# [id number], See Instructions, # 20 each, Refills 11, Tot. Refills 11, Maintenance, useas needed for ostomy care Dx. ileostomy Z93.2, 01/11/24 13:27:00 EDT, Compound Start Date: 01/11/24 Status: Ordered ConvaTec Ostomy [facility] #096691 ConvaTec Ostomy [facility]ange #775900, See Instructions, # 20 each, Refills 11, Tot. Refills 11,Maintenance, Use as needed for ostomy maintaince. Dx ileostomy Z93.2, 01/05/24 15:39:00 EDT, Supply Start Date: 01/05/24 Status: Ordered ConvaTec Ostomy Pouch #186144 ConvaTec Ostomy Pouch #[id number], See Instructions, # 20 each, Refills 11, [...] 12/20/23 16:46:00 EDT, Route to Pharmacy Electronically, [facility] #[id number], Partial fill upon... Start Date: 12/20/23 Status: Ordered lidocaine 5% topical film 1 patch, Topically, 2 times a day, remove patches after 12 hours, # 15 patch, 0 Refills, Maintenance, 01/30/24 12:17:00 EDT, Film, [facility] #[id number], Partial fill upon patient request if the [...] EST, 01/19/24 15:35:00 EDT, [facility] Electronically, [facility] #0... Start Date: 01/19/24 Stop Date: 07/17/24 Status: Ordered loperamide 2 mg oral tablet See Instructions, take 2 tablets by mouth 30 minutes before meals and at bedtime, # 240 tablet, 4 Refills, Maintenance, 01/03/24 16:27:00 EDT, Tablet, [facility] #[id number], Partial fill upon patient request if the prescription is for a schedule... Start Date: 01/03/24 Status: Ordered loperamide 2 mg oral tablet See Instructions, take 1 tablet by mouth 30 minutes before meals and at bedtime, # 120 tablet, 4 Refills, Maintenance, 12/21/23 15:35:00 EDT, Tablet, [facility] #[id number], Partial fill upon patient request if the [...] 0 Refills, Maintenance, 11/19/23 9:55:00 EDT, Tablet, [facility] #[id number], Partial fill upon patient request if the [...] 0 Refills, Maintenance, 01/30/24 13:16:00 EDT, Tablet, [facility] #[id number], Partial fill upon patient request if the prescription is for a schedule II opioid drug.... Start Date: 01/30/24 Status: Ordered oxyCODONE 20 mg oral tablet 1 tablet = 20 mg, By Mouth, Every 8 hours, Do not take the same time as diazepam., # 21 tablet, 0 Refills, Maintenance, 12/20/23 16:46:00 EDT, Tablet, [facility] #[id number], Partial fill upon patient request if the prescription is for a schedule... Start Date: 12/20/23 Status: Ordered straight brava strips [id number] straight brava strips [id number], See Instructions, # 80 each, Refills 11, [...] Safety Implantable Status Assigning Authority Unknown Unknown [id number] Unknown 07/06/27 Unknown Unknown Active Un known Procedure Provider Procedure Date Device Type Site Resection Colon Left Open Jada Chiang MD 12/07/23 Unk nown Colon Device Identifier Serial Number Lot or Batch Number Manufacturing Date Expiration Date Distinct Identification Code MRI Safety Implantable Status Assigning Authority Unknown Unknown [id number] Unknown 12/05/27 Unknown Unknown Active Unk nown Procedure Provider Procedure Date Device Type Site Resection Colon Left Open Jada Chiang MD 12/07/23 Unk nowheath Colon Device Identifier Serial Number Lot or Batch Number Manufacturing Date Expiration Date Distinct Identification Code MRI Safety Implantable Status Assigning Authority Unknown Unknown [id number] Y Unknown 05/06/28 Unknown Unknown Active Unknown [...] Safety Implantable Status Assigning Authority Unknown Unknown [id number] Unknown 11/05/27 Unknown Unknown Active Unknown Procedure Provider Procedure Date Device Type Site Resection Colon Left Open Андрей MASTERSJada 12/07/23 Unk nown Colon Device Identifier Serial Number Lot or Batch Number Manufacturing Date Expiration Date Distinct Identification Code MRI Safety Implantable Status Assigning Authority Unknown Unknown [id number] Unknown 01/05/28 Unknown Unknown Active Unk nown Procedure Provider Procedure Date Device Type Site Resection Colon Left Open Андрей MASTERSJada 12/07/23 Unk nown Colon Device Identifier Serial Number Lot or Batch Number Manufacturing Date Expiration Date Distinct Identification Code MRI Safety Implantable Status Assigning Authority Unknown Unknown [id number] Unknown 03/06/28 Unknown Unknown Active Unk nown Procedure Provider Procedure Date Device Type Site Resection Colon Left Open Андрей MASTERSJada 12/07/23 Unk nown Colon Device Identifier Serial Number Lot or Batch Number Manufacturing Date Expiration Date Distinct Identification Code MRI Safety Implantable Status Assigning Authority Unknown Unknown [id number] Unknown 12/05/27 Unknown Unknown Active Unk nown Patient Care team information Care Team Personnel Name: Bertha Kolb RN Position: [facility] RN Member Role: Primary Care Nurse Name: Ashley Domínguez RN Position: [facility] RN Member Role: Primary Care Nurse Name: Maame Pearce Position: [facility] Outreach Member Role: Lifetime Consulting Physician Name: Charline Terrazas RN Position: [facility] RN Member Role: Primary Care Nurse Name: Efrain Long RN Position: S RN Member Role: Primary Care Nurse Name: Melyssa White NP Position: Reference Physician Member Role: PCP Address: Address: [address] [place] [id number] Name: Nida Ferro RN Position: S RN Member Role: Primary Care Nurse Name: Kaur Wilson RN Position: S RN Member Role: Primary Care Nurse Name: Shasha Chou RN Position: S RN Member Role: Primary Care Nurse Name: Alison Brewer RN Position: [facility] RN Member Role: Primary Care Nurse Name: Adamaris Lynn RN Position: [facility] RN Member Role: Primary Care Nurse Name: Rosario Schwarz RN Position: [facility] SN RN Member Role: Primary Care Nurse Name: Marianne Jesus RN Position: [facility] RN Member Role: Primary Care Nurse Name: Kriss Pena RN Position: [facility] RN Member Role: Primary Care Nurse Name: [place] Marcial RN Position: [facility] RN Member Role: Primary Care Nurse Name: Lolita Peres RN Position: [facility] RN Member Role: Primary Care Nurse Name: Michael Syed RN Position: [facility] RN Member Role: Primary Care Nurse Care Team Related Persons Name: GORDON SERGIO Address: [address] [place] [address] Name: EMILY REYNOLDS Address: [place] [address] Name: KATHERIN MONDRAGON Address: home [address] [address]
--- OUTSIDE RECORDS SUMMARY | 2024-03-27 07:39 | XMS_ITS | Continuity of Care Document ---
Author Organization [facility] Address [address] [place] [id number]- Care Team Providers Care Lead Programmer Analyst Name Role Phone Cindy DALEY, Melyssa Primary Care Physician [phone] Encounter [facility] Date(s): 03/11/24 - 03/16/[address] [address]- Discharge Disposition: A-D/C Home Attending Physician: Jada Chiang MD Admitting Physician: Jada Chiang MD Referring Physician: Jada Chiang MD Allergies, Adverse Reactions, Alerts Substance Reaction Severity Status ibuprofen 1 Hives Active 1swelling,hives Immunizations Given and Recorded Vaccine Date Status Refusal Reason tetanus/diphtheria/pertussis, acel(Tdap) 06/06/13 Given Medications Barrier strips [id number] Barrier strips [id number], See Instructions, # 80 each, Refills 11, [...] Start Date: 02/13/24 Status: Ordered coloplast bags #[id number] coloplast bags #[id number], See Instructions, # 20 each, Refills 11, Tot. Refills 11, Maintenance, use as needed for ostomy care Dx. ileostomy Z93.2, 01/02/24 15:45:00 EDT, Compound Start Date: 01/02/24 Status: Ordered convatec bags #[id number] convatec bags #[id number], See Instructions, # 20 each, Refills 11, Tot. Refills 11, Maintenance, use as needed for ostomy care Dx. ileostomy Z93.2, 01/11/24 13:19:00 EDT, Compound Start Date: 01/11/24 Status: Ordered Convatec bags (#[id number]) Convatec bags (#[id number]), See Instructions, # 40 each, Refills 11, Tot. Refills 11, Maintenance, useas needed for ostomy maintaince. Dx ileostomy Z93.2, 02/13/24 9:14:00 EDT, Supply Start Date: 02/13/24 Status: Ordered Convatec flange (#[id number]) Convatec flange (#604951), See Instructions, # 40 each, Refills 11, Tot. Refills 11, Maintenance, use as needed for ostomy maintaince. Dx ileostomy Z93.2, 02/13/24 9:14:00 EDT, Supply Start Date: 02/13/24 Status: Ordered convatec flange# [id number] convatec flange# [id number], See Instructions, # 20 each, Refills 11, Tot. Refills 11, Maintenance, useas needed for ostomy care Dx. ileostomy Z93.2, 01/11/24 13:27:00 EDT, Compound Start Date: 01/11/24 Status: Ordered ConvaTec Ostomy Accordion Flange #[id number] ConvaTec Ostomy [place]ion Flange #[id number], See Instructions, # 20 each, Refills 11, Tot. Refills 11,Maintenance, Use as needed for ostomy maintaince. Dx ileostomy Z93.2, 01/05/24 15:39:00 EDT, Supply Start Date: 01/05/24 Status: Ordered ConvaTec Ostomy Pouch #[id number] ConvaTec Ostomy Pouch #[id number], See Instructions, # 20 each, Refills 11, Tot. Refills 11, Maintenance, Use as needed for ostomy maintaince. Dx ileostomy Z93.2, 01/05/24 15:27:00 EDT, Supply Start Date: 01/05/24 Status: Ordered lidocaine 5% topical film 1 patch, Topically, 2 times a day, remove patches after 12 hours, # 15 patch, 0 Refills, Maintenance, 01/30/24 12:17:00 EDT, Film, [facility] #[id number], Partial fill upon patient request if the prescription is for a schedule II opioid drug., 1... Start Date: 01/30/24 Status: Ordered loperamide 2 mg oral capsule 4 mg, 2, capsule, By Mouth, 4 times a day, for 30 days, take 1/2 hour before meals and at bed time,# 240 capsule, Refills 5, Tot. Refills 5, Acute 07/17/24 15:35:00 EST, 01/19/24 15:35:00 EDT, [facility] Electronically, [id number]... Start Date: 01/19/24 Stop Date: 07/17/24 Status: Ordered loperamide 2 mg oral tablet See Instructions, take 2 tablets by mouth 30 minutes before meals and at bedtime, # 240 tablet, 4 Refills, Maintenance, 01/03/24 16:27:00 EDT, Tablet, [facility] #[id number], Partial fill upon patient request if the prescription is for a schedule... Start Date: 01/03/24 Status: Ordered loperamide 2 mg oral tablet See Instructions, take 1 tablet by mouth 30 minutes before meals and at bedtime, # 120 tablet, 4 Refills, Maintenance, 12/21/23 15:35:00 EDT, Tablet, [facility] #[id number], Partial fill upon patient request if the [...] 0 Refills, Maintenance, 11/19/23 9:55:00 EDT, Tablet, [facility] #[id number], Partial fill upon patient request if the [...] 03/16/24 16:12:00 EDT, Route to Pharmacy Electronically, [facility] #[id number], Partial fill upon patient request if the... Start Date: 03/16/24 Stop Date: 03/23/24 Status: Ordered oxyCODONE 5 mg oral tablet 10 mg, Tablet, By Mouth, Every 4 hours, PRN for Pain , Severe, Routine, 03/15/24 8:32:00 EDT Start Date: 03/15/24 Stop Date: 03/17/24 Status: Discontinued straight brava strips [id number] straight brava strips [id number], See Instructions, # 80 each, Refills 11, Tot. Refills 11, Maintenance, use as needed for ostomy care Dx ileostomy Z 93.2, 01/11/24 13:19:00 EDT, Compound Start Date: 01/11/24 Status: Ordered Valium 5 mg oral tablet 5 mg, By Mouth, 4 times a day, for 5 days, # 20 tablet, Refills 0, Tot. Refills 0, Acute 03/21/24 16:11:00 EDT, 03/16/24 16:11:00 EDT, Route to Pharmacy Electronically, [facility] #[id number], Partial fill upon patient request if the prescription... Start Date: 03/16/24 Stop Date: 03/21/24 Status: Ordered elsy chin, See Instructions, # 1 each, Refills 0, Tot. Refills 0, Maintenance, elsy, 12/14/23 10:15:00 EDT, Supply Start Date: 12/14/23 Status: Ordered Problem List Condition Confirmation Course Effective Dates Status H ealth Status Informant Diverticulitis large intestine Confirmed Active Obese class I Confirmed Active Vital Signs Most recent to oldest [Reference Range]: 1 2 3 Height 158 cm (03/16/24 3:11 PM) 158 cm (03/16/24 11:21 AM) 158 cm (03/16/24 7:31 AM) Weight 84.4 kg (03/11/24 10:24 PM) 84.4 kg (03/11/24 8:19 PM) Oxygen Saturation [94-100 %] 100 % (03/16/24 3:11 PM) 100 % (03/16/24 11:21 AM) 100 % (03/16/24 7:31 AM) Pulse Rate [55-90 bpm] 88 bpm (03/16/24 3:11 PM) 90 bpm (03/16/24 11:21 AM) 81 bpm (03/16/24 7:31 AM) Body Mass Index [18.5-24.99 kg/m2] 33.81 kg/m2 *>HHI* (03/11/24 10:24 PM) 33.81 kg/m2 *>HHI* (03/11/24 8:19 PM) Blood Pressure [90-138/55-84 mm Hg] 114/75mm Hg (03/16/24 3:11 PM) 120/82mm Hg (03/16/24 11:21 AM) 101/61mm Hg (03/16/24 7:31 AM) Respiratory Rate [16-30 br/min] 17 br/min (03/16/24 3:38 PM) 18 br/min (03/16/24 3:11 PM) 18 br/min (03/16/24 2:43 PM) Temperature [96.8-100.4 DegF] 97.8 DegF (03/16/24 3:11 PM) 98.0 DegF (03/16/24 11:21 AM) 98.0 DegF (03/16/24 7:31 AM) Liters per Minute 3 L/min (03/11/24 7:00 PM) 3 L/min (03/11/24 6:45 PM) 6 L/min (03/11/24 6:30 PM) Mode of Delivery (Oxygen) Room air (03/16/24 3:11 PM) Room air (03/16/24 11:21 AM) Room air (03/16/24 7:31 AM) Blood pressure sites Arm, right (03/16/24 3:11 PM) Arm, right (03/16/24 11:21 AM) Arm, right (03/16/24 7:31 AM) Temperature Route Oral (03/16/24 3:11 PM) Oral (03/16/24 11:21 AM) Oral (03/16/24 7:31 AM) Dry Weight 84.4 kg (03/11/24 10:24 PM) 96.3 kg (03/11/24 1:23 PM) 87.5 kg (03/05/24 11:58 AM) Weight Obtained Via Bed scale (03/11/24 8:19 PM) Dry Weight Obtained Via Standing scale (03/11/24 1:23 PM) Social History Social History Type Response [...] Safety Implantable Status Assigning Authority Unknown Unknown [id number] Unknown 07/06/27 Unknown Unknown Active Un known Procedure Provider Procedure Date Device Type Site Resection Colon Left Open Jada Chiang MD 12/07/23 Unk nowheath Colon Device Identifier Serial Number Lot or Batch Number Manufacturing Date Expiration Date Distinct Identification Code MRI Safety Implantable Status Assigning Authority Unknown Unknown [id number] Unknown 12/05/27 Unknown Unknown Active Unk nown Procedure Provider Procedure Date Device Type Site Resection Colon Left Open Jada Chiang MD 12/07/23 Unk nown Colon Device Identifier Serial Number Lot or Batch Number Manufacturing Date Expiration Date Distinct Identification Code MRI Safety Implantable Status Assigning Authority Unknown Unknown [id number] Unknown 05/06/28 Unknown Unknown Active Unknown [...] Safety Implantable Status Assigning Authority Unknown Unknown [id number] Unknown 11/05/27 Unknown Unknown Active Unknown Procedure Provider Procedure Date Device Type Site Resection Colon Left Open Jada Chiang MD Sylvia 12/07/23 Unk nown Colon Device Identifier Serial Number Lot or Batch Number Manufacturing Date Expiration Date Distinct Identification Code MRI Safety Implantable Status Assigning Authority Unknown Unknown [id number] Unknown 01/05/28 Unknown Unknown Active Unk nown Procedure Provider Procedure Date Device Type Site Resection Colon Left Open Jada Chiang MD Sylvia 12/07/23 Unk nown Colon Device Identifier Serial Number Lot or Batch Number Manufacturing Date Expiration Date Distinct Identification Code MRI Safety Implantable Status Assigning Authority Unknown Unknown [id number] Unknown 03/06/28 Unknown Unknown Active Unk nown Procedure Provider Procedure Date Device Type Site Resection Colon Left Open Jada Chiang MD Sylvia 12/07/23 Unk nown Colon Device Identifier Serial Number Lot or Batch Number Manufacturing Date Expiration Date Distinct Identification Code MRI Safety Implantable Status Assigning Authority Unknown Unknown [id number] Unknown 12/05/27 Unknown Unknown Active Unk nown Surgical pathology study * Event Display: Surgical Pathology Authored Date: [id number] Patient Name: CANDIDO PATIÑO Lab Patient : 1985 (Age: 38) Collection Date: 03/12/2024 Accession Date: 03/12/2024 Sign Out Date: 03/15/2024 Tissue Source: 1:OSTOMY Final Diagnosis: Ostomy, takedown: - Segment of small bowel (stoma) with associated reactive changes. Primary Pathologist:Cami Workman M.D. electronically signed out by: Cami Workman M.D. / HANY Gross Description: Labeled ostomy . Received in formalin is a 6.5 cm segment of bowel with 2 stapled margins. The serosa is dark red with an abundance of overlying norman- pink, fibromembranous adhesions and up to 1.4 cmof attached fat. There is a 1.0 x 0.5 cm presumptive ostomy site identified 1.5 cm from the nearestmargin. The mucosa displays guevara, normal fold architecture. Construction Foreman sections are submitted. 1-2 pieces. (VN)* As of October 14, 2023, the specimen processing and staining is performed at [facility], [address] [place] [address] (CLIA#[id number]). Its performance characteristics determined by [facility]. Malachi Weiss M.D. College And Career Counselor of Surgical Pathology, Abel Alford M.D. College And Career Counselor Cytopathology Phone #: [phone], On-Call Pathologist: [id number] History and physical note * Event Display: History and Physical Hospital Authored Date: Hospital Progress note * Maine Marcial RN: PERFORM, SIGN, VERIFY Event Display: Progress Note Hospital Authored Date: Patient: CANDIDO PATIÑO Age: 38 years Sex: Female : 1985 Associated Diagnoses: None Author: Maine Marcial RN Findings Problem Related to Alteration in Gastrointestinal : Alteration in Gastrointestinal Func/new 03/16/2024 14:00 EDT Alteration in GI status Related to Other: 03/11 ILEOSTOMY REVERSAL Goals & Outcomes, Gastrointestinal Establish a regular pattern of elimination for pt, Nutritional intake is adequate for metabolic needs, Pt will achieve normal/improved fluid balance, Pt will have a bowel movement prior to discharge, Pt will maintain adequate GI function appropriate for pt, Ptwill maintain normal elimination patterns, Pt will resume/maintain adequate hemodynamic status Interventions, Gastrointestinal Assess/monitor abdomen for distention, tenderness, Assess/monitor abdominal girth & bowel function, Assess/monitor number of bowel movements BH Goals/Interventions, Gastrointestinal Yes Gastrointestinal, Problem Start 03/12/2024 0:39 Reviewed plan with, Gastrointestinal Patient Patient Progression, Gastrointestinal Pt progressing according to plan . Narrative/Incidental Pt A&Ox3, vital signs stable. pt reports pain 04/16 to abdomen using Dilaudid ALMOND BLANCHER with + effect.+CMS, +PP, no edema noted. pt ambulating independently with a steady gait. Lungs CTA, satting WNL on room air. pt denies SOB or chest pain. abdomen soft round tender to the right with +BSx4. pt tolerating low fiber diet, denies nausea/vomiting. +flatus. last bowel movement 03/16/24. voiding without d ifficulty. DSD to RLQ changed today. pt requesting to go home today MD Cuevas at bedside to discuss with patient. PRN oxycodone order increased per MD. pt pre medicated with PO before Dilaudid ALMOND BLANCHER discontinued. call caballero within reach, pt able to make needs known. . * Tresa Hdez MD: PERFORM Event Display: Progress Note Hospital Authored Date: Patient: ??GAIL GORDON ABRAHANJOSEAshley ? Age:??38 Years?Sex:??Female?:??1985?? Subjective Patient was seen during Am rounds. Reports she was only able to tolerate 3 bites of food yesterday before she got nauseous, but denies any abdominal pain. She is passing gas and had 2 bowel movementsint he last 24 hours. Denies any fever or chills, as well as vomiting, chest pain, or shortness of breath. Physical Exam Vitals & Measurements T:??98.0?F?? HR:??81??(Peripheral)?? RR:??17?? BP:??101/61?? SpO2:??100%?? HT:??158??cm?? WT:??84.4??kg?? BMI:??33.81?? General: No acute distress, awake, alert Cardio: Regular rate and rhythm Lungs: Non labored 100% RA Abdomen: soft, non-distended, appropriately tender??to palpation??especially??around her incision Neuro: A&O x 3 Extremities: No edema Incision: prior ostomy site dressing with minimal drainage, no active drainage noted ?? Assessment/Plan Pt is a 38 y/o obese??female with a??h/o??endometriosis??and recurrent??diverticulitis who previously underwent a??laparoscopic, converted to open, sigmoid colectomy with colorectal anastomosis and diverting loop ileostomy??now admitted for Loop ileostomy reversal with resection and anastomosis on 03/11/24. Tolerating??clear liquid diet with??crackers??and toast, was advanced to a low fiber diet with some nausea and decreased appetite. She is passing gas and having bowel movements. Patient krishan would like to wait until Monday to go home for nausea and pain control over the weekend. ?? Plan: -Low fiber diet -Likely dc ALMOND BLANCHER tomorrow -multimodal pain regimen -monitor daily??labs -OOB/ambulate as??tolerated -DVT ppx-SQH ?? Discussed with attending Dr. Lea Colorectal surgery??#[id number] ?? Intake and Output Intake and Output Results?? This visit (24 hour periods starting at 07:00 EDT)? 03/16/24 *?? 03/15/24?? 03/14/24?? Total Summary?Intake mL?? --?? ,080?? 090?Output mL?? --?? 200?? 300?Fluid Balance ?? --?? 880?? 790?? Intake (1)?Oral Fluids mL?? --?? ,080?? ,090?Total?? --?? 1,080?? 1,090?? Output (1)?Urine Voided mL?? --?? 200?? 300?Total?? --?? 200?? 300?? Counts (3)?Oral Fluids mL?? --?? 1,080?? 1,090?Urine Count ?? --?? 7?? 6?Urine Voided mL?? --?? 200?? 300? * This column has not completed the indicated time period.?? Labs Last 24 Hours BLOOD COUNT & DIFF ? Event Name?? Event Result?? Date/Time?? WBC 9.1 k/mm3 03/16/24 02:03:00 RBC 4.33 m/mm3 03/16/24 02:03:00 Hgb 12.4 Gm/dL 03/16/24 02:03:00 Hct 37.8 % 03/16/24 02:03:00 MCV 87.3 femtoliters 03/16/24 02:03:00 MCH 28.6 pg 03/16/24 02:03:00 MCHC 32.8 g/dL??Low 03/16/24 02:03:00 Platelet Count 267 k/mm3 03/16/24 02:03:00 MPV 10.8 femtoliters 03/16/24 02:03:00 Nucleated RBC (Automated) 0 #/100 WBC'S 03/16/24 02:03:00 ? CHEM GENERAL ? Event Name?? Event Result?? Date/Time?? Sodium 139 mmol/L 03/16/24 02:03:00 Chloride 103 mmol/L 03/16/24 02:03:00 Bicarbonate Level 26 mmol/L 03/16/24 02:03:00 Anion Gap 10 03/16/24 02:03:00 BUN 7 mg/dL 03/16/24 02:03:00 Creatinine-Blood 0.79 mg/dL 03/16/24 02:03:00 Calcium, Ionized pH Corrected 1.2 mmol/L 03/16/24 02:03:00 Phosphorus 4 mg/dL 03/16/24 02:03:00 Magnesium 2 mg/dL 03/16/24 02:03:00 ? * Susannah Scanlon RN: MODIFY, MODIFY, SIGN, VERIFY, PERFORM, MODIFY, MODIFY, MODIFY, MODIFY, MODIFY, MODIFY, MODIFY Event Display: Progress Note Hospital Authored Date: [id number] Patient: CANDIDO PATIÑO Age: 38 years Sex: Female : 1985 Associated Diagnoses: None Author: Susannah Scanlon RN Findings Problem Related to Alteration in Gastrointestinal : Alteration in Gastrointestinal Func/new 03/15/2024 22:00 EDT Alteration in GI status Related to Other: 03/11 ILEOSTOMY REVERSAL Goals & Outcomes, Gastrointestinal Establish a regular pattern of elimination for pt, Nutritional intake is adequate for metabolic needs, Pt will achieve normal/improved fluid balance, Pt will have a bowel movement prior to discharge, Pt will maintain adequate GI function appropriate for pt, Ptwill maintain normal elimination patterns, Pt will resume/maintain adequate hemodynamic status Interventions, Gastrointestinal Assess/monitor abdomen for distention, tenderness, Assess/monitor abdominal girth & bowel function, Assess/monitor bowel pattern, bowel sounds, flatus, Assess/monitor number of bowel movements, Assess/monitor color, quantity, quality, consistency of stoo, Assess/monitor pt for nausea, vomiting, Assess/monitor effects of re-hydration, Assess/monitor intake &output, Assess if pt tolerating diet, DVT prophylaxis as ordered, Elevate HOB to facilitate lung expansion, prevent aspiration, Taking PO: Encourage/monitor intake & swallowing ability, Teach Pt/caregiver on bowel elimination interventions, Teach Pt/caregiver re: importance of bowel regime, Teach Pt/caregiver re: nutritional intake & dietary restrict, Teach/encourage deep breath & cough exercises, Teach/encourage use of incentive spirometer Goals/Interventions, Gastrointestinal Yes Gastrointestinal, Problem Start 03/12/2024 0:39 Reviewed plan with, Gastrointestinal Patient Patient Progression, Gastrointestinal Pt progressing according to plan . Evaluation P: Alteration in Gastrointestinal I: See care plan above for interventions E: Patient is A&O x 4. +CMS. Denies numbness and tingling. Denies fever, headache, and chills. Vital signs are stable. Reports 10/10 abdominal pain. Maintaining adequate pain control with Dilaudid ALMOND BLANCHER, scheduled PO Tylenol and Valium, and PRN PO Oxycodone. Lung sounds are clear anteriorly. Using incentive spirometer. O2 saturations sustaining at 100% on room air. Denies SOB. +Pedal pulses. Non-edematous to BLE. Denies chest pain. Abdomen is round, soft, distended, and tender to RUQ/RLQ withpalpation. Hypoactive BS x 4. Tolerating low fiber diet. Endorses belching and passing flatus. Reports she had two liquid, brown BM's this evening 03/15. Denies nausea. Voiding adequate amounts of clear, yellow urine. Patient educated on importance of using hat for accurate measurement of urine output and obliged. Ambulating independently within room and throughout unit with steady gait. RLQ DSD over old ostomy site changed this evening at around 22:00 and is now clean, dry, and intact. Photo taken of incision and sent to covering MD Urena per patient's request as patient states, it looks funky . Photo of incision uploaded to network manager. Sleeping comfortably in synergy bed. Bed in lowest, locked position. Call caballero within reach... Note * Maine Marcial RN: PERFORM Event Display: Discharge/Transfer Note Hospital Authored Date: [id number] Nursing Discharge Note Entered On: 03/16/2024 17:50 EDT Performed On: 03/16/2024 17:50 EDT by Maine Marcial RN Nursing Discharge Note 2 Discharge Time : 03/16/2024 17:15 EDT Discharge Level of Care at Discharge : Home/Senior Care/Foster Care Patient Left Unit Via : Wheelchair Patient Accompanied Off Unit with : Significant other DC Instructions Provided & Signed by Pt : Yes Patient Understands D/C Instructions : Yes Patient Instructions Discharge Signed : Yes Did Pt have Specialty Bed or Wound Vac : No Maine Marcial RN - 03/16/2024 17:50 EDT * Vira Cuevas MD: PERFORM Event Display: Discharge/Transfer Note Hospital Authored Date: [id number] Patient: ??CANDIDO PATIÑO ? Age:??38 Years?Sex:??Female?:??1985?? Admit Date Admission Date: 03/11/2024 Discharge Date 03/16/2024 Discharge Diagnoses Diverticulitis large intestine, 03/13/2024 Hospital Course [facility]??is a 38 y/o obese??female with a??history of??endometriosis??and recurrent??diverticulitis who previously underwent a??laparoscopic, converted to open, sigmoid colectomy with colorectal anastomosis and diverting loop ileostomy. ??She was??admitted for Loop ileostomy reversal with resection and??anastomosis on 03/11/24. ??The patient tolerated this procedure well. ??Postoperatively, she was initially tolerating??clear liquid diet with??crackers??and toast,??and so she was advanced to a low fiber diet with some nausea and decreased appetite. 03/16/24, the patient reports that she has been tolerating her diet,??and would like to be discharged home. ??Her ALMOND BLANCHER pump for pain control was discontinued, and her pain was well-controlled with p.o. pain medications.?? She continues to pass gas and have bowel movements.? On 03/16/24 patient was deemed hemodynamically and neurologically stable to be discharged. Patient'iain is adequately controlled, tolerating diet, ambulating appropriately, voiding adequately, and has baseline bowel function. Patient will be discharged with medication as noted above and follow up instruction as detailed below.?? Objective/Physical Exam on Day of Discharge Vitals & Measurements T:??97.8?F?? HR:??88??(Peripheral)?? RR:??17?? BP:??114/75?? SpO2:??100%?? HT:??158??cm?? WT:??84.4??kg?? BMI:??33.81?? General: No acute distress, awake, alert Cardio: Regular rate and rhythm Lungs: Non labored 100% RA Abdomen: soft, non-distended, appropriately tender??to palpation??especially??around her incision Neuro: A&O x 3 Extremities: No edema Incision: prior ostomy site dressing with minimal drainage, no active drainage noted Assessment/Plan ?? Sharalise??is a 38 y/o obese??female with a??history of??endometriosis??and recurrent??diverticulitis who previously underwent a??laparoscopic, converted to open, sigmoid colectomy with colorectalanastomosis and diverting loop ileostomy. ??She was??admitted for Loop ileostomy reversal with resection and??anastomosis on 03/11/24. ??The patient tolerated this procedure well. ??Postoperatively, she was initially tolerating??clear liquid diet with??crackers??and toast,??and so she was advanced toa low fiber diet with some nausea and decreased appetite. 03/16/24, the patient reports that she hasbeen tolerating her diet,??and would like to be discharged home. ??Her ALMOND BLANCHER pump for pain control was discontinued, and her pain was well-controlled with p.o. pain medications.?? She continues to passgas and have bowel movements.? On 03/16/24 patient was deemed hemodynamically and neurologically stable to be discharged. Patient'iain is adequately controlled, tolerating diet, ambulating appropriately, voiding adequately, and has baseline bowel function. Patient will be discharged??home with medication as noted above and follow up instruction as detailed below.?? Future Appointments Monday 11:00 AM EDT ?? With: Sarika DALEY, Lashon Alexander Where: [facility] General Surgery [address] [place] [address] Drive [address] [place] [address]- Status: Pending Patient Discharge Condition Good Discharge Disposition Home Home Health Face to Face ^HomeHealthFTF Inpatient Medications Medications (7) Active SCHEDULED: (4) Acetaminophen 325 mg Tablet (acetaminophen 325 mg oral tablet) ??975 mg, By Mouth, Every 6 hours CeFAZolin 2 Gm Inj (ceFAZolin Inj) ??2 Gm, IV Push, Once Diazepam 5 mg Tablet (Valium 5 mg oral tablet) ??5 mg, By Mouth, 4 times a day Heparin 5000 units/mL Inj (1 mL) (Heparin Inj) ??5,000 units 1 mL, Subcutaneous Injection, 3 times a day CONTINUOUS: (0) PRN: (3) nalOXONE ??400mcg/mL Inj (nalOXONE Inj) ??0.1 mg 0.25 mL, IV Push Slowly, Every 5 minutes Ondansetron 2mg/mL Inj (2mL Vial) (Zofran Inj) ??4 mg, IV Push, Every 6 hours OxyCODONE 5 mg IR Tablet (oxyCODONE 5 mg oral tablet) ??10 mg, By Mouth, Every 4 hours Discharge Medications Diazepam (Valium 5 mg oral tablet)?5?Milligram?By Mouth?4 times a day?for 5?Days Durable Medical Equipment (walker)?See Instructions?walker Durable Medical Equipment (coloplast bags #[id number])?See Instructions?use as needed for ostomy care Dx. ileostomy Z93.2 Durable Medical Equipment (ConvaTec Ostomy Pouch #[id number])?See Instructions?Use as needed for ostomy maintaince. Dx ileostomy Z93.2 Durable Medical Equipment (ConvaTec Ostomy Accordion Flange #[id number])?See Instructions?Use as needed for ostomy maintaince. Dx ileostomy Z93.2 Durable Medical Equipment (straight brava strips [id number])?See Instructions?use as needed for ostomy care Dx ileostomy Z 93.2 Durable Medical Equipment (convatec bags #[id number])?See Instructions?use as needed for ostomy care Dx. ileostomy Z93.2 Durable Medical Equipment (ostomy belt 4215)?See Instructions?use as needed for ostomy care. Dx ileostomy ??Z93.2 Durable Medical Equipment (convatec flange# [id number])?See Instructions?use as needed for ostomycare Dx. ileostomy Z93.2 Durable Medical Equipment (Brava barrier rings)?See Instructions?use as needed for ostomy maintaince. Dx ileostomy Z93.2 Durable Medical Equipment (Barrier strips [id number])?See Instructions?use as needed for ostomy maintaince. Dx ileostomy Z93.2 Durable Medical Equipment (No sting skin prep spray)?See Instructions?use as needed for ostomy maintaince. Dx ileostomy Z93.2 Durable Medical Equipment (Convatec bags (#[id number]))?See Instructions?use as needed for ostomymaintaince. Dx ileostomy Z93.2 Durable Medical Equipment (Convatec flange (#[id number]))?See Instructions?use as needed for ostomy maintaince. Dx ileostomy Z93.2 Lidocaine Topical (lidocaine 5% topical film)?1 patch?Topically?2 times a day?remove patches after 12 hours Loperamide (loperamide 2 mg oral tablet)?See Instructions?take 1 tablet by mouth 30 minutes before meals and at bedtime Loperamide (loperamide 2 mg oral tablet)?See Instructions?take 2 tablets by mouth 30 minutes before meals and at bedtime Loperamide (loperamide 2 mg oral capsule)?4?Milligram?2?capsule?By Mouth?4 times a day?for 30?Days?take 1/2 hour before meals and at bed time MedroxyPROGESTERone (medroxyPROGESTERone 150 mg/mL intramuscular suspension)?1?Milliliter?150?Milligram?Intramuscular?Every 3 months Ondansetron (ondansetron 4 mg oral tablet, disintegrating)?1?tab(s)?4?Milligram?By Mouth?Every 8 hours?as needed?Nausea & Vomiting Oxycodone (oxyCODONE 5 mg oral tablet)?10?Milligram?2?tablet?By Mouth?Every 4 hours?for 7?Days Labs Last 24 Hours BLOOD COUNT & DIFF ? Event Name?? Event Result?? Date/Time?? WBC 9.1 k/mm3 03/16/24 02:03:00 RBC 4.33 m/mm3 03/16/24 02:03:00 Hgb 12.4 Gm/dL 03/16/24 02:03:00 Hct 37.8 % 03/16/24 02:03:00 MCV 87.3 femtoliters 03/16/24 02:03:00 MCH 28.6 pg 03/16/24 02:03:00 MCHC 32.8 g/dL??Low 03/16/24 02:03:00 Platelet Count 267 k/mm3 03/16/24 02:03:00 MPV 10.8 femtoliters 03/16/24 02:03:00 Nucleated RBC (Automated) 0 #/100 WBC'S 03/16/24 02:03:00 ? CHEM GENERAL ? Event Name?? Event Result?? Date/Time?? Sodium 139 mmol/L 03/16/24 02:03:00 Chloride 103 mmol/L 03/16/24 02:03:00 Bicarbonate Level 26 mmol/L 03/16/24 02:03:00 Anion Gap 10 03/16/24 02:03:00 BUN 7 mg/dL 03/16/24 02:03:00 Creatinine-Blood 0.79 mg/dL 03/16/24 02:03:00 Calcium, Ionized pH Corrected 1.2 mmol/L 03/16/24 02:03:00 Phosphorus 4 mg/dL 03/16/24 02:03:00 Magnesium 2 mg/dL 03/16/24 02:03:00 ? * Maine Marcial RN: PERFORM Event Display: Patient Education/Instruction Authored Date: [id number] Inpatient Adult Discharge Instructions. [place] [id number] Name: CANDIDO REYNOLDS AMARO : 1985?? Visit: 03/11/2024 12:05?? Current Date: 03/16/2024 16:20 ?? Account: [id number]?? Inpatient Adult Discharge Instructions We would like [...] and their families. Surveys are administered by [employer] ?? If further treatment with your primary care physician or another doctor is recommended, it is important for you to keep the appointment. Call your primary care physician or return to the Emergency Department immediately if your condition worsens, fails to improve, or new symptoms develop. If you need to find a doctor, you can call [facility] Link for a referral at [phone] or toll free at [phone]) or log in to [email or web address].. ?? [facility], in keeping with [facility] guidance, no longer requires face masks for [...] a health care brice of your choosing. [employer] is a website that allows you to securely view your medical information including your hospital discharge summary, office visit summaries, medications and follow-up visits. You can also request appointments, renew medications, and request access to your medical information using a health care brice of your choosing, or just ask a question. You can enroll at [email or web address] or register during your next office visit. You have been discharged from [facility], Patient Care Unit: SW6??. If you have any questions regarding these instructions, including results of studies pending, afteryou leave, please call us and we will be happy to assist you 27/02. [facility] Your Care Team Attending Physician Jada Chiang MD?? Consulting Providers Jada Chiang MD?? Discharging Providers Vira Cuevas MD Your Diagnosis Diverticulitis large intestine Tests Performed Below is a partial list of the tests performed during your hospitalization. You may have had other tests and procedures not included in this list. Please discuss all test results with your provider. BUN CBC w/ Differential Creatinine Electrolytes Ionized Calcium Magnesium Level Phosphorus Level BUN?? CBC?? CBC w/ Differential?? Creatinine?? Electrolytes?? Ionized Calcium?? Magnesium Level?? Pathology Tissue Request ()?? Phosphorus Level?? Primary Care Provider Melyssa White NP? Advance Directive Health Care Proxy on File Yes - Health Care Proxy Discharge Vitals Temperature: 97.8 DegF Height: 158 cm Pulse Rate: 88 bpm Weight: 84.4 kg Respiratory Rate: 17 br/min Body Mass Index:??33.81 kg/m2??Critical Systolic Blood Pressure: 114 mm Hg Body surface area: 1.92 Diastolic Blood Pressure: 75 mm Hg ?? Oxygen Saturation: 100 % ?? Studies Pending All studies ordered during this hospital stay have been completed unless listed below. Please discuss all pending results with your provider listed above in these instructions. ?? BUN?? CBC?? CBC w/ Differential?? Creatinine?? Electrolytes?? Ionized Calcium?? Magnesium Level?? Phosphorus Level?? What to do next Instructions From Your Doctor ??Discharge Instructions ?AFTER YOUR SURGERY?Diet: ?Drink 6 to 8 glasses of fluids per day. ?No alcoholic beverages post-operatively or while taking pain medications. ?Activity: ?Avoid any activity that causes discomfort. Normal daily activities are safe. ?Avoid straining, vigorous sports or lifting anything more than 10 pounds for 4 weeks,or as directed by your surgeon. ?After the first 24 hours, you may drive whenever comfortable, but do not go alone thefirst time and do not drive after taking pain medications. ?Dressings and Wound care: ?You may remove your bandage (if you have one in place) in 48 hours and shower (no soaking in a tub, pool, or hot tub.) If you have steri-strips, mason, or sutures, it???s okay if theyhappen to get wet, but be sure to pat dry with a clean towel as soon as you get out. ?It is very important to keep your incision area clean and dry. You may cover up the incisions with a bandage for protection, but once the incisions are dried/ scabbed over, you may leave them open to air. Steri-strips will start curling up and drying out over several days. They may start to drop off by themselves, and this is all right. ?Medications: ?Pain: If you did not receive your prescription at your office visit, you will be given a prescription for pain at the time of discharge, usually OXYCODONE. ?Follow the instructions for taking these medications. If the pain you are experiencing ismild, extra-strength Tylenol will likely take care of it. Remember that narcotic pain medications can cause constipation. Some narcotics contain Tylenol (acetaminophen) and if additional pain medicines are required, do not take additional Tylenol products- use ibuprofen or naproxen instead if able.Take a stool softener as prescribed below and drink plenty of fluids. ?Home Medications: Resume any medications your primary physician has prescribed unlessspecifically instructed. ?Antibiotics: If one is prescribed for you, be sure to take it until there are no morepills left. ?Any bright redness, red streaking, or swelling around your incision, or any bad odor,or pus-like drainage coming from your incision. ?Temperature more than 101 F (38 C). ?Repeated nausea and vomiting or inability to tolerate or hold down fluids ?Inability to urinate. ?Post-operative appointments: ?If you have not already scheduled your follow-up appointment, call . You should arrange to be seen in 2-3 weeks after surgery. Ask regarding exact timing of follow-up. ?A nurse visit might also be schedule for 1 week after for staple/suture removal or wound check. ?Problems or Questions: ?Office hours are 8:30 am to 5:00 pm Monday thru Monday. It is best to call during office hours with routine questions. But if you questions please call?? at anytime. ?If you cannot reach our office and your problem truly requires emergency attention, go to [facility] Emergency Room or the nearest emergency room. ?? Orders? 03/16/24 16:16:00 EDT?? Prescriptions??, ??03/16/24 16:16:00 EDT?? Scheduled Follow-Up Appointments Monday 11:00 AM EDT ?? With: Sarika DALEY, Lashon Alexander Where: [facility] [address] [place] [address] Drive [address] [place] [address]- Status: Pending Discharge Medications CANDIDO PATIÑO :1985 Visit Date:03/11/2024 Medications: Please continue your medications until treatment is completed or stopped by your provider. Medications not listed below should be discontinued. Discuss any questions related to medications with your provider. What How Much When Why Instructions Next Dose Changed Diazepam (Valium 5 mg oral tablet) 5 Milligram Oral 4 times a day Duration: 5 Days Pickup at [facility] #[id number] 9 pm Changed Oxycodone (oxyCODONE 5 mg oral tablet) 2 tab(s) Oral Every 4 hours Duration: 7 Days Pickup at [facility] #[id number] 7 pm Unchanged Durable Medical Equipment (Barrier strips [id number]) See instructions use as needed for ostomy maintaince. Dx ileostomy Z93.2 ?? Unchanged Durable Medical Equipment (Brava barrier rings) See instructions use as needed for ostomy maintaince. Dx ileostomy Z93.2 ?? Unchanged Durable Medical Equipment (coloplast bags #[id number]) See instructions use as needed for ostomy care Dx. ileostomy Z93.2 ?? Unchanged Durable Medical Equipment (convatec bags #[id number]) See instructions use as needed for ostomy care Dx. ileostomy Z93.2 ?? Unchanged Durable Medical Equipment (Convatec bags (#756314)) See instructions Ileostomy present use as needed for ostomy maintaince. Dx ileostomy Z93.2 ?? Unchanged Durable Medical Equipment (Convatec flange (#080044)) See instructions Ileostomy present use as needed for ostomy maintaince. Dx ileostomy Z93.2 ?? Unchanged Durable Medical Equipment (convatec flange# [id number]) See instructions use as needed for ostomy care Dx. ileostomy Z93.2 ?? Unchanged Durable Medical Equipment (ConvaTec Ostomy Accordion Flange #[id number]) See instructions Ileostomy care Use as needed for ostomy maintaince. Dx ileostomy Z93.2 ?? Unchanged Durable Medical Equipment (ConvaTec Ostomy Pouch #[id number]) See instructions Ileostomy care Use as needed for ostomy maintaince. Dx ileostomy Z93.2 ?? Unchanged Durable Medical Equipment (No sting skin prep spray) See instructions Ileostomy present use as needed for ostomy maintaince. Dx ileostomy Z93.2 ?? Unchanged Durable Medical Equipment (ostomy belt 4215) See instructions use as needed for ostomy care. Dx ileostomy ??Z93.2 ?? Unchanged Durable Medical Equipment (straight brava strips [id number]) See instructions use as needed for ostomy [...] 1 Milliliter Intramuscular Every 3 months as prescribed Unchanged Ondansetron (ondansetron 4 mg oral tablet, disintegrating) 1 tab(s) Oral Every 8 hours as needed for Nausea & Vomiting as prescribed Pharmacy Information [facility] #[id number]: [address], [place] [phone] Prescription Given During Visit Diazepam (Valium 5 mg oral tablet) - 5 mg, By Mouth, 4 times a day, # 20 tablet, 0 Refills, [facility] #[id number], [address] [place] [address] [phone]?? Oxycodone (oxyCODONE 5 mg oral tablet) - 2 tablet = 10 mg, By Mouth, Every 4 hours, # 84 tablet, 0 Refills, [facility] #[id number], [address] [place] [phone]?? Laboratory Results Below is a partial list of the most recent Laboratory test results done prior to this discharge. You may have had other tests and procedures not included in this list. Please discuss all test resultswith your provider. Est Creatinine Clearance - 78.59 mL/min (03/16/2024) 49228 (03/12/2024) ? ?Surgical Pathology - Patient Name: CANDIDO PATIÑO
Lab
Patient : 1985 (Age: 38)
Collection Date: 03/12/2024
Accession Date: 03/12/2024
SignOut Date: 03/15/2024

Tissue Source:
1:OSTOMY

Final Diagnosis:
Ostomy, takedown:
- Segment of small bowel (stoma) with associated reactive changes.
<br/ >

Primary Pathologist:Cami Workman M.D.
electronically signed out by: Cami Workman M.D. / HANY

Gross Descript ion:
Labeled ostomy . Received in formalin is a 6.5 cm segment of bowel with 2 stapled margins. The serosa is dark red with an abundance of overlying norman-pink, fibromembranous adhesions and up to 1.4 cm of attached fat. There is a 1.0 x 0.5 cm presumptive ostomy site identified 1.5 cm from the nearest margin. The mucosa displays guevara, normal fold architecture. Construction Foreman sections are submitted.
1-2 pieces. (VN)*

As of October 14, 2023, the specimen processing and staining is performed at [facility], [address] [place] [address], [facility] (CLIA#[id number]). Its performance characteristics determined by [facility]. Malachi Weiss M.D. College And Career Counselor of Surgical Pathology, Abel Alford M.D. College And Career Counselor Cytopathology

Phone #: [phone], On-Call Pathologist: [id number] BUN (03/16/2024) ???BUN - 7 mg/dL CBC w/ Differential (03/16/2024) ???WBC - 9.1 k/mm3???RBC - 4.33 m/mm3???Hgb - 12.4 Gm/dL???Hct - 37.8 %???MCV - 87.3 femtoliters???MCH - 28.6 pg???MCHC - 32.8 g/dL???Platelet Count - 267 k/mm3???RDW-SD - 47.0 femtoliters???MPV - 10.8 femtoliters???Nucleated RBC (Automated) - 0.0 #/100 WBC'S???Abs. NRBC - 0.0 k/mm3???Abs. Neut - 4.7 k/mm3???Abs. Lymph - 3.4 k/mm3???Abs. Allen - 0.5 k/mm3???Abs. Eo - 0.3 k/mm3???Abs. Baso - 0.0 k/mm3???Neut % - 52.1 %???Lymph % - 37.8 %???Allen % - 6.0 %???Eos % - 3.4 %???Baso % - 0.4 %???Imm Gran - 0.3 %???Abs. Imm Gran - 0.0 k/mm3 Creatinine (03/16/2024) ???Creatinine-Blood - 0.79 mg/dL???Estimated GFR Creatinine - 99 ML/MIN/1.73 M2 Electrolytes (03/16/2024) ???Sodium - 139 mmol/L???Potassium - 4.4 mmol/L???Chloride - 103 mmol/L???Bicarbonate Level - 26 mmol/L???Anion Gap - 10 Ionized Calcium (03/16/2024) ???Calcium, Ionized pH Corrected - 1.20 mmol/L Magnesium Level (03/16/2024) ???Magnesium - 2.0 mg/dL Phosphorus Level (03/16/2024) ???Phosphorus - 4.0 mg/dL You will be contacted within 72 hours with your results. Allergies (NKA means No Known Allergies) ibuprofen??(Hives) Problems Active Problems??(2) Diverticulitis large intestine?? Obese class I?? Education Materials Below is the list of Educational Leaflet Providered with your Discharge Instructions. Valuables and Belongings I fully understand and agree that [facility] accepts no responsibility for all my [...] of Valuable and Belonging List: With patient Disposition of Belongings: Sent home with patient/family Date for Pt to Sign Valuables/Belongings: 03/11/24 20:21:00 ?? Other Discharge Information ? Pulmonary Rehab Status?? Pulmonary Rehab Discharge Status?? [...] are strongly encouraged to quit. Please call [facility] Link at [phone] or [phone]) or log in to [email or web address] for referrals to smoking cessation programs. ?? 818 Suicide & Crisis Lifeline is available 27/02 if you or someone you know needs to find a reason to keep living. By calling 273 you'll be connected to a skilled, trained counselor at a crisis center in your area. INPATIENT DISCHARGE INSTRUCTIONS SIGNATURE PAGE CANDIDO PATIÑO Location:[facility] Registration Date and Time:03/11/2024 12:05 EDT Primary Care Physician: Melyssa White NP, Attending Physician: Jada Chiang MD, I CANDIDO PATIÑO, have received the above patient education materials/instructions and have verbalized understanding. If ambulance or transport services are being used I further acknowledge being given a choice of service. ?? If you need to contact me, please call me at this number: . Patient/Construction Foreman Name: Patient/Construction Foreman Signature: Relationship to Patient: Witness Name/Signature: Date: Patient Care team information Care Team Personnel Name: Bertha Kolb RN Position: [facility] RN Member Role: Primary Care Nurse Name: Ashley Domínugez RN Position: [facility] RN Member Role: Primary Care Nurse Name: Maame Pearce Position: [facility] Outreach Member Role: Lifetime Consulting Physician Name: Charline Terrazas RN Position: [facility] RN Member Role: Primary Care Nurse Name: Efrain Long RN Position: [facility] RN Member Role: Primary Care Nurse Name: Melyssa White NP Position: Reference Physician Member Role: PCP Address: Address: [address] [place] [address] Name: Nida Ferro RN Position: [facility] RN Member Role: Primary Care Nurse Name: Kaur Wilson RN Position: S RN Member Role: Primary Care Nurse Name: Shasha Chou RN Position: [facility] RN Member Role: Primary Care Nurse Name: Alison Brewer RN Position: S RN Member Role: Primary Care Nurse Name: Adamaris Lynn RN Position: S RN Member Role: Primary Care Nurse Name: Rosario Schwarz RN Position: [facility] RN Member Role: Primary Care Nurse Name: Marianne Jesus RN Position: [facility] RN Member Role: Primary Care Nurse Name: Jacquelyn Merchant RN Position: S RN Member Role: Primary Care Nurse Name: Susannah Scanlon RN Position: [facility] RN Member Role: Primary Care Nurse Name: Kriss Pena RN Position: S RN Member Role: Primary Care Nurse Name: [place] Marcial RN Position: [facility] RN Member Role: Primary Care Nurse Name: Lolita Peres RN Position: S RN Member Role: Primary Care Nurse Name: Michael Syed RN Position: [facility] RN Member Role: Primary Care Nurse Care Team Related Persons Name: SERGIO GORDON Address: [address] [place] [address] Name: EMILY REYNOLDS Address: [place] [address] Name: KATHERIN MONDRAGON Address: home [address] [address]
--- OUTSIDE RECORDS SUMMARY | 2024-03-27 07:39 | XMS_ITS | Continuity of Care Document ---
Author Organization [facility] Address [address] [place] [address] [address] [place] [address]- Care Team Providers Care Dining Room Tables Set Up Attendant Name Role Phone Cindy DALEY, Melyssa Primary Care Physician [place] [facility] [place] - 01/19/[address] [place] [address]- Attending Physician: Андрей MASTERS, Jada Ward Referring Physician: Melyssa White NP Allergies, Adverse Reactions, Alerts Substance Reaction Severity Status ibuprofen 1 Hives Active 1swelling,hives Immunizations Given and Recorded Vaccine Date Status Refusal Reason tetanus/diphtheria/pertussis, acel(Tdap) 06/06/13 Given Medications coloplast bags #33394 coloplast bags #44951, See Instructions, # 20 each, Refills 11, Tot. Refills 11, Maintenance, use as needed for ostomy care Dx. ileostomy Z93.2, 01/02/24 15:45:00 EDT, Compound Start Date: 01/02/24 Status: Ordered convatec bags #[id number] convatec bags #[id number], See Instructions, # 20 each, Refills 11, Tot. Refills 11, Maintenance, use as needed for ostomy care Dx. ileostomy Z93.2, 01/11/24 13:19:00 EDT, Compound Start Date: 01/11/24 Status: Ordered convatec flange# [id number] convatec flange# [id number], See Instructions, # 20 each, Refills 11, Tot. Refills 11, Maintenance, useas needed for ostomy care Dx. ileostomy Z93.2, 01/11/24 13:27:00 EDT, Compound Start Date: 01/11/24 Status: Ordered ConvaTec Ostomy Accordion Flange #[id number] ConvaTec Ostomy Acc[place]ion Flange #[id number], See Instructions, # 20 each, Refills 11, Tot. Refills 11,Maintenance, Use as needed for ostomy maintaince. Dx ileostomy Z93.2, 01/05/24 15:39:00 EDT, Supply Start Date: 01/05/24 Status: Ordered ConvaTec Ostomy Pouch #[id number] ConvaTec Ostomy Pouch #[id number], See Instructions, # 20 each, Refills 11, [...] 12/20/23 16:46:00 EDT, Route to Pharmacy Electronically, [facility] #[id number], Partial fill upon... Start Date: 12/20/23 Status: Ordered loperamide 2 mg oral capsule 4 mg, 2, capsule, By Mouth, 4 times a day, for 30 days, take 1/2 hour before meals and at bed time,# 240 capsule, Refills 5, Tot. Refills 5, Acute 07/17/24 15:35:00 EST, 01/19/24 15:35:00 EDT, Routeto Pharmacy Electronically, [facility]... Start Date: 01/19/24 Stop Date: 07/17/24 Status: Ordered loperamide 2 mg oral tablet See Instructions, take 2 tablets by mouth 30 minutes before meals and at bedtime, # 240 tablet, 4 Refills, Maintenance, 01/03/24 16:27:00 EDT, Tablet, [facility] #[id number], Partial fill upon patient request if the prescription is for a schedule... Start Date: 01/03/24 Status: Ordered loperamide 2 mg oral tablet See Instructions, take 1 tablet by mouth 30 minutes before meals and at bedtime, # 120 tablet, 4 Refills, Maintenance, 12/21/23 15:35:00 EDT, Tablet, [facility] #[id number], Partial fill upon patient request if the [...] 0 Refills, Maintenance, 11/19/23 9:55:00 EDT, Tablet, [facility] #[id number], Partial fill upon patient request if the [...] 0 Refills, Maintenance, 12/20/23 16:46:00 EDT, Tablet, [facility] #[id number], Partial fill upon patient request if the prescription is for a schedule... Start Date: 12/20/23 Status: Ordered straight brava strips 193931 straight brava strips [id number], See Instructions, # 80 each, Refills 11, Tot. Refills 11, Maintenance, use as needed for ostomy care Dx ileostomy Z 93.2, 01/11/24 13:19:00 EDT, Compound Start Date: 01/11/24 Status: Ordered traMADol 50 mg oral tablet 1 tablet = 50 mg, By Mouth, Every 8 hours, for 7 days, # 21 tablet, 0 Refills, Acute 01/23/24 11:38:00 EDT, 01/16/24 11:38:00 EDT, [facility] #[id number], Partial fill upon patient request if the [...] Confirmed Active Obese class II Confirmed Active Vital Signs Most recent to oldest [Reference Range]: 1 Height 158 cm (01/12/24 9:31 AM) Weight 89.2 kg (01/12/24 9:31 AM) Oxygen Saturation [94-100 %] 100 % (01/12/24 9:31 AM) Pulse Rate [55-90 bpm] 86 bpm (01/12/24 9:31 AM) Body Mass Index [18.5-24.99 kg/m2] 35.73 kg/m2 *>HHI* (01/12/24 9:31 AM) Blood Pressure [90-138/55-84 mm Hg] 98/6 7mm Hg (01/12/24 9:31 AM) Respiratory Rate [16-30 br/min] 17 br/mi n (01/12/24 9:31 AM) Temperature [96.8-100.4 DegF] 98.9 DegF (01/12/24 9:31 AM) Temperature Route Temporal (01/12/24 9:31 AM) Social History Social History Type Response [...] Safety Implantable Status Assigning Authority Unknown Unknown [id number] Unknown 07/06/27 Unknown Unknown Active Un known Procedure Provider Procedure Date Device Type Site Resection Colon Left Open Jada Chiang MD 12/07/23 Unk nown Colon Device Identifier Serial Number Lot or Batch Number Manufacturing Date Expiration Date Distinct Identification Code MRI Safety Implantable Status Assigning Authority Unknown Unknown [id number] Unknown 12/05/27 Unknown Unknown Active Unk nown Procedure Provider Procedure Date Device Type Site Resection Colon Left Open Андрей MASTERS, Jada Ward 12/07/23 Unk nown Colon Device Identifier Serial Number Lot or Batch Number Manufacturing Date Expiration Date Distinct Identification Code MRI Safety Implantable Status Assigning Authority Unknown Unknown [id number] Unknown 05/06/28 Unknown Unknown Active Unknown Procedure Provider Procedure Date Device Type Site Resection Colon Left Open Андрей MASTERS, Jada Ward 12/07/23 Unk nown Colon Device [...] Safety Implantable Status Assigning Authority Unknown Unknown [id number] Unknown 11/05/27 Unknown Unknown Active Unknown Procedure Provider Procedure Date Device Type Site Resection Colon Left Open Jada Chiang MD 12/07/23 Unk nown Colon Device Identifier Serial Number Lot or Batch Number Manufacturing Date Expiration Date Distinct Identification Code MRI Safety Implantable Status Assigning Authority Unknown Unknown [id number] Unknown 01/05/28 Unknown Unknown Active Unk nown Procedure Provider Procedure Date Device Type Site Resection Colon Left Open Jada Chiang MD 12/07/23 Unk nown Colon Device Identifier Serial Number Lot or Batch Number Manufacturing Date Expiration Date Distinct Identification Code MRI Safety Implantable Status Assigning Authority Unknown Unknown [id number] Unknown 03/06/28 Unknown Unknown Active Unk nown Procedure Provider Procedure Date Device Type Site Resection Colon Left Open Jada Chiang MD 12/07/23 Unk nown Colon Device Identifier Serial Number Lot or Batch Number Manufacturing Date Expiration Date Distinct Identification Code MRI Safety Implantable Status Assigning Authority Unknown Unknown [id number] Unknown 12/05/27 Unknown Unknown Active Unk nown Patient Care team information Care Team Personnel Name: Bertha Kolb RN Position: [facility] RN Member Role: Primary Care Nurse Name: Ashley Domínguez RN Position: [facility] RN Member Role: Primary Care Nurse Name: Maame Pearce Position: [facility] Outreach Member Role: Lifetime Consulting Physician Name: Charline Terrazas RN Position: [facility] RN Member Role: Primary Care Nurse Name: Efrain Long RN Position: [facility] RN Member Role: Primary Care Nurse Name: Melyssa White NP Position: Reference Physician Member Role: PCP Address: Address: [address] [place] [id number] Name: Nida Ferro RN Position: [facility] RN Member Role: Primary Care Nurse Name: Kaur Wilson RN Position: [facility] RN Member Role: Primary Care Nurse Name: Shasha Chou RN Position: [facility] RN Member Role: Primary Care Nurse Name: Alison Brewer RN Position: [facility] RN Member Role: Primary Care Nurse Name: Adamaris Lynn RN Position: [facility] RN Member Role: Primary Care Nurse Name: Rosario Schwarz RN Position: [facility] SN RN Member Role: Primary Care Nurse Name: Marianne Jesus RN Position: [facility] RN Member Role: Primary Care Nurse Name: Kriss Pena RN Position: [facility] RN Member Role: Primary Care Nurse Name: Maine Marcial RN Position: [facility] RN Member Role: Primary Care Nurse Name: Lolita Peres RN Position: [facility] RN Member Role: Primary Care Nurse Name: Michael Syed RN Position: [facility] RN Member Role: Primary Care Nurse Care Team Related Persons Name: SERGIO GORDON Address: home [address] [place] [address] Name: EMILY REYNOLDS Address: [place] [address] Name: KATHERIN MONDRAGON Address: home [address] [address]
--- OUTSIDE RECORDS SUMMARY | 2024-03-27 07:39 | XMS_ITS | Continuity of Care Document ---
Author Organization [facility] Address [address] [place] [address]- Care Team Providers Care Pattern Painter Name Role Phone Melyssa White NP Primary Care Physician Encounter [facility] [place] Date(s): 08/13/21 - 09/12/21 [facility] [address] [place] [address] Allergies, Adverse Reactions, Alerts Substance Reaction [...]
--- OUTSIDE RECORDS SUMMARY | 2024-03-27 07:39 | XMS_ITS | Continuity of Care Document ---
Author Organization [facility] Address [address] [place] [address]- Care Team Providers Care Correctional Maintenance Technician Name Role Phone Not on Staff, PCP Primary Care Physician Unavail able [place] [facility] [place] 08[place]23/19 [facility] [address] [place] [address]- [facility] Attending Physician: Emy Coulter Admitting Physician: AdmtrEmy Referring Physician: AdmtrEmy Allergies, Adverse Reactions, Alerts Substance Reaction Severity [...] 08/13/19 15:11:... Start Date: 08/13/19 Stop Date: 1/28/20 Status: Ordered Social History Social History Type Response Tobacco Use: 4 or less cigar ettes(less than 1/4 pack)/day in last 30 days. Sex
--- OUTSIDE RECORDS SUMMARY | 2024-03-27 07:39 | XMS_ITS | Continuity of Care Document ---
Author Organization [facility] Address [address] [place] [address] [address] [place] [address]- Care Team Providers Care Pumping Station Engineer Name Role Phone Cindy DALEY, Melyssa Primary Care Physician Encounter [facility] [place] Date(s): 01/03/24 - 01/10/[address] [place] [address]- Attending Physician: Jada Chiang MD Allergies, Adverse Reactions, Alerts Substance Reaction Severity Status ibuprofen 1 Hives Active 1swelling,hives Immunizations Given and Recorded Vaccine Date Status Refusal Reason tetanus/diphtheria/pertussis, acel(Tdap) 06/06/13 Given Medications coloplast bags #88252 coloplast bags #92405, See Instructions, # 20 each, Refills 11, Tot. Refills 11, Maintenance, use as needed for ostomy care Dx. ileostomy Z93.2, 01/02/24 15:45:00 EDT, Compound Start Date: 01/02/24 Status: Ordered ConvaTec Ostomy [place] Flange #[id number] ConvaTec Ostomy [place] Flange #[id number], See Instructions, # 20 each, Refills 11, Tot. Refills 11,Maintenance, Use as needed for ostomy maintaince. Dx ileostomy Z93.2, 01/05/24 15:39:00 EDT, Supply Start Date: 01/05/24 Status: Ordered ConvaTec Ostomy Pouch #[id number] ConvaTec Ostomy Pouch #[id number], See Instructions, # 20 each, Refills 11, [...] 12/20/23 16:46:00 EDT, Route to Pharmacy Electronically, [facility] #[id number], Partial fill upon... Start Date: 12/20/23 Status: Ordered loperamide 2 mg oral tablet See Instructions, take 2 tablets by mouth 30 minutes before meals and at bedtime, # 240 tablet, 4 Refills, Maintenance, 01/03/24 16:27:00 EDT, Tablet, [facility] #[id number], Partial fill upon patient request if the prescription is for a schedule... Start Date: 01/03/24 Status: Ordered loperamide 2 mg oral tablet See Instructions, take 1 tablet by mouth 30 minutes before meals and at bedtime, # 120 tablet, 4 Refills, Maintenance, 12/21/23 15:35:00 EDT, Tablet, [facility] #[id number], Partial fill upon patient request if the [...] 0 Refills, Maintenance, 11/19/23 9:55:00 EDT, Tablet, [facility] #[id number], Partial fill upon patient request if the prescription is for a schedule II opioid drug., 1... Start Date: 11/19/23 Status: Ordered oxyCODONE 10 mg oral tablet 1 tablet = 10 mg, By Mouth, Every 6 hours, # 24 tablet, 0 Refills, Maintenance, 01/03/24 21:32:00 EDT, Tablet, [facility] #[id number], Partial fill upon patient request if the prescription is for a schedule II opioid drug., 158, cm, 01/03/24 13:1... Start Date: 01/03/24 Status: Ordered oxyCODONE 10 mg oral tablet 1 tablet = 10 mg, By Mouth, Every 8 hours, PRN Pain , Severe, # 21 tablet, 0 Refills, Maintenance, 12/28/23 13:38:00 EDT, Tablet, [facility] #[id number], Partial fill upon patient request if theprescription is for a schedule II opioid drug., 158... Start Date: 12/28/23 Status: Ordered oxyCODONE 10 mg oral tablet 1 tablet = 10 mg, By Mouth, Every 6 hours, PRN Pain , Moderate, 2 tabs every 6hr as needed for severe pain, # 20 tablet, 0 Refills, Maintenance, 11/19/23 9:52:00 EDT, Tablet, [facility] #[id number], Partial fill upon patient request if the prescr... Start Date: 11/19/23 Status: Ordered oxyCODONE 20 mg oral tablet 1 tablet = 20 mg, By Mouth, Every 8 hours, Do not take the same time as diazepam., # 21 tablet, 0 Refills, Maintenance, 12/20/23 16:46:00 EDT, Tablet, [facility] #[id number], Partial fill upon patient request if the prescription is for a schedule... Start Date: 12/20/23 Status: Ordered oxyCODONE 5 mg oral tablet 5 mg, 1, tablet, By Mouth, Every 6 hours, PRN, Do not take this medication the same time as diazepam., # 20 tablet, Refills 0, Tot. Refills 0, Maintenance, for pain, 01/09/24 11:01:00 EDT, Route to Pharmacy Electronically, [facility] #[id number],... Start Date: 01/09/24 Status: Ordered Valium 5 mg oral tablet 5 mg, 1, tablet, By Mouth, 3 times a day, PRN, # 40 tablet, Refills 0, Tot. Refills 0, Maintenance,Anal Spasm, 01/03/24 21:32:00 EDT, Route to Pharmacy Electronically, [facility] #[id number], Partial fill upon patient request if the [...] Safety Implantable Status Assigning Authority Unknown Unknown [id number] Unknown 07/06/27 Unknown Unknown Active Un known Procedure Provider Procedure Date Device Type Site Resection Colon Left Open Jada Chiang MD 12/07/23 Unk nown Colon Device Identifier Serial Number Lot or Batch Number Manufacturing Date Expiration Date Distinct Identification Code MRI Safety Implantable Status Assigning Authority Unknown Unknown [id number] Unknown 12/05/27 Unknown Unknown Active Unk nown Procedure Provider Procedure Date Device Type Site Resection Colon Left Open Jada Chiang MD 12/07/23 Unk nown Colon Device Identifier Serial Number Lot or Batch Number Manufacturing Date Expiration Date Distinct Identification Code MRI Safety Implantable Status Assigning Authority Unknown Unknown [id number] Unknown 05/06/28 Unknown Unknown Active Unknown [...] Safety Implantable Status Assigning Authority Unknown Unknown [id number] Y Unknown 11/05/27 Unknown Unknown Active Unknown Procedure Provider Procedure Date Device Type Site Resection Colon Left Open Андрей MASTERSJada 12/07/23 Unk nown Colon Device Identifier Serial Number Lot or Batch Number Manufacturing Date Expiration Date Distinct Identification Code MRI Safety Implantable Status Assigning Authority Unknown Unknown [id number] Unknown 01/05/28 Unknown Unknown Active Unk nown Procedure Provider Procedure Date Device Type Site Resection Colon Left Open Jada Chiang MD 12/07/23 Unk nown Colon Device Identifier Serial Number Lot or Batch Number Manufacturing Date Expiration Date Distinct Identification Code MRI Safety Implantable Status Assigning Authority Unknown Unknown [id number] Unknown 03/06/28 Unknown Unknown Active Unk nown Procedure Provider Procedure Date Device Type Site Resection Colon Left Open Jada Chiang MD 12/07/23 Unk nown Colon Device Identifier Serial Number Lot or Batch Number Manufacturing Date Expiration Date Distinct Identification Code MRI Safety Implantable Status Assigning Authority Unknown Unknown [id number] Unknown 12/05/27 Unknown Unknown Active Unk nown [...] Care Nurse Name: Efrain Long RN Position: [facility] RN Member Role: Primary Care Nurse Name: Melyssa White NP Position: Reference Physician Member Role: PCP Address: Address: [address] [place] [address] Name: Nida Ferro RN Position: [facility] RN Member Role: Primary Care Nurse Name: Kaur Wilson RN Position: [facility] RN Member Role: Primary Care Nurse Name: Daniela Chou RN Position: [facility] RN [...] Persons Name: SERGIO GORDON Address: [address] [place] [address] Name: EMILY REYNOLDS Address: [place] [address] Name: KATHERIN MONDRAGON Address: [address] [address]
--- OUTSIDE RECORDS SUMMARY | 2024-03-27 07:39 | XMS_ITS | Continuity of Care Document ---
Author Organization [facility] Address [address] [place] [address]- Care Team Providers Care Director Maternal Child Name Role Phone Cindy DALEY, Melyssa Primary Care Physician Encounter [facility] [place] Date(s): 09/14/21 - 09/21/21 [facility] [address] [place] [address]- Encounter Diagnosis Palpitation(Discharge Diagnosis) - 09/14/21 Attending Physician: Brynn Barrera MD Referring Physician: Melyssa White NP Allergies, [...] Date: 09/01/21 Status: Ordered Problem List No Chronic Problems Diagnosis Diagnosis Type Effective Dates Health Status Clini [facility] Service Informant Palpitation Discharge Diagnosis 09/14/21 Social History Social History Type Response Tobacco Use: 4 or less cigar ettes(less than 1/4 pack)/day in last 30 days. Sex
--- OUTSIDE RECORDS SUMMARY | 2024-03-27 07:39 | XMS_ITS | Continuity of Care Document ---
Author Organization [facility] Address [address] [place] [address] [address] [place] [address]- Care Team Providers Care Director Financial Planning Name Role Phone Melyssa White NP Primary Care Physician Encounter [facility] Date(s): 12/28/23 - 01/27/[address] [place] [address]- Allergies, Adverse Reactions, Alerts Substance Reaction Severity Status ibuprofen 1 Hives Active 1swelling,hives Immunizations Given and Recorded Vaccine Date Status Refusal Reason tetanus/diphtheria/pertussis, acel(Tdap) 06/06/13 Given Medications coloplast bags #23308 coloplast bags #86857, See Instructions, # 20 each, Refills 11, Tot. Refills 11, Maintenance, use as needed for ostomy care Dx. ileostomy Z93.2, 01/02/24 15:45:00 EDT, Compound Start Date: 01/02/24 Status: Ordered convatec bags #[id number] convatec bags #[id number], See Instructions, # 20 each, Refills 11, Tot. Refills 11, Maintenance, use as needed for ostomy care Dx. ileostomy Z93.2, 01/11/24 13:19:00 EDT, Compound Start Date: 01/11/24 Status: Ordered convatec flange# [id number] convatec flange# [id number], See Instructions, # 20 each, Refills 11, Tot. Refills 11, Maintenance, useas needed for ostomy care Dx. ileostomy Z93.2, 01/11/24 13:27:00 EDT, Compound Start Date: 01/11/24 Status: Ordered ConvaTec Ostomy Accordion Flange #[id number] ConvaTec Ostomy [place] Flange #[id number], See Instructions, # 20 each, Refills 11, Tot. Refills 11,Maintenance, Use as needed for ostomy maintaince. Dx ileostomy Z93.2, 01/05/24 15:39:00 EDT, Supply Start Date: 01/05/24 Status: Ordered ConvaTec Ostomy Pouch #[id number] ConvaTec Ostomy Pouch #[id number], See Instructions, # 20 each, Refills 11, [...] 12/20/23 16:46:00 EDT, Route to Pharmacy Electronically, [facility] #[id number], Partial fill upon... Start Date: 12/20/23 Status: Ordered loperamide 2 mg oral capsule 4 mg, 2, capsule, By Mouth, 4 times a day, for 30 days, take 1/2 hour before meals and at bed time,# 240 capsule, Refills 5, Tot. Refills 5, Acute 07/17/24 15:35:00 EST, 01/19/24 15:35:00 EDT, [facility] Electron[facility], [facility]... Start Date: 01/19/24 Stop Date: 07/17/24 Status: Ordered loperamide 2 mg oral tablet See Instructions, take 2 tablets by mouth 30 minutes before meals and at bedtime, # 240 tablet, 4 Refills, Maintenance, 01/03/24 16:27:00 EDT, Tablet, [facility] #[id number], Partial fill upon patient request if the prescription is for a schedule... Start Date: 01/03/24 Status: Ordered loperamide 2 mg oral tablet See Instructions, take 1 tablet by mouth 30 minutes before meals and at bedtime, # 120 tablet, 4 Refills, Maintenance, 12/21/23 15:35:00 EDT, Tablet, [facility] #[id number], Partial fill upon patient request if the [...] 0 Refills, Maintenance, 11/19/23 9:55:00 EDT, Tablet, [facility] #[id number], Partial fill upon patient request if the [...] 0 Refills, Maintenance, 12/20/23 16:46:00 EDT, Tablet, [facility] #[id number], Partial fill upon patient request if the prescription is for a schedule... Start Date: 12/20/23 Status: Ordered straight brava strips [id number] straight brava strips [id number], See Instructions, # 80 each, Refills 11, [...] Safety Implantable Status Assigning Authority Unknown Unknown [id number] Unknown 07/06/27 Unknown Unknown Active Un known Procedure Provider Procedure Date Device Type Site Resection Colon Left Open Jada Chiang MD 12/07/23 Unk nown Colon Device Identifier Serial Number Lot or Batch Number Manufacturing Date Expiration Date Distinct Identification Code MRI Safety Implantable Status Assigning Authority Unknown Unknown [id number] Unknown 12/05/27 Unknown Unknown Active Unk nown Procedure Provider Procedure Date Device Type Site Resection Colon Left Open Jada Chiang MD 12/07/23 Unk nown Colon Device Identifier Serial Number Lot or Batch Number Manufacturing Date Expiration Date Distinct Identification Code MRI Safety Implantable Status Assigning Authority Unknown Unknown [id number] Unknown 05/06/28 Unknown Unknown Active Unknown [...] Safety Implantable Status Assigning Authority Unknown Unknown [id number] Unknown 11/05/27 Unknown Unknown Active Unknown Procedure Provider Procedure Date Device Type Site Resection Colon Left Open Jada Chiang MD 12/07/23 Unk nown Colon Device Identifier Serial Number Lot or Batch Number Manufacturing Date Expiration Date Distinct Identification Code MRI Safety Implantable Status Assigning Authority Unknown Unknown [id number] Unknown 01/05/28 Unknown Unknown Active Unk nown Procedure Provider Procedure Date Device Type Site Resection Colon Left Open Jada Chiang MD 12/07/23 Unk nown Colon Device Identifier Serial Number Lot or Batch Number Manufacturing Date Expiration Date Distinct Identification Code MRI Safety Implantable Status Assigning Authority Unknown Unknown [id number] Unknown 03/06/28 Unknown Unknown Active Unk nown Procedure Provider Procedure Date Device Type Site Resection Colon Left Open Jada Chiang MD 12/07/23 Unk nown Colon Device Identifier Serial Number Lot or Batch Number Manufacturing Date Expiration Date Distinct Identification Code MRI Safety Implantable Status Assigning Authority Unknown Unknown [id number] Unknown 12/05/27 Unknown Unknown Active Unk nown Patient Care team information Care Team Personnel Name: Bertha Kolb RN Position: [facility] RN Member Role: Primary Care Nurse Name: Ashley Domínguez RN Position: [facility] RN Member Role: Primary Care Nurse Name: Maame Pearce Position: [facility] Outreach Member Role: Lifetime Consulting Physician Name: Charline Terrazas RN Position: [facility] RN Member Role: Primary Care Nurse Name: Efrain Long RN Position: [facility] RN Member Role: Primary Care Nurse Name: Melyssa White NP Position: Reference Physician Member Role: PCP Address: Address: [address] [place] [address] Name: Nida Ferro RN Position: [facility] RN Member Role: Primary Care Nurse Name: Kaur Wilson RN Position: [facility] RN Member Role: Primary Care Nurse Name: Shasha Chou RN Position: [facility] RN Member Role: Primary Care Nurse Name: Alison Brewer RN Position: [facility] RN Member Role: Primary Care Nurse Name: Adamaris Lynn RN Position: [facility] RN Member Role: Primary Care Nurse Name: Rosario Schwarz RN Position: [facility] SN RN Member Role: Primary Care Nurse Name: Marianne Jesus RN Position: [facility] RN Member Role: Primary Care Nurse Name: Kriss Pena RN Position: [facility] RN Member Role: Primary Care Nurse Name: Maine Marcial RN Position: [facility] RN Member Role: Primary Care Nurse Name: Lolita Peres RN Position: [facility] RN Member Role: Primary Care Nurse Name: Michael Syed RN Position: [facility] RN Member Role: Primary Care Nurse Care Team Related Persons Name: SERGIO GORDON Address: [address] [place] [address] Name: EMILY REYNOLDS Address: [place] [address] Name: KATHERIN MONDRAGON Address: home [address] [place] [id number]
--- OUTSIDE RECORDS SUMMARY | 2024-03-27 07:39 | XMS_ITS | Continuity of Care Document ---
Author Organization [facility] Address [address] [place] [address] [address] [place] [address]- Care Team Providers Care Quality Assurance Group Leader Name Role Phone Melyssa White NP Primary Care Physician [place] [facility]): 02/21[place]24 - 03/22/24 [facility] [address] [place] [address]- Allergies, Adverse Reactions, Alerts Substance Reaction Severity Status ibuprofen 1 Hives Active 1swelling,hives Immunizations Given and Recorded Vaccine Date Status Refusal Reason tetanus/diphtheria/pertussis, acel(Tdap) 06/06/13 Given Medications Barrier strips [id number] Barrier strips 177520, See Instructions, # 80 each, Refills 11, [...] Start Date: 02/13/24 Status: Ordered coloplast bags #69580 coloplast bags #35161, See Instructions, # 20 each, Refills 11, Tot. Refills 11, Maintenance, use as needed for ostomy care Dx. ileostomy Z93.2, 01/02/24 15:45:00 EDT, Compound Start Date: 01/02/24 Status: Ordered convatec bags #[id number] convatec bags #469486, See Instructions, # 20 each, Refills 11, Tot. Refills 11, Maintenance, use as needed for ostomy care Dx. ileostomy Z93.2, 01/11/24 13:19:00 EDT, Compound Start Date: 01/11/24 Status: Ordered Convatec bags (#351891) Convatec bags (#824800), See Instructions, # 40 each, Refills 11, Tot. Refills 11, Maintenance, useas needed for ostomy maintaince. Dx ileostomy Z93.2, 02/13/24 9:14:00 EDT, Supply Start Date: 02/13/24 Status: Ordered Convatec flange (#318603) Convatec flange (#632373), See Instructions, # 40 each, Refills 11, Tot. Refills 11, Maintenance, use as needed for ostomy maintaince. Dx ileostomy Z93.2, 02/13/24 9:14:00 EDT, Supply Start Date: 02/13/24 Status: Ordered convatec flange# [id number] convatec flange# [id number], See Instructions, # 20 each, Refills 11, Tot. Refills 11, Maintenance, useas needed for ostomy care Dx. ileostomy Z93.2, 01/11/24 13:27:00 EDT, Compound Start Date: 01/11/24 Status: Ordered ConvaTec Ostomy [facility]ange #774366 ConvaTec Ostomy [place] Flange #977527, See Instructions, # 20 each, Refills 11, Tot. Refills 11,Maintenance, Use as needed for ostomy maintaince. Dx ileostomy Z93.2, 01/05/24 15:39:00 EDT, Supply Start Date: 01/05/24 Status: Ordered ConvaTec Ostomy Pouch #[id number] ConvaTec Ostomy Pouch #[id number], See Instructions, # 20 each, Refills 11, Tot. Refills 11, Maintenance, Use as needed for ostomy maintaince. Dx ileostomy Z93.2, 01/05/24 15:27:00 EDT, Supply Start Date: 01/05/24 Status: Ordered lidocaine 5% topical film 1 patch, Topically, 2 times a day, remove patches after 12 hours, # 15 patch, 0 Refills, Maintenance, 01/30/24 12:17:00 EDT, Film, [facility] #[id number], Partial fill upon patient request if the prescription is for a schedule II opioid drug., 1... Start Date: 01/30/24 Status: Ordered loperamide 2 mg oral capsule 4 mg, 2, capsule, By Mouth, 4 times a day, for 30 days, take 1/2 hour before meals and at bed time,# 240 capsule, Refills 5, Tot. Refills 5, Acute 07/17/24 15:35:00 EST, 01/19/24 15:35:00 EDT, [facility], [facility]... Start Date: 01/19/24 Stop Date: 07/17/24 Status: Ordered loperamide 2 mg oral tablet See Instructions, take 2 tablets by mouth 30 minutes before meals and at bedtime, # 240 tablet, 4 Refills, Maintenance, 01/03/24 16:27:00 EDT, Tablet, [facility] #[id number], Partial fill upon patient request if the prescription is for a schedule... Start Date: 01/03/24 Status: Ordered loperamide 2 mg oral tablet See Instructions, take 1 tablet by mouth 30 minutes before meals and at bedtime, # 120 tablet, 4 Refills, Maintenance, 12/21/23 15:35:00 EDT, Tablet, [facility] #[id number], Partial fill upon patient request if the [...] 0 Refills, Maintenance, 11/19/23 9:55:00 EDT, Tablet, [facility] #[id number], Partial fill upon patient request if the [...] 03/16/24 16:12:00 EDT, Route to Pharmacy Electronically, [facility] #[id number], Partial fill upon patient request if the... Start Date: 03/16/24 Stop Date: 03/23/24 Status: Ordered oxyCODONE 5 mg oral tablet 10 mg, 2, tablet, By Mouth, Every 4 hours, PRN, for 3 days, # 36 tablet, Refills 0, Tot. Refills 0,Acute 03/25/24 13:19:00 EDT, post op,pain, moderate, 03/22/24 13:19:00 EDT, Route to Pharmacy Electronically, [facility] #[id number], Partial fill... Start Date: 03/22/24 Stop Date: 03/25/24 Status: Ordered straight brava strips [id number] straight brava strips 572880, See Instructions, # 80 each, Refills 11, [...] Safety Implantable Status Assigning Authority Unknown Unknown [id number] Unknown 07/06/27 Unknown Unknown Active Un known Procedure Provider Procedure Date Device Type Site Resection Colon Left Open Jada Chiang MD 12/07/23 Unk nown Colon Device Identifier Serial Number Lot or Batch Number Manufacturing Date Expiration Date Distinct Identification Code MRI Safety Implantable Status Assigning Authority Unknown Unknown [id number] Unknown 12/05/27 Unknown Unknown Active Unk nown Procedure Provider Procedure Date Device Type Site Resection Colon Left Open Jada Chiang MD 12/07/23 Unk nown Colon Device Identifier Serial Number Lot or Batch Number Manufacturing Date Expiration Date Distinct Identification Code MRI Safety Implantable Status Assigning Authority Unknown Unknown [id number] Unknown 05/06/28 Unknown Unknown Active Unknown [...] Safety Implantable Status Assigning Authority Unknown Unknown [id number] Unknown 11/05/27 Unknown Unknown Active Unknown Procedure Provider Procedure Date Device Type Site Resection Colon Left Open Jada Chiang MD 12/07/23 Unk nown Colon Device Identifier Serial Number Lot or Batch Number Manufacturing Date Expiration Date Distinct Identification Code MRI Safety Implantable Status Assigning Authority Unknown Unknown [id number] Unknown 01/05/28 Unknown Unknown Active Unk nown Procedure Provider Procedure Date Device Type Site Resection Colon Left Open Jada Chiang MD 12/07/23 Unk nown Colon Device Identifier Serial Number Lot or Batch Number Manufacturing Date Expiration Date Distinct Identification Code MRI Safety Implantable Status Assigning Authority Unknown Unknown [id number] Unknown 03/06/28 Unknown Unknown Active Unk nown Procedure Provider Procedure Date Device Type Site Resection Colon Left Open Андрей MASTERSJada 12/07/23 Unk nown Colon Device Identifier Serial Number Lot or Batch Number Manufacturing Date Expiration Date Distinct Identification Code MRI Safety Implantable Status Assigning Authority Unknown Unknown [id number] Unknown 12/05/27 Unknown Unknown Active Unk nown Patient Care team information Care Team Personnel Name: Bertha Kolb RN Position: [facility] RN Member Role: Primary Care Nurse Name: Ashley Domínguez RN Position: [facility] RN Member Role: Primary Care Nurse Name: Maame Pearce Position: [facility] Outreach Member Role: Lifetime Consulting Physician Name: Charline Terrazas RN Position: [facility] RN Member Role: Primary Care Nurse Name: Efrain Long RN Position: [facility] RN Member Role: Primary Care Nurse Name: Melyssa White NP Position: Reference Physician Member Role: PCP Address: Address: [address] [place] [address] Name: Nida Ferro RN Position: [facility] RN Member Role: Primary Care Nurse Name: Kaur Wilson RN Position: [facility] RN Member Role: Primary Care Nurse Name: Shasha Chou RN Position: [facility] RN Member Role: Primary Care Nurse Name: Alison Brewer RN Position: [facility] RN Member Role: Primary Care Nurse Name: Adamaris Lynn RN Position: [facility] RN Member Role: Primary Care Nurse Name: Rosario Schwarz RN Position: [facility] SN RN Member Role: Primary Care Nurse Name: Marianne Jesus RN Position: [facility] RN Member Role: Primary Care Nurse Name: Jacquelyn Merchant RN Position: [facility] RN Member Role: Primary Care Nurse Name: Susannah Scanlon RN Position: [facility] RN Member Role: Primary Care Nurse Name: Kriss Pena RN Position: [facility] RN Member Role: Primary Care Nurse Name: [place] Marcial RN Position: [facility] RN Member Role: Primary Care Nurse Name: Lolita Peres RN Position: [facility] RN Member Role: Primary Care Nurse Name: Michael Syed RN Position: S RN Member Role: Primary Care Nurse Care Team Related Persons Name: ARELIS GORDONRED Address: [address] [place] [address] Name: EMILY REYNOLDS Address: [place] [address] Name: KATHERIN MONDRAGON Address: home [address] [address]
--- OUTSIDE RECORDS SUMMARY | 2024-03-27 07:39 | XMS_ITS | Continuity of Care Document ---
Author Organization [facility] Address [address] [place] [address] [address] [place] [address]- Care Team Providers Care Knockdown Worker Name Role Phone Melyssa White NP Primary Care Physician Encounter [facility] [place] Date(s): 01/02/24 - 02/01/[address] [place] [address]- Allergies, Adverse Reactions, Alerts Substance Reaction Severity Status ibuprofen 1 Hives Active 1swelling,hives Immunizations Given and Recorded Vaccine Date Status Refusal Reason tetanus/diphtheria/pertussis, acel(Tdap) 06/06/13 Given Medications coloplast bags #65410 coloplast bags #[id number], See Instructions, # 20 each, Refills 11, Tot. Refills 11, Maintenance, use as needed for ostomy care Dx. ileostomy Z93.2, 01/02/24 15:45:00 EDT, Compound Start Date: 01/02/24 Status: Ordered convatec bags #[id number] convatec bags #[id number], See Instructions, # 20 each, Refills 11, Tot. Refills 11, Maintenance, use as needed for ostomy care Dx. ileostomy Z93.2, 01/11/24 13:19:00 EDT, Compound Start Date: 01/11/24 Status: Ordered convatec flange# [id number] convatec flange# [id number], See Instructions, # 20 each, Refills 11, Tot. Refills 11, Maintenance, useas needed for ostomy care Dx. ileostomy Z93.2, 01/11/24 13:27:00 EDT, Compound Start Date: 01/11/24 Status: Ordered ConvaTec Ostomy [place] Flange #[id number] ConvaTec Ostomy [place] Flange #[id number], See Instructions, # 20 each, Refills 11, Tot. Refills 11,Maintenance, Use as needed for ostomy maintaince. Dx ileostomy Z93.2, 01/05/24 15:39:00 EDT, Supply Start Date: 01/05/24 Status: Ordered ConvaTec Ostomy Pouch #[id number] ConvaTec Ostomy Pouch #[id number], See Instructions, # 20 each, Refills 11, [...] 12/20/23 16:46:00 EDT, Route to Pharmacy Electronically, [facility] #[id number], Partial fill upon... Start Date: 12/20/23 Status: Ordered lidocaine 5% topical film 1 patch, Topically, 2 times a day, remove patches after 12 hours, # 15 patch, 0 Refills, Maintenance, 01/30/24 12:17:00 EDT, Film, [facility] #[id number], Partial fill upon patient request if the [...] EST, 01/19/24 15:35:00 EDT, Routeto Pharmacy Electronically, [facility] #0... Start Date: 01/19/24 Stop Date: 07/17/24 Status: Ordered loperamide 2 mg oral tablet See Instructions, take 2 tablets by mouth 30 minutes before meals and at bedtime, # 240 tablet, 4 Refills, Maintenance, 01/03/24 16:27:00 EDT, Tablet, [facility] #[id number], Partial fill upon patient request if the prescription is for a schedule... Start Date: 01/03/24 Status: Ordered loperamide 2 mg oral tablet See Instructions, take 1 tablet by mouth 30 minutes before meals and at bedtime, # 120 tablet, 4 Refills, Maintenance, 12/21/23 15:35:00 EDT, Tablet, [facility] #[id number], Partial fill upon patient request if the [...] 02/04/24 12:15:00 EDT, 01/30/24 12:15:00 EDT, Tablet, [facility] #[id number], Partial fill upon patient request if the prescription is for a schedule II opioi... Start Date: 01/30/24 Stop Date: 02/04/24 Status: Ordered ondansetron 4 mg oral tablet, disintegrating 1 tablet = 4 mg, By Mouth, Every 8 hours, PRN Nausea & Vomiting, # 24 tablet, 0 Refills, Maintenance, 11/19/23 9:55:00 EDT, Tablet, [facility] #[id number], Partial fill upon patient request if the [...] 0 Refills, Maintenance, 01/30/24 13:16:00 EDT, Tablet, [facility] #[id number], Partial fill upon patient request if the prescription is for a schedule II opioid drug.... Start Date: 01/30/24 Status: Ordered oxyCODONE 20 mg oral tablet 1 tablet = 20 mg, By Mouth, Every 8 hours, Do not take the same time as diazepam., # 21 tablet, 0 Refills, Maintenance, 12/20/23 16:46:00 EDT, Tablet, [facility] #[id number], Partial fill upon patient request if the prescription is for a schedule... Start Date: 12/20/23 Status: Ordered straight brava strips [id number] straight brava strips [id number], See Instructions, # 80 each, Refills 11, [...] Safety Implantable Status Assigning Authority Unknown Unknown [id number] Unknown 07/06/27 Unknown Unknown Active Un known Procedure Provider Procedure Date Device Type Site Resection Colon Left Open Jada Chiang MD 12/07/23 Unk nown Colon Device Identifier Serial Number Lot or Batch Number Manufacturing Date Expiration Date Distinct Identification Code MRI Safety Implantable Status Assigning Authority Unknown Unknown [id number] Unknown 12/05/27 Unknown Unknown Active Unk nown Procedure Provider Procedure Date Device Type Site Resection Colon Left Open Андрей MASTERS Jada Sylvia 12/07/23 Unk nown Colon Device Identifier Serial Number Lot or Batch Number Manufacturing Date Expiration Date Distinct Identification Code MRI Safety Implantable Status Assigning Authority Unknown Unknown [id number] Unknown 05/06/28 Unknown Unknown Active Unknown [...] Safety Implantable Status Assigning Authority Unknown Unknown [id number] Unknown 11/05/27 Unknown Unknown Active Unknown Procedure Provider Procedure Date Device Type Site Resection Colon Left Open Jada Chiang MD 12/07/23 Unk nown Colon Device Identifier Serial Number Lot or Batch Number Manufacturing Date Expiration Date Distinct Identification Code MRI Safety Implantable Status Assigning Authority Unknown Unknown [id number] Unknown 01/05/28 Unknown Unknown Active Unk nown Procedure Provider Procedure Date Device Type Site Resection Colon Left Open Jada Chiang MD 12/07/23 Unk nown Colon Device Identifier Serial Number Lot or Batch Number Manufacturing Date Expiration Date Distinct Identification Code MRI Safety Implantable Status Assigning Authority Unknown Unknown [id number] Unknown 03/06/28 Unknown Unknown Active Unk nown Procedure Provider Procedure Date Device Type Site Resection Colon Left Open Jada Chiang MD 12/07/23 Unk nown Colon Device Identifier Serial Number Lot or Batch Number Manufacturing Date Expiration Date Distinct Identification Code MRI Safety Implantable Status Assigning Authority Unknown Unknown [id number] Unknown 12/05/27 Unknown Unknown Active Unk nown Patient Care team information Care Team Personnel Name: Bertha Kolb RN Position: [facility] RN Member Role: Primary Care Nurse Name: Ashley Domínguez RN Position: [facility] RN Member Role: Primary Care Nurse Name: Maame Pearce Position: [facility] Outreach Member Role: Lifetime Consulting Physician Name: Charline Terrazas RN Position: [facility] RN Member Role: Primary Care Nurse Name: Efrain Long RN Position: [facility] RN Member Role: Primary Care Nurse Name: Melyssa White NP Position: Reference Physician Member Role: PCP Address: Address: [address] [place] [address]- Name: Nida Ferro RN Position: S RN Member Role: Primary Care Nurse Name: Kaur Wilson RN Position: S RN Member Role: Primary Care Nurse Name: Shasha Chou RN Position: [facility] RN Member Role: Primary Care Nurse Name: Alison Brewer RN Position: [facility] RN Member Role: Primary Care Nurse Name: Adamaris Lynn RN Position: [facility] RN Member Role: Primary Care Nurse Name: Rosario Schwarz RN Position: [facility] SN RN Member Role: Primary Care Nurse Name: Marianne Jesus RN Position: [facility] RN Member Role: Primary Care Nurse Name: Kriss Pena RN Position: [facility] RN Member Role: Primary Care Nurse Name: Maine Marcial RN Position: [facility] RN Member Role: Primary Care Nurse Name: Lolita Peres RN Position: [facility] RN Member Role: Primary Care Nurse Name: Michael Syed RN Position: [facility] RN Member Role: Primary Care Nurse Care Team Related Persons Name: HEIDI SERGIO Address: [address] [place] [address] Name: EMILY REYNOLDS Address: [place] [address] Name: KATHERIN MONDRAGON Address: home [address] [address]
--- OUTSIDE RECORDS SUMMARY | 2024-03-27 07:39 | XMS_ITS | Continuity of Care Document ---
Author Organization [facility] Address [address] [place] [address]- Care Team Providers Care Director Of Digital Platforms Name Role Phone Melyssa White NP Primary Care Physician [phone] Encounter [facility] [place] Date(s): 08/31/23 - 09/30/23 [facility] [address] [place] [address]- Referring Physician: Henrry Molina MD Allergies, Adverse Reactions, Alerts Substance Reaction Severity Status ibuprofen 1 Active 1swelling,hives Immunizations Given and Recorded Vaccine Date Status Refusal Reason tetanus/diphtheria/pertussis, acel(Tdap) 06/06/13 Given Medications Depo-Provera Intramuscular, 0 Refills, Maintenance, 09/01/21 15:22:00 EST, Partial fill upon patient request if the prescription is for a schedule II opioid drug. Start Date: 09/01/21 Status: Ordered Problem List Condition Confirmation Course Effective Dates Status Health [facility] Informant Obese class II Confirmed Active Social History Social History Type Response Smoking Status Use: 4 or less cigar ettes(less than 1/4 pack)/day in last 30 days;Former smoker, quit more than 30 days ago entered on: 07/13/23 Sex Patient Care team information Care Team Personnel Name: Melyssa White NP Position: Reference Physician Member Role: PCP Address: Address: [address] [place] [address]- Care Team Related Persons Name: SERGIO GORDON Address: home [address] [place] [address] Name: EMILY REYNOLDS Address: [place] [address]
--- OUTSIDE RECORDS SUMMARY | 2024-03-27 07:40 | XMS_ITS | Continuity of Care Document ---
Author Organization [facility] Address [address] [place] [address]- Care Team Providers Care Web Analytics Specialist Name Role Phone Melyssa White NP Primary Care Physician [phone] [place] [facility] [place] 09[place]14[place]21 - 10/14/21 [facility] [address] [place] [address]- Attending Physician: AdmtrEmy Admitting Physician: Admtr, [id number] Referring Physician: Admtr, [...]
--- OUTSIDE RECORDS SUMMARY | 2024-03-27 07:40 | XMS_ITS | Continuity of Care Document ---
Author Organization [facility] Address [address] [place] [address] [address] [place] [address]- Care Team Providers Care Applications Scientist Name Role Phone Melyssa White NP Primary Care Physician [phone] Encounter [facility] [place] [facility] R [id number] Date(s): 12/21/23 - 12/28/[address] [place] [address]- Attending Physician: Jada Chiang MD Referring Physician: Melyssa White NP Allergies, Adverse Reactions, Alerts Substance Reaction Severity Status ibuprofen 1 Hives Active 1swelling,hives Immunizations Given and Recorded Vaccine Date Status Refusal Reason tetanus/diphtheria/pertussis, acel(Tdap) 06/06/13 Given Medications diazepam 5 mg oral tablet 5 mg, 1, tablet, By Mouth, Every 8 hours, PRN, Do not take the same time as oxycodone., # 21 tablet, Refills 0, Tot. Refills 0, Maintenance, Spasm, 12/20/23 16:46:00 EDT, Route to Pharmacy Electronically, [facility] #[id number], Partial fill upon... Start Date: 12/20/23 Status: Ordered loperamide 2 mg oral tablet See Instructions, take 1 tablet by mouth 30 minutes before meals and at bedtime, # 120 tablet, 4 Refills, Maintenance, 12/21/23 15:35:00 EDT, Tablet, [facility] #[id number], Partial fill upon patient request if the [...] 0 Refills, Maintenance, 11/19/23 9:55:00 EDT, Tablet, [id number], Partial fill upon patient request if the prescription is for a schedule II opioid drug., 1... Start Date: 11/19/23 Status: Ordered oxyCODONE 10 mg oral tablet 1 tablet = 10 mg, By Mouth, Every 8 hours, PRN Pain , Severe, # 21 tablet, 0 Refills, Maintenance, 12/28/23 13:38:00 EDT, Tablet, [id number], Partial fill upon patient request if theprescription is for a schedule II opioid drug., 158... Start Date: 12/28/23 Status: Ordered oxyCODONE 10 mg oral tablet 1 tablet = 10 mg, By Mouth, Every 6 hours, PRN Pain , Moderate, 2 tabs every 6hr as needed for severe pain, # 20 tablet, 0 Refills, Maintenance, 11/19/23 9:52:00 EDT, Tablet, [id number], Partial fill upon patient request if the prescr... Start Date: 11/19/23 Status: Ordered oxyCODONE 20 mg oral tablet 1 tablet = 20 mg, By Mouth, Every 8 hours, Do not take the same time as diazepam., # 21 tablet, 0 Refills, Maintenance, 12/20/23 16:46:00 EDT, Tablet, [id number], Partial fill upon patient request if the prescription is for a schedule... Start Date: 12/20/23 Status: Ordered elsy chin, See Instructions, # [...] Safety Implantable Status Assigning Authority Unknown Unknown [id number] Unknown 07/06/27 Unknown Unknown Active Un known Procedure Provider Procedure Date Device Type Site Resection Colon Left Open Jada Chiang MD 12/07/23 Unk nown Colon Device Identifier Serial Number Lot or Batch Number Manufacturing Date Expiration Date Distinct Identification Code MRI Safety Implantable Status Assigning Authority Unknown Unknown [id number] Unknown 12/05/27 Unknown Unknown Active Unk nown Procedure Provider Procedure Date Device Type Site Resection Colon Left Open Jada Chiang MD 12/07/23 Unk nown Colon Device Identifier Serial Number Lot or Batch Number Manufacturing Date Expiration Date Distinct Identification Code MRI Safety Implantable Status Assigning Authority Unknown Unknown [id number] Unknown 05/06/28 Unknown Unknown Active Unknown [...] Safety Implantable Status Assigning Authority Unknown Unknown [id number] Unknown 11/05/27 Unknown Unknown Active Unknown Procedure Provider Procedure Date Device Type Site Resection Colon Left Open Jada Chiang MD 12/07/23 Unk nown Colon Device Identifier Serial Number Lot or Batch Number Manufacturing Date Expiration Date Distinct Identification Code MRI Safety Implantable Status Assigning Authority Unknown Unknown [id number] Unknown 01/05/28 Unknown Unknown Active Unk nown Procedure Provider Procedure Date Device Type Site Resection Colon Left Open Jada Chiang MD 12/07/23 Unk nown Colon Device Identifier Serial Number Lot or Batch Number Manufacturing Date Expiration Date Distinct Identification Code MRI Safety Implantable Status Assigning Authority Unknown Unknown [id number] Unknown 03/06/28 Unknown Unknown Active Unk nown Procedure Provider Procedure Date Device Type Site Resection Colon Left Open Jada Chiang MD 12/07/23 Unk nown Colon Device Identifier Serial Number Lot or Batch Number Manufacturing Date Expiration Date Distinct Identification Code MRI Safety Implantable Status Assigning Authority Unknown Unknown [id number] Unknown 12/05/27 Unknown Unknown Active Unk nown Patient Care team information Care Team Personnel Name: Bertha Kolb RN Position: [facility] RN Member Role: Primary Care Nurse Name: Ashley Domínguez RN Position: [facility] RN Member Role: Primary Care Nurse Name: Maame Pearce Position: [facility] Outreach Member Role: Lifetime Consulting Physician Name: Charline Terrazas RN Position: [facility] RN Member Role: Primary Care Nurse Name: Efrain Long RN Position: [facility] RN Member Role: Primary Care Nurse Name: Melyssa White NP Position: Reference Physician Member Role: PCP Address: Address: [address] [place] [id number] Name: Nida Ferro RN Position: [facility] RN Member Role: Primary Care Nurse Name: Kaur Wilson RN Position: [facility] RN Member Role: Primary Care Nurse Name: Daniela Chou RN Position: [facility] RN Member Role: Primary Care Nurse Name: Alison Brewer RN Position: [facility] RN Member Role: Primary Care Nurse Name: Adamaris Lynn RN Position: [facility] RN Member Role: Primary Care Nurse Name: Rosario Schwarz RN Position: [facility] SN RN Member Role: Primary Care Nurse Name: Marianne Jesus RN Position: [facility] RN Member Role: Primary Care Nurse Name: Kriss Pena RN Position: [facility] RN Member Role: Primary Care Nurse Name: [place] Marcial RN Position: [facility] RN Member Role: Primary Care Nurse Name: Lolita Peres RN Position: [facility] RN Member Role: Primary Care Nurse Name: Michael Syed RN Position: [facility] RN Member Role: Primary Care Nurse Care Team Related Persons Name: SERGIO GORDON Address: [address] [place] [address] Name: EMILY REYNOLDS Address: [place] [address] Name: KATHERIN MONDARGON Address: [address] [address]
--- OUTSIDE RECORDS SUMMARY | 2024-03-27 07:40 | XMS_ITS | Continuity of Care Document ---
Author Organization [facility] As [facility] Address [address] [place] [address] [address] [place] [address]- Care Team Providers Care Solderer Furnace Name Role Phone Cindy DALEY, Melyssa Primary Care Physician Encounter [facility] [place] Date(s): 12/14/23 - 02/15/[address] [place] [address]- Attending Physician: Андрей MASTERS, Jada Ward Referring Physician: Melyssa White NP Allergies, Adverse Reactions, Alerts Substance Reaction Severity Status ibuprofen 1 Hives Active 1swelling,hives Immunizations Given and Recorded Vaccine Date Status Refusal Reason tetanus/diphtheria/pertussis, acel(Tdap) 06/06/13 Given Medications Barrier strips [id number] Barrier strips [id number], See Instructions, # 80 each, Refills 11, [...] Start Date: 02/13/24 Status: Ordered coloplast bags #52223 coloplast bags #51894, See Instructions, # 20 each, Refills 11, Tot. Refills 11, Maintenance, use as needed for ostomy care Dx. ileostomy Z93.2, 01/02/24 15:45:00 EDT, Compound Start Date: 01/02/24 Status: Ordered convatec bags #[id number] convatec bags #107291, See Instructions, # 20 each, Refills 11, Tot. Refills 11, Maintenance, use as needed for ostomy care Dx. ileostomy Z93.2, 01/11/24 13:19:00 EDT, Compound Start Date: 01/11/24 Status: Ordered Convatec bags (#799631) Convatec bags (#174395), See Instructions, # 40 each, Refills 11, Tot. Refills 11, Maintenance, useas needed for ostomy maintaince. Dx ileostomy Z93.2, 02/13/24 9:14:00 EDT, Supply Start Date: 02/13/24 Status: Ordered Convatec flange (#982252) Convatec flange (#111605), See Instructions, # 40 each, Refills 11, Tot. Refills 11, Maintenance, use as needed for ostomy maintaince. Dx ileostomy Z93.2, 02/13/24 9:14:00 EDT, Supply Start Date: 02/13/24 Status: Ordered convatec flange# [id number] convatec flange# [id number], See Instructions, # 20 each, Refills 11, Tot. Refills 11, Maintenance, useas needed for ostomy care Dx. ileostomy Z93.2, 01/11/24 13:27:00 EDT, Compound Start Date: 01/11/24 Status: Ordered ConvaTec Ostomy [place]ion Flange #441949 ConvaTec Ostomy [place] Flange #386229, See Instructions, # 20 each, Refills 11, Tot. Refills 11,Maintenance, Use as needed for ostomy maintaince. Dx ileostomy Z93.2, 01/05/24 15:39:00 EDT, Supply Start Date: 01/05/24 Status: Ordered ConvaTec Ostomy Pouch #[id number] ConvaTec Ostomy Pouch #[id number], See Instructions, # 20 each, Refills 11, [...] 12/20/23 16:46:00 EDT, Route to Pharmacy Electronically, [facility] #[id number], Partial fill upon... Start Date: 12/20/23 Status: Ordered lidocaine 5% topical film 1 patch, Topically, 2 times a day, remove patches after 12 hours, # 15 patch, 0 Refills, Maintenance, 01/30/24 12:17:00 EDT, Film, [facility] #[id number], Partial fill upon patient request if the [...] EST, 01/19/24 15:35:00 EDT, [facility], [facility]... Start Date: 01/19/24 Stop Date: 07/17/24 Status: Ordered loperamide 2 mg oral tablet See Instructions, take 2 tablets by mouth 30 minutes before meals and at bedtime, # 240 tablet, 4 Refills, Maintenance, 01/03/24 16:27:00 EDT, Tablet, [facility] #[id number], Partial fill upon patient request if the prescription is for a schedule... Start Date: 01/03/24 Status: Ordered loperamide 2 mg oral tablet See Instructions, take 1 tablet by mouth 30 minutes before meals and at bedtime, # 120 tablet, 4 Refills, Maintenance, 12/21/23 15:35:00 EDT, Tablet, [facility] #[id number], Partial fill upon patient request if the [...] 0 Refills, Maintenance, 11/19/23 9:55:00 EDT, Tablet, [facility] #[id number], Partial fill upon patient request if the [...] 0 Refills, Maintenance, 01/30/24 13:16:00 EDT, Tablet, [facility] #[id number], Partial fill upon patient request if the prescription is for a schedule II opioid drug.... Start Date: 01/30/24 Status: Ordered oxyCODONE 20 mg oral tablet 1 tablet = 20 mg, By Mouth, Every 8 hours, Do not take the same time as diazepam., # 21 tablet, 0 Refills, Maintenance, 12/20/23 16:46:00 EDT, Tablet, [facility] #[id number], Partial fill upon patient request if the prescription is for a schedule... Start Date: 12/20/23 Status: Ordered straight brava strips 608287 straight brava strips [id number], See Instructions, # 80 each, Refills 11, [...] Safety Implantable Status Assigning Authority Unknown Unknown [id number] Unknown 07/06/27 Unknown Unknown Active Un known Procedure Provider Procedure Date Device Type Site Resection Colon Left Open Jada Chiang MD 12/07/23 Unk nown Colon Device Identifier Serial Number Lot or Batch Number Manufacturing Date Expiration Date Distinct Identification Code MRI Safety Implantable Status Assigning Authority Unknown Unknown [id number] Unknown 12/05/27 Unknown Unknown Active Unk nown Procedure Provider Procedure Date Device Type Site Resection Colon Left Open Jada Chiang MD 12/07/23 Unk nown Colon Device Identifier Serial Number Lot or Batch Number Manufacturing Date Expiration Date Distinct Identification Code MRI Safety Implantable Status Assigning Authority Unknown Unknown [id number] Y Unknown 05/06/28 Unknown Unknown Active Unknown [...] Safety Implantable Status Assigning Authority Unknown Unknown [id number] Unknown 11/05/27 Unknown Unknown Active Unknown Procedure Provider Procedure Date Device Type Site Resection Colon Left Open Андрей MASTERSJada 12/07/23 Unk nown Colon Device Identifier Serial Number Lot or Batch Number Manufacturing Date Expiration Date Distinct Identification Code MRI Safety Implantable Status Assigning Authority Unknown Unknown [id number] Unknown 01/05/28 Unknown Unknown Active Unk nown Procedure Provider Procedure Date Device Type Site Resection Colon Left Open Андрей MASTERSJada 12/07/23 Unk nown Colon Device Identifier Serial Number Lot or Batch Number Manufacturing Date Expiration Date Distinct Identification Code MRI Safety Implantable Status Assigning Authority Unknown Unknown [id number] Unknown 03/06/28 Unknown Unknown Active Unk nown Procedure Provider Procedure Date Device Type Site Resection Colon Left Open Андрей MASTERSJada 12/07/23 Unk nown Colon Device Identifier Serial Number Lot or Batch Number Manufacturing Date Expiration Date Distinct Identification Code MRI Safety Implantable Status Assigning Authority Unknown Unknown [id number] Unknown 12/05/27 Unknown Unknown Active Unk nown Patient Care team information Care Team Personnel Name: Bertha Kolb RN Position: [facility] RN Member Role: Primary Care Nurse Name: Ashley Domínguez RN Position: [facility] RN Member Role: Primary Care Nurse Name: Maame Pearce Position: [facility] Outreach Member Role: Lifetime Consulting Physician Name: Charline Terrazas RN Position: [facility] RN Member Role: Primary Care Nurse Name: Efrain Long RN Position: [facility] RN Member Role: Primary Care Nurse Name: Melyssa White NP Position: Reference Physician Member Role: PCP Address: Address: [address] [place] [address] Name: Nida Ferro RN Position: [facility] RN Member Role: Primary Care Nurse Name: Kaur Wilson RN Position: [facility] RN Member Role: Primary Care Nurse Name: Shasha Chou RN Position: [facility] RN Member Role: Primary Care Nurse Name: Alison Brewer RN Position: [facility] RN Member Role: Primary Care Nurse Name: Adamaris Lynn RN Position: [facility] RN Member Role: Primary Care Nurse Name: Rosario Schwarz RN Position: [facility] SN RN Member Role: Primary Care Nurse Name: Marianne Jesus RN Position: [facility] RN Member Role: Primary [...] Persons Name: SERGIO GORDON Address: [address] [place] [address] Name: EMILY REYNOLDS Address: [place] [address] Name: KATHERIN MONDRAGON Address: home [address] [address]
--- OUTSIDE RECORDS SUMMARY | 2024-03-27 07:40 | XMS_ITS | Continuity of Care Document ---
Author Organization [facility] As [facility] Address [address] [place] [address] [address] [place] [address]- Care Team Providers Care Ophthalmic Asst Name Role Phone Cindy DALEY, Melyssa Primary Care Physician [place] [facility] [place](s[place] 12/19/23 - 01/18/[address] [place] [address]- Allergies, Adverse Reactions, Alerts Substance Reaction Severity Status ibuprofen 1 Hives Active 1swelling,hives Immunizations Given and Recorded Vaccine Date Status Refusal Reason tetanus/diphtheria/pertussis, acel(Tdap) 06/06/13 Given Medications coloplast bags #79817 coloplast bags #58631, See Instructions, # 20 each, Refills 11, Tot. Refills 11, Maintenance, use as needed for ostomy care Dx. ileostomy Z93.2, 01/02/24 15:45:00 EDT, Compound Start Date: 01/02/24 Status: Ordered convatec bags #715828 convatec bags #951746, See Instructions, # 20 each, Refills 11, Tot. Refills 11, Maintenance, use as needed for ostomy care Dx. ileostomy Z93.2, 01/11/24 13:19:00 EDT, Compound Start Date: 01/11/24 Status: Ordered convatec flange# [id number] convatec flange# [id number], See Instructions, # 20 each, Refills 11, Tot. Refills 11, Maintenance, useas needed for ostomy care Dx. ileostomy Z93.2, 01/11/24 13:27:00 EDT, Compound Start Date: 01/11/24 Status: Ordered ConvaTec Ostomy [place] Flange #295347 ConvaTec Ostomy [place] Flange #433415, See Instructions, # 20 each, Refills 11, Tot. Refills 11,Maintenance, Use as needed for ostomy maintaince. Dx ileostomy Z93.2, 01/05/24 15:39:00 EDT, Supply Start Date: 01/05/24 Status: Ordered ConvaTec Ostomy Pouch #[id number] ConvaTec Ostomy Pouch #[id number], See Instructions, # 20 each, Refills 11, [...] 12/20/23 16:46:00 EDT, Route to Pharmacy Electronically, [facility] #[id number], Partial fill upon... Start Date: 12/20/23 Status: Ordered loperamide 2 mg oral tablet See Instructions, take 2 tablets by mouth 30 minutes before meals and at bedtime, # 240 tablet, 4 Refills, Maintenance, 01/03/24 16:27:00 EDT, Tablet, [facility] #[id number], Partial fill upon patient request if the prescription is for a schedule... Start Date: 01/03/24 Status: Ordered loperamide 2 mg oral tablet See Instructions, take 1 tablet by mouth 30 minutes before meals and at bedtime, # 120 tablet, 4 Refills, Maintenance, 12/21/23 15:35:00 EDT, Tablet, [facility] #[id number], Partial fill upon patient request if the [...] 0 Refills, Maintenance, 11/19/23 9:55:00 EDT, Tablet, [facility] #[id number], Partial fill upon patient request if the [...] 0 Refills, Maintenance, 12/20/23 16:46:00 EDT, Tablet, [facility] #[id number], Partial fill upon patient request if the prescription is for a schedule... Start Date: 12/20/23 Status: Ordered straight brava strips 055941 straight brava strips 243547, See Instructions, # 80 each, Refills 11, Tot. Refills 11, Maintenance, use as needed for ostomy care Dx ileostomy Z 93.2, 01/11/24 13:19:00 EDT, Compound Start Date: 01/11/24 Status: Ordered traMADol 50 mg oral tablet 1 tablet = 50 mg, By Mouth, Every 8 hours, for 7 days, # 21 tablet, 0 Refills, Acute 01/23/24 11:38:00 EDT, 01/16/24 11:38:00 EDT, [facility] #[id number], Partial fill upon patient request if the [...] Safety Implantable Status Assigning Authority Unknown Unknown [id number] Unknown 07/06/27 Unknown Unknown Active Un known Procedure Provider Procedure Date Device Type Site Resection Colon Left Open aJda Chiang MD 12/07/23 Unk nown Colon Device Identifier Serial Number Lot or Batch Number Manufacturing Date Expiration Date Distinct Identification Code MRI Safety Implantable Status Assigning Authority Unknown Unknown [id number] Unknown 12/05/27 Unknown Unknown Active Unk nown Procedure Provider Procedure Date Device Type Site Resection Colon Left Open Jada Chiang MD 12/07/23 Unk nown Colon Device Identifier Serial Number Lot or Batch Number Manufacturing Date Expiration Date Distinct Identification Code MRI Safety Implantable Status Assigning Authority Unknown Unknown [id number] Y Unknown 05/06/28 Unknown Unknown Active Unknown [...] Safety Implantable Status Assigning Authority Unknown Unknown [id number] Y Unknown 11/05/27 Unknown Unknown Active Unknown Procedure Provider Procedure Date Device Type Site Resection Colon Left Open Jada Chiang MD 12/07/23 Unk nown Colon Device Identifier Serial Number Lot or Batch Number Manufacturing Date Expiration Date Distinct Identification Code MRI Safety Implantable Status Assigning Authority Unknown Unknown [id number] Unknown 01/05/28 Unknown Unknown Active Unk nown Procedure Provider Procedure Date Device Type Site Resection Colon Left Open Jada Chiang MD 12/07/23 Unk nown Colon Device Identifier Serial Number Lot or Batch Number Manufacturing Date Expiration Date Distinct Identification Code MRI Safety Implantable Status Assigning Authority Unknown Unknown [id number] Unknown 03/06/28 Unknown Unknown Active Unk nown Procedure Provider Procedure Date Device Type Site Resection Colon Left Open Андрей MASTERSJada 12/07/23 Unk nown Colon Device Identifier Serial Number Lot or Batch Number Manufacturing Date Expiration Date Distinct Identification Code MRI Safety Implantable Status Assigning Authority Unknown Unknown [id number] Unknown 12/05/27 Unknown Unknown Active Unk nown [...] Reference Physician Member Role: PCP Address: Address: [address] [place] [address] Name: Nida Ferro RN Position: [facility] [...] Persons Name: ARELIS GORDONRED Address: [address] [place] [address] Name: EMILY REYNOLDS Address: [place] [address] Name: KATHERIN MONDRAGON Address: home [address] [place] [id number]
--- OUTSIDE RECORDS SUMMARY | 2024-03-27 07:40 | XMS_ITS | Continuity of Care Document ---
Author Organization [facility] Address [address] [place] [address] [address] [place] [address]- Care Team Providers Care Kitman Name Role Phone Cindy DALEY, Melyssa Primary Care Physician Encounter [facility] [place] Date(s): 12/19/23 - 01/18/[address] [place] [address]- Allergies, Adverse Reactions, Alerts Substance Reaction Severity Status ibuprofen 1 Hives Active 1swelling,hives Immunizations Given and Recorded Vaccine Date Status Refusal Reason tetanus/diphtheria/pertussis, acel(Tdap) 06/06/13 Given Medications coloplast bags #17300 coloplast bags #01491, See Instructions, # 20 each, Refills 11, Tot. Refills 11, Maintenance, use as needed for ostomy care Dx. ileostomy Z93.2, 01/02/24 15:45:00 EDT, Compound Start Date: 01/02/24 Status: Ordered convatec bags #313726 convatec bags #982846, See Instructions, # 20 each, Refills 11, Tot. Refills 11, Maintenance, use as needed for ostomy care Dx. ileostomy Z93.2, 01/11/24 13:19:00 EDT, Compound Start Date: 01/11/24 Status: Ordered convatec flange# [id number] convatec flange# [id number], See Instructions, # 20 each, Refills 11, Tot. Refills 11, Maintenance, useas needed for ostomy care Dx. ileostomy Z93.2, 01/11/24 13:27:00 EDT, Compound Start Date: 01/11/24 Status: Ordered ConvaTec Ostomy [place] Flange #446494 ConvaTec Ostomy [place] Flange #999252, See Instructions, # 20 each, Refills 11, Tot. Refills 11,Maintenance, Use as needed for ostomy maintaince. Dx ileostomy Z93.2, 01/05/24 15:39:00 EDT, Supply Start Date: 01/05/24 Status: Ordered ConvaTec Ostomy Pouch #[id number] ConvaTec Ostomy Pouch #[id number], See Instructions, # 20 each, Refills 11, [...] 12/20/23 16:46:00 EDT, Route to Pharmacy Electronically, [facility] #[id number], Partial fill upon... Start Date: 12/20/23 Status: Ordered loperamide 2 mg oral tablet See Instructions, take 2 tablets by mouth 30 minutes before meals and at bedtime, # 240 tablet, 4 Refills, Maintenance, 01/03/24 16:27:00 EDT, Tablet, [facility] #[id number], Partial fill upon patient request if the prescription is for a schedule... Start Date: 01/03/24 Status: Ordered loperamide 2 mg oral tablet See Instructions, take 1 tablet by mouth 30 minutes before meals and at bedtime, # 120 tablet, 4 Refills, Maintenance, 12/21/23 15:35:00 EDT, Tablet, [facility] #[id number], Partial fill upon patient request if the [...] 0 Refills, Maintenance, 11/19/23 9:55:00 EDT, Tablet, [facility] #[id number], Partial fill upon patient request if the [...] 0 Refills, Maintenance, 12/20/23 16:46:00 EDT, Tablet, [facility] #[id number], Partial fill upon patient request if the prescription is for a schedule... Start Date: 12/20/23 Status: Ordered straight brava strips 978998 straight brava strips 886729, See Instructions, # 80 each, Refills 11, Tot. Refills 11, Maintenance, use as needed for ostomy care Dx ileostomy Z 93.2, 01/11/24 13:19:00 EDT, Compound Start Date: 01/11/24 Status: Ordered traMADol 50 mg oral tablet 1 tablet = 50 mg, By Mouth, Every 8 hours, for 7 days, # 21 tablet, 0 Refills, Acute 01/23/24 11:38:00 EDT, 01/16/24 11:38:00 EDT, [facility] #[id number], Partial fill upon patient request if the [...] Safety Implantable Status Assigning Authority Unknown Unknown [id number] Unknown 07/06/27 Unknown Unknown Active Un known Procedure Provider Procedure Date Device Type Site Resection Colon Left Open Jada Chiang MD 12/07/23 Unk nown Colon Device Identifier Serial Number Lot or Batch Number Manufacturing Date Expiration Date Distinct Identification Code MRI Safety Implantable Status Assigning Authority Unknown Unknown [id number] Unknown 12/05/27 Unknown Unknown Active Unk nown Procedure Provider Procedure Date Device Type Site Resection Colon Left Open Jada Chiang MD 12/07/23 Unk nown Colon Device Identifier Serial Number Lot or Batch Number Manufacturing Date Expiration Date Distinct Identification Code MRI Safety Implantable Status Assigning Authority Unknown Unknown [id number] Y Unknown 05/06/28 Unknown Unknown Active Unknown [...] Safety Implantable Status Assigning Authority Unknown Unknown [id number] Y Unknown 11/05/27 Unknown Unknown Active Unknown Procedure Provider Procedure Date Device Type Site Resection Colon Left Open Jada Chiang MD 12/07/23 Unk nown Colon Device Identifier Serial Number Lot or Batch Number Manufacturing Date Expiration Date Distinct Identification Code MRI Safety Implantable Status Assigning Authority Unknown Unknown [id number] Unknown 01/05/28 Unknown Unknown Active Unk nown Procedure Provider Procedure Date Device Type Site Resection Colon Left Open Jada Chiang MD 12/07/23 Unk nown Colon Device Identifier Serial Number Lot or Batch Number Manufacturing Date Expiration Date Distinct Identification Code MRI Safety Implantable Status Assigning Authority Unknown Unknown [id number] Unknown 03/06/28 Unknown Unknown Active Unk nown Procedure Provider Procedure Date Device Type Site Resection Colon Left Open Андрей MASTERSJada 12/07/23 Unk nown Colon Device Identifier Serial Number Lot or Batch Number Manufacturing Date Expiration Date Distinct Identification Code MRI Safety Implantable Status Assigning Authority Unknown Unknown [id number] Unknown 12/05/27 Unknown Unknown Active Unk nown Patient Care team information Care Team Personnel Name: Bertha Kolb RN Position: [facility] RN Member Role: Primary Care Nurse Name: Ashley Domínguez RN Position: [facility] RN Member Role: Primary Care Nurse Name: Maame Pearce Position: [facility] Outreach Member Role: Lifetime Consulting Physician Name: Charline Terrazas RN Position: [facility] RN Member Role: Primary Care Nurse Name: Efrain Long RN Position: [facility] RN Member Role: Primary Care Nurse Name: Melyssa White NP Position: Reference Physician Member Role: PCP Address: Address: [address] [place] [address] Name: Nida Ferro RN Position: [facility] RN Member Role: Primary Care Nurse Name: Kaur Wilson RN Position: [facility] RN Member Role: Primary Care Nurse Name: Shasha Chou RN Position: [facility] RN Member Role: Primary Care Nurse Name: Alison Brewer RN Position: [facility] RN Member Role: Primary Care Nurse Name: Adamaris Lynn RN Position: [facility] RN Member Role: Primary Care Nurse Name: Rosario Schwarz RN Position: [facility] SN RN Member Role: Primary Care Nurse Name: Marianne Jesus RN Position: [facility] RN Member Role: Primary Care Nurse Name: Kriss Pena RN Position: [facility] RN Member Role: Primary Care Nurse Name: Maine Marcial RN Position: [facility] RN Member Role: Primary Care Nurse Name: Lolita Peres RN Position: [facility] RN Member Role: Primary Care Nurse Name: Michael Syed RN Position: S RN Member Role: Primary Care Nurse Care Team Related Persons Name: SERGIO GORDON Address: [address] [place] [address] Name: EMILY REYNOLDS Address: [place] [address] Name: KATHERIN MONDRAGON Address: home [address] [place] [id number]
== END 2024-03-25 10:00 | disposition home or self-care (01) ==
LOC: HO.HWS 09:25
PROVIDERS: Visit Provider Advanced Practice Midwife
DX: N93.9 Abnormal uterine and vaginal bleeding, unspecified (principal)

== ENCOUNTER → 2024-03-25 09:25 | Outpatient (BNVA) | payer MEDICAID, SELFPAY | PROVIDERS: Visit Provider Advanced Practice Midwife | DX: N93.9 Abnormal uterine and vaginal bleeding, unspecified (principal) | CPT/HCPCS: 96372; 99211; J1050 ==

== ENCOUNTER 2024-06-21 12:44 | Outpatient (AMB) | payer MEDICAID, SELFPAY ==
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
--- OUTSIDE RECORDS SUMMARY | 2024-06-28 11:58 | XMS_ITS | Continuity of Care Document ---
Author Organization [facility] Address [address] [place] [address] [address] [place] [address]- Care Team Providers Care Insurance Compliance Analyst Name Role Phone Cindy DALEY, Melyssa Primary Care Physician Encounter [facility] Date(s): 04/16/24 - 05/16/[address] [place] [address]- Allergies, Adverse Reactions, Alerts Substance Reaction Severity Status ibuprofen 1 Hives Active 1swelling,hives Immunizations Given and Recorded Vaccine Date Status Refusal Reason tetanus/diphtheria/pertussis, acel(Tdap) 06/06/13 Given Medications Barrier strips [id number] Barrier strips [id number], See Instructions, # 80 each, Refills 11, [...] Start Date: 02/13/24 Status: Ordered coloplast bags #[id number] coloplast bags #[id number], See Instructions, # 20 each, Refills 11, Tot. Refills 11, Maintenance, use as needed for ostomy care Dx. ileostomy Z93.2, 01/02/24 15:45:00 EDT, Compound Start Date: 01/02/24 Status: Ordered convatec bags #[id number] convatec bags #[id number], See Instructions, # 20 each, Refills 11, Tot. Refills 11, Maintenance, use as needed for ostomy care Dx. ileostomy Z93.2, 01/11/24 13:19:00 EDT, Compound Start Date: 01/11/24 Status: Ordered Convatec bags (#[id number]) Convatec bags (#[id number]), See Instructions, # 40 each, Refills 11, Tot. Refills 11, Maintenance, useas needed for ostomy maintaince. Dx ileostomy Z93.2, 02/13/24 9:14:00 EDT, Supply Start Date: 02/13/24 Status: Ordered Convatec flange (#[id number]) Convatec flange (#004383), See Instructions, # 40 each, Refills 11, Tot. Refills 11, Maintenance, use as needed for ostomy maintaince. Dx ileostomy Z93.2, 02/13/24 9:14:00 EDT, Supply Start Date: 02/13/24 Status: Ordered convatec flange# [id number] convatec flange# [id number], See Instructions, # 20 each, Refills 11, Tot. Refills 11, Maintenance, useas needed for ostomy care Dx. ileostomy Z93.2, 01/11/24 13:27:00 EDT, Compound Start Date: 01/11/24 Status: Ordered ConvaTec Ostomy Accordion Flange #[id number] ConvaTec Ostomy Accordion Flange #[id number], See Instructions, # 20 each, Refills 11, Tot. Refills 11,Maintenance, Use as needed for ostomy maintaince. Dx ileostomy Z93.2, 01/05/24 15:39:00 EDT, Supply Start Date: 01/05/24 Status: Ordered ConvaTec Ostomy Pouch #[id number] ConvaTec Ostomy Pouch #[id number], See Instructions, # 20 each, Refills 11, Tot. Refills 11, Maintenance, Use as needed for ostomy maintaince. Dx ileostomy Z93.2, 01/05/24 15:27:00 EDT, Supply Start Date: 01/05/24 Status: Ordered lidocaine 5% topical film 1 patch, Topically, 2 times a day, remove patches after 12 hours, # 15 patch, 0 Refills, Maintenance, 01/30/24 12:17:00 EDT, Film, [facility] #[id number], Partial fill upon patient request if the prescription is for a schedule II opioid drug., 1... Start Date: 01/30/24 Status: Ordered loperamide 2 mg oral capsule 4 mg, 2, capsule, By Mouth, 4 times a day, for 30 days, take 1/2 hour before meals and at bed time,# 240 capsule, Refills 5, Tot. Refills 5, Acute 07/17/24 15:35:00 EST, 01/19/24 15:35:00 EDT, [facility] Electron[facility], [facility]... Start Date: 01/19/24 Stop Date: 07/17/24 Status: Ordered loperamide 2 mg oral tablet See Instructions, take 2 tablets by mouth 30 minutes before meals and at bedtime, # 240 tablet, 4 Refills, Maintenance, 01/03/24 16:27:00 EDT, Tablet, [facility] #[id number], Partial fill upon patient request if the prescription is for a schedule... Start Date: 01/03/24 Status: Ordered loperamide 2 mg oral tablet See Instructions, take 1 tablet by mouth 30 minutes before meals and at bedtime, # 120 tablet, 4 Refills, Maintenance, 12/21/23 15:35:00 EDT, Tablet, [facility] #[id number], Partial fill upon patient request if the [...] 0 Refills, Maintenance, 11/19/23 9:55:00 EDT, Tablet, [facility] #[id number], Partial fill upon patient request if the [...] tablet, By Mouth, Every 6 hours, PRN, # 28 tablet, Refills 0, Tot. Refills 0, Maintenance,for pain, 03/29/24 12:06:00 EDT, Route to Pharmacy Electronically, [facility] #[id number], Partial fill upon patient request if the prescription i... Start Date: 03/29/24 Status: Ordered oxyCODONE 5 mg oral tablet 10 mg, 2, tablet, By Mouth, Every 6 hours, PRN, # 40 tablet, Refills 0, Tot. Refills 0, Maintenance, for pain, 03/25/24 13:52:00 EDT, Route to Pharmacy Electronically, [facility] #[id number], Partial fill upon patient request if the prescription... Start Date: 03/25/24 Stop Date: 03/30/24 Status: Ordered straight brava strips [id number] straight brava strips [id number], See Instructions, # 80 each, Refills 11, [...] Safety Implantable Status Assigning Authority Unknown Unknown [id number] Unknown 07/06/27 Unknown Unknown Active Un known Procedure Provider Procedure Date Device Type Site Resection Colon Left Open Jada Chiang MD 12/07/23 Unk nown Colon Device Identifier Serial Number Lot or Batch Number Manufacturing Date Expiration Date Distinct Identification Code MRI Safety Implantable Status Assigning Authority Unknown Unknown [id number] Unknown 12/05/27 Unknown Unknown Active Unk nown Procedure Provider Procedure Date Device Type Site Resection Colon Left Open Jada Chiang MD 12/07/23 Unk nown Colon Device Identifier Serial Number Lot or Batch Number Manufacturing Date Expiration Date Distinct Identification Code MRI Safety Implantable Status Assigning Authority Unknown Unknown [id number] Unknown 05/06/28 Unknown Unknown Active Unknown [...] Safety Implantable Status Assigning Authority Unknown Unknown [id number] Unknown 11/05/27 Unknown Unknown Active Unknown Procedure Provider Procedure Date Device Type Site Resection Colon Left Open Jada Chiang MD 12/07/23 Unk nown Colon Device Identifier Serial Number Lot or Batch Number Manufacturing Date Expiration Date Distinct Identification Code MRI Safety Implantable Status Assigning Authority Unknown Unknown [id number] Unknown 01/05/28 Unknown Unknown Active Unk nown Procedure Provider Procedure Date Device Type Site Resection Colon Left Open Jada Chiang MD 12/07/23 Unk nown Colon Device Identifier Serial Number Lot or Batch Number Manufacturing Date Expiration Date Distinct Identification Code MRI Safety Implantable Status Assigning Authority Unknown Unknown [id number] Unknown 03/06/28 Unknown Unknown Active Unk nown Procedure Provider Procedure Date Device Type Site Resection Colon Left Open Jada Chiang MD 12/07/23 Unk nown Colon Device Identifier Serial Number Lot or Batch Number Manufacturing Date Expiration Date Distinct Identification Code MRI Safety Implantable Status Assigning Authority Unknown Unknown [id number] Unknown 12/05/27 Unknown Unknown Active Unk nown Patient Care team information Care Team Personnel Name: Bertha Kolb RN Position: [facility] RN Member Role: Primary Care Nurse Name: Ashley Domínguez RN Position: [facility] RN Member Role: Primary Care Nurse Name: Maame Pearce Position: [facility] Outreach Member Role: Lifetime Consulting Physician Name: Charline Terrazas RN Position: [facility] RN Member Role: Primary Care Nurse Name: Efrain Long RN Position: [facility] RN Member Role: Primary Care Nurse Name: Melyssa White NP Position: Reference Physician Member Role: PCP Address: Address: [address] [place] [address] Name: Nida Ferro RN Position: [facility] RN Member Role: Primary Care Nurse Name: Kaur Wilson RN Position: [facility] RN Member Role: Primary Care Nurse Name: Sahsha Chou RN Position: [facility] RN Member Role: Primary Care Nurse Name: Alison Brewer RN Position: [facility] RN Member Role: Primary Care Nurse Name: Adamaris Lynn RN Position: [facility] RN Member Role: Primary Care Nurse Name: Rosario Schwarz RN Position: [facility] SN RN Member Role: Primary Care Nurse Name: Marianne Jesus RN Position: [facility] RN Member Role: Primary Care Nurse Name: Jacquelyn Merchant RN Position: [facility] RN Member Role: Primary Care Nurse Name: Susannah Sacnlon RN Position: [facility] RN Member Role: Primary Care Nurse Name: Kriss Pena RN Position: [facility] RN Member Role: Primary Care Nurse Name: Maine Marcial RN Position: [facility] RN Member Role: Primary Care Nurse Name: Lolita Peres RN Position: [facility] RN Member Role: Primary Care Nurse Name: Michael Syed RN Position: [facility] RN Member Role: Primary Care Nurse Care Team Related Persons Name: SERGIO GORDON Address: [address] [place] [address] Name: EMILY REYNOLDS Address: [place] [address] Name: KATHERIN MONDRAGON Address: home [address] [address]
--- OUTSIDE RECORDS SUMMARY | 2024-06-28 11:59 | XMS_ITS | Continuity of Care Document ---
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 Name Role Phone Cindy DALEY, Melyssa Primary Care Physician [place] [facility] - 05/16/[address] [place] [address]- Allergies, Adverse Reactions, Alerts Substance Reaction Severity Status ibuprofen 1 Hives Active 1swelling,hives Immunizations Given and Recorded Vaccine Date Status Refusal Reason tetanus/diphtheria/pertussis, acel(Tdap) 06/06/13 Given Medications Barrier strips [id number] Barrier strips [id number], See Instructions, # 80 each, Refills 11, [...] Start Date: 02/13/24 Status: Ordered coloplast bags #39568 coloplast bags #[id number], See Instructions, # 20 each, Refills 11, Tot. Refills 11, Maintenance, use as needed for ostomy care Dx. ileostomy Z93.2, 01/02/24 15:45:00 EDT, Compound Start Date: 01/02/24 Status: Ordered convatec bags #[id number] convatec bags #[id number], See Instructions, # 20 each, Refills 11, Tot. Refills 11, Maintenance, use as needed for ostomy care Dx. ileostomy Z93.2, 01/11/24 13:19:00 EDT, Compound Start Date: 01/11/24 Status: Ordered Convatec bags (#366998) Convatec bags (#[id number]), See Instructions, # 40 each, Refills 11, Tot. Refills 11, Maintenance, useas needed for ostomy maintaince. Dx ileostomy Z93.2, 02/13/24 9:14:00 EDT, Supply Start Date: 02/13/24 Status: Ordered Convatec flange (#208191) Convatec flange (#306076), See Instructions, # 40 each, Refills 11, Tot. Refills 11, Maintenance, use as needed for ostomy maintaince. Dx ileostomy Z93.2, 02/13/24 9:14:00 EDT, Supply Start Date: 02/13/24 Status: Ordered convatec flange# [id number] convatec flange# [id number], See Instructions, # 20 each, Refills 11, Tot. Refills 11, Maintenance, useas needed for ostomy care Dx. ileostomy Z93.2, 01/11/24 13:27:00 EDT, Compound Start Date: 01/11/24 Status: Ordered ConvaTec Ostomy [facility] #[id number] ConvaTec Ostomy [facility]ange #312326, See Instructions, # 20 each, Refills 11, Tot. Refills 11,Maintenance, Use as needed for ostomy maintaince. Dx ileostomy Z93.2, 01/05/24 15:39:00 EDT, Supply Start Date: 01/05/24 Status: Ordered ConvaTec Ostomy Pouch #[id number] ConvaTec Ostomy Pouch #[id number], See Instructions, # 20 each, Refills 11, Tot. Refills 11, Maintenance, Use as needed for ostomy maintaince. Dx ileostomy Z93.2, 01/05/24 15:27:00 EDT, Supply Start Date: 01/05/24 Status: Ordered lidocaine 5% topical film 1 patch, Topically, 2 times a day, remove patches after 12 hours, # 15 patch, 0 Refills, Maintenance, 01/30/24 12:17:00 EDT, Film, [facility][id number], Partial fill upon patient request if the prescription is for a schedule II opioid drug., 1... Start Date: 01/30/24 Status: Ordered loperamide 2 mg oral capsule 4 mg, 2, capsule, By Mouth, 4 times a day, for 30 days, take 1/2 hour before meals and at bed time,# 240 capsule, Refills 5, Tot. Refills 5, Acute 07/17/24 15:35:00 EST, 01/19/24 15:35:00 EDT, [facility] Electron[facility], [id number]... Start Date: 01/19/24 Stop Date: 07/17/24 Status: Ordered loperamide 2 mg oral tablet See Instructions, take 2 tablets by mouth 30 minutes before meals and at bedtime, # 240 tablet, 4 Refills, Maintenance, 01/03/24 16:27:00 EDT, Tablet, [facility] #[id number], Partial fill upon patient request if the prescription is for a schedule... Start Date: 01/03/24 Status: Ordered loperamide 2 mg oral tablet See Instructions, take 1 tablet by mouth 30 minutes before meals and at bedtime, # 120 tablet, 4 Refills, Maintenance, 12/21/23 15:35:00 EDT, Tablet, [facility] #[id number], Partial fill upon patient request if the [...] 0 Refills, Maintenance, 11/19/23 9:55:00 EDT, Tablet, [facility] #[id number], Partial fill upon patient request if the [...] 03/29/24 12:06:00 EDT, Route to Pharmacy Electronically, [facility] #[id number], Partial fill upon patient request if the prescription i... Start Date: 03/29/24 Status: Ordered oxyCODONE 5 mg oral tablet 10 mg, 2, tablet, By Mouth, Every 6 hours, PRN, # 40 tablet, Refills 0, Tot. Refills 0, Maintenance, for pain, 03/25/24 13:52:00 EDT, Route to Pharmacy Electronically, [facility] #[id number], Partial fill upon patient request if the prescription... Start Date: 03/25/24 Stop Date: 03/30/24 Status: Ordered straight brava strips [id number] straight brava strips [id number], See Instructions, # 80 each, Refills 11, [...] Safety Implantable Status Assigning Authority Unknown Unknown [id number] Unknown 07/06/27 Unknown Unknown Active Un known Procedure Provider Procedure Date Device Type Site Resection Colon Left Open Jada Chiang MD 12/07/23 Unk nown Colon Device Identifier Serial Number Lot or Batch Number Manufacturing Date Expiration Date Distinct Identification Code MRI Safety Implantable Status Assigning Authority Unknown Unknown [id number] Unknown 12/05/27 Unknown Unknown Active Unk nown Procedure Provider Procedure Date Device Type Site Resection Colon Left Open Jada Chiang MD 12/07/23 Unk nown Colon Device Identifier Serial Number Lot or Batch Number Manufacturing Date Expiration Date Distinct Identification Code MRI Safety Implantable Status Assigning Authority Unknown Unknown [id number] Unknown 05/06/28 Unknown Unknown Active Unknown [...] Safety Implantable Status Assigning Authority Unknown Unknown [id number] Y Unknown 11/05/27 Unknown Unknown Active Unknown Procedure Provider Procedure Date Device Type Site Resection Colon Left Open Jada Chiang MD 12/07/23 Unk nown Colon Device Identifier Serial Number Lot or Batch Number Manufacturing Date Expiration Date Distinct Identification Code MRI Safety Implantable Status Assigning Authority Unknown Unknown [id number] Unknown 01/05/28 Unknown Unknown Active Unk nown Procedure Provider Procedure Date Device Type Site Resection Colon Left Open Jada Chiang MD 12/07/23 Unk nown Colon Device Identifier Serial Number Lot or Batch Number Manufacturing Date Expiration Date Distinct Identification Code MRI Safety Implantable Status Assigning Authority Unknown Unknown [id number] Unknown 03/06/28 Unknown Unknown Active Unk nown Procedure Provider Procedure Date Device Type Site Resection Colon Left Open Jada Chiang MD 12/07/23 Unk nown Colon Device Identifier Serial Number Lot or Batch Number Manufacturing Date Expiration Date Distinct Identification Code MRI Safety Implantable Status Assigning Authority Unknown Unknown [id number] Unknown 12/05/27 Unknown Unknown Active Unk nown Patient Care team information Care Team Personnel Name: Bertha Kolb RN Position: [facility] RN Member Role: Primary Care Nurse Name: Ashley Domínguez RN Position: [facility] RN Member Role: Primary Care Nurse Name: Maame Pearce Position: [facility] Outreach Member Role: Lifetime Consulting Physician Name: Charline Terrazas RN Position: [facility] RN Member Role: Primary Care Nurse Name: Efrain Long RN Position: [facility] RN Member Role: Primary Care Nurse Name: Melyssa White NP Position: Reference Physician Member Role: PCP Address: Address: [address] [place] [address] Name: Nida Ferro RN Position: [facility] RN Member Role: Primary Care Nurse Name: Kaur Wilson RN Position: [facility] RN Member Role: Primary Care Nurse Name: Shasha Chou RN Position: [facility] RN Member Role: Primary Care Nurse Name: Alison Brewer RN Position: [facility] RN Member Role: Primary Care Nurse Name: Adamaris Lynn RN Position: [facility] RN Member Role: Primary Care Nurse Name: Rosario Schwarz RN Position: [facility] SN RN Member Role: Primary Care Nurse Name: Marianne Jesus RN Position: [facility] RN Member Role: Primary Care Nurse Name: Jacquelyn Merchant RN Position: [facility] RN Member Role: Primary Care Nurse Name: Susannah Scanlon RN Position: [facility] RN Member Role: Primary Care Nurse Name: Kriss Pena RN Position: [facility] RN Member Role: Primary Care Nurse Name: Maine Marcial RN Position: [facility] RN Member Role: Primary Care Nurse Name: Lolita Peres RN Position: [facility] RN Member Role: Primary Care Nurse Name: Michael Syed RN Position: [facility] RN Member Role: Primary Care Nurse Care Team Related Persons Name: SERGIO GORDON Address: home [address] [place] [address] Name: EMILY REYNOLDS Address: [place] [address] Name: KATHERIN MONDRAGON Address: home [address] [address]
--- OUTSIDE RECORDS SUMMARY | 2024-06-28 11:59 | XMS_ITS | Continuity of Care Document ---
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 Role Phone Cindy DALEY, Melyssa Primary Care Phys[place] [facility] [place] 04/18/[address] [place] [address]- Allergies, Adverse Reactions, Alerts Substance Reaction Severity Status ibuprofen 1 Hives Active 1swelling,hives Immunizations Given and Recorded Vaccine Date Status Refusal Reason tetanus/diphtheria/pertussis, acel(Tdap) 06/06/13 Given Medications Barrier strips [id number] Barrier strips 645185, See Instructions, # 80 each, Refills 11, [...] Start Date: 02/13/24 Status: Ordered coloplast bags #10388 coloplast bags #31878, See Instructions, # 20 each, Refills 11, Tot. Refills 11, Maintenance, use as needed for ostomy care Dx. ileostomy Z93.2, 01/02/24 15:45:00 EDT, Compound Start Date: 01/02/24 Status: Ordered convatec bags #830883 convatec bags #678041, See Instructions, # 20 each, Refills 11, Tot. Refills 11, Maintenance, use as needed for ostomy care Dx. ileostomy Z93.2, 01/11/24 13:19:00 EDT, Compound Start Date: 01/11/24 Status: Ordered Convatec bags (#544569) Convatec bags (#460669), See Instructions, # 40 each, Refills 11, Tot. Refills 11, Maintenance, useas needed for ostomy maintaince. Dx ileostomy Z93.2, 02/13/24 9:14:00 EDT, Supply Start Date: 02/13/24 Status: Ordered Convatec flange (#310661) Convatec flange (#167557), See Instructions, # 40 each, Refills 11, Tot. Refills 11, Maintenance, use as needed for ostomy maintaince. Dx ileostomy Z93.2, 02/13/24 9:14:00 EDT, Supply Start Date: 02/13/24 Status: Ordered convatec flange# 985105 convatec flange# [id number], See Instructions, # 20 each, Refills 11, Tot. Refills 11, Maintenance, useas needed for ostomy care Dx. ileostomy Z93.2, 01/11/24 13:27:00 EDT, Compound Start Date: 01/11/24 Status: Ordered ConvaTec Ostomy [facility] #474638 ConvaTec Ostomy [facility] #949844, See Instructions, # 20 each, Refills 11, Tot. Refills 11,Maintenance, Use as needed for ostomy maintaince. Dx ileostomy Z93.2, 01/05/24 15:39:00 EDT, Supply Start Date: 01/05/24 Status: Ordered ConvaTec Ostomy Pouch #[id number] ConvaTec Ostomy Pouch #[id number], See Instructions, # 20 each, Refills 11, Tot. Refills 11, Maintenance, Use as needed for ostomy maintaince. Dx ileostomy Z93.2, 01/05/24 15:27:00 EDT, Supply Start Date: 01/05/24 Status: Ordered lidocaine 5% topical film 1 patch, Topically, 2 times a day, remove patches after 12 hours, # 15 patch, 0 Refills, Maintenance, 01/30/24 12:17:00 EDT, Film, [facility] #[id number], Partial fill upon patient request if the prescription is for a schedule II opioid drug., 1... Start Date: 01/30/24 Status: Ordered loperamide 2 mg oral capsule 4 mg, 2, capsule, By Mouth, 4 times a day, for 30 days, take 1/2 hour before meals and at bed time,# 240 capsule, Refills 5, Tot. Refills 5, Acute 07/17/24 15:35:00 EST, 01/19/24 15:35:00 EDT, [facility] Electron[facility], [id number]... Start Date: 01/19/24 Stop Date: 07/17/24 Status: Ordered loperamide 2 mg oral tablet See Instructions, take 2 tablets by mouth 30 minutes before meals and at bedtime, # 240 tablet, 4 Refills, Maintenance, 01/03/24 16:27:00 EDT, Tablet, [facility] #[id number], Partial fill upon patient request if the prescription is for a schedule... Start Date: 01/03/24 Status: Ordered loperamide 2 mg oral tablet See Instructions, take 1 tablet by mouth 30 minutes before meals and at bedtime, # 120 tablet, 4 Refills, Maintenance, 12/21/23 15:35:00 EDT, Tablet, [facility] #[id number], Partial fill upon patient request if the [...] 0 Refills, Maintenance, 11/19/23 9:55:00 EDT, Tablet, [facility] #[id number], Partial fill upon patient request if the [...] 03/29/24 12:06:00 EDT, Route to Pharmacy Electronically, [facility] #[id number], Partial fill upon patient request if the prescription i... Start Date: 03/29/24 Status: Ordered oxyCODONE 5 mg oral tablet 10 mg, 2, tablet, By Mouth, Every 6 hours, PRN, # 40 tablet, Refills 0, Tot. Refills 0, Maintenance, for pain, 03/25/24 13:52:00 EDT, Route to Pharmacy Electronically, [facility] #[id number], Partial fill upon patient request if the prescription... Start Date: 03/25/24 Stop Date: 03/30/24 Status: Ordered straight brava strips 413060 straight brava strips 736929, See Instructions, # 80 each, Refills 11, [...] Safety Implantable Status Assigning Authority Unknown Unknown [id number] Unknown 07/06/27 Unknown Unknown Active Un known Procedure Provider Procedure Date Device Type Site Resection Colon Left Open Jada Chiang MD 12/07/23 Unk nown Colon Device Identifier Serial Number Lot or Batch Number Manufacturing Date Expiration Date Distinct Identification Code MRI Safety Implantable Status Assigning Authority Unknown Unknown [id number] Unknown 12/05/27 Unknown Unknown Active Unk nown Procedure Provider Procedure Date Device Type Site Resection Colon Left Open Jada Chiang MD 12/07/23 Unk nown Colon Device Identifier Serial Number Lot or Batch Number Manufacturing Date Expiration Date Distinct Identification Code MRI Safety Implantable Status Assigning Authority Unknown Unknown [id number] Y Unknown 05/06/28 Unknown Unknown Active Unknown [...] Safety Implantable Status Assigning Authority Unknown Unknown [id number] Y Unknown 11/05/27 Unknown Unknown Active Unknown Procedure Provider Procedure Date Device Type Site Resection Colon Left Open Jada Chiang MD 12/07/23 Unk nown Colon Device Identifier Serial Number Lot or Batch Number Manufacturing Date Expiration Date Distinct Identification Code MRI Safety Implantable Status Assigning Authority Unknown Unknown [id number] Unknown 01/05/28 Unknown Unknown Active Unk nown Procedure Provider Procedure Date Device Type Site Resection Colon Left Open Jada Chiang MD 12/07/23 Unk nown Colon Device Identifier Serial Number Lot or Batch Number Manufacturing Date Expiration Date Distinct Identification Code MRI Safety Implantable Status Assigning Authority Unknown Unknown [id number] Unknown 03/06/28 Unknown Unknown Active Unk nown Procedure Provider Procedure Date Device Type Site Resection Colon Left Open Jada Chiang MD 12/07/23 Unk nown Colon Device Identifier Serial Number Lot or Batch Number Manufacturing Date Expiration Date Distinct Identification Code MRI Safety Implantable Status Assigning Authority Unknown Unknown [id number] Unknown 12/05/27 Unknown Unknown Active Unk nown Patient Care team information Care Team Personnel Name: Bertha Kolb RN Position: [facility] RN Member Role: Primary Care Nurse Name: Ashley Domínguez RN Position: [facility] RN Member Role: Primary Care Nurse Name: Maame Pearce Position: [facility] Outreach Member Role: Lifetime Consulting Physician Name: Charline Terrazas RN Position: [facility] RN Member Role: Primary Care Nurse Name: Efrain Long RN Position: [facility] RN Member Role: Primary Care Nurse Name: Melyssa White NP Position: Reference Physician Member Role: PCP Address: Address: [address] [place] [address] Name: Nida Ferro RN Position: [facility] RN Member Role: Primary Care Nurse Name: Kaur Wilson RN Position: [facility] RN Member Role: Primary Care Nurse Name: Shasha Chou RN Position: [facility] RN Member Role: Primary Care Nurse Name: Alison Brewer RN Position: [facility] RN Member Role: Primary Care Nurse Name: Adamaris Lynn RN Position: [facility] RN Member Role: Primary Care Nurse Name: Rosario Schwarz RN Position: [facility] SN RN Member Role: Primary Care Nurse Name: Marianne Jesus RN Position: [facility] RN Member Role: Primary Care Nurse Name: Jacquelyn Merchant RN Position: [facility] RN Member Role: Primary Care Nurse Name: Susannah Scanlon RN Position: [facility] RN Member Role: Primary Care Nurse Name: Kriss Pena RN Position: [facility] RN Member Role: Primary Care Nurse Name: [place] Marcial RN Position: [facility] RN Member Role: Primary Care Nurse Name: Lolita Peres RN Position: [facility] RN Member Role: Primary Care Nurse Name: Michael Syed RN Position: [facility] RN Member Role: Primary Care Nurse Care Team Related Persons Name: SERGIO GORDON Address: [address] [place] [address] Name: EMILY REYNOLDS Address: [place] [address] Name: KATHERIN MONDRAGON Address: home [address] [address]
--- OUTSIDE RECORDS SUMMARY | 2024-06-28 11:59 | XMS_ITS | Continuity of Care Document ---
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 Role Phone Cindy DALEY, Melyssa Primary Care Physician Encounter [facility] [place] Date(s): 03/18/24 - 04/17/[address] [place] [address]- Allergies, Adverse Reactions, Alerts Substance Reaction Severity Status ibuprofen 1 Hives Active 1swelling,hives Immunizations Given and Recorded Vaccine Date Status Refusal Reason tetanus/diphtheria/pertussis, acel(Tdap) 06/06/13 Given Medications Barrier strips [id number] Barrier strips [id number], See Instructions, # 80 each, Refills 11, [...] Start Date: 02/13/24 Status: Ordered coloplast bags #62103 coloplast bags #07905, See Instructions, # 20 each, Refills 11, Tot. Refills 11, Maintenance, use as needed for ostomy care Dx. ileostomy Z93.2, 01/02/24 15:45:00 EDT, Compound Start Date: 01/02/24 Status: Ordered convatec bags #[id number] convatec bags #[id number], See Instructions, # 20 each, Refills 11, Tot. Refills 11, Maintenance, use as needed for ostomy care Dx. ileostomy Z93.2, 01/11/24 13:19:00 EDT, Compound Start Date: 01/11/24 Status: Ordered Convatec bags (#[id number]) Convatec bags (#269668), See Instructions, # 40 each, Refills 11, Tot. Refills 11, Maintenance, useas needed for ostomy maintaince. Dx ileostomy Z93.2, 02/13/24 9:14:00 EDT, Supply Start Date: 02/13/24 Status: Ordered Convatec flange (#923100) Convatec flange (#529747), See Instructions, # 40 each, Refills 11, Tot. Refills 11, Maintenance, use as needed for ostomy maintaince. Dx ileostomy Z93.2, 02/13/24 9:14:00 EDT, Supply Start Date: 02/13/24 Status: Ordered convatec flange# [id number] convatec flange# [id number], See Instructions, # 20 each, Refills 11, Tot. Refills 11, Maintenance, useas needed for ostomy care Dx. ileostomy Z93.2, 01/11/24 13:27:00 EDT, Compound Start Date: 01/11/24 Status: Ordered ConvaTec Ostomy [facility] #[id number] ConvaTec Ostomy [facility] #718056, See Instructions, # 20 each, Refills 11, Tot. Refills 11,Maintenance, Use as needed for ostomy maintaince. Dx ileostomy Z93.2, 01/05/24 15:39:00 EDT, Supply Start Date: 01/05/24 Status: Ordered ConvaTec Ostomy Pouch #[id number] ConvaTec Ostomy Pouch #[id number], See Instructions, # 20 each, Refills 11, Tot. Refills 11, Maintenance, Use as needed for ostomy maintaince. Dx ileostomy Z93.2, 01/05/24 15:27:00 EDT, Supply Start Date: 01/05/24 Status: Ordered lidocaine 5% topical film 1 patch, Topically, 2 times a day, remove patches after 12 hours, # 15 patch, 0 Refills, Maintenance, 01/30/24 12:17:00 EDT, Film, [facility] #[id number], Partial fill upon patient request if the prescription is for a schedule II opioid drug., 1... Start Date: 01/30/24 Status: Ordered loperamide 2 mg oral capsule 4 mg, 2, capsule, By Mouth, 4 times a day, for 30 days, take 1/2 hour before meals and at bed time,# 240 capsule, Refills 5, Tot. Refills 5, Acute 07/17/24 15:35:00 EST, 01/19/24 15:35:00 EDT, [facility] Electronically, [facility] #0... Start Date: 01/19/24 Stop Date: 07/17/24 Status: Ordered loperamide 2 mg oral tablet See Instructions, take 2 tablets by mouth 30 minutes before meals and at bedtime, # 240 tablet, 4 Refills, Maintenance, 01/03/24 16:27:00 EDT, Tablet, [facility] #[id number], Partial fill upon patient request if the prescription is for a schedule... Start Date: 01/03/24 Status: Ordered loperamide 2 mg oral tablet See Instructions, take 1 tablet by mouth 30 minutes before meals and at bedtime, # 120 tablet, 4 Refills, Maintenance, 12/21/23 15:35:00 EDT, Tablet, [facility] #[id number], Partial fill upon patient request if the [...] 0 Refills, Maintenance, 11/19/23 9:55:00 EDT, Tablet, [facility] #[id number], Partial fill upon patient request if the [...] 03/29/24 12:06:00 EDT, Route to Pharmacy Electronically, [facility] #[id number], Partial fill upon patient request if the prescription i... Start Date: 03/29/24 Status: Ordered oxyCODONE 5 mg oral tablet 10 mg, 2, tablet, By Mouth, Every 6 hours, PRN, # 40 tablet, Refills 0, Tot. Refills 0, Maintenance, for pain, 03/25/24 13:52:00 EDT, Route to Pharmacy Electronically, [facility] #[id number], Partial fill upon patient request if the prescription... Start Date: 03/25/24 Stop Date: 03/30/24 Status: Ordered straight brava strips [id number] straight brava strips [id number], See Instructions, # 80 each, Refills 11, [...] Safety Implantable Status Assigning Authority Unknown Unknown [id number] Unknown 07/06/27 Unknown Unknown Active Un known Procedure Provider Procedure Date Device Type Site Resection Colon Left Open Jada Chiang MD 12/07/23 Unk nown Colon Device Identifier Serial Number Lot or Batch Number Manufacturing Date Expiration Date Distinct Identification Code MRI Safety Implantable Status Assigning Authority Unknown Unknown [id number] Unknown 12/05/27 Unknown Unknown Active Unk nown Procedure Provider Procedure Date Device Type Site Resection Colon Left Open Jada Chiang MD 12/07/23 Unk nown Colon Device Identifier Serial Number Lot or Batch Number Manufacturing Date Expiration Date Distinct Identification Code MRI Safety Implantable Status Assigning Authority Unknown Unknown [id number] Unknown 05/06/28 Unknown Unknown Active Unknown [...] Safety Implantable Status Assigning Authority Unknown Unknown [id number] Unknown 11/05/27 Unknown Unknown Active Unknown Procedure Provider Procedure Date Device Type Site Resection Colon Left Open Jada Chiang MD 12/07/23 Unk nown Colon Device Identifier Serial Number Lot or Batch Number Manufacturing Date Expiration Date Distinct Identification Code MRI Safety Implantable Status Assigning Authority Unknown Unknown [id number] Unknown 01/05/28 Unknown Unknown Active Unk nown Procedure Provider Procedure Date Device Type Site Resection Colon Left Open Jada Chiang MD 12/07/23 Unk nown Colon Device Identifier Serial Number Lot or Batch Number Manufacturing Date Expiration Date Distinct Identification Code MRI Safety Implantable Status Assigning Authority Unknown Unknown [id number] Unknown 03/06/28 Unknown Unknown Active Unk nown Procedure Provider Procedure Date Device Type Site Resection Colon Left Open Jada Chiang MD 12/07/23 Unk nown Colon Device Identifier Serial Number Lot or Batch Number Manufacturing Date Expiration Date Distinct Identification Code MRI Safety Implantable Status Assigning Authority Unknown Unknown [id number] Unknown 12/05/27 Unknown Unknown Active Unk nown Patient Care team information Care Team Personnel Name: Bertha Kolb RN Position: [facility] RN Member Role: Primary Care Nurse Name: Ashley Domínguez RN Position: [facility] RN Member Role: Primary Care Nurse Name: Maame Pearce Position: [facility] Outreach Member Role: Lifetime Consulting Physician Name: Charline Terrazas RN Position: [facility] RN Member Role: Primary Care Nurse Name: Efrain Long RN Position: [facility] RN Member Role: Primary Care Nurse Name: Melyssa White NP Position: Reference Physician Member Role: PCP Address: Address: [address] [place] [address] Name: Nida Ferro RN Position: [facility] RN Member Role: Primary Care Nurse Name: Kaur Wilson RN Position: [facility] RN Member Role: Primary Care Nurse Name: Shasha Chou RN Position: [facility] RN Member Role: Primary Care Nurse Name: Alison Brewer RN Position: [facility] RN Member Role: Primary Care Nurse Name: Adamaris Lynn RN Position: [facility] RN Member Role: Primary Care Nurse Name: Rosario Schwarz RN Position: [facility] SN RN Member Role: Primary Care Nurse Name: Marianne Jesus RN Position: [facility] RN Member Role: Primary Care Nurse Name: Jacquelyn Merchant RN Position: [facility] RN Member Role: Primary Care Nurse Name: Susannah Scanlon RN Position: [facility] RN Member Role: Primary Care Nurse Name: Kriss Pena RN Position: [facility] RN Member Role: Primary Care Nurse Name: Maine Marcial RN Position: [facility] RN Member Role: Primary Care Nurse Name: Lolita Peres RN Position: [facility] RN Member Role: Primary Care Nurse Name: Michael Syed RN Position: [facility] RN Member Role: Primary Care Nurse Care Team Related Persons Name: SERGIO GORDON Address: [address] [place] [address] Name: EMILY REYNOLDS Address: [place] [address] Name: KATHERIN MONDRAGON Address: home [address] [address]
--- OUTSIDE RECORDS SUMMARY | 2024-06-28 11:59 | XMS_ITS | Continuity of Care Document ---
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 Role Phone Melyssa White NP Primary Care Physician [phone] [place] [facility] [place] [place] [address]- Attending Physician: Lashon Baum NP Allergies, Adverse Reactions, Alerts Substance Reaction Severity Status ibuprofen 1 Hives Active 1swelling,hives Immunizations Given and Recorded Vaccine Date Status Refusal Reason tetanus/diphtheria/pertussis, acel(Tdap) 06/06/13 Given Medications Barrier strips [id number] Barrier strips 590122, See Instructions, # 80 each, Refills 11, [...] Start Date: 02/13/24 Status: Ordered coloplast bags #70724 coloplast bags #88613, See Instructions, # 20 each, Refills 11, Tot. Refills 11, Maintenance, use as needed for ostomy care Dx. ileostomy Z93.2, 01/02/24 15:45:00 EDT, Compound Start Date: 01/02/24 Status: Ordered convatec bags #310403 convatec bags #989573, See Instructions, # 20 each, Refills 11, Tot. Refills 11, Maintenance, use as needed for ostomy care Dx. ileostomy Z93.2, 01/11/24 13:19:00 EDT, Compound Start Date: 01/11/24 Status: Ordered Convatec bags (#400368) Convatec bags (#403673), See Instructions, # 40 each, Refills 11, Tot. Refills 11, Maintenance, useas needed for ostomy maintaince. Dx ileostomy Z93.2, 02/13/24 9:14:00 EDT, Supply Start Date: 02/13/24 Status: Ordered Convatec flange (#967817) Convatec flange (#564864), See Instructions, # 40 each, Refills 11, Tot. Refills 11, Maintenance, use as needed for ostomy maintaince. Dx ileostomy Z93.2, 02/13/24 9:14:00 EDT, Supply Start Date: 02/13/24 Status: Ordered convatec flange# 513061 convatec flange# 792124, See Instructions, # 20 each, Refills 11, Tot. Refills 11, Maintenance, useas needed for ostomy care Dx. ileostomy Z93.2, 01/11/24 13:27:00 EDT, Compound Start Date: 01/11/24 Status: Ordered ConvaTec Ostomy [facility] #700930 ConvaTec Ostomy [facility] #422750, See Instructions, # 20 each, Refills 11, Tot. Refills 11,Maintenance, Use as needed for ostomy maintaince. Dx ileostomy Z93.2, 01/05/24 15:39:00 EDT, Supply Start Date: 01/05/24 Status: Ordered ConvaTec Ostomy Pouch #088556 ConvaTec Ostomy Pouch #009628, See Instructions, # 20 each, Refills 11, Tot. Refills 11, Maintenance, Use as needed for ostomy maintaince. Dx ileostomy Z93.2, 01/05/24 15:27:00 EDT, Supply Start Date: 01/05/24 Status: Ordered lidocaine 5% topical film 1 patch, Topically, 2 times a day, remove patches after 12 hours, # 15 patch, 0 Refills, Maintenance, 01/30/24 12:17:00 EDT, Film, [facility] #[id number], Partial fill upon patient request if the prescription is for a schedule II opioid drug., 1... Start Date: 01/30/24 Status: Ordered loperamide 2 mg oral capsule 4 mg, 2, capsule, By Mouth, 4 times a day, for 30 days, take 1/2 hour before meals and at bed time,# 240 capsule, Refills 5, Tot. Refills 5, Acute 07/17/24 15:35:00 EST, 01/19/24 15:35:00 EDT, [facility] Electron[facility], [facility] #[id number]... Start Date: 01/19/24 Stop Date: 07/17/24 Status: Ordered loperamide 2 mg oral tablet See Instructions, take 2 tablets by mouth 30 minutes before meals and at bedtime, # 240 tablet, 4 Refills, Maintenance, 01/03/24 16:27:00 EDT, Tablet, [facility] #[id number], Partial fill upon patient request if the prescription is for a schedule... Start Date: 01/03/24 Status: Ordered loperamide 2 mg oral tablet See Instructions, take 1 tablet by mouth 30 minutes before meals and at bedtime, # 120 tablet, 4 Refills, Maintenance, 12/21/23 15:35:00 EDT, Tablet, [facility] #[id number], Partial fill upon patient request if the [...] 0 Refills, Maintenance, 11/19/23 9:55:00 EDT, Tablet, [facility] #[id number], Partial fill upon patient request if the [...] 03/29/24 12:06:00 EDT, Route to Pharmacy Electronically, [facility] #[id number], Partial fill upon patient request if the prescription i... Start Date: 03/29/24 Status: Ordered oxyCODONE 5 mg oral tablet 10 mg, 2, tablet, By Mouth, Every 6 hours, PRN, # 40 tablet, Refills 0, Tot. Refills 0, Maintenance, for pain, 03/25/24 13:52:00 EDT, Route to Pharmacy Electronically, [facility] #[id number], Partial fill upon patient request if the prescription... Start Date: 03/25/24 Stop Date: 03/30/24 Status: Ordered straight brava strips 654239 straight brava strips 095476, See Instructions, # 80 each, Refills 11, [...] Safety Implantable Status Assigning Authority Unknown Unknown [id number] Unknown 07/06/27 Unknown Unknown Active Un known Procedure Provider Procedure Date Device Type Site Resection Colon Left Open Jada Chiang MD 12/07/23 Unk nown Colon Device Identifier Serial Number Lot or Batch Number Manufacturing Date Expiration Date Distinct Identification Code MRI Safety Implantable Status Assigning Authority Unknown Unknown [id number] Unknown 12/05/27 Unknown Unknown Active Unk nown Procedure Provider Procedure Date Device Type Site Resection Colon Left Open Jada Chiang MD 12/07/23 Unk nown Colon Device Identifier Serial Number Lot or Batch Number Manufacturing Date Expiration Date Distinct Identification Code MRI Safety Implantable Status Assigning Authority Unknown Unknown [id number] Unknown 05/06/28 Unknown Unknown Active Unknown [...] Safety Implantable Status Assigning Authority Unknown Unknown [id number] Unknown 11/05/27 Unknown Unknown Active Unknown Procedure Provider Procedure Date Device Type Site Resection Colon Left Open Jada Chiang MD 12/07/23 Unk nown Colon Device Identifier Serial Number Lot or Batch Number Manufacturing Date Expiration Date Distinct Identification Code MRI Safety Implantable Status Assigning Authority Unknown Unknown [id number] Unknown 01/05/28 Unknown Unknown Active Unk nown Procedure Provider Procedure Date Device Type Site Resection Colon Left Open Jada Chiang MD 12/07/23 Unk nown Colon Device Identifier Serial Number Lot or Batch Number Manufacturing Date Expiration Date Distinct Identification Code MRI Safety Implantable Status Assigning Authority Unknown Unknown [id number] Unknown 03/06/28 Unknown Unknown Active Unk nown Procedure Provider Procedure Date Device Type Site Resection Colon Left Open Jada Chiang MD 12/07/23 Unk nown Colon Device Identifier Serial Number Lot or Batch Number Manufacturing Date Expiration Date Distinct Identification Code MRI Safety Implantable Status Assigning Authority Unknown Unknown [id number] Unknown 12/05/27 Unknown Unknown Active Unk nown Patient Care team information Care Team Personnel Name: Bertha Kolb RN Position: [facility] RN Member Role: Primary Care Nurse Name: Ashley Domínguez RN Position: [facility] RN Member Role: Primary Care Nurse Name: Maame Pearce Position: [facility] Outreach Member Role: Lifetime Consulting Physician Name: Charline Terrazas RN Position: [facility] RN Member Role: Primary Care Nurse Name: Efrain Long RN Position: [facility] RN Member Role: Primary Care Nurse Name: Melyssa White NP Position: Reference Physician Member Role: PCP Address: Address: [address] [place] [address] Name: Nida Ferro RN Position: [facility] RN Member Role: Primary Care Nurse Name: Kaur Wilson RN Position: [facility] RN Member Role: Primary Care Nurse Name: Shasha Chou RN Position: [facility] RN Member Role: Primary Care Nurse Name: Alison Brewer RN Position: [facility] RN Member Role: Primary Care Nurse Name: Adamaris Lynn RN Position: [facility] RN Member Role: Primary Care Nurse Name: Rosario Schwarz RN Position: [facility] SN RN Member Role: Primary Care Nurse Name: Marianne Jesus RN Position: [facility] RN Member Role: Primary Care Nurse Name: Jacquelyn Merchant RN Position: [facility] RN Member Role: Primary Care Nurse Name: Susannah Scanlon RN Position: [facility] RN Member Role: Primary Care Nurse Name: Kriss Pena RN Position: [facility] RN Member Role: Primary Care Nurse Name: [place] Marcial RN Position: [facility] RN Member Role: Primary Care Nurse Name: Lolita Peres RN Position: [facility] RN Member Role: Primary Care Nurse Name: Michael Syed RN Position: [facility] RN Member Role: Primary Care Nurse Care Team Related Persons Name: SERGIO GORDON Address: [address] [place] [address] Name: EMILY REYNOLDS Address: [place] [address] Name: KATHERIN MONDRAGON Address: home [address] [address]
--- OUTSIDE RECORDS SUMMARY | 2024-06-28 11:59 | XMS_ITS | Continuity of Care Document ---
Author Organization [facility] As [facility] Address [address] [place] [address] [address] [place] [address]- Care Team Providers Care Medical Records Auditor Name Role Phone Cindy DALEY, Melyssa Primary Care Physician [phone] [facility]counter [facility] Date(s): 03/20/24 - 04/19/[address] [place] [address]- Allergies, Adverse Reactions, Alerts Substance Reaction Severity Status ibuprofen 1 Hives Active 1swelling,hives Immunizations Given and Recorded Vaccine Date Status Refusal Reason tetanus/diphtheria/pertussis, acel(Tdap) 06/06/13 Given Medications Barrier strips [id number] Barrier strips [id number], See Instructions, # 80 each, Refills 11, [...] Start Date: 02/13/24 Status: Ordered coloplast bags #73061 coloplast bags #08055, See Instructions, # 20 each, Refills 11, Tot. Refills 11, Maintenance, use as needed for ostomy care Dx. ileostomy Z93.2, 01/02/24 15:45:00 EDT, Compound Start Date: 01/02/24 Status: Ordered convatec bags #159344 convatec bags #[id number], See Instructions, # 20 each, Refills 11, Tot. Refills 11, Maintenance, use as needed for ostomy care Dx. ileostomy Z93.2, 01/11/24 13:19:00 EDT, Compound Start Date: 01/11/24 Status: Ordered Convatec bags (#676573) Convatec bags (#714773), See Instructions, # 40 each, Refills 11, Tot. Refills 11, Maintenance, useas needed for ostomy maintaince. Dx ileostomy Z93.2, 02/13/24 9:14:00 EDT, Supply Start Date: 02/13/24 Status: Ordered Convatec flange (#819409) Convatec flange (#404075), See Instructions, # 40 each, Refills 11, Tot. Refills 11, Maintenance, use as needed for ostomy maintaince. Dx ileostomy Z93.2, 02/13/24 9:14:00 EDT, Supply Start Date: 02/13/24 Status: Ordered convatec flange# [id number] convatec flange# [id number], See Instructions, # 20 each, Refills 11, Tot. Refills 11, Maintenance, useas needed for ostomy care Dx. ileostomy Z93.2, 01/11/24 13:27:00 EDT, Compound Start Date: 01/11/24 Status: Ordered ConvaTec Ostomy Accordion Flange #880318 ConvaTec Ostomy Accordion Flange #028241, See Instructions, # 20 each, Refills 11, Tot. Refills 11,Maintenance, Use as needed for ostomy maintaince. Dx ileostomy Z93.2, 01/05/24 15:39:00 EDT, Supply Start Date: 01/05/24 Status: Ordered ConvaTec Ostomy Pouch #[id number] ConvaTec Ostomy Pouch #[id number], See Instructions, # 20 each, Refills 11, Tot. Refills 11, Maintenance, Use as needed for ostomy maintaince. Dx ileostomy Z93.2, 01/05/24 15:27:00 EDT, Supply Start Date: 01/05/24 Status: Ordered lidocaine 5% topical film 1 patch, Topically, 2 times a day, remove patches after 12 hours, # 15 patch, 0 Refills, Maintenance, 01/30/24 12:17:00 EDT, Film, [facility] #[id number], Partial fill upon patient request if the prescription is for a schedule II opioid drug., 1... Start Date: 01/30/24 Status: Ordered loperamide 2 mg oral capsule 4 mg, 2, capsule, By Mouth, 4 times a day, for 30 days, take 1/2 hour before meals and at bed time,# 240 capsule, Refills 5, Tot. Refills 5, Acute 07/17/24 15:35:00 EST, 01/19/24 15:35:00 EDT, [facility] Electron[facility], [facility] #0... Start Date: 01/19/24 Stop Date: 07/17/24 Status: Ordered loperamide 2 mg oral tablet See Instructions, take 2 tablets by mouth 30 minutes before meals and at bedtime, # 240 tablet, 4 Refills, Maintenance, 01/03/24 16:27:00 EDT, Tablet, [facility] #[id number], Partial fill upon patient request if the prescription is for a schedule... Start Date: 01/03/24 Status: Ordered loperamide 2 mg oral tablet See Instructions, take 1 tablet by mouth 30 minutes before meals and at bedtime, # 120 tablet, 4 Refills, Maintenance, 12/21/23 15:35:00 EDT, Tablet, [facility] #[id number], Partial fill upon patient request if the [...] 0 Refills, Maintenance, 11/19/23 9:55:00 EDT, Tablet, [facility] #[id number], Partial fill upon patient request if the [...] 03/29/24 12:06:00 EDT, Route to Pharmacy Electronically, [facility] #[id number], Partial fill upon patient request if the prescription i... Start Date: 03/29/24 Status: Ordered oxyCODONE 5 mg oral tablet 10 mg, 2, tablet, By Mouth, Every 6 hours, PRN, # 40 tablet, Refills 0, Tot. Refills 0, Maintenance, for pain, 03/25/24 13:52:00 EDT, Route to Pharmacy Electronically, [facility] #[id number], Partial fill upon patient request if the prescription... Start Date: 03/25/24 Stop Date: 03/30/24 Status: Ordered straight brava strips [id number] straight brava strips [id number], See Instructions, # 80 each, Refills 11, [...] Safety Implantable Status Assigning Authority Unknown Unknown [id number] Unknown 07/06/27 Unknown Unknown Active Un known Procedure Provider Procedure Date Device Type Site Resection Colon Left Open Jada Chiang MD 12/07/23 Unk nown Colon Device Identifier Serial Number Lot or Batch Number Manufacturing Date Expiration Date Distinct Identification Code MRI Safety Implantable Status Assigning Authority Unknown Unknown [id number] Unknown 12/05/27 Unknown Unknown Active Unk nown Procedure Provider Procedure Date Device Type Site Resection Colon Left Open Jada Chiang MD 12/07/23 Unk nown Colon Device Identifier Serial Number Lot or Batch Number Manufacturing Date Expiration Date Distinct Identification Code MRI Safety Implantable Status Assigning Authority Unknown Unknown [id number] Unknown 05/06/28 Unknown Unknown Active Unknown [...] Safety Implantable Status Assigning Authority Unknown Unknown [id number] Unknown 11/05/27 Unknown Unknown Active Unknown Procedure Provider Procedure Date Device Type Site Resection Colon Left Open Jada Chiang MD 12/07/23 Unk nown Colon Device Identifier Serial Number Lot or Batch Number Manufacturing Date Expiration Date Distinct Identification Code MRI Safety Implantable Status Assigning Authority Unknown Unknown [id number] Unknown 01/05/28 Unknown Unknown Active Unk nown Procedure Provider Procedure Date Device Type Site Resection Colon Left Open Jada Chiang MD 12/07/23 Unk nown Colon Device Identifier Serial Number Lot or Batch Number Manufacturing Date Expiration Date Distinct Identification Code MRI Safety Implantable Status Assigning Authority Unknown Unknown [id number] Unknown 03/06/28 Unknown Unknown Active Unk nown Procedure Provider Procedure Date Device Type Site Resection Colon Left Open Jada Chiang MD 12/07/23 Unk nown Colon Device Identifier Serial Number Lot or Batch Number Manufacturing Date Expiration Date Distinct Identification Code MRI Safety Implantable Status Assigning Authority Unknown Unknown [id number] Unknown 12/05/27 Unknown Unknown Active Unk nown [...] Physician Member Role: PCP Address: Address: [address] [place] [address] Name: Nida Ferro RN [facility] Care Nurse Name: Jacquelyn Merchant RN Position: [facility] RN Member Role: Primary Care Nurse Name: Susannah Scanlon RN Position: [facility] RN Member Role: Primary Care Nurse Name: Kriss Pena RN Position: [facility] RN Member Role: Primary Care Nurse Name: Maine Marcial RN Position: [facility] RN Member Role: Primary Care Nurse Name: Lolita Peres RN Position: [facility] RN Member Role: Primary Care Nurse Name: Michael Syed RN Position: [facility] RN Member Role: Primary Care Nurse Care Team Related Persons Name: SERGIO GORDON Address: home [address] [place] [address] Name: EMILY REYNOLDS Address: [place] [address] Name: KATHERIN MONDRAGON Address: home [address] [address]
--- OUTSIDE RECORDS SUMMARY | 2024-06-28 12:00 | XMS_ITS | Continuity of Care Document ---
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 Date(s): 03/11/24 - 04/10/24 [facility] [address] [place] [address]- Allergies, Adverse Reactions, Alerts Substance Reaction Severity Status ibuprofen 1 Hives Active 1swelling,hives Immunizations Given and Recorded Vaccine Date Status Refusal Reason tetanus/diphtheria/pertussis, acel(Tdap) 06/06/13 Given Medications Barrier strips [id number] Barrier strips 806526, See Instructions, # 80 each, Refills 11, [...] Start Date: 02/13/24 Status: Ordered coloplast bags #28188 coloplast bags #26826, See Instructions, # 20 each, Refills 11, Tot. Refills 11, Maintenance, use as needed for ostomy care Dx. ileostomy Z93.2, 01/02/24 15:45:00 EDT, Compound Start Date: 01/02/24 Status: Ordered convatec bags #396351 convatec bags #[id number], See Instructions, # 20 each, Refills 11, Tot. Refills 11, Maintenance, use as needed for ostomy care Dx. ileostomy Z93.2, 01/11/24 13:19:00 EDT, Compound Start Date: 01/11/24 Status: Ordered Convatec bags (#176748) Convatec bags (#295644), See Instructions, # 40 each, Refills 11, Tot. Refills 11, Maintenance, useas needed for ostomy maintaince. Dx ileostomy Z93.2, 02/13/24 9:14:00 EDT, Supply Start Date: 02/13/24 Status: Ordered Convatec flange (#554527) Convatec flange (#084523), See Instructions, # 40 each, Refills 11, Tot. Refills 11, Maintenance, use as needed for ostomy maintaince. Dx ileostomy Z93.2, 02/13/24 9:14:00 EDT, Supply Start Date: 02/13/24 Status: Ordered convatec flange# 029443 convatec flange# 673924, See Instructions, # 20 each, Refills 11, Tot. Refills 11, Maintenance, useas needed for ostomy care Dx. ileostomy Z93.2, 01/11/24 13:27:00 EDT, Compound Start Date: 01/11/24 Status: Ordered ConvaTec Ostomy Accordion Flange #562813 ConvaTec Ostomy [employer] Flange #563990, See Instructions, # 20 each, Refills 11, Tot. Refills 11,Maintenance, Use as needed for ostomy maintaince. Dx ileostomy Z93.2, 01/05/24 15:39:00 EDT, Supply Start Date: 01/05/24 Status: Ordered ConvaTec Ostomy Pouch #[id number] ConvaTec Ostomy Pouch #[id number], See Instructions, # 20 each, Refills 11, Tot. Refills 11, Maintenance, Use as needed for ostomy maintaince. Dx ileostomy Z93.2, 01/05/24 15:27:00 EDT, Supply Start Date: 01/05/24 Status: Ordered lidocaine 5% topical film 1 patch, Topically, 2 times a day, remove patches after 12 hours, # 15 patch, 0 Refills, Maintenance, 01/30/24 12:17:00 EDT, Film, [facility] #[id number], Partial fill upon patient request if the prescription is for a schedule II opioid drug., 1... Start Date: 01/30/24 Status: Ordered loperamide 2 mg oral capsule 4 mg, 2, capsule, By Mouth, 4 times a day, for 30 days, take 1/2 hour before meals and at bed time,# 240 capsule, Refills 5, Tot. Refills 5, Acute 07/17/24 15:35:00 EST, 01/19/24 15:35:00 EDT, [facility] Electron[facility], [facility] #0... Start Date: 01/19/24 Stop Date: 07/17/24 Status: Ordered loperamide 2 mg oral tablet See Instructions, take 2 tablets by mouth 30 minutes before meals and at bedtime, # 240 tablet, 4 Refills, Maintenance, 01/03/24 16:27:00 EDT, Tablet, [facility] #[id number], Partial fill upon patient request if the prescription is for a schedule... Start Date: 01/03/24 Status: Ordered loperamide 2 mg oral tablet See Instructions, take 1 tablet by mouth 30 minutes before meals and at bedtime, # 120 tablet, 4 Refills, Maintenance, 12/21/23 15:35:00 EDT, Tablet, [facility] #[id number], Partial fill upon patient request if the [...] 0 Refills, Maintenance, 11/19/23 9:55:00 EDT, Tablet, [facility] #[id number], Partial fill upon patient request if the [...] 03/29/24 12:06:00 EDT, Route to Pharmacy Electronically, [facility] #[id number], Partial fill upon patient request if the prescription i... Start Date: 03/29/24 Status: Ordered oxyCODONE 5 mg oral tablet 10 mg, 2, tablet, By Mouth, Every 6 hours, PRN, # 40 tablet, Refills 0, Tot. Refills 0, Maintenance, for pain, 03/25/24 13:52:00 EDT, Route to Pharmacy Electronically, [facility] #[id number], Partial fill upon patient request if the prescription... Start Date: 03/25/24 Stop Date: 03/30/24 Status: Ordered straight brava strips 974179 straight brava strips 756015, See Instructions, # 80 each, Refills 11, Tot. Refills 11, Maintenance, use as needed for ostomy care Dx ileostomy Z 93.2, 01/11/24 13:19:00 EDT, Compound Start Date: 01/11/24 Status: Ordered traMADol 50 mg oral tablet 1 tablet = 50 mg, By Mouth, Every 4 hours, PRN as needed for pain, for 7 days, # 21 tablet, 0 Refills, Acute 04/17/24 17:39:00 EDT, 04/10/24 17:39:00 EDT, Tablet, [facility] #[id number], Partialfill upon patient request if the prescription is fo... Start Date: 04/10/24 Stop Date: 04/17/24 Status: Ordered traMADol 50 mg oral tablet 1 tablet = 50 mg, By Mouth, Every 8 hours, for 7 days, # 21 tablet, 0 Refills, Acute 04/11/24 11:18:00 EDT, 04/04/24 11:18:00 EDT, [facility] #[id number], Partial fill upon patient request if the prescription is for a schedule II opioid drug., 15... Start Date: 04/04/24 Stop Date: 04/11/24 Status: Ordered traMADol 50 mg oral tablet 1 tablet = 50 mg, By Mouth, Every 8 hours, for 7 days, # 21 tablet, 0 Refills, Acute 04/11/24 10:30:00 EDT, 04/04/24 10:30:00 EDT, [facility] #[id number], Partial fill upon patient request if the prescription is for a schedule II opioid drug., 15... Start Date: 04/04/24 Stop Date: 04/11/24 Status: Ordered elsy chin, See Instructions, # [...] Left Open Jada Chiang MD 12/07/23 Unk maryn Colon Device Identifier Serial Number Lot or Batch Number Manufacturing Date Expiration Date Distinct Identification Code MRI Safety Implantable Status Assigning Authority Unknown Unknown [id number] Unknown 07/06/27 Unknown Unknown Active Un known Procedure Provider Procedure Date Device Type Site Resection Colon Left Open Jada Chiang MD 12/07/23 Unk nown Colon Device Identifier Serial Number Lot or Batch Number Manufacturing Date Expiration Date Distinct Identification Code MRI Safety Implantable Status Assigning Authority Unknown Unknown [id number] Unknown 12/05/27 Unknown Unknown Active Unk nown Procedure Provider Procedure Date Device Type Site Resection Colon Left Open Jada Chiang MD 12/07/23 Unk nown Colon Device Identifier Serial Number Lot or Batch Number Manufacturing Date Expiration Date Distinct Identification Code MRI Safety Implantable Status Assigning Authority Unknown Unknown [id number] Y Unknown 05/06/28 Unknown Unknown Active Unknown [...] Safety Implantable Status Assigning Authority Unknown Unknown [id number] Y Unknown 11/05/27 Unknown Unknown Active Unknown Procedure Provider Procedure Date Device Type Site Resection Colon Left Open Jada Chiang MD 12/07/23 Unk nown Colon Device Identifier Serial Number Lot or Batch Number Manufacturing Date Expiration Date Distinct Identification Code MRI Safety Implantable Status Assigning Authority Unknown Unknown [id number] Unknown 01/05/28 Unknown Unknown Active Unk nown Procedure Provider Procedure Date Device Type Site Resection Colon Left Open Jada Chiang MD 12/07/23 Unk nown Colon Device Identifier Serial Number Lot or Batch Number Manufacturing Date Expiration Date Distinct Identification Code MRI Safety Implantable Status Assigning Authority Unknown Unknown [id number] Unknown 03/06/28 Unknown Unknown Active Unk nown Procedure Provider Procedure Date Device Type Site Resection Colon Left Open Jada Chiang MD 12/07/23 Unk nown Colon Device Identifier Serial Number Lot or Batch Number Manufacturing Date Expiration Date Distinct Identification Code MRI Safety Implantable Status Assigning Authority Unknown Unknown [id number] Unknown 12/05/27 Unknown Unknown Active Unk nown [...] Physician Member Role: PCP Address: Address: [address] [place] [address]- Name: Nida Ferro RN [facility] Care Nurse Name: Jacquelyn Merchant RN Position: [facility] RN Member Role: Primary Care Nurse Name: Susannah Scanlon RN Position: [facility] [...] Persons Name: SERGIO GORDON Address: home [address] [place] [address] Name: EMILY REYNOLDS Address: [place] [address] Name: KATHERIN MONDRAGON Address: [address] [address]
--- OUTSIDE RECORDS SUMMARY | 2024-06-28 12:00 | XMS_ITS | Continuity of Care Document ---
Author Organization [facility] Address [address] [place] [address] [address] [place] [address]- Care Team Providers Care Pharmaceutical Compounding Supervisor Name Role Phone Melyssa White NP Primary Care Physician Encounter [facility] Date(s): 02/14/24 - 05/16/[address] [place] [address]- Attending Physician: Lashon Baum NP Allergies, Adverse Reactions, Alerts Substance Reaction Severity Status ibuprofen 1 Hives Active 1swelling,hives Immunizations Given and Recorded Vaccine Date Status Refusal Reason tetanus/diphtheria/pertussis, acel(Tdap) 06/06/13 Given Medications Barrier strips 663524 Barrier strips 176690, See Instructions, # 80 each, Refills 11, [...] Start Date: 02/13/24 Status: Ordered coloplast bags #36294 coloplast bags #65831, See Instructions, # 20 each, Refills 11, Tot. Refills 11, Maintenance, use as needed for ostomy care Dx. ileostomy Z93.2, 01/02/24 15:45:00 EDT, Compound Start Date: 01/02/24 Status: Ordered convatec bags #648677 convatec bags #325857, See Instructions, # 20 each, Refills 11, Tot. Refills 11, Maintenance, use as needed for ostomy care Dx. ileostomy Z93.2, 01/11/24 13:19:00 EDT, Compound Start Date: 01/11/24 Status: Ordered Convatec bags (#887949) Convatec bags (#630330), See Instructions, # 40 each, Refills 11, Tot. Refills 11, Maintenance, useas needed for ostomy maintaince. Dx ileostomy Z93.2, 02/13/24 9:14:00 EDT, Supply Start Date: 02/13/24 Status: Ordered Convatec flange (#859040) Convatec flange (#529841), See Instructions, # 40 each, Refills 11, Tot. Refills 11, Maintenance, use as needed for ostomy maintaince. Dx ileostomy Z93.2, 02/13/24 9:14:00 EDT, Supply Start Date: 02/13/24 Status: Ordered convatec flange# [id number] convatec flange# [id number], See Instructions, # 20 each, Refills 11, Tot. Refills 11, Maintenance, useas needed for ostomy care Dx. ileostomy Z93.2, 01/11/24 13:27:00 EDT, Compound Start Date: 01/11/24 Status: Ordered ConvaTec Ostomy [employer]ion Flange #891819 ConvaTec Ostomy [employer]ion Flange #[id number], See Instructions, # 20 each, Refills 11, Tot. Refills 11,Maintenance, Use as needed for ostomy maintaince. Dx ileostomy Z93.2, 01/05/24 15:39:00 EDT, Supply Start Date: 01/05/24 Status: Ordered ConvaTec Ostomy Pouch #744846 ConvaTec Ostomy Pouch #997687, See Instructions, # 20 each, Refills 11, Tot. Refills 11, Maintenance, Use as needed for ostomy maintaince. Dx ileostomy Z93.2, 01/05/24 15:27:00 EDT, Supply Start Date: 01/05/24 Status: Ordered lidocaine 5% topical film 1 patch, Topically, 2 times a day, remove patches after 12 hours, # 15 patch, 0 Refills, Maintenance, 01/30/24 12:17:00 EDT, Film, [facility] #[id number], Partial fill upon patient request if the prescription is for a schedule II opioid drug., 1... Start Date: 01/30/24 Status: Ordered loperamide 2 mg oral capsule 4 mg, 2, capsule, By Mouth, 4 times a day, for 30 days, take 1/2 hour before meals and at bed time,# 240 capsule, Refills 5, Tot. Refills 5, Acute 07/17/24 15:35:00 EST, 01/19/24 15:35:00 EDT, [facility] Electronically, [facility] #0... Start Date: 01/19/24 Stop Date: 07/17/24 Status: Ordered loperamide 2 mg oral tablet See Instructions, take 2 tablets by mouth 30 minutes before meals and at bedtime, # 240 tablet, 4 Refills, Maintenance, 01/03/24 16:27:00 EDT, Tablet, [facility] #[id number], Partial fill upon patient request if the prescription is for a schedule... Start Date: 01/03/24 Status: Ordered loperamide 2 mg oral tablet See Instructions, take 1 tablet by mouth 30 minutes before meals and at bedtime, # 120 tablet, 4 Refills, Maintenance, 12/21/23 15:35:00 EDT, Tablet, [facility] #[id number], Partial fill upon patient request if the [...] 0 Refills, Maintenance, 11/19/23 9:55:00 EDT, Tablet, [facility] #[id number], Partial fill upon patient request if the [...] 03/29/24 12:06:00 EDT, Route to Pharmacy Electronically, [facility] #[id number], Partial fill upon patient request if the prescription i... Start Date: 03/29/24 Status: Ordered oxyCODONE 5 mg oral tablet 10 mg, 2, tablet, By Mouth, Every 6 hours, PRN, # 40 tablet, Refills 0, Tot. Refills 0, Maintenance, for pain, 03/25/24 13:52:00 EDT, Route to Pharmacy Electronically, [facility] #[id number], Partial fill upon patient request if the prescription... Start Date: 03/25/24 Stop Date: 03/30/24 Status: Ordered straight brava strips 577396 straight brava strips 116733, See Instructions, # 80 each, Refills 11, [...] Safety Implantable Status Assigning Authority Unknown Unknown [id number] Unknown 07/06/27 Unknown Unknown Active Un known Procedure Provider Procedure Date Device Type Site Resection Colon Left Open Jada Chiang MD 12/07/23 Unk nown Colon Device Identifier Serial Number Lot or Batch Number Manufacturing Date Expiration Date Distinct Identification Code MRI Safety Implantable Status Assigning Authority Unknown Unknown [id number] Unknown 12/05/27 Unknown Unknown Active Unk nown Procedure Provider Procedure Date Device Type Site Resection Colon Left Open Jada Chiang MD 12/07/23 Unk nown Colon Device Identifier Serial Number Lot or Batch Number Manufacturing Date Expiration Date Distinct Identification Code MRI Safety Implantable Status Assigning Authority Unknown Unknown [id number] Y Unknown 05/06/28 Unknown Unknown Active Unknown [...] Safety Implantable Status Assigning Authority Unknown Unknown [id number] Y Unknown 11/05/27 Unknown Unknown Active Unknown Procedure Provider Procedure Date Device Type Site Resection Colon Left Open Jada Chiang MD 12/07/23 Unk nown Colon Device Identifier Serial Number Lot or Batch Number Manufacturing Date Expiration Date Distinct Identification Code MRI Safety Implantable Status Assigning Authority Unknown Unknown [id number] Unknown 01/05/28 Unknown Unknown Active Unk nown Procedure Provider Procedure Date Device Type Site Resection Colon Left Open Jada Chiang MD 12/07/23 Unk nown Colon Device Identifier Serial Number Lot or Batch Number Manufacturing Date Expiration Date Distinct Identification Code MRI Safety Implantable Status Assigning Authority Unknown Unknown [id number] Unknown 03/06/28 Unknown Unknown Active Unk nown Procedure Provider Procedure Date Device Type Site Resection Colon Left Open Jada Chiang MD 12/07/23 Unk nown Colon Device Identifier Serial Number Lot or Batch Number Manufacturing Date Expiration Date Distinct Identification Code MRI Safety Implantable Status Assigning Authority Unknown Unknown [id number] Unknown 12/05/27 Unknown Unknown Active Unk nown [...] Reference Physician Member Role: PCP Address: Address: [address] [place] [address] Name: Nida Ferro RN Position: [facility] [...] Persons Name: SERGIO GORDON Address: [address] [place] [address] Name: EMILY REYNOLDS Address: [place] [address] Name: KATHERIN MONDRAGON Address: [address] [address]
--- OUTSIDE RECORDS SUMMARY | 2024-06-28 12:00 | XMS_ITS | Continuity of Care Document ---
Author Organization [facility] As [facility] Address [address] [place] [address] [address] [place] [address]- Care Team Providers Care Ammonia Nitrate Operator Name Role Phone Cindy DALEY, Melyssa Primary Care Physician [phone] [place] [facility] [place] 03/25/24 - 04/24/[address] [place] [address]- Allergies, Adverse Reactions, Alerts Substance Reaction Severity Status ibuprofen 1 Hives Active 1swelling,hives Immunizations Given and Recorded Vaccine Date Status Refusal Reason tetanus/diphtheria/pertussis, acel(Tdap) 06/06/13 Given Medications Barrier strips [id number] Barrier strips [id number], See Instructions, # 80 each, Refills 11, [...] Start Date: 02/13/24 Status: Ordered coloplast bags #10609 coloplast bags #21084, See Instructions, # 20 each, Refills 11, Tot. Refills 11, Maintenance, use as needed for ostomy care Dx. ileostomy Z93.2, 01/02/24 15:45:00 EDT, Compound Start Date: 01/02/24 Status: Ordered convatec bags #[id number] convatec bags #[id number], See Instructions, # 20 each, Refills 11, Tot. Refills 11, Maintenance, use as needed for ostomy care Dx. ileostomy Z93.2, 01/11/24 13:19:00 EDT, Compound Start Date: 01/11/24 Status: Ordered Convatec bags (#280486) Convatec bags (#238132), See Instructions, # 40 each, Refills 11, Tot. Refills 11, Maintenance, useas needed for ostomy maintaince. Dx ileostomy Z93.2, 02/13/24 9:14:00 EDT, Supply Start Date: 02/13/24 Status: Ordered Convatec flange (#248455) Convatec flange (#763086), See Instructions, # 40 each, Refills 11, Tot. Refills 11, Maintenance, use as needed for ostomy maintaince. Dx ileostomy Z93.2, 02/13/24 9:14:00 EDT, Supply Start Date: 02/13/24 Status: Ordered convatec flange# [id number] convatec flange# [id number], See Instructions, # 20 each, Refills 11, Tot. Refills 11, Maintenance, useas needed for ostomy care Dx. ileostomy Z93.2, 01/11/24 13:27:00 EDT, Compound Start Date: 01/11/24 Status: Ordered ConvaTec Ostomy Accordion Flange #[id number] ConvaTec Ostomy [place]ion Flange #[id number], See Instructions, # 20 each, Refills 11, Tot. Refills 11,Maintenance, Use as needed for ostomy maintaince. Dx ileostomy Z93.2, 01/05/24 15:39:00 EDT, Supply Start Date: 01/05/24 Status: Ordered ConvaTec Ostomy Pouch #[id number] ConvaTec Ostomy Pouch #[id number], See Instructions, # 20 each, Refills 11, Tot. Refills 11, Maintenance, Use as needed for ostomy maintaince. Dx ileostomy Z93.2, 01/05/24 15:27:00 EDT, Supply Start Date: 01/05/24 Status: Ordered lidocaine 5% topical film 1 patch, Topically, 2 times a day, remove patches after 12 hours, # 15 patch, 0 Refills, Maintenance, 01/30/24 12:17:00 EDT, Film, [facility] #[id number], Partial fill upon patient request if the prescription is for a schedule II opioid drug., 1... Start Date: 01/30/24 Status: Ordered loperamide 2 mg oral capsule 4 mg, 2, capsule, By Mouth, 4 times a day, for 30 days, take 1/2 hour before meals and at bed time,# 240 capsule, Refills 5, Tot. Refills 5, Acute 07/17/24 15:35:00 EST, 01/19/24 15:35:00 EDT, [facility] Electronically, [facility] #0... Start Date: 01/19/24 Stop Date: 07/17/24 Status: Ordered loperamide 2 mg oral tablet See Instructions, take 2 tablets by mouth 30 minutes before meals and at bedtime, # 240 tablet, 4 Refills, Maintenance, 01/03/24 16:27:00 EDT, Tablet, [facility] #[id number], Partial fill upon patient request if the prescription is for a schedule... Start Date: 01/03/24 Status: Ordered loperamide 2 mg oral tablet See Instructions, take 1 tablet by mouth 30 minutes before meals and at bedtime, # 120 tablet, 4 Refills, Maintenance, 12/21/23 15:35:00 EDT, Tablet, [facility] #[id number], Partial fill upon patient request if the [...] 0 Refills, Maintenance, 11/19/23 9:55:00 EDT, Tablet, [facility] #[id number], Partial fill upon patient request if the [...] 03/29/24 12:06:00 EDT, Route to Pharmacy Electronically, [facility] #[id number], Partial fill upon patient request if the prescription i... Start Date: 03/29/24 Status: Ordered oxyCODONE 5 mg oral tablet 10 mg, 2, tablet, By Mouth, Every 6 hours, PRN, # 40 tablet, Refills 0, Tot. Refills 0, Maintenance, for pain, 03/25/24 13:52:00 EDT, Route to Pharmacy Electronically, [facility] #[id number], Partial fill upon patient request if the prescription... Start Date: 03/25/24 Stop Date: 03/30/24 Status: Ordered straight brava strips [id number] straight brava strips 188005, See Instructions, # 80 each, Refills 11, [...] Safety Implantable Status Assigning Authority Unknown Unknown [id number] Unknown 07/06/27 Unknown Unknown Active Un known Procedure Provider Procedure Date Device Type Site Resection Colon Left Open Jada Chiang MD 12/07/23 Unk nown Colon Device Identifier Serial Number Lot or Batch Number Manufacturing Date Expiration Date Distinct Identification Code MRI Safety Implantable Status Assigning Authority Unknown Unknown [id number] Unknown 12/05/27 Unknown Unknown Active Unk nown Procedure Provider Procedure Date Device Type Site Resection Colon Left Open Jada Chiang MD 12/07/23 Unk nown Colon Device Identifier Serial Number Lot or Batch Number Manufacturing Date Expiration Date Distinct Identification Code MRI Safety Implantable Status Assigning Authority Unknown Unknown [id number] Y Unknown 05/06/28 Unknown Unknown Active Unknown [...] Safety Implantable Status Assigning Authority Unknown Unknown [id number] Y Unknown 11/05/27 Unknown Unknown Active Unknown Procedure Provider Procedure Date Device Type Site Resection Colon Left Open Jada Chiang MD 12/07/23 Unk nown Colon Device Identifier Serial Number Lot or Batch Number Manufacturing Date Expiration Date Distinct Identification Code MRI Safety Implantable Status Assigning Authority Unknown Unknown [id number] Unknown 01/05/28 Unknown Unknown Active Unk nown Procedure Provider Procedure Date Device Type Site Resection Colon Left Open Jada Chiang MD 12/07/23 Unk nown Colon Device Identifier Serial Number Lot or Batch Number Manufacturing Date Expiration Date Distinct Identification Code MRI Safety Implantable Status Assigning Authority Unknown Unknown [id number] Unknown 03/06/28 Unknown Unknown Active Unk nown Procedure Provider Procedure Date Device Type Site Resection Colon Left Open Jada Chiang MD 12/07/23 Unk nown Colon Device Identifier Serial Number Lot or Batch Number Manufacturing Date Expiration Date Distinct Identification Code MRI Safety Implantable Status Assigning Authority Unknown Unknown [id number] Unknown 12/05/27 Unknown Unknown Active Unk nown [...] Physician Member Role: PCP Address: Address: [address] [place] [address] Name: Nida Ferro RN Position: [facility] [...] Care Nurse Name: Kriss Pena RN Position: [facility] RN Member Role: Primary Care Nurse Name: Maine Marcial RN Position: [facility] RN Member Role: Primary Care Nurse Name: Lolita Peres RN Position: [facility] RN Member Role: Primary Care Nurse Name: Michael Syed RN Position: [facility] RN Member Role: Primary Care Nurse Care Team Related Persons Name: SERGIO GORDON Address: [address] [place] [address] Name: EMILY REYNOLDS Address: [place] [address] Name: KATHERIN MONDRAGON Address: [address] [address]
--- OUTSIDE RECORDS SUMMARY | 2024-06-28 12:00 | XMS_ITS | Continuity of Care Document ---
Author Organization [facility] Address [address] [place] [address] [address] [place] [address]- Care Team Providers Care Mini Lab Operator Name Role Phone Cindy DALEY, Melyssa Primary Care Physician Encounter [facility] [place] Date(s): 04/23/24 - 05/23/[address] [place] [address]- Allergies, Adverse Reactions, Alerts Substance Reaction Severity Status ibuprofen 1 Hives Active 1swelling,hives Immunizations Given and Recorded Vaccine Date Status Refusal Reason tetanus/diphtheria/pertussis, acel(Tdap) 06/06/13 Given Medications Barrier strips 257543 Barrier strips 704298, See Instructions, # 80 each, Refills 11, [...] Start Date: 02/13/24 Status: Ordered coloplast bags #36617 coloplast bags #67463, See Instructions, # 20 each, Refills 11, Tot. Refills 11, Maintenance, use as needed for ostomy care Dx. ileostomy Z93.2, 01/02/24 15:45:00 EDT, Compound Start Date: 01/02/24 Status: Ordered convatec bags #[id number] convatec bags #[id number], See Instructions, # 20 each, Refills 11, Tot. Refills 11, Maintenance, use as needed for ostomy care Dx. ileostomy Z93.2, 01/11/24 13:19:00 EDT, Compound Start Date: 01/11/24 Status: Ordered Convatec bags (#603224) Convatec bags (#097261), See Instructions, # 40 each, Refills 11, Tot. Refills 11, Maintenance, useas needed for ostomy maintaince. Dx ileostomy Z93.2, 02/13/24 9:14:00 EDT, Supply Start Date: 02/13/24 Status: Ordered Convatec flange (#347077) Convatec flange (#436192), See Instructions, # 40 each, Refills 11, Tot. Refills 11, Maintenance, use as needed for ostomy maintaince. Dx ileostomy Z93.2, 02/13/24 9:14:00 EDT, Supply Start Date: 02/13/24 Status: Ordered convatec flange# [id number] convatec flange# 164424, See Instructions, # 20 each, Refills 11, Tot. Refills 11, Maintenance, useas needed for ostomy care Dx. ileostomy Z93.2, 01/11/24 13:27:00 EDT, Compound Start Date: 01/11/24 Status: Ordered ConvaTec Ostomy Accordion Flange #110669 ConvaTec Ostomy [place] Flange #946150, See Instructions, # 20 each, Refills 11, Tot. Refills 11,Maintenance, Use as needed for ostomy maintaince. Dx ileostomy Z93.2, 01/05/24 15:39:00 EDT, Supply Start Date: 01/05/24 Status: Ordered ConvaTec Ostomy Pouch #[id number] ConvaTec Ostomy Pouch #[id number], See Instructions, # 20 each, Refills 11, Tot. Refills 11, Maintenance, Use as needed for ostomy maintaince. Dx ileostomy Z93.2, 01/05/24 15:27:00 EDT, Supply Start Date: 01/05/24 Status: Ordered lidocaine 5% topical film 1 patch, Topically, 2 times a day, remove patches after 12 hours, # 15 patch, 0 Refills, Maintenance, 01/30/24 12:17:00 EDT, Film, [facility] #[id number], Partial fill upon patient request if the prescription is for a schedule II opioid drug., 1... Start Date: 01/30/24 Status: Ordered loperamide 2 mg oral capsule 4 mg, 2, capsule, By Mouth, 4 times a day, for 30 days, take 1/2 hour before meals and at bed time,# 240 capsule, Refills 5, Tot. Refills 5, Acute 07/17/24 15:35:00 EST, 01/19/24 15:35:00 EDT, [facility] Electronically, [facility] #0... Start Date: 01/19/24 Stop Date: 07/17/24 Status: Ordered loperamide 2 mg oral tablet See Instructions, take 2 tablets by mouth 30 minutes before meals and at bedtime, # 240 tablet, 4 Refills, Maintenance, 01/03/24 16:27:00 EDT, Tablet, [facility] #[id number], Partial fill upon patient request if the prescription is for a schedule... Start Date: 01/03/24 Status: Ordered loperamide 2 mg oral tablet See Instructions, take 1 tablet by mouth 30 minutes before meals and at bedtime, # 120 tablet, 4 Refills, Maintenance, 12/21/23 15:35:00 EDT, Tablet, [facility] #[id number], Partial fill upon patient request if the [...] 0 Refills, Maintenance, 11/19/23 9:55:00 EDT, Tablet, [facility] #[id number], Partial fill upon patient request if the [...] 03/29/24 12:06:00 EDT, Route to Pharmacy Electronically, [facility] #[id number], Partial fill upon patient request if the prescription i... Start Date: 03/29/24 Status: Ordered oxyCODONE 5 mg oral tablet 10 mg, 2, tablet, By Mouth, Every 6 hours, PRN, # 40 tablet, Refills 0, Tot. Refills 0, Maintenance, for pain, 03/25/24 13:52:00 EDT, Route to Pharmacy Electronically, [facility] #[id number], Partial fill upon patient request if the prescription... Start Date: 03/25/24 Stop Date: 03/30/24 Status: Ordered straight brava strips [id number] straight brava strips 016122, See Instructions, # 80 each, Refills 11, [...] Safety Implantable Status Assigning Authority Unknown Unknown [id number] Unknown 07/06/27 Unknown Unknown Active Un known Procedure Provider Procedure Date Device Type Site Resection Colon Left Open Jada Chiang MD 12/07/23 Unk nown Colon Device Identifier Serial Number Lot or Batch Number Manufacturing Date Expiration Date Distinct Identification Code MRI Safety Implantable Status Assigning Authority Unknown Unknown [id number] Unknown 12/05/27 Unknown Unknown Active Unk nown Procedure Provider Procedure Date Device Type Site Resection Colon Left Open Jada Chiang MD 12/07/23 Unk nown Colon Device Identifier Serial Number Lot or Batch Number Manufacturing Date Expiration Date Distinct Identification Code MRI Safety Implantable Status Assigning Authority Unknown Unknown [id number] Y Unknown 05/06/28 Unknown Unknown Active Unknown [...] Safety Implantable Status Assigning Authority Unknown Unknown [id number] Y Unknown 11/05/27 Unknown Unknown Active Unknown Procedure Provider Procedure Date Device Type Site Resection Colon Left Open Jada Chiang MD 12/07/23 Unk nown Colon Device Identifier Serial Number Lot or Batch Number Manufacturing Date Expiration Date Distinct Identification Code MRI Safety Implantable Status Assigning Authority Unknown Unknown [id number] Unknown 01/05/28 Unknown Unknown Active Unk nown Procedure Provider Procedure Date Device Type Site Resection Colon Left Open Jada Chiang MD 12/07/23 Unk nown Colon Device Identifier Serial Number Lot or Batch Number Manufacturing Date Expiration Date Distinct Identification Code MRI Safety Implantable Status Assigning Authority Unknown Unknown [id number] Unknown 03/06/28 Unknown Unknown Active Unk nown Procedure Provider Procedure Date Device Type Site Resection Colon Left Open Jada Chiang MD 12/07/23 Unk nown Colon Device Identifier Serial Number Lot or Batch Number Manufacturing Date Expiration Date Distinct Identification Code MRI Safety Implantable Status Assigning Authority Unknown Unknown [id number] Unknown 12/05/27 Unknown Unknown Active Unk nown [...] Reference Physician Member Role: PCP Address: Address: [address] [place] [address] Name: Nida Ferro RN Position: [facility] [...] Care Nurse Name: Michael Syed RN Position: [facility] RN Member Role: Primary Care Nurse Care Team Related Persons Name: SERGIO GORDON Address: [address] [place] [address] Name: EMILY REYNOLDS Address: [place] [address] Name: KATHERIN MONDRAGON Address: [address] [address]
--- OUTSIDE RECORDS SUMMARY | 2024-06-28 12:00 | XMS_ITS | Continuity of Care Document ---
Author Organization [facility] Address [address] [place] [address] [address] [place] [address]- Care Team Providers Care Cloth Cutting Inspector Name Role Phone Cindy DALEY, Melyssa Primary Care Physician [place] [facility] [place] - 04/17/[address] [place] [address]- Allergies, Adverse Reactions, Alerts Substance Reaction Severity Status ibuprofen 1 Hives Active 1swelling,hives Immunizations Given and Recorded Vaccine Date Status Refusal Reason tetanus/diphtheria/pertussis, acel(Tdap) 06/06/13 Given Medications Barrier strips 012618 Barrier strips 449739, See Instructions, # 80 each, Refills 11, [...] Start Date: 02/13/24 Status: Ordered coloplast bags #24788 coloplast bags #60295, See Instructions, # 20 each, Refills 11, Tot. Refills 11, Maintenance, use as needed for ostomy care Dx. ileostomy Z93.2, 01/02/24 15:45:00 EDT, Compound Start Date: 01/02/24 Status: Ordered convatec bags #984993 convatec bags #490475, See Instructions, # 20 each, Refills 11, Tot. Refills 11, Maintenance, use as needed for ostomy care Dx. ileostomy Z93.2, 01/11/24 13:19:00 EDT, Compound Start Date: 01/11/24 Status: Ordered Convatec bags (#173753) Convatec bags (#560685), See Instructions, # 40 each, Refills 11, Tot. Refills 11, Maintenance, useas needed for ostomy maintaince. Dx ileostomy Z93.2, 02/13/24 9:14:00 EDT, Supply Start Date: 02/13/24 Status: Ordered Convatec flange (#611543) Convatec flange (#647566), See Instructions, # 40 each, Refills 11, Tot. Refills 11, Maintenance, use as needed for ostomy maintaince. Dx ileostomy Z93.2, 02/13/24 9:14:00 EDT, Supply Start Date: 02/13/24 Status: Ordered convatec flange# 610113 convatec flange# 093144, See Instructions, # 20 each, Refills 11, Tot. Refills 11, Maintenance, useas needed for ostomy care Dx. ileostomy Z93.2, 01/11/24 13:27:00 EDT, Compound Start Date: 01/11/24 Status: Ordered ConvaTec Ostomy Accordion Flange #190562 ConvaTec Ostomy [place] Flange #716461, See Instructions, # 20 each, Refills 11, Tot. Refills 11,Maintenance, Use as needed for ostomy maintaince. Dx ileostomy Z93.2, 01/05/24 15:39:00 EDT, Supply Start Date: 01/05/24 Status: Ordered ConvaTec Ostomy Pouch #[id number] ConvaTec Ostomy Pouch #[id number], See Instructions, # 20 each, Refills 11, Tot. Refills 11, Maintenance, Use as needed for ostomy maintaince. Dx ileostomy Z93.2, 01/05/24 15:27:00 EDT, Supply Start Date: 01/05/24 Status: Ordered lidocaine 5% topical film 1 patch, Topically, 2 times a day, remove patches after 12 hours, # 15 patch, 0 Refills, Maintenance, 01/30/24 12:17:00 EDT, Film, [facility] #[id number], Partial fill upon patient request if the prescription is for a schedule II opioid drug., 1... Start Date: 01/30/24 Status: Ordered loperamide 2 mg oral capsule 4 mg, 2, capsule, By Mouth, 4 times a day, for 30 days, take 1/2 hour before meals and at bed time,# 240 capsule, Refills 5, Tot. Refills 5, Acute 07/17/24 15:35:00 EST, 01/19/24 15:35:00 EDT, [facility] Electronically, [facility] #0... Start Date: 01/19/24 Stop Date: 07/17/24 Status: Ordered loperamide 2 mg oral tablet See Instructions, take 2 tablets by mouth 30 minutes before meals and at bedtime, # 240 tablet, 4 Refills, Maintenance, 01/03/24 16:27:00 EDT, Tablet, [facility] #[id number], Partial fill upon patient request if the prescription is for a schedule... Start Date: 01/03/24 Status: Ordered loperamide 2 mg oral tablet See Instructions, take 1 tablet by mouth 30 minutes before meals and at bedtime, # 120 tablet, 4 Refills, Maintenance, 12/21/23 15:35:00 EDT, Tablet, [facility] #[id number], Partial fill upon patient request if the [...] 0 Refills, Maintenance, 11/19/23 9:55:00 EDT, Tablet, [facility] #[id number], Partial fill upon patient request if the [...] 03/29/24 12:06:00 EDT, Route to Pharmacy Electronically, [facility] #[id number], Partial fill upon patient request if the prescription i... Start Date: 03/29/24 Status: Ordered oxyCODONE 5 mg oral tablet 10 mg, 2, tablet, By Mouth, Every 6 hours, PRN, # 40 tablet, Refills 0, Tot. Refills 0, Maintenance, for pain, 03/25/24 13:52:00 EDT, Route to Pharmacy Electronically, [facility] #[id number], Partial fill upon patient request if the prescription... Start Date: 03/25/24 Stop Date: 03/30/24 Status: Ordered straight brava strips 167852 straight brava strips 424202, See Instructions, # 80 each, Refills 11, [...] Safety Implantable Status Assigning Authority Unknown Unknown [id number] Unknown 07/06/27 Unknown Unknown Active Un known Procedure Provider Procedure Date Device Type Site Resection Colon Left Open Jada Chiang MD 12/07/23 Unk nown Colon Device Identifier Serial Number Lot or Batch Number Manufacturing Date Expiration Date Distinct Identification Code MRI Safety Implantable Status Assigning Authority Unknown Unknown [id number] Unknown 12/05/27 Unknown Unknown Active Unk nown Procedure Provider Procedure Date Device Type Site Resection Colon Left Open Jada Chiang MD 12/07/23 Unk nown Colon Device Identifier Serial Number Lot or Batch Number Manufacturing Date Expiration Date Distinct Identification Code MRI Safety Implantable Status Assigning Authority Unknown Unknown [id number] Y Unknown 05/06/28 Unknown Unknown Active Unknown [...] Safety Implantable Status Assigning Authority Unknown Unknown [id number] Y Unknown 11/05/27 Unknown Unknown Active Unknown Procedure Provider Procedure Date Device Type Site Resection Colon Left Open Jada Chiang MD 12/07/23 Unk nown Colon Device Identifier Serial Number Lot or Batch Number Manufacturing Date Expiration Date Distinct Identification Code MRI Safety Implantable Status Assigning Authority Unknown Unknown [id number] Unknown 01/05/28 Unknown Unknown Active Unk nown Procedure Provider Procedure Date Device Type Site Resection Colon Left Open Jada Chiang MD 12/07/23 Unk nown Colon Device Identifier Serial Number Lot or Batch Number Manufacturing Date Expiration Date Distinct Identification Code MRI Safety Implantable Status Assigning Authority Unknown Unknown [id number] Unknown 03/06/28 Unknown Unknown Active Unk nown Procedure Provider Procedure Date Device Type Site Resection Colon Left Open Jada Chiang MD 12/07/23 Unk nown Colon Device Identifier Serial Number Lot or Batch Number Manufacturing Date Expiration Date Distinct Identification Code MRI Safety Implantable Status Assigning Authority Unknown Unknown [id number] Unknown 12/05/27 Unknown Unknown Active Unk nown Patient Care team information Care Team Personnel Name: Bertha Kolb RN Position: [facility] RN Member Role: Primary Care Nurse Name: Ashley Domínguez RN Position: [facility] RN Member Role: Primary Care Nurse Name: Maame Pearce Position: [facility] Outreach Member Role: Lifetime Consulting Physician Name: Charline Terrazas RN Position: [facility] RN Member Role: Primary Care Nurse Name: Efrain Long RN Position: [facility] RN Member Role: Primary Care Nurse Name: Melyssa White NP Position: Reference Physician Member Role: PCP Address: Address: [address] [place] [address] Name: Nida Ferro RN Position: [facility] RN Member Role: Primary Care Nurse Name: Kaur Wilson RN Position: [facility] RN Member Role: Primary Care Nurse Name: Shasha Chou RN Position: [facility] RN Member Role: Primary Care Nurse Name: Alison Brewer RN Position: [facility] RN Member Role: Primary Care Nurse Name: Adamaris Lynn RN Position: [facility] RN Member Role: Primary Care Nurse Name: Rosario Schwarz RN Position: [facility] SN RN Member Role: Primary Care Nurse Name: Marianne Jesus RN Position: [facility] RN Member Role: Primary Care Nurse Name: Jacquelyn Merchant RN Position: [facility] RN Member Role: Primary Care Nurse Name: Susannah Scanlon RN Position: [facility] RN Member Role: Primary Care Nurse Name: Kriss Pena RN Position: [facility] RN Member Role: Primary Care Nurse Name: Maine Marcial RN Position: [facility] RN Member Role: Primary Care Nurse Name: Lolita Peres RN Position: [facility] RN Member Role: Primary Care Nurse Name: Michael Syed RN Position: [facility] RN Member Role: Primary Care Nurse Care Team Related Persons Name: GORDON, SERGIO Address: [address] [place] [address] Name: EMILY REYNOLDS Address: [place] [address] Name: KATHERIN MONDRAGON Address: home [address] [address]
--- OUTSIDE RECORDS SUMMARY | 2024-06-28 12:01 | XMS_ITS | Continuity of Care Document ---
Author Organization [facility] As [facility] Address [address] [place] [address] [address] [place] [address]- Care Team Providers Care Jigmaker Name Role Phone Cindy DALEY, Melyssa Primary Care Physician [phone] Encounter [facility] Date(s): 04/22/24 - 05/22/[address] [place] [address]- Allergies, Adverse Reactions, Alerts Substance Reaction Severity Status ibuprofen 1 Hives Active 1swelling,hives Immunizations Given and Recorded Vaccine Date Status Refusal Reason tetanus/diphtheria/pertussis, acel(Tdap) 06/06/13 Given Medications Barrier strips [id number] Barrier strips 202740, See Instructions, # 80 each, Refills 11, [...] Start Date: 02/13/24 Status: Ordered coloplast bags #06251 coloplast bags #99908, See Instructions, # 20 each, Refills 11, Tot. Refills 11, Maintenance, use as needed for ostomy care Dx. ileostomy Z93.2, 01/02/24 15:45:00 EDT, Compound Start Date: 01/02/24 Status: Ordered convatec bags #[id number] convatec bags #[id number], See Instructions, # 20 each, Refills 11, Tot. Refills 11, Maintenance, use as needed for ostomy care Dx. ileostomy Z93.2, 01/11/24 13:19:00 EDT, Compound Start Date: 01/11/24 Status: Ordered Convatec bags (#308439) Convatec bags (#[id number]), See Instructions, # 40 each, Refills 11, Tot. Refills 11, Maintenance, useas needed for ostomy maintaince. Dx ileostomy Z93.2, 02/13/24 9:14:00 EDT, Supply Start Date: 02/13/24 Status: Ordered Convatec flange (#366157) Convatec flange (#388256), See Instructions, # 40 each, Refills 11, Tot. Refills 11, Maintenance, use as needed for ostomy maintaince. Dx ileostomy Z93.2, 02/13/24 9:14:00 EDT, Supply Start Date: 02/13/24 Status: Ordered convatec flange# [id number] convatec flange# 611758, See Instructions, # 20 each, Refills 11, Tot. Refills 11, Maintenance, useas needed for ostomy care Dx. ileostomy Z93.2, 01/11/24 13:27:00 EDT, Compound Start Date: 01/11/24 Status: Ordered ConvaTec Ostomy [place] Flange #[id number] ConvaTec Ostomy [employer] Flange #142197, See Instructions, # 20 each, Refills 11, Tot. Refills 11,Maintenance, Use as needed for ostomy maintaince. Dx ileostomy Z93.2, 01/05/24 15:39:00 EDT, Supply Start Date: 01/05/24 Status: Ordered ConvaTec Ostomy Pouch #[id number] ConvaTec Ostomy Pouch #[id number], See Instructions, # 20 each, Refills 11, Tot. Refills 11, Maintenance, Use as needed for ostomy maintaince. Dx ileostomy Z93.2, 01/05/24 15:27:00 EDT, Supply Start Date: 01/05/24 Status: Ordered lidocaine 5% topical film 1 patch, Topically, 2 times a day, remove patches after 12 hours, # 15 patch, 0 Refills, Maintenance, 01/30/24 12:17:00 EDT, Film, [facility] #[id number], Partial fill upon patient request if the prescription is for a schedule II opioid drug., 1... Start Date: 01/30/24 Status: Ordered loperamide 2 mg oral capsule 4 mg, 2, capsule, By Mouth, 4 times a day, for 30 days, take 1/2 hour before meals and at bed time,# 240 capsule, Refills 5, Tot. Refills 5, Acute 07/17/24 15:35:00 EST, 01/19/24 15:35:00 EDT, [facility], [facility] #[facility]... Start Date: 01/19/24 Stop Date: 07/17/24 Status: Ordered loperamide 2 mg oral tablet See Instructions, take 2 tablets by mouth 30 minutes before meals and at bedtime, # 240 tablet, 4 Refills, Maintenance, 01/03/24 16:27:00 EDT, Tablet, [facility] #[id number], Partial fill upon patient request if the prescription is for a schedule... Start Date: 01/03/24 Status: Ordered loperamide 2 mg oral tablet See Instructions, take 1 tablet by mouth 30 minutes before meals and at bedtime, # 120 tablet, 4 Refills, Maintenance, 12/21/23 15:35:00 EDT, Tablet, [facility] #[id number], Partial fill upon patient request if the [...] 0 Refills, Maintenance, 11/19/23 9:55:00 EDT, Tablet, [facility] #[id number], Partial fill upon patient request if the [...] 03/29/24 12:06:00 EDT, Route to Pharmacy Electronically, [facility] #[id number], Partial fill upon patient request if the prescription i... Start Date: 03/29/24 Status: Ordered oxyCODONE 5 mg oral tablet 10 mg, 2, tablet, By Mouth, Every 6 hours, PRN, # 40 tablet, Refills 0, Tot. Refills 0, Maintenance, for pain, 03/25/24 13:52:00 EDT, Route to Pharmacy Electronically, [facility] #[id number], Partial fill upon patient request if the prescription... Start Date: 03/25/24 Stop Date: 03/30/24 Status: Ordered straight brava strips 622412 straight brava strips 882444, See Instructions, # 80 each, Refills 11, [...] Type Site Resection Colon Left Open Jada Chiagn MD 12/07/23 Unk nown Colon Device Identifier Serial Number Lot or Batch Number Manufacturing Date Expiration Date Distinct Identification Code MRI Safety Implantable Status Assigning Authority Unknown Unknown [id number] Unknown 07/06/27 Unknown Unknown Active Un known Procedure Provider Procedure Date Device Type Site Resection Colon Left Open Jada Chiang MD 12/07/23 Unk nown Colon Device Identifier Serial Number Lot or Batch Number Manufacturing Date Expiration Date Distinct Identification Code MRI Safety Implantable Status Assigning Authority Unknown Unknown [id number] Unknown 12/05/27 Unknown Unknown Active Unk nown Procedure Provider Procedure Date Device Type Site Resection Colon Left Open Jada Chiang MD 12/07/23 Unk nown Colon Device Identifier Serial Number Lot or Batch Number Manufacturing Date Expiration Date Distinct Identification Code MRI Safety Implantable Status Assigning Authority Unknown Unknown [id number] Y Unknown 05/06/28 Unknown Unknown Active Unknown [...] Safety Implantable Status Assigning Authority Unknown Unknown [id number] Unknown 11/05/27 Unknown Unknown Active Unknown Procedure Provider Procedure Date Device Type Site Resection Colon Left Open Jada Chiang MD 12/07/23 Unk nown Colon Device Identifier Serial Number Lot or Batch Number Manufacturing Date Expiration Date Distinct Identification Code MRI Safety Implantable Status Assigning Authority Unknown Unknown [id number] Unknown 01/05/28 Unknown Unknown Active Unk nown Procedure Provider Procedure Date Device Type Site Resection Colon Left Open Jada Chiang MD 12/07/23 Unk nown Colon Device Identifier Serial Number Lot or Batch Number Manufacturing Date Expiration Date Distinct Identification Code MRI Safety Implantable Status Assigning Authority Unknown Unknown [id number] Unknown 03/06/28 Unknown Unknown Active Unk nown Procedure Provider Procedure Date Device Type Site Resection Colon Left Open Jada Chiang MD 12/07/23 Unk nown Colon Device Identifier Serial Number Lot or Batch Number Manufacturing Date Expiration Date Distinct Identification Code MRI Safety Implantable Status Assigning Authority Unknown Unknown [id number] Unknown 12/05/27 Unknown Unknown Active Unk nown [...] Care Nurse Name: Efrain Long RN Position: [facility] RN Member Role: Primary Care Nurse Name: Melyssa White NP Position: Reference Physician Member Role: PCP Address: Address: [address] [place] [address] Name: Nida Ferro RN Position: [facility] RN Member Role: Primary Care Nurse Name: Kaur Wilson RN Position: [facility] RN Member Role: Primary Care Nurse Name: Shasha Chou RN Position: [facility] RN Member [...] Care Nurse Name: Jacquelyn Merchant RN Position: [facility] RN Member Role: Primary Care Nurse Name: Susannah Scanlon RN Position: [facility] RN Member [...] Persons Name: SERGIO GORDON Address: [address] [place] [address] Name: EMILY REYNOLDS Address: [place] [address] Name: KATHERIN MONDRAGON Address: [address] [address]
--- OUTSIDE RECORDS SUMMARY | 2024-06-28 12:01 | XMS_ITS | Continuity of Care Document ---
Author Organization [facility] Address [address] [place] [address] [address] [place] [address]- Care Team Providers Care Keg Inspector Name Role Phone Cindy DALEY, Melyssa Primary Care Physician Encounter [facility] Date(s): 04/15/24 - 05/15/[address] [place] [address]- Allergies, Adverse Reactions, Alerts Substance Reaction Severity Status ibuprofen 1 Hives Active 1swelling,hives Immunizations Given and Recorded Vaccine Date Status Refusal Reason tetanus/diphtheria/pertussis, acel(Tdap) 06/06/13 Given Medications Barrier strips [id number] Barrier strips 191109, See Instructions, # 80 each, Refills 11, [...] Start Date: 02/13/24 Status: Ordered coloplast bags #05766 coloplast bags #11625, See Instructions, # 20 each, Refills 11, Tot. Refills 11, Maintenance, use as needed for ostomy care Dx. ileostomy Z93.2, 01/02/24 15:45:00 EDT, Compound Start Date: 01/02/24 Status: Ordered convatec bags #[id number] convatec bags #356673, See Instructions, # 20 each, Refills 11, Tot. Refills 11, Maintenance, use as needed for ostomy care Dx. ileostomy Z93.2, 01/11/24 13:19:00 EDT, Compound Start Date: 01/11/24 Status: Ordered Convatec bags (#349792) Convatec bags (#344968), See Instructions, # 40 each, Refills 11, Tot. Refills 11, Maintenance, useas needed for ostomy maintaince. Dx ileostomy Z93.2, 02/13/24 9:14:00 EDT, Supply Start Date: 02/13/24 Status: Ordered Convatec flange (#812100) Convatec flange (#717166), See Instructions, # 40 each, Refills 11, Tot. Refills 11, Maintenance, use as needed for ostomy maintaince. Dx ileostomy Z93.2, 02/13/24 9:14:00 EDT, Supply Start Date: 02/13/24 Status: Ordered convatec flange# 147122 convatec flange# 723240, See Instructions, # 20 each, Refills 11, Tot. Refills 11, Maintenance, useas needed for ostomy care Dx. ileostomy Z93.2, 01/11/24 13:27:00 EDT, Compound Start Date: 01/11/24 Status: Ordered ConvaTec Ostomy [facility] Flange #[id number] ConvaTec Ostomy [facility]ange #796225, See Instructions, # 20 each, Refills 11, Tot. Refills 11,Maintenance, Use as needed for ostomy maintaince. Dx ileostomy Z93.2, 01/05/24 15:39:00 EDT, Supply Start Date: 01/05/24 Status: Ordered ConvaTec Ostomy Pouch #[id number] ConvaTec Ostomy Pouch #[id number], See Instructions, # 20 each, Refills 11, Tot. Refills 11, Maintenance, Use as needed for ostomy maintaince. Dx ileostomy Z93.2, 01/05/24 15:27:00 EDT, Supply Start Date: 01/05/24 Status: Ordered lidocaine 5% topical film 1 patch, Topically, 2 times a day, remove patches after 12 hours, # 15 patch, 0 Refills, Maintenance, 01/30/24 12:17:00 EDT, Film, [facility] #[id number], Partial fill upon patient request if the prescription is for a schedule II opioid drug., 1... Start Date: 01/30/24 Status: Ordered loperamide 2 mg oral capsule 4 mg, 2, capsule, By Mouth, 4 times a day, for 30 days, take 1/2 hour before meals and at bed time,# 240 capsule, Refills 5, Tot. Refills 5, Acute 07/17/24 15:35:00 EST, 01/19/24 15:35:00 EDT, [facility] Electron[facility], [facility] #0... Start Date: 01/19/24 Stop Date: 07/17/24 Status: Ordered loperamide 2 mg oral tablet See Instructions, take 2 tablets by mouth 30 minutes before meals and at bedtime, # 240 tablet, 4 Refills, Maintenance, 01/03/24 16:27:00 EDT, Tablet, [facility] #[id number], Partial fill upon patient request if the prescription is for a schedule... Start Date: 01/03/24 Status: Ordered loperamide 2 mg oral tablet See Instructions, take 1 tablet by mouth 30 minutes before meals and at bedtime, # 120 tablet, 4 Refills, Maintenance, 12/21/23 15:35:00 EDT, Tablet, [facility] #[id number], Partial fill upon patient request if the [...] 0 Refills, Maintenance, 11/19/23 9:55:00 EDT, Tablet, [facility] #[id number], Partial fill upon patient request if the [...] 03/29/24 12:06:00 EDT, Route to Pharmacy Electronically, [facility] #[id number], Partial fill upon patient request if the prescription i... Start Date: 03/29/24 Status: Ordered oxyCODONE 5 mg oral tablet 10 mg, 2, tablet, By Mouth, Every 6 hours, PRN, # 40 tablet, Refills 0, Tot. Refills 0, Maintenance, for pain, 03/25/24 13:52:00 EDT, Route to Pharmacy Electronically, [facility] #[id number], Partial fill upon patient request if the prescription... Start Date: 03/25/24 Stop Date: 03/30/24 Status: Ordered straight brava strips [id number] straight brava strips 616788, See Instructions, # 80 each, Refills 11, [...] Safety Implantable Status Assigning Authority Unknown Unknown [id number] Unknown 07/06/27 Unknown Unknown Active Un known Procedure Provider Procedure Date Device Type Site Resection Colon Left Open Jada Chiang MD 12/07/23 Unk nown Colon Device Identifier Serial Number Lot or Batch Number Manufacturing Date Expiration Date Distinct Identification Code MRI Safety Implantable Status Assigning Authority Unknown Unknown [id number] Unknown 12/05/27 Unknown Unknown Active Unk nown Procedure Provider Procedure Date Device Type Site Resection Colon Left Open Jada Chiang MD 12/07/23 Unk nown Colon Device Identifier Serial Number Lot or Batch Number Manufacturing Date Expiration Date Distinct Identification Code MRI Safety Implantable Status Assigning Authority Unknown Unknown [id number] Y Unknown 05/06/28 Unknown Unknown Active Unknown [...] Safety Implantable Status Assigning Authority Unknown Unknown [id number] Y Unknown 11/05/27 Unknown Unknown Active Unknown Procedure Provider Procedure Date Device Type Site Resection Colon Left Open Jada Chiang MD 12/07/23 Unk nown Colon Device Identifier Serial Number Lot or Batch Number Manufacturing Date Expiration Date Distinct Identification Code MRI Safety Implantable Status Assigning Authority Unknown Unknown [id number] Unknown 01/05/28 Unknown Unknown Active Unk nown Procedure Provider Procedure Date Device Type Site Resection Colon Left Open Jada Chiang MD 12/07/23 Unk nown Colon Device Identifier Serial Number Lot or Batch Number Manufacturing Date Expiration Date Distinct Identification Code MRI Safety Implantable Status Assigning Authority Unknown Unknown [id number] Unknown 03/06/28 Unknown Unknown Active Unk nown Procedure Provider Procedure Date Device Type Site Resection Colon Left Open Jada Chiang MD 12/07/23 Unk nown Colon Device Identifier Serial Number Lot or Batch Number Manufacturing Date Expiration Date Distinct Identification Code MRI Safety Implantable Status Assigning Authority Unknown Unknown [id number] Unknown 12/05/27 Unknown Unknown Active Unk nown [...] Physician Member Role: PCP Address: Address: [address] [place] [address] Name: Nida Ferro RN Position: [facility] [...] Persons Name: GORDON, SERGIO Address: [address] [place] [address] Name: EMILY REYNOLDS Address: [place] [address] Name: KATHERIN MONDRAGON Address: [address] [address]
--- OUTSIDE RECORDS SUMMARY | 2024-06-28 12:01 | XMS_ITS | Continuity of Care Document ---
Author Organization [facility] Address [address] [place] [address] [address] [place] [address]- Care Team Providers Care Fastener Technologist Name Role Phone Cindy DALEY, Melyssa Primary Care Physician Encounter [facility] Date(s): 04/15/24 - 05/15/[address] [place] [address]- Allergies, Adverse Reactions, Alerts Substance Reaction Severity Status ibuprofen 1 Hives Active 1swelling,hives Immunizations Given and Recorded Vaccine Date Status Refusal Reason tetanus/diphtheria/pertussis, acel(Tdap) 06/06/13 Given Medications Barrier strips 432524 Barrier strips 666461, See Instructions, # 80 each, Refills 11, [...] Start Date: 02/13/24 Status: Ordered coloplast bags #98233 coloplast bags #70584, See Instructions, # 20 each, Refills 11, Tot. Refills 11, Maintenance, use as needed for ostomy care Dx. ileostomy Z93.2, 01/02/24 15:45:00 EDT, Compound Start Date: 01/02/24 Status: Ordered convatec bags #493646 convatec bags #412166, See Instructions, # 20 each, Refills 11, Tot. Refills 11, Maintenance, use as needed for ostomy care Dx. ileostomy Z93.2, 01/11/24 13:19:00 EDT, Compound Start Date: 01/11/24 Status: Ordered Convatec bags (#774367) Convatec bags (#655106), See Instructions, # 40 each, Refills 11, Tot. Refills 11, Maintenance, useas needed for ostomy maintaince. Dx ileostomy Z93.2, 02/13/24 9:14:00 EDT, Supply Start Date: 02/13/24 Status: Ordered Convatec flange (#771640) Convatec flange (#017358), See Instructions, # 40 each, Refills 11, Tot. Refills 11, Maintenance, use as needed for ostomy maintaince. Dx ileostomy Z93.2, 02/13/24 9:14:00 EDT, Supply Start Date: 02/13/24 Status: Ordered convatec flange# 629655 convatec flange# 786930, See Instructions, # 20 each, Refills 11, Tot. Refills 11, Maintenance, useas needed for ostomy care Dx. ileostomy Z93.2, 01/11/24 13:27:00 EDT, Compound Start Date: 01/11/24 Status: Ordered ConvaTec Ostomy [facility]ange #747504 ConvaTec Ostomy [facility] Flange #103414, See Instructions, # 20 each, Refills 11, Tot. Refills 11,Maintenance, Use as needed for ostomy maintaince. Dx ileostomy Z93.2, 01/05/24 15:39:00 EDT, Supply Start Date: 01/05/24 Status: Ordered ConvaTec Ostomy Pouch #[id number] ConvaTec Ostomy Pouch #[id number], See Instructions, # 20 each, Refills 11, Tot. Refills 11, Maintenance, Use as needed for ostomy maintaince. Dx ileostomy Z93.2, 01/05/24 15:27:00 EDT, Supply Start Date: 01/05/24 Status: Ordered lidocaine 5% topical film 1 patch, Topically, 2 times a day, remove patches after 12 hours, # 15 patch, 0 Refills, Maintenance, 01/30/24 12:17:00 EDT, Film, [facility] #[id number], Partial fill upon patient request if the [...] 01/19/24 15:35:00 EDT, [facility] Electron[facility], [facility] #0... Start Date: 01/19/24 Stop Date: 07/17/24 Status: Ordered loperamide 2 mg oral tablet See Instructions, take 2 tablets by mouth 30 minutes before meals and at bedtime, # 240 tablet, 4 Refills, Maintenance, 01/03/24 16:27:00 EDT, Tablet, [facility] #[id number], Partial fill upon patient request if the prescription is for a schedule... Start Date: 01/03/24 Status: Ordered loperamide 2 mg oral tablet See Instructions, take 1 tablet by mouth 30 minutes before meals and at bedtime, # 120 tablet, 4 Refills, Maintenance, 12/21/23 15:35:00 EDT, Tablet, [facility] #[id number], Partial fill upon patient request if the [...] 0 Refills, Maintenance, 11/19/23 9:55:00 EDT, Tablet, [facility] #[id number], Partial fill upon patient request if the [...] 03/29/24 12:06:00 EDT, Route to Pharmacy Electronically, [facility] #[id number], Partial fill upon patient request if the prescription i... Start Date: 03/29/24 Status: Ordered oxyCODONE 5 mg oral tablet 10 mg, 2, tablet, By Mouth, Every 6 hours, PRN, # 40 tablet, Refills 0, Tot. Refills 0, Maintenance, for pain, 03/25/24 13:52:00 EDT, Route to Pharmacy Electronically, [facility] #[id number], Partial fill upon patient request if the prescription... Start Date: 03/25/24 Stop Date: 03/30/24 Status: Ordered straight brava strips 345798 straight brava strips 295806, See Instructions, # 80 each, Refills 11, [...] Safety Implantable Status Assigning Authority Unknown Unknown [id number] Unknown 07/06/27 Unknown Unknown Active Un known Procedure Provider Procedure Date Device Type Site Resection Colon Left Open Jada Chiang MD 12/07/23 Unk nown Colon Device Identifier Serial Number Lot or Batch Number Manufacturing Date Expiration Date Distinct Identification Code MRI Safety Implantable Status Assigning Authority Unknown Unknown [id number] Unknown 12/05/27 Unknown Unknown Active Unk nown Procedure Provider Procedure Date Device Type Site Resection Colon Left Open Jada Chiang MD 12/07/23 Unk nown Colon Device Identifier Serial Number Lot or Batch Number Manufacturing Date Expiration Date Distinct Identification Code MRI Safety Implantable Status Assigning Authority Unknown Unknown [id number] Unknown 05/06/28 Unknown Unknown Active Unknown [...] Safety Implantable Status Assigning Authority Unknown Unknown [id number] Y Unknown 11/05/27 Unknown Unknown Active Unknown Procedure Provider Procedure Date Device Type Site Resection Colon Left Open Jada Chiagn MD 12/07/23 Unk nown Colon Device Identifier Serial Number Lot or Batch Number Manufacturing Date Expiration Date Distinct Identification Code MRI Safety Implantable Status Assigning Authority Unknown Unknown [id number] Unknown 01/05/28 Unknown Unknown Active Unk nown Procedure Provider Procedure Date Device Type Site Resection Colon Left Open Jada Chiang MD 12/07/23 Unk nown Colon Device Identifier Serial Number Lot or Batch Number Manufacturing Date Expiration Date Distinct Identification Code MRI Safety Implantable Status Assigning Authority Unknown Unknown [id number] Unknown 03/06/28 Unknown Unknown Active Unk nown Procedure Provider Procedure Date Device Type Site Resection Colon Left Open Jada Chiang MD 12/07/23 Unk nown Colon Device Identifier Serial Number Lot or Batch Number Manufacturing Date Expiration Date Distinct Identification Code MRI Safety Implantable Status Assigning Authority Unknown Unknown [id number] Unknown 12/05/27 Unknown Unknown Active Unk nown Patient Care team information Care Team Personnel Name: Bertha Kolb RN Position: [facility] RN Member Role: Primary Care Nurse Name: Ashley Domínguez RN Position: [facility] RN Member Role: Primary Care Nurse Name: Maame Pearce Position: [facility] Outreach Member Role: Lifetime Consulting Physician Name: Charline Terrazas RN Position: [facility] RN Member Role: Primary Care Nurse Name: Efrain Long RN Position: [facility] RN Member Role: Primary Care Nurse Name: Melyssa White NP Position: Reference Physician Member Role: PCP Address: Address: [address] [place] [address] Name: Nida Ferro RN Position: [facility] RN Member Role: Primary Care Nurse Name: Kaur Wilson RN Position: [facility] RN Member Role: Primary Care Nurse Name: Shasha Chou RN Position: [facility] RN Member Role: Primary Care Nurse Name: Alison Brewer RN Position: [facility] RN Member Role: Primary Care Nurse Name: Adamaris Lynn RN Position: [facility] RN Member Role: Primary Care Nurse Name: Rosario Schwarz RN Position: [facility] SN RN Member Role: Primary Care Nurse Name: Marianne Jesus RN Position: [facility] RN Member Role: Primary Care Nurse Name: Jacquelyn Merchant RN Position: [facility] RN Member Role: Primary Care Nurse Name: Susananh Scanlon RN Position: [facility] RN Member Role: Primary Care Nurse Name: Kriss Pena RN Position: [facility] RN Member Role: Primary Care Nurse Name: Maine Marcial RN Position: [facility] RN Member Role: Primary Care Nurse Name: Lolita Peres RN Position: [facility] RN Member Role: Primary Care Nurse Name: Michael Syed RN Position: [facility] RN Member Role: Primary Care Nurse Care Team Related Persons Name: GORDON, SERGIO Address: [address] [place] [address] Name: EMILY REYNOLDS Address: [place] [address] Name: KATHERIN MONDRAGON Address: home [address] [address]
== END 2024-06-21 13:42 | disposition home or self-care (01) ==
LOC: HO.HWS 12:44
PROVIDERS: Visit Provider Advanced Practice Midwife
DX: Z01.419 Encounter for gynecological examination (general) (routine) without abnormal findings (principal); Z30.42 Encounter for surveillance of injectable contraceptive; R21 Rash and other nonspecific skin eruption
CPT/HCPCS: 99395

== ENCOUNTER 2024-06-21 12:44 | Outpatient (REF) | payer MEDICAID, SELFPAY ==
[2024-06-22 12:26] LABS: Bacterial Vaginosis PCR NEGATIVE (Negative); Candida Group PCR NOT DETECTED (Not Detect); Candida glab krusei PCR NOT DETECTED (Not Detect); Trichomonas vaginalis PCR NOT DETECTED (Not Detect)
[2024-06-22 13:41] LABS: CT PCR NOT DETECTED (Not Detect.); NG PCR NOT DETECTED (Not Detect.)
== END 2024-06-21 12:45 | disposition home or self-care (01) ==
LOC: HO.LNP 12:44
PROVIDERS: Visit Provider Advanced Practice Midwife
DX: Z01.419 Encounter for gynecological examination (general) (routine) without abnormal findings (principal); Z11.3 Encounter for screening for infections with a predominantly sexual mode of transmission; R21 Rash and other nonspecific skin eruption
CPT/HCPCS: 0352U; 87491; 87591; 96372; 99395; J1050

== ENCOUNTER → 2024-09-13 09:42 | Outpatient (BNVA) | payer MEDICAID, SELFPAY | PROVIDERS: Visit Provider Obstetrics & Gynecology | DX: Z30.42 Encounter for surveillance of injectable contraceptive (principal) | CPT/HCPCS: 96372; 99211; J1050 ==

== ENCOUNTER → 2024-09-13 09:42 | Outpatient (AMB) | END | disposition home or self-care (01) ==

== ENCOUNTER 2025-02-20 14:22 | Outpatient (AMB) | payer MEDICAID, SELFPAY ==
[2025-02-20 14:25] VITALS: BP 124/72; BMI 38.0
--- NOTE | 2025-02-20 14:25 | MHC.OFFVIS ---
Vital Signs 02/20/25 14:25 Height 5 ft 2 in Weight 208 lb BMI 38.0 BP 124/72 Blood Pressure Location Rt brachial Position Sitting Intake Visit Reasons: control consult (depo) Intake Note: been on depo for about 3 1/2 years . need refills. last depo 09/13/24. Been bleeding heavily for 5 days Tester Rocket Engine Required: No Material Carrier: Material Carrier Present Accompanied by: Self / Same As Patient Allergies ibuprofen (From MOTRIN) Allergy (Unknown, Verified 02/20/25 14:36) ITCHY/HIVES Medication List - Last Reconciled 02/20/25 by Justina Rivera LPN cyclobenzaprine 10 mg PO BID diazepam 2 mg PO BID PRN gabapentin 100 mg PO TID medroxyprogesterone 150 mg IM [id number] oxycodone 5 mg PO Q6H PRN Is last menstrual period known: Yes Last menstrual period: 02/15/25 Post menopausal: No Patient : No Followed by:: Justina Rivera LPN Do you need a note to return to daycare/school/sports/work: No HPI Comments Details: Patient is here today for a follow up Depo consult. History of endometriosis, has started bleeding since off Depo 2 months report more cramping. Denies any risk to , same sex partner. No other concerns today. She denies any contraindications to control such as: migraines with aura, history of DVT or pulmonary emboli, high blood pressure, liver disease, thrombolic disorders, Lupus, +LETTY, breast cancer, or smoking. 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 Sexual orientation: Lesbian/Gifford/Homosexual Gender identity: Female Female Reproductive History Menstrual Age of Menarche: 14 Date of last menstrual period: 02/15/25 Review of Systems Const All systems reviewed & are unremarkable except as noted in HPI and below Endo Reports no additional complaints Physical Exam Vital Signs: Last Vital Signs BP 124/72 02/20/25 14:25 BMI result Body Mass Index 38.0 Const General: cooperative, healthy appearing and no acute distress Psych Appearance: well kempt Attitude: cooperative Thought process: Normal thought process present Office Procedures Depo Questionnaire If YES to any of the following questions, please consult a provider. Date of last injection: 09/13/24 Date of last gynecology exam: 06/21/24 Menstrual pattern since last injection has been: Light test in office results: Negative Irregular bleeding?: No Breast lumps or other breast changes?: No Changes in weight or appetite?: No Depression or changes in mood?: No Abnormal hair growth or loss?: No Skin problems (rash, acne, discoloration)?: No Pain at the injection site?: No Headaches?: No Nervousness?: No Abdominal pain or cramping?: No Dizziness or nausea?: No Fatigue or weakness?: No Decrease in sexual drive?: No Chest pain or shortness of breath?: No Swelling in arms or legs?: No Form completed by?: Tima Mullen LPN Office Meds Depo-Provera 150 mg/mL intramuscular syringe Performing Provider: Brandi Castle CNM [place] [facility] Administered by: Triny Mullen LPN on 02/20/25 15:43 Dose Route Admin Location Dispensed Lot Number Expiration Date [facility] Drama Teacher 150 mg IM rt. deltoid 1 mL [id number] 01/04/26 41523-443-04 MYLAN Total Dispensed Waste 1 mL 0 % Results AMB Test Urine AMB Test Urine Negative Last Edit by Justina Rivera LPN on 02/20/25 14:42 Results Reviewed Results Reviewed: Laboratory Last Values [facility] Negative 02/20/25 14:41 Assessment & Plan Assessment & Plan (1) Depo-Provera contraceptive status: Code(s): Z30.42 - Encounter for surveillance of injectable contraceptive Category: Social Hx Plan Restart Depo. control hormone use warnings: go to ER if and loss of vision, blindness, severe headache, chest pain or difficulty breathing, severe abdominal pain, or any pain or swelling in an extremity. Schedule Depo repeat every 12 weeks. Annual exam scheduled for June. The patient expressed understanding and agreement with the plan of care. All of her questions and concerns were addressed to the best of my ability. This note is constructed using voice recognition software. While every effort has been made to ensure accuracy, water softener installer errors may have been included. Orders: Orders AMB Medroxyprogesterone Injection Patient Supplied Today N92.1 - Excessive and frequent menstruation with irregular cycle, N94.6 - Dysmenorrhea, unspecified AMB HCG Urine Test Today Z32.02 - Encounter for test, result negative Coding Level of Care Code Est Pt Level 3 (14893) Diagnoses Depo-Provera contraceptive status Z30.42
--- OUTSIDE RECORDS SUMMARY | 2025-02-20 15:12 | XMS_ITS | Encounter Summary ---
Author Organization [facility] Address [address] [place] [address] Care Team Providers Care School Bus Technician Name Role Phone Ani Anderson FIREFIGHTING EQUIPMENT SPECIALIST Primary Care Provider Reason for Visit * Reason Comments Correspondence Encounter Details Date Type Department Care Team ([facility] st Contact Info) Description 05/16/2023 Interim Notes Caring [facility] [address] [place] [id number] [place] [address] [place], [place] [id number] Social History Tobacco Use Types Packs/Day Years Used Date Smoking Tobacco: Every Day Cigarettes Smokeless Tobacco: Current Comments:socially Alcohol Use Standard Drinks/Week Comments Yes 0 (1 standard drink = 0.6 oz pur e alcohol) Occ Social Connections Answer Date Recorded Social Connections and Isolation 1 04/23/2021 Financial Resource Strain Answer Date R ecorded Financial Resource Strain 1 2020 Stress Answer Date Recorded Stress 1 04/23/2021 Physical Activity Answer Date Recorded Physical Activity 0 03/31/2019 Food Insecurity Answer Date Recorded Food 1 04/23/2021 Transportation Needs Answer Date Record ed Transportation 1 04/23/2021 Housing Stability Answer Date Recorded Housing 1 04/23/2021 Safety and Environment Answer Date Gaurang rded Safety 1 05/20/2022 Utilities Answer Date Recorded Utilities 1 04/23/2021 Employment Answer Date Recorded Stress 0 10/25/2021 Comments No Sex and Gender Information Value Date Recorded Sex Assigned at Female 07/17/2018 1:26 PM PST Legal Sex Female 10:55 AM PST Gender Identity Female 07/17/2018 1:26 PM PST Sexual Orientation Lesbian or Gifford 07/17/2018 1: 26 PM PST Occupation Industry Job Start Date Job End Date [employer] Not on file Not on file Not on file documented as of this encounter Plan of Treatment Not on file documented as of this encounter Visit Diagnoses Not on filedocumented in this encounter Additional Health Concerns Assessment Noted Time PHQ-9 Depression Total Score: 0 02/07/20 23 1:17 PM PDT documented as of this encounter Care Teams School Bus Technician Relationship Specialty Start Date End Date Ani Anderson NP [address] [place] [address] PCP - General Family Medicine, FIREFIGHTING EQUIPMENT SPECIALIST 10/08/24 documented as of this encounter
== END 2025-02-20 15:18 | disposition home or self-care (01) ==
LOC: HO.HWS 14:22
PROVIDERS: Visit Provider Advanced Practice Midwife
DX: N92.1 Excessive and frequent menstruation with irregular cycle (principal); N94.6 Dysmenorrhea, unspecified; Z32.02 Encounter for pregnancy test, result negative; Z30.42 Encounter for surveillance of injectable contraceptive
CPT/HCPCS: 99213

== ENCOUNTER → 2025-02-20 14:22 | Outpatient (BNVA) | payer MEDICAID, SELFPAY | PROVIDERS: Visit Provider Advanced Practice Midwife | DX: Z30.42 Encounter for surveillance of injectable contraceptive (principal) | CPT/HCPCS: 81025; 96372; 99212; J1050 ==

== ENCOUNTER 2025-05-21 10:15 | Outpatient (AMB) | payer MEDICAID, SELFPAY ==
--- OUTSIDE RECORDS SUMMARY | 2025-05-17 00:15 | XMS_ITS | Encounter Summary ---
Author Organization [facility] Address [address] [place] [address] Care Team Providers Care Animal Trainer Supervisor Name Role Phone Henrry Molina MD Primary Care Provider [phone] Reason for Visit * Reason Comments Abdominal Pain UPPER ABD PAIN SINCE THIS AM Encounter Details Date Type Department Care Team (Late st Contact Info) Description 05/17/2025 12:15 AM EDT - 05/17/2025 3:20 AM EDT Emergency [facility] Emergency [address] [place] [address] Generalized abdominal pain (Primary Dx) Discharge Disposition: Home or Self Care Social History Tobacco Use Types Packs/Day Years Used Date Smoking Tobacco: Never Assessed Comments Unknown Sex and Gender Information Value Date Recorded Sex Assigned at Not on file Legal Sex Female 1:00 PM EST Gender Identity Not on file Sexual Orientation Not on file documented as of this encounter Last Filed Vital Signs Vital Sign Reading Time Taken Comments Blood Pressure 127/86 05/17/2025 12:53 AM EDT Pulse 87 05/17/2025 12:53 AM EDT Temperature 36.8 C (98.2 F) 05/17/2025 12:53 AM EDT Respiratory Rate 18 05/17/2025 12:53 AM EDT Oxygen Saturation 100% 05/17/2025 12:53 AM EDT Inhaled Oxygen Concentration - - Weight 92.5 kg (204 lb) 05/16/2025 5:43 PM EDT Height 157.5 cm (5' 2 ) 05/16/2025 5:43 PM EDT Body Mass Index 37.31 05/16/2025 5:43 PM EDT documented in this encounter Functional Status * Are you deaf or do you have serious difficulty hearing? Answer Date of Assessment Author No 04/11/2025 3:26 AM Tiana Patel RN * Are you blind or do you have serious difficulty seeing, even when wearing glasses? Answer Date of Assessment Author No 04/11/2025 3:26 AM Tiana Patel RN * Do you have serious difficulty walking or climbing stairs? Answer Date of Assessment Author No 04/11/2025 3:26 AM Tiana Patel RN * Do you have serious difficulty dressing or bathing? Answer Date of Assessment Author No 04/11/2025 3:26 AM Tiana Patel RN * Because of a physical, mental, or emotional condition, do you have serious difficulty doing errandsalone such as visiting the doctor? Answer Date of Assessment Author No 04/11/2025 3:26 AM Tiana Patel RN * Calculated C-SSRS Risk Score (Lifetime/Recent) Answer Date of Assessment Author No Risk Indicated 05/16/2025 5:42 PM Gregorio Wilkins RN * [place] Suicide Severity Rating Scale (Screener/Recent Self-Report) Question Answer Date of Assessment Author 1. Wish to be (Past 1 Month) No 025 5:42 PM Doreen Wilkins RN 2. Non-Specific Active Suici cooper Thoughts (Past 1 Month) No 05/16/2025 5:42 PM Doreen Wilkins RN 6. Suicidal Behavior (Lifetime) No 5:42 PM Doreen Wilkins RN documented as of this encounter Mental Status * Because of a physical, mental, or emotional condition, do you have serious difficulty concentrating, remembering, or making decisions? (5 years old or older) Answer Entry Date Author No 04/11/2025 3:26 AM Tiana Patel RN documented in this encounter Discharge Instructions * Attachments The following attachments cannot be sent through Care Everywhere. * Abdominal Pain (Chinese) documented in this encounter Medications at Time of Discharge acetaminophen (TYLENOL) 500 mg tablet Take 2 tablets (1,000 mg total) by mouth every 6 (six) hours if needed for mild pain for up to 10 days. 30 tablet 05/17/2025 5 aluminum-magnesi um hydroxide-simeth icone (MAALOX) 200-200-20 mg/5 mL suspension Take 15 mL by mouth 4 (four) times a day (before meals and nightly). 354 mL 05/17/2025 amoxicillin-clav ulanate (AUGMENTIN) 875-125 mg per tablet Take 1 tablet by mouth 2 (two) times a day. dicyclomine (BENTYL) 20 mg tablet Take 1 tablet (20 mg total) by mouth 2 (two) times a day for 10 days. 20 tablet 05/17/2025 5 fentaNYL (DURAGESIC) 50 mcg/hr Place 1 Patch onto the skin every 72 hours. naloxone (NARCAN) 4 mg/0.1 mL nasal spray Administer 1 each (4 mg total) into affected nostril(s) if needed for opioid reversal. Give 4 mg (1 spray) into one nostril. May repeat every 2-3 minutes if needed, alternating nostrils, until medical assistance becomes available. 2 each 04/11/2025 6 ondansetron (ZOFRAN) 4 mg tablet Take by mouth. ondansetron (ZOFRAN) 4 mg tablet Take 1 tablet (4 mg total) by mouth every 8 (eight) hours if needed for nausea or vomiting for up to 7 days. 20 tablet 05/17/2025 5 oxyCODONE (ROXICODONE) 5 mg immediate release tablet Take 1 tablet (5 mg total) by mouth every 6 (six) hours if needed for severe pain for up to 12 doses. Max Daily Amount: 20 mg 12 each 05/17/2025 documented as of this encounter Ordered Prescriptions Prescription Sig Dispense Quantity Refills Last Filled Start Date End Date aluminum-magnesium hydroxide-simethic one (MAALOX) 200-200-20 mg/5 mL suspension Take 15 mL by mouth 4 (four) times a day (before meals and nightly). 354 mL 05/17/2025 acetaminophen (TYLENOL) 500 mg tablet Take 2 tablets (1,000 mg total) by mouth every 6 (six) hours if needed for mild pain for up to 10 days. 30 tablet 05/17/2025 5 ondansetron (ZOFRAN) 4 mg tablet Take 1 tablet (4 mg total) by mouth every 8 (eight) hours if needed for nausea or vomiting for up to 7 days. 20 tablet 05/17/2025 5 dicyclomine (BENTYL) 20 mg tablet Take 1 tablet (20 mg total) by mouth 2 (two) times a day for 10 days. 20 tablet 05/17/2025 5 oxyCODONE (ROXICODONE) 5 mg immediate release tablet Take 1 tablet (5 mg total) by mouth every 6 (six) hours if needed for severe pain for up to 12 doses. Max Daily Amount: 20 mg 12 each 05/17/2025 documented in this encounter Discharge Disposition Disposition Code Departure Means Destination Comment s Home or Self [facility] documented in this encounter Progress Notes * Doreen Toribio RN - 05/16/2025 5:42 PM EDT Pt c/o abd pain and reports she has a bump in her abd that started this am +nausea * HEIDY Rosales - 05/16/2025 5:41 PM EDT HPI Chief Complaint Patient presents with Abdominal Pain UPPER ABD PAIN SINCE THIS AM HPI history of diverticulitis with previous colectomy subsequent anastomosis and repeated hernias presents ED with upper abdominal pain since this morning. Is pending GI follow-up for endoscopy laterthis month. Denying fever chills chest pain shortness of breath but has had some nausea vomiting. States she still having bowel movements denying any blood in stool. No history of obstruction. TakingBentyl at home with minimal relief. [place] Coma Scale Score: 15 Patient History Medical History[1] Surgical History[2] Family History[3] Social History Tobacco Use Smoking status: Not on file Smokeless tobacco: Not on file Substance Use Topics Alcohol use: Not on file Drug use: Not on file Review of Systems Review of Systems Physical Exam ED Triage Vitals Temp Heart Rate Resp BP 05/16/25 1743 05/16/25 1743 10/05/31 174305/16/251742 36.9 ??C (98.4 ??F) 108 20 116/88 SpO2 Temp Source Heart Rate Source Patient Position 05/16/25174205/16/25174205/17/25 0053 05/16/252053 99 % Oral Monitor Sitting BP Location FiO2 (%) 05/16/252053 -- Left arm Physical Exam GENERAL: No acute distress HEENT: Normocephalic and atraumatic, EOMI NECK: Supple, trachea is midline RESP: No respiratory distress, lung sounds clear and equal bilaterally, speaking complete sentences CARDIOVASCULAR: Heart sounds crisp without murmur, regular rate GASTROINTESTINAL: Abdomen is soft, non distended MUSCULOSKELETAL: No obvious acute deformities, ROM intact SKIN: Warm and dry, well-healed surgical incision scars of the abdomen NEUROLOGIC: At baseline, no acute focal deficits PSYCHIATRIC: Calm and cooperative ED Course & MDM Clinical Impressions as of 05/17/251914 Generalized abdominal pain Medical Decision Making Differential diagnosis obstruction ileus hernia diverticulitis other GI MSK reproductive condition Vital signs reviewed Pulse oximetry reviewed and found to be > 94% on room air Physical exam as above Nursing notes reviewed CBC negative for significant leukocytosis or anemia requiring blood transfusion Metabolic panel negative for significant electrolyte abnormality with no signs of acute organ dysfunction UA not provided CAT scan with no emergent findings On reevaluation patient reportedly feeling better Social determinants of health considered including housing follow-up social and financial support Patient deemed appropriate for discharge with symptomatic treatment, recommendations to follow-up with primary care doctor / specialist with return precautions provided Procedures [1] History reviewed. No pertinent past medical history. [2] History reviewed. No pertinent surgical history. [3] No family history on file. HEIDY Rosales 05/17/251919 Cosigned by Maddie Hong MD at 05/18/2025 1:55 AM EDT Associated attestation - Maddie Hong MD - 05/18/2025 1:55 AM EDT I was available for consult in real time on shift and if asked my input in care is as outlined by the documentation below by me. If not documented, then I did not participate in the care of this patient and have reviewed the chart as written. Maddie Hong MD documented in this encounter Plan of Treatment Not on file documented as of this encounter Procedures Procedure Name Priority Date/Time Associated Diagnosis Comments CT ABDOMEN PELVIS W CONTRAST STAT 05/17/2025 2:07 AM EDT CBC WITH AUTO DIFFERENTIAL STAT 05/16/2025 7:02 PM EDT CBC AND DIFFERENTIAL STAT 05/16/2025 7:02 PM EDT HCG, SERUM, QUALITATIVE STAT Add-on 05/16/2025 7:02 PM EDT LIPASE STAT 05/16/2025 7:02 PM EDT COMPREHENSIVE METABOLIC PANEL STAT 05/16/2025 7:02 PM EDT documented in this encounter Results * CT Abdomen Pelvis w Contrast (05/17/2025 2:07 AM EDT) Anatomical Region Laterality Modality Body Computed Tomogra phy 05/17/2025 3:01 AM EDT Impressions 05/17/2025 3:01 AM EDT 1. Small supraumbilical hernia containing nonobstructed loops of small bowel. Otherwise no acute abdominopelvic findings. Postsurgical changes as described. This document has been electronically signed by: Joshua Cunningham MD on 05/17/2025 03:01:05 Narrative 05/17/2025 3:01 AM EDT INDICATION: generalized / prev colectomy with reversal CT abdomen and pelvis with contrast Comparison: CT - CT ABD PEL W CONTRAST - 04/10/25 23:03 EDT Findings: Unremarkable gallbladder and solid organs. No evidence of bowel obstruction. Contrast fills the stomach and proximal to mid small bowel. Small supraumbilical hernia containing nonobstructed loops of small bowel. Normal appendix. Postsurgical changes of the small bowel and colon with enteroenteric and colonic anastomosis noted. Postsurgical changes of the right-sided abdominal wall, presumably from prior colectomy reversal. Unremarkable pelvic contents. No acute fracture. Procedure Note Joshua Cunningham - 05/17/2025 INDICATION: generalized / prev colectomy with reversal CT abdomen and pelvis with contrast Comparison: CT - CT ABD PEL W CONTRAST - 04/10/25 23:03 EDT Findings: Unremarkable gallbladder and solid organs. No evidence of bowel obstruction. Contrast fills the stomach andproximal to mid small bowel. Small supraumbilical hernia containing nonobstructed loops of smallbowel. Normal appendix. Postsurgical changes of the small bowel and colon with enteroenteric and colonic anastomosis noted. Postsurgical changes of the right-sided abdominal wall, presumably from prior colectomy reversal. Unremarkable pelvic contents. No acute fracture. IMPRESSION: 1. Small supraumbilical hernia containing nonobstructed loops of small bowel. Otherwise no acute abdominopelvic findings. Postsurgical changesas described. This document has been electronically signed by: Joshua Cunningham MD on 05/17/2025 03:01:[address] PROCEDURES Final Res ult * hCG, serum, qualitative (05/16/2025 7:02 PM EDT) [facility] hCG Qual Negative Negative 05/16/2025 7:40 PM EDT [facility] Blood Venous blood specimen / Unknown Venipuncture / Unknown 05/16/2025 7:02 PM EDT 05/16/2025 7:16 PM EDT Alejandro MOODY LAB BLOOD ORDERABLES Final Result [facility] [address] [place] [address], [place] [phone] * (ABNORMAL) CBC auto differential (05/16/2025 7:02 PM EDT) [facility] WBC 12.8(H) 4.8 - 10.8 K/mcL LAB HEMETOLOGY METHOD 05/16/2025 7:20 PM EDT [facility] RBC 4.30 3.80 - 4.80 M/mcL LAB HEMETOLOGY METHOD 05/16/2025 7:20 PM EDT [facility] Hemoglobin 13.7 11.5 - 16.0 g/dL LAB HEMETOLOGY METHOD 05/16/2025 7:20 PM EDT [facility] Hematocrit 40.2 35.0 - 47.0 % LAB HEMETOLOGY METHOD 05/16/2025 7:20 PM EDT [facility] MCV 92.8 79.0 - 98.0 FL LAB HEMETOLOGY METHOD 05/16/2025 7:20 PM EDT [facility] MCH 31.6 27.0 - 32.0 pcg LAB HEMETOLOGY METHOD 05/16/2025 7:20 PM EDT [facility] MCHC 34.1 32.0 - 37.0 g/dL LAB HEMETOLOGY METHOD 05/16/2025 7:20 PM EDT [facility] RDW 13.2 11.0 - 15.0 % LAB HEMETOLOGY METHOD 05/16/2025 7:20 PM EDT [facility] Platelets 299 130 - 400 K/mcL LAB HEMETOLOGY METHOD 05/16/2025 7:20 PM EDT [facility] MPV 9.9 7.0 - 11.0 FL LAB HEMETOLOGY METHOD 05/16/2025 7:20 PM EDT [facility] NRBC 0.0 <1.0 % LAB HEMETOLOGY METHOD 05/16/2025 7:20 PM EDT [facility] NRBC Absolute 0.00 <0.10 K/mcL LAB HEMETOLOGY METHOD 05/16/2025 7:20 PM EDT [facility] Neutrophils Relative 60.9 % LAB HEMETOLOGY METHOD 05/16/2025 7:20 PM EDT [facility] Lymphocytes Relative 30.8 % LAB HEMETOLOGY METHOD 05/16/2025 7:20 PM EDT [facility] Monocytes Relative 5.9 % LAB HEMETOLOGY METHOD 05/16/2025 7:20 PM EDT [facility] Eosinophils Relative 1.6 % LAB HEMETOLOGY METHOD 05/16/2025 7:20 PM EDT [facility] Basophils Relative 0.5 % LAB HEMETOLOGY METHOD 05/16/2025 7:20 PM [facility] Immature Granulocytes Relative 0.3 % LAB [facility]EMETOLOGY [facility] Neutrophils Absolute 7.78(H) 1.50 - 7.00 K/mcL LAB HEMETOLOGY METHOD 05/16/2025 7:20 PM [facility] Lymphocytes Absolute 3.93 1.00 - 5.00 K/mcL LAB HEMETOLOGY METHOD 05/16/2025 7:[facility] Monocytes Absolute 0.76 0.20 - 1.00 K/mcL LAB HEMETOLOGY METHOD 05/16/2025 7:20 PM [facility] Eosinophils Absolute 0.20 0.00 - 0.50 K/mcL LAB HEMETOLOGY METHOD 05/16/2025 7:20 PM [facility] Basophils Absolute 0.07 0.00 - 0.20 K/mcL LAB HEMETOLOGY METHOD 05/16/2025 7:20 PM [facility] Immature Granulocytes Absolute 0.04(H) 0.00 - 0.03 K/mcL LAB HEMETOLOGY METHOD 05/16/2025 7:20 PM [facility] Blood Venous blood specimen / Unknown Venipuncture / Unknown 05/16/2025 7:02 PM EDT 05/16/2025 7:16 PM EDT Nicholas Meraz MD LAB BLOOD ORDERABLES Final Result [facility] [address] [place] [address], [place] [phone] * Lipase (05/16/2025 7:02 PM EDT) Lipase 39 13 - 75 unit/L LAB CHEMISTRY METHOD 05/16/2025 7:52 PM EDT [facility] Blood Venous blood specimen / Unknown Venipuncture / Unknown 05/16/2025 7:02 PM EDT 05/16/2025 7:16 PM EDT Nicholas Meraz MD LAB BLOOD ORDERABLES Final Result Performing Organization Address [facility]/ZIP Co de Phone Number [facility] [address] [place] [address], [place] [phone] * Comprehensive metabolic panel (05/16/2025 7:02 PM EDT) Pathologist [facility] Sodium 137 133 - 145 mmol/L LAB CHEMISTRY METHOD 05/16/2025 7:52 PM [facility] Potassium 4.7 3.5 - 5.5 mmol/L LAB CHEMISTRY METHOD 05/16/2025 7:52 PM [facility] Chloride 106 96 - 110 mmol/L LAB CHEMISTRY METHOD 05/16/2025 7:52 PM [facility] CO2 27 21 - 32 mmol/L LAB CHEMISTRY METHOD 05/16/2025 7:52 PM [facility] Anion Gap 4 3 - 11 LAB CHEMISTRY METHOD 05/16/2025 7:52 PM [facility] Glucose 92 70 - 100 mg/dL LAB CHEMISTRY METHOD 05/16/2025 7:52 PM [facility] BUN 12 5 - 25 mg/dL LAB CHEMISTRY METHOD 05/16/2025 7:52 PM [facility] Creatinine 0.77 0.50 - 1.10 mg/dL LAB CHEMISTRY METHOD 05/16/2025 7:52 PM [facility] eGFR 101 >=60 mL/min/1. 73m2 LAB CHEMISTRY METHOD 05/16/2025 7:52 PM [facility] Comment:Calculation based on the Chronic Kidney Disease Epidemiology Collaboration (CKD-EPI) equation refit without adjustment for race. BUN/Creatinine Ratio 15.6 LAB CHEMISTRY METHOD 05/16/2025 7:52 PM [facility] Calcium 9.2 8.5 - 10.5 mg/dL LAB CHEMISTRY METHOD 05/16/2025 7:52 PM [facility] AST (SGOT) 19 10 - 42 unit/L LAB CHEMISTRY METHOD 05/16/2025 7:52 PM [facility] ALT (SGPT) 26 10 - 60 unit/L LAB CHEMISTRY METHOD 05/16/2025 7:52 PM [facility] Alkaline Phosphatase 89 42 - 121 unit/L LAB CHEMISTRY METHOD 05/16/2025 7:52 PM [facility] Total Protein 7.3 6.0 - 8.0 g/dL LAB CHEMISTRY METHOD 05/16/2025 7:52 PM [facility] Albumin 4.0 3.2 - 5.0 g/dL LAB CHEMISTRY METHOD 05/16/2025 7:52 PM [facility] Total Bilirubin 0.5 0.0 - 1.4 mg/dL LAB CHEMISTRY METHOD 05/16/2025 7:52 PM [facility] Blood Venous blood specimen / Unknown Venipuncture / Unknown 05/16/2025 7:02 PM EDT 05/16/2025 7:16 PM EDT us Nicholas Meraz MD LAB BLOOD ORDERABLES Final Result [facility] [address] [place] [address], documented in this encounter Visit Diagnoses Diagnosis Generalized abdominal pain- Primary Abdominal pain, generalized documented in this encounter Administered Medications Inactive Administered Medications - up to 3 most recent administrations Medication Order MAR Action Action Date Dose Rate Site acetaminophen (TYLENOL) tablet 1,000 mg 1,000 mg, oral, Once, On 05/17/25 at 0313, For 1 dose Given 05/17/2025 3:14 AM EDT 1,000 mg aluminum-magnesium hydroxide-simethicone (MAALOX) 200-200-20 mg/5 mL suspension 30 mL 30 mL, oral, Once, On 05/17/25 at 0303, For 1 dose Given 05/17/2025 3:11 AM EDT 30 mL barium sulfate (READI-CAT 2) 2 % (w/v) suspension 450 mL 450 mL, oral, Once in imaging, Starting on 05/17/25 at 0153, For 1 dose Given 05/17/2025 2:01 AM EDT 450 mL dicyclomine (BENTYL) tablet 20 mg 20 mg, oral, Once, On 05/17/25 at 0303, For 1 dose Given 05/17/2025 3:11 AM EDT 20 mg HYDROmorphone (DILAUDID) injection 0.5 mg 0.5 mg, intravenous, Once, On 05/17/25 at 0037, For 1 dose Given 05/17/2025 12:45 AM EDT 0.5 mg HYDROmorphone (DILAUDID) injection 0.5 mg 0.5 mg, intravenous, Once, On 05/17/25 at 0131, For 1 dose Given 05/17/2025 1:33 AM EDT 0.5 mg iopamidoL (ISOVUE-370) 370 mg iodine /mL (76 %) injection 90 mL 90 mL, intravenous, Once in imaging, Starting on 05/17/25 at 0154, For 1 dose Given 05/17/2025 2:00 AM EDT 90 mL ondansetron (PF) (ZOFRAN) injection 4 mg 4 mg, intravenous, Once, On 05/16/25 at 1911, For 1 dose Given 05/17/2025 12:27 AM EDT 4 mg ondansetron (PF) (ZOFRAN) injection 4 mg 4 mg, intravenous, Once, On 05/17/25 at 0153, For 1 dose Given 05/17/2025 2:11 AM EDT 4 mg sodium chloride 0.9 % flush 10 mL 10 mL, intravenous, Once, On 05/17/25 at 0155, For 1 dose Given 05/17/2025 2:00 AM EDT 10 mL documented in this encounter Active and Recently Administered Medications Times are shown in EDT. Scheduled Medication Order 05/15/2025 05/16/2025 05/17/2025 acetaminophen (TYLENOL) tablet 1,000 mg (COMPLETED) 1,000 mg, oral, Once, On 05/17/25 at 0313, For 1 dose 0314 (Given - Provid er: Courtney Meraz RN) aluminum-magnesium hydroxide-simethicone (MAALOX) 200-200-20 mg/5 mL suspension 30 mL (COMPLETED) 30 mL, oral, Once, On 05/17/25 at 0303, For 1 dose 031 (Given - Provid er: Courtney Mreaz RN) barium sulfate (READI-CAT 2) 2 % (w/v) suspension 450 mL (COMPLETED) 450 mL, oral, Once in imaging, Starting on 05/17/25 at 0153, For 1 dose 0201 (Given - Provid er: Tariq Finn) dicyclomine (BENTYL) tablet 20 mg (COMPLETED) 20 mg, oral, Once, On 05/17/25 at 0303, For 1 dose 031 (Given - Provid er: Courtney Meraz RN) HYDROmorphone (DILAUDID) injection 0.5 mg (COMPLETED) 0.5 mg, intravenous, Once, On 05/17/25 at 0037, For 1 dose 004 (Given - Provid er: Courtney Meraz RN) HYDROmorphone (DILAUDID) injection 0.5 mg (COMPLETED) 0.5 mg, intravenous, Once, On 05/17/25 at 0131, For 1 dose 0133 (Given - Provid er: Courtney Meraz RN) iopamidoL (ISOVUE-370) 370 mg iodine /mL (76 %) injection 90 mL (COMPLETED) 90 mL, intravenous, Once in imaging, Starting on 05/17/25 at 0154, For 1 dose 0200 (Given - Provid er: Tariq Finn) ondansetron (PF) (ZOFRAN) injection 4 mg (COMPLETED) 4 mg, intravenous, Once, On 05/16/25 at 1911, For 1 dose 0027 (Given - Provid er: Dari Armenta RN - Comment: pt just brought in room) ondansetron (PF) (ZOFRAN) injection 4 mg (COMPLETED) 4 mg, intravenous, Once, On 05/17/25 at 0153, For 1 dose 0211 (Given - Provid er: Courtney Meraz RN) sodium chloride 0.9 % flush 10 mL (COMPLETED) 10 mL, intravenous, Once, On 05/17/25 at 0155, For 1 dose 0200 (Given - Provid er: Tariq Finn) documented in this encounter Orders Medications Ordered That Huber ht Not Have Been Administered Count Last Ordered Date First Ordered Date morphine injection 4 mg 1 05/16/2025 documented in this encounter Care Teams Animal Trainer Supervisor Relationship Specialty Start Date End Date Henrry Molina MD [address] [place] [address] [phone] PCP - General Family Medicine 06/18/24 documented as of this encounter
--- NOTE | 2025-05-21 10:28 | AM.OFFVISNUR ---
Vital Signs 05/21/25 10:32 Height 5 ft 2 in Weight 203 lb BMI 37.1 Intake Visit Reasons: DEPO Allergies ibuprofen (From MOTRIN) Allergy (Unknown, Verified 02/20/25 14:36) ITCHY/HIVES Nursing Note Patient here with medication for depo provera injection. Patient did not have any concerns. Will schedule next injection in 12 weeks. Office Procedures Depo Questionnaire If YES to any of the following questions, please consult a provider. Date of last injection: 02/20/25 Date of last gynecology exam: 02/20/25 Menstrual pattern since last injection has been: Not Applicable Irregular bleeding?: No Breast lumps or other breast changes?: No Changes in weight or appetite?: No Depression or changes in mood?: No Abnormal hair growth or loss?: No Skin problems (rash, acne, discoloration)?: No Pain at the injection site?: No Headaches?: No Nervousness?: No Abdominal pain or cramping?: No Dizziness or nausea?: No Fatigue or weakness?: No Decrease in sexual drive?: No Chest pain or shortness of breath?: No Swelling in arms or legs?: No Any other problems or concerns?: none Form completed by?: Justina Rivera LPN Office Meds Depo-Provera 150 mg/mL intramuscular syringe Performing Provider: Brandi Castle CNM Performing Location: [facility] Administered by: Justina Rivera LPN on 05/21/25 10:28 Dose Route Admin Location Dispensed Lot Number Expiration Date [facility] [employer] 150 mg IM left deltoid 1 mL [id number] 08/05/27 04320-524-66 [facility] Total Dispensed Waste 1 mL 0 % Assessment & Plan Assessment & Plan Orders: Orders AMB Medroxyprogesterone Injection Patient Supplied Today Z30.42 - Encounter for surveillance of injectable contraceptive Coding Level of Care Code Established Pt Est Pt Level 1 (33559) Patient Type Established History Problem Focused Exam Problem Focused Medical Decision Making Straight Forward Time Spent (min) 20
[2025-05-21 10:32] VITALS: BMI 37.1
--- OUTSIDE RECORDS SUMMARY | 2025-05-21 12:07 | XMS_ITS | Clinical Summary ---
Author Organization [employer] [facility] Address [address] [place] [address] Care Team Providers Care Residential Director Name Role Phone Unavailable Primary Care Provider Unavailabl e Encounters Date Type Department Care Team Description 02/25/2025 Population Health Risk Score [facility] Care [facility] (C3) Department [address] [place] [address] [place] [address] Provider, Population Health Generic from Last 3 Months Social History Tobacco Use Types Packs/Day Years Used Date Smoking Tobacco: Never Assessed Comments Unknown Sex and Gender Information Value Date Recorded Sex Assigned at Not on file Legal Sex Female 9:21 PM EDT Gender Identity Not on file Sexual Orientation Not on file Plan of Treatment Health Maintenance Due Date Last Done Comments Depression Screening 1987 Lipid Panel 1987 SDOH Screening 1987 Disability Screening 1987 Alcohol/Substance Use Screening 1999 Tobacco Screening 1999 Family Planning (PISQ) 2002 Hepatitis C Screening 2005 Pap Smear 2008 Cervical Cancer Screening 2017 HPV/Cotest 2017 HPV Vaccines (2 - 3-dose series) 03/06/2023 02/06/2023 COVID-19 Vaccine ( season) 2025 02/06/2023, 11/25/2021, 06/22/2021, Additional history exists Influenza Vaccine (#1) 2025 04/23/2021 DTaP/Tdap/Td Vaccines (3 - Td or Tdap) 12/12/2026 12/12/2016, 06/06/2013 Zoster Vaccines (1 of 2) 2037 RSV Patients and Patients Aged 60 years or older (1 - 1-dose 75+ series) 2062 Hepatitis B Vaccines Completed 05/31/2021, 04/30/20 21 HIV Screening Completed 12/13/2024, 12/13/2024 HIB Vaccines Aged Out No longer eligi ble based on patient's age to complete this topic Hepatitis A Vaccines Aged Out No long er eligible based on patient's age to complete this topic IPV Vaccines Aged Out No longer eligi ble based on patient's age to complete this topic Meningococcal B Vaccine Aged Out No l onger eligible based on patient's age to complete this topic Meningococcal Vaccine Aged Out No kimmy khai eligible based on patient's age to complete this topic Pneumococcal Vaccine: Pediatrics (0 to 5 Years) and At-Risk Patients (6 to 49) Years Aged Out No longer eligible based on patient's age to complete this topic RSV under 20 months Aged Out No longe r eligible based on patient's age to complete this topic Rotavirus Vaccines Aged Out No longer eligible based on patient's age to complete this topic
--- OUTSIDE RECORDS SUMMARY | 2025-05-21 12:07 | XMS_ITS | Encounter Summary ---
Author Organization [facility] Address [address] [place] [address] Care Team Providers Care Dough Puncher Name Role Phone Ani Anderson ADMINISTRATIVE SUPPORT ASSISTANT Primary Care Provider [phone] Reason for Visit * Reason Comments Correspondence Encounter Details Date Type Department Care Team ([facility] st Contact Info) Description 05/16/2023 Interim Notes [facility] [address] [place] [address] [place], [place] [address] [place], [place] [id number] Social History Tobacco Use Types Packs/Day Years [...] Score: 0 02/07/20 23 1:17 PM PDT A Depression follow-up plan has been documented for the patient 02/06/2023 1:49 PM PDT documented as of this encounter Care Teams Dough Puncher Relationship Specialty Start Date End Date Ani Anderson NP [address] [place] [address] PCP - General Family Medicine, ADMINISTRATIVE SUPPORT ASSISTANT 10/08/24 documented as of this encounter
--- OUTSIDE RECORDS SUMMARY | 2025-05-21 12:07 | XMS_ITS | Clinical Summary ---
Author Organization [address] [facility] Address [address] [place] [address] Phone Care Team Providers Care Manager Process Improvement Name Role Phone Henrry Molina MD Primary Care Provider [phone] Allergies Active Allergy Reactions Criticality Noted Date Comments Ibuprofen 04/10/2025 Medications fentaNYL (DURAGESIC) 50 mcg/hr Place 1 Patch onto the skin every 72 hours. Active amoxicillin-cla vulanate (AUGMENTIN) 875-125 mg per tablet Take 1 tablet by mouth 2 (two) times a day. Active ondansetron (ZOFRAN) 4 mg tablet Take by mouth. Activ e naloxone (NARCAN) 4 mg/0.1 mL nasal spray Administer 1 each (4 mg total) into affected nostril(s) if needed for opioid reversal. Give 4 mg (1 spray) into one nostril. May repeat every 2-3 minutes if needed, alternating nostrils, until medical assistance becomes available. 2 each 5 04/11/20 26 Active oxyCODONE (ROXICODONE) 5 mg immediate release tablet Take 1 tablet (5 mg total) by mouth every 6 (six) hours if needed for severe pain for up to 12 doses. Max Daily Amount: 20 mg 12 each 5 Active dicyclomine (BENTYL) 20 mg tablet Take 1 tablet (20 mg total) by mouth 2 (two) times a day for 10 days. 20 tablet 5 05/27/20 25 Active ondansetron (ZOFRAN) 4 mg tablet Take 1 tablet (4 mg total) by mouth every 8 (eight) hours if needed for nausea or vomiting for up to 7 days. 20 tablet 5 05/24/20 25 Active acetaminophen (TYLENOL) 500 mg tablet Take 2 tablets (1,000 mg total) by mouth every 6 (six) hours if needed for mild pain for up to 10 days. 30 tablet 5 05/27/20 25 Active aluminum-magnes ium hydroxide-simet hicone (MAALOX) 200-200-20 mg/5 mL suspension Take 15 mL by mouth 4 (four) times a day (before meals and nightly). 354 mL 5 Active Encounters Date Type Department Care Team Description 05/17/2025 12:15 AM EDT - 05/17/2025 3:20 AM EDT [facility] Emergency [address] [place] [address] Generalized abdominal pain (Primary Dx) Discharge Disposition: Home or Self Care 04/10/2025 10:03 PM EDT - 04/11/2025 3:[address] [facility] Emergency [address] [place] [address] Chandu Figueroa MD Kokkinos, Erika, MD Acute bilateral lower abdominal pain (Primary Dx); Chronic abdominal pain; Ventral hernia without obstruction or gangrene Discharge Disposition: Home or Self Care from Last 3 Months Social History Tobacco Use Types Packs/Day Years Used Date Smoking Tobacco: Never Assessed Comments Unknown Sex and Gender Information Value Date Recorded Sex Assigned at Not on file Legal Sex Female 1:00 PM EST Gender Identity Not on file Sexual Orientation Not on file Obstetrics History Last Filed Vital Signs Vital Sign Reading [...] Mass Index 37.31 05/16/2025 5:43 PM EDT Plan of Treatment Health Maintenance Due Date Last Done Comments Cervical Cancer Screening: Pap Smear 2008 Social Influencers of Health Screening 07/11/2022 HPV Vaccines (2 - 3-dose SCDM series) 03/06/2023 02/06/2023 Depression Screening 08/07/2024 COVID-19 Vaccine ( season) 2025 02/06/2023, 11/25/2021, 06/22/2021, Additional history exists Influenza Vaccine (#1) 2025 04/23/2021 DTaP,Tdap,and Td Vaccines (3 - Td or Tdap) 12/12/2026 12/12/2016, 06/06/2013 Cholesterol Screening (Lipid Panel) 12/13/2029 12/13/2024, 12/13/2024, 06/26/2023, Additional history exists RSV Immunization Adult Patients (1 - 1-dose 75+ series) 2062 HIV Screening Completed 10/19/2018 Hepatitis B Vaccines Completed 05/31/2021, 04/30/20 Hepatitis C Screening Completed 12/13/2024 HIB Vaccines Aged Out No longer eligi ble based on patient's age to complete this topic Hepatitis A Vaccines Aged Out No long er eligible based on patient's age to complete this topic IPV Vaccines Aged Out No longer eligi ble based on patient's age to complete this topic MMR Vaccines Aged Out No longer eligi ble based on patient's age to complete this topic Meningococcal ACWY Vaccine Aged Out N o longer eligible based on patient's age to complete this topic Meningococcal B Vaccine Aged Out No l onger eligible based on patient's age to complete this topic Pneumococcal Vaccine: Pediatrics (0 to 5 Years) and At-Risk Patients (6 to 49 Years) Aged Out No longer eligible based on patient's age to complete this topic RSV Immunization Patients Under 20 months Aged Out No longer eligible based on patient's age to complete this topic Varicella Vaccines Aged Out No longer eligible based on patient's age to complete this topic Procedures Procedure Name Priority Date/Time Associated Diagnosis Comments CT ABDOMEN PELVIS W CONTRAST STAT 05/17/2025 2:07 AM EDT HCG, SERUM, QUALITATIVE STAT Add-on 05/16/2025 7:02 PM EDT CBC WITH AUTO DIFFERENTIAL STAT 05/16/2025 7:02 PM EDT LIPASE STAT 05/16/2025 7:02 PM EDT COMPREHENSIVE METABOLIC PANEL STAT 05/16/2025 7:02 PM EDT CBC AND DIFFERENTIAL STAT 05/16/2025 7:[address] ABDOMEN PELVIS W CONTRAST STAT 04/10/2025 11:05 PM EDT HCG, SERUM, QUALITATIVE STAT Add-on 04/10/2025 7:24 PM EDT CBC WITH AUTO DIFFERENTIAL STAT 04/10/2025 7:24 PM EDT LIPASE STAT 04/10/2025 7:24 PM EDT COMPREHENSIVE METABOLIC PANEL STAT 04/10/2025 7:24 PM EDT CBC AND DIFFERENTIAL STAT 04/10/2025 7:24 PM EDT from Last 3 Months Results * CT Abdomen Pelvis w Contrast (05/17/2025 2:07 AM EDT) Only the most recent of2 resultswithin the time period is included. Anatomical Region Laterality Modality Body Computed Tomogra [...] by: Joshua Cunningham MD on 05/17/2025 03:01:05 us Alejandro MOODY [facility] [place]ED[place] Final Res ult * (ABNORMAL) CBC auto differential (05/16/2025 7:02 PM EDT) Only the most recent of2 resultswithin the time period is included. WBC 12.8(H) 4.8 - 10.8 K/[facility] LAB HEMETOLOGY METHOD 05/16/2025 7:20 PM EDT [facility] RBC 4.30 3.80 - 4.80 /[facility] LAB HEMETOLOGY METHOD 05/16/2025 7:20 PM EDT [facility] Hemoglobin 13.7 11.5 - 16.0 g/dL LAB HEMETOLOGY METHOD 05/16/2025 7:20 PM EDT [facility] Hematocrit 40.2 35.0 - 47.0 % LAB HEMETOLOGY METHOD 05/16/2025 7:[address] [facility] MCV 92.8 79.0 - 98.0 FL LAB HEMETOLOGY METHOD 05/16/2025 7:20 PM EDT [facility] MCH 31.6 27.0 - 32.0 pcg LAB HEMETOLOGY METHOD 05/16/2025 7:[address] [facility] MCHC 34.1 32.0 - 37.0 g/dL LAB HEMETOLOGY METHOD 05/16/2025 7:[address] [facility] RDW 13.2 11.0 - 15.0 % LAB [facility] 299 130 - 400 K/mcL LAB HEMETOLOGY METHOD 05/16/2025 7:[address] [facility] MPV 9.9 7.0 - 11.0 FL LAB HEMETOLOGY METHOD 05/16/2025 7:[address] [facility] NRBC 0.0 <1.0 % LAB HEMETOLOGY METHOD 05/16/2025 7:20 PM EDT [facility] NRBC Absolute 0.00 <0.10 K/mcL LAB HEMETOLOGY METHOD [facility] Neutrophils Relative 60.9 % LAB HEM[facility]OLOGY [facility] Lymphocytes Relative 30.8 % LAB [facility]EM[facility]OLOGY [facility] Monocytes Relative 5.9 % LAB HEMETOLOGY METHOD 05/16/2025 7:20 PM EDT [facility] Eosinophils Relative 1.6 % LAB HEMETOLOGY METHOD 05/16/2025 7:20 PM EDT [facility] Basophils Relative 0.5 % LAB HEMETOLOGY METHOD 05/16/2025 7:20 PM EDT [facility] Immature Granulocytes Relative 0.3 % LAB HEMETOLOGY METHOD 05/16/2025 7:20 PM EDT [facility] Neutrophils Absolute 7.78(H) 1.50 - 7.00 K/mcL LAB HEMETOLOGY METHOD 05/16/2025 7:20 PM EDT [facility] Lymphocytes Absolute 3.93 1.00 - 5.00 K/mcL LAB HEMETOLOGY METHOD 05/16/2025 7:20 PM EDT [facility] Monocytes Absolute 0.76 0.20 - 1.00 K/mcL LAB HEMETOLOGY METHOD 05/16/2025 7:20 PM EDT [facility] Eosinophils Absolute 0.20 0.00 - 0.50 K/mcL LAB HEMETOLOGY METHOD 05/16/2025 7:20 PM EDT [facility] Basophils Absolute 0.07 0.00 - 0.20 K/mcL LAB HEMETOLOGY METHOD 05/16/2025 7:20 PM EDT [facility] Immature Granulocytes Absolute 0.04(H) 0.00 - 0.03 K/mcL LAB HEMETOLOGY METHOD 05/16/2025 7:20 PM EDT [facility] Blood Venous blood specimen / Unknown Venipuncture / Unknown 05/16/2025 7:02 PM EDT 05/16/2025 7:16 PM EDT us Nicholas Meraz MD LAB BLOOD ORDERABLES Final Result [facility] [address] [place] [address], [place] [phone] * hCG, serum, qualitative (05/16/2025 7:02 PM EDT) Only the most recent of2 resultswithin the time period is included. [facility] hCG Qual Negative Negative 05/16/2025 7:40 PM EDT [facility] Blood Venous blood specimen / Unknown Venipuncture / Unknown 05/16/2025 7:02 PM EDT 05/16/2025 7:16 PM EDT Alejandro MOODY LAB BLOOD ORDERABLES Final Result Performing Organization Address [facility] Co de Phone Number [facility] [address] [place] [address], [place] [phone] * Lipase (05/16/2025 7:02 PM EDT) Only the most recent of2 resultswithin the time period is included. [facility] Lipase 39 13 - 75 unit/L LAB CHEMISTRY METHOD 05/16/2025 7:52 PM EDT [facility] Blood Venous blood specimen / Unknown Venipuncture / Unknown 05/16/2025 7:02 PM EDT 05/16/2025 7:16 PM EDT Nicholas Meraz MD LAB BLOOD ORDERABLES Final Result Performing Organization Address City/[facility]/ZIP Co de Phone Number [facility] [address] [place] [address], [place] [phone] * Comprehensive metabolic panel (05/16/2025 7:02 PM EDT) Only the most recent of2 resultswithin the time period is included. [facility] Sodium 137 133 - 145 mmol/L LAB CHEMISTRY METHOD 05/16/2025 7:52 PM EDT [facility] Potassium 4.7 3.5 - 5.5 mmol/L LAB CHEMISTRY METHOD 05/16/2025 7:[address] [facility] Chloride 106 96 - 110 mmol/L LAB CHEMISTRY METHOD 05/16/2025 7:[address] [facility] CO2 27 21 - 32 mmol/L LAB CHEMISTRY METHOD 05/16/2025 7:[address] [facility] Anion Gap 4 3 - 11 LAB CHEMISTRY METHOD 05/16/2025 7:[address] [facility] Glucose 92 70 - 100 mg/dL LAB CHEMISTRY METHOD 05/16/2025 7:[address] [facility] BUN 12 5 - 25 mg/dL LAB CHEMISTRY METHOD 05/16/2025 7:[address] [facility] Creatinine 0.77 0.50 - 1.10 mg/dL LAB CHEMISTRY METHOD 05/16/2025 7:[address] [facility] eGFR 101 >=60 mL/min/1. 73m2 LAB CHEMISTRY METHOD 05/16/2025 7:[address] [facility] Comment:Calculation based on the Chronic Kidney Disease Epidemiology Collaboration (CKD-EPI) equation refit without adjustment for race. BUN/Creatinine Ratio 15.6 LAB CHEMISTRY METHOD 05/16/2025 7:[address] [facility] Calcium 9.2 8.5 - 10.5 mg/dL LAB CHEMISTRY METHOD 05/16/2025 7:[address] [facility] AST (SGOT) 19 10 - 42 unit/L LAB CHEMISTRY METHOD 05/16/2025 7:[address] [facility] ALT (SGPT) 26 10 - 60 unit/L LAB CHEMISTRY METHOD 05/16/2025 7:[address] [facility] Alkaline Phosphatase 89 42 - 121 unit/L LAB CHEMISTRY METHOD 05/16/2025 7:[address] [facility] Total Protein 7.3 6.0 - 8.0 g/dL LAB CHEMISTRY METHOD 05/16/2025 7:52 PM EDT [facility] Albumin 4.0 3.2 - 5.0 g/dL LAB CHEMISTRY METHOD 05/16/2025 7:52 PM EDT [facility] Total Bilirubin 0.5 0.0 - 1.4 mg/dL LAB CHEMISTRY METHOD 05/16/2025 7:52 PM EDT [facility] Blood Venous blood specimen / Unknown Venipuncture / Unknown 05/16/2025 7:02 PM EDT 05/16/2025 7:16 PM EDT us Nicholas Meraz MD LAB BLOOD ORDERABLES Final Result [facility] [address] [place] [address], from Last 3 Months Insurance MEDICAID - [place] Care Teams Manager Process Improvement Relationship Specialty Start Date End Date Henrry Molina MD [address] [place] [address] PCP - General Family Medicine 06/18/24
--- OUTSIDE RECORDS SUMMARY | 2025-05-21 12:08 | XMS_ITS | Clinical Summary ---
Author Organization [facility] Address [address] [place] [address] Care Team Providers Care Transit Mix Operator Name Role Phone Ani Anderson EDI Primary Care Provider [phone] Source Comments PLEASE NOTE, if this patient is a minor, it may be UNLAWFUL to discuss sensitive information that is contained in these records (such as FAMILY PLANNING, MENTAL HEALTH or SUBSTANCE ABUSE) with the minor patient's parent or other person without the patient's specific authorization.[facility] Allergies Active Allergy Reactions Criticality Noted Date Comments Ibuprofen Hives High 07/17/2018 Medications medroxyPROGESTERon e (DEPO-PROVERA) 150 mg/mL injection INJECT 1ML EVERY 3 MONTHS 09/02/19 22 Active Lactobac comb 2-VEB-vfcazfrrxz (PROBIOTIC AND ACIDOPHILUS) 300-250 million cell-mg capsuleIndications :Diverticulitis Take 1 Capsule by mouth once daily for 30 days 30 Capsule 08/15/19 24 Active albuterol HFA 90 mcg/actuation inhaler Inhale 2 Puffs into the lungs every 4 to 6 (four to six) hours as needed for shortness of breath or wheezing (cough/sob) 8 g 05/25/20 24 Active ondansetron ODT (ZOFRAN-ODT) 4 mg disintegrating tabletIndications: Left upper quadrant abdominal pain Take 1 Tablet by mouth every 8 (eight) hours as needed for nausea 10 Tablet 08/27/19 25 Active diazePAM (VALIUM) 5 mg tabletIndications: Acute midline thoracic back pain Take 1 Tablet by mouth 2 (two) times daily as needed for anxiety 4 Tablet 10/09/19 25 Active oxyCODONE (ROXICODONE) 5 mg tabletIndications: Lower abdominal pain Take 1 Tablet by mouth every 6 (six) hours as needed for pain 10 Tablet 10/15/19 25 Active naloxone (NARCAN) 4 mg/actuation nasal spray Place 1 Perry into the nostril(s) as needed for opioid reversal (Overdose) 2 Each 10/15/19 25 Active tirzepatide, weight loss, (ZEPBOUND) 2.5 mg/0.5 mL pnijIndications:Ob esity (BMI 30-39.9) Inject 2.5 mg into the skin once a week 2 mL 12/10/19 25 Active tirzepatide, weight loss, (ZEPBOUND) 5 mg/0.5 mL pnijIndications:Ob esity (BMI 30-39.9) Inject 5 mg into the skin once a week 2 mL 2 12/10/19 25 Active acetaminophen (TYLENOL) 500 mg tabletIndications: Diverticulitis,Gen eralized abdominal pain Take 1 Tablet by mouth every 6 (six) hours as needed for pain. 60 Tablet 3 04/21/20 25 Active dicyclomine (BENTYL) 20 mg tabletIndications: Generalized abdominal pain Take 1 Tablet by mouth 4 (four) times daily before meals and nightly. 90 Tablet 3 04/28/20 25 Active gabapentin (NEURONTIN) 300 mg capsule Take 1 Capsule by mouth 3 (three) times daily. 90 Capsule 2 04/28/20 25 Active cyclobenzaprine (FLEXERIL) 10 mg tabletIndications: Diverticulitis,Gen eralized abdominal pain,Bilateral low back pain with bilateral sciatica, unspecified chronicity Take 1 Tablet by mouth 3 (three) times daily as needed for muscle spasms. 90 Tablet 05/09/20 25 Active cyclobenzaprine (FLEXERIL) 10 mg tabletIndications: Diverticulitis,Gen eralized abdominal pain,Bilateral low back pain with bilateral sciatica, unspecified chronicity Take 1 Tablet by mouth 3 (three) times daily as needed for muscle spasms. 90 Tablet 04/21/20 25 025 Discontin ued(Reord er (E-Cancel Not Sent)) Active Problems Problem Noted Date Diagnosed Date Opioid use disorder 05/30/2024 Overview (05/30/2024): 05/2024: PDMP was reviewed and patient has had chronic use of opiates and controlled substances almost daily over the past year from multiple different prescribers. This initially started due to many severe flares of diverticulitis in 2022. Pt understand the risks of continuing chronic opiate use include worsening illness, potential dependence/addiction, sedation, resp distress, disability, organ failure and . They were counseled to avoid other sedating medications/alcohol while on opiates. They were offered other therapies including pharmacologic and they declined. Class 2 obesity 01/16/2024 Endometriosis 02/06/2023 Overview (02/06/2023): Follows with [facility] in [place] Family history of heart disease 08/10/2021 Palpitations 08/10/2021 Anxiety 08/10/2021 Diverticulitis 11/21/2018 Overview (03/19/2024): Recurrent, 4 episodes since 07/2023 Seen by GI: 10/2023, advised colonoscopy after resolution of symptoms, prescribed opiates and abx for management. 03/11/24: s/p loop ileostomy reversal with resection and anastomosis Chest pain 11/14/2018 Overview (11/14/2018): Treadmill stress test don on 11-12-18 - no ischemic EKG changes. Significantly abnormal physiologic response to exercise. Obesity (BMI 30-39.9) 07/17/2018 Encounters Date Type Department Care Team Description 05/21/2025 Interim Notes [address] [phone] Maame Pearce 04/28/2025 2:20 PM EDT Office Visit [facility] [address] [place] [address] Ani Anderson NP 04/23/2025 8:00 AM EDT Telemedicine Visit [facility] [address] [place] [address] Georgette Ford PA-C 04/11/2025 Interim Notes [address] [phone] Phyllis Mckeon RN 04/11/2025 Interim Notes [address] [phone] Ramses Maame 04/04/2025 11:20 AM EDT Office Visit [facility] [address] [place] [phone] Georgette Ford PA-C from Last 3 Months Immunizations Immunization Administration Dates Next Due Flu, Preservative Free 04/23/2021 HPV 9 (Gardasil) 02/06/2023 Hep B,adult,adjuvanted (HEPLISAV) 05/31/2021, PFIZER COVID VACCINE, PURPLE CAP, 12+ 11/25/2021 ,06/22/2021,05/31/2021 PPD 07/17/2018 Pfizer-BioNTech COVID-19 Vac cine Bivalent, (ZAVALA PFIZER-BIONTECH COVID-19 VACCINE BIVALENT, (ZAVALA CAP 02/06/2023 TDAP 06/06/2013 Td (adult), 5 Lf tetanus tox oid (Tenivac), preservative free 12/12/2016 Family History Medical History Relation Name Comments No Known Problems Brother Heart Problems Maternal Grandmother [place] Breast cancer Mother Heart Problems Mother pacemaker Mother feet problem Paternal Grandfather Kidney disease Sister Liver disease Sister Relation Name Status Comments Brother Alive Maternal Grandmother Mother Alive Paternal Grandfather Alive Sister Alive Social History Tobacco Use Types Packs/Day Years Used Date Smoking Tobacco: Every Day Cigarettes Passive Smoke Exposure: Never Smokeless Tobacco: Current Comments:socially Alcohol Use Standard Drinks/Week Comments Yes 0 (1 standard drink = 0.6 oz pur e alcohol) Occ Social Connections Answer Date Recorded How often do you feel lonely or isolated from th ose around you? 1 10/08/2024 Financial Resource Strain Answer Date R ecorded Hard to pay for: Food 1 10/08/2024 Stress Answer Date Recorded Do you feel these kinds of stress these days? 1 10/08/2024 Physical Activity Answer Date Recorded Physical Activity 0 03/31/2019 Food Insecurity Answer Date Recorded Hard to pay for: Food 1 10/08/2024 Transportation Needs Answer Date Record ed Hard to pay for: Transportation 1 10/08/2024 Housing Stability Answer Date Recorded Hard to pay for: Rent/Mortgage payment 1 10/08/2024 Safety and Environment Answer Date Gaurang rded Safety 1 08/15/2023 Utilities Answer Date Recorded Hard to pay for: Utilities 1 10/08 Employment Answer Date Recorded Stress 0 10/25/2021 [...] file Not on file Not on file Last Filed Vital Signs Vital Sign Reading Time Taken Comments Blood Pressure 105/73 04/28/2025 2:44 PM EDT Pulse 102 04/28/2025 2:44 PM EDT Temperature 36.7 C (98.1 F) 04/28/2025 2:44 PM EDT Respiratory Rate 16 04/28/2025 2:44 PM EDT Oxygen Saturation 98% 04/28/2025 2:44 PM EDT Inhaled Oxygen Concentration - - Weight 92.1 kg (203 lb) 04/28/2025 2:44 PM EDT Height 157.5 cm (5' 2 ) 04/28/2025 2:44 PM EDT Body Mass Index 37.13 04/28/2025 2:44 PM EDT Plan of Treatment Health Maintenance Due Date Last Done Comments HPV Screening (self-collect) 1987 HPV Screening 1987 Pap + HPV 1987 Imm-Pneumococcal (1 of 2 - PCV) 2006 Cervical Cancer Screening 06/27/2020 Pap Smear 06/27/2020 06/27/2017 (Nevin cerda by Outside Provider) [id number] INJ 11/25/2021 09/02/2021 Imm-HPV (2 - 3-dose SCDM series) 03/06/2023 02/07/20 Relationship Safety Screening/Counseling 08/15/2024 08/15/2023, 06/23/2023, 05/20/2022, Additional history exists [id number] ( season) 2025 02/06/2023, 11/25/2021, 06/22/2021, Additional history exists Anxiety Screening 10/08/2025 10/08/2024 Annual Wellness (Adult): Indicated (All Coverage) 12/09/2025 12/09/2024, 02/06/2023, 04/23/2021, Additional history exists Tobacco Cessation Counseling (#1) 12/09/2025 025 Urine Drug Screen 12/13/2025 12/13/2024 Hypertension Screening (#1) 04/28/2026 Diabetes Screening 05/16/2026 05/16/2025, 0 04/10/2025, 12/13/2024, Additional history exists Imm-DTaP/Tdap/Td (3 - Td or Tdap) 12/12/2026 017, 06/06/2013 Lipid Screening 12/14/2027 12/13/2024, 06/08, 04/23/2021, Additional history exists Imm-Influenza Discontinued 04/23/2021 Imm-Hepatitis B Completed 05/31/2021, 04/30/2021 Alcohol and Drug Screen Completed 10/09/19, 08/15/2023, 02/06/2023, Additional history exists Depression Annual Screen Completed 10/08/2024 HIV Screening Completed 12/13/2024, 10/19/2018 Hepatitis C Screening Completed 12/13/2024, 018 Cervical Ablation/Cold-Knife Conization Discontinued Cervical Cryotherapy Discontinued Colposcopy Discontinued Excision/Leep Discontinued HPV Genotyping Discontinued Vaginal Pap Discontinued Vulvoscopy Discontinued Procedures Procedure Name Priority Date/Time Associated Diagnosis Comments HIV 1/2 AG & AB W/RFLX (4TH GEN) Routine 12/13/2024 5:00 PM EDT Routine adult health maintenance DRUG MONITORING, PANEL 8 WITH CONFIRMATION, URINE Routine 12/13/2024 5:00 PM EDT Routine adult health maintenance HEPATITIS C AB W/RFLX HCV RNA, QT, RT PCR Routine 12/13/2024 5:00 PM EDT Routine adult health maintenance HEMOGLOBIN GLYCOSYLATED A1C Routine 12/13/2024 5:00 PM EDT Routine adult health maintenance LIPID PANEL Routine 12/13/2024 5:00 PM EDT Routine adult health maintenance from Last 3 Months or Most Recently Relevant to Health Maintenance Results * (ABNORMAL) DRUG MONITORING, PANEL 8 WITH CONFIRMATION, URINE (12/13/2024 5:00 PM EDT) AMPHETAMINES NEGATIVE <500 [facility] [facility] BENZODIAZEPINES NEGATIVE <100 QUES [employer] [facility] BUPRENORPHINE NEGATIVE <5 [facility] [employer] [facility] COCAINE METABOLITE NEGATIVE <150 Q [employer] [facility] 6 ACETYLMORPHINE NEGATIVE <[address] [employer] [facility] MARIJUANA METABOLITE POSITIVE(A) <20 [employer] [facility] MEDMATCH MARIJUANA METAB PENDING [employer] [facility] MARIJUANA METABOLITE 161(H) <5 ng/mL [employer] [facility] MEDMATCH MARIJUANA METAB PENDING [employer] [facility] Marijuana Comments See Note Q [employer] [facility] Comment:See Marijuana Notes, LDT Notes MDMA NEGATIVE <500 [employer] [facility] OPIATES NEGATIVE CONFIRMED <100 [employer] [facility] MEDMATCH OPIATES PENDING QUE [employer] [facility] CODEINE NEGATIVE <50 [employer] [facility] MEDMATCH CODEINE PENDING QUE [employer] [facility] HYDROCODONE NEGATIVE <50 [employer] [facility] MEDMATCH HYDROCODONE PENDING [employer] [facility] HYDROMORPHONE NEGATIVE <50 [employer] [facility] MEDMATCH HYDROMORPHONE PENDING [employer] [facility] MORPHINE NEGATIVE <50 [employer] [facility] MEDMATCH MORPHINE PENDING QU [employer] [facility] NORHYDROCODONE NEGATIVE <50 [employer] [facility] MEDMATCH NORHYDROCODONE PENDING [employer] [facility] Opiates Comments See Note QUE [employer] [facility] Comment:See LDT Notes OXYCODONE POSITIVE(A) <100 [employer] [facility] MEDMATCH OXYCODONE PENDING Q [employer] [facility] NOROXYCODONE 806(H) <50 ng/mL [employer] [facility] MEDMATCH NOROXYCODONE PENDING [employer] [facility] OXYCODONE 605(H) <50 ng/mL [employer] [facility] MEDMATCH OXYCODONE PENDING Q [employer] [facility] OXYMORPHONE 280(H) <50 ng/mL [employer] [facility] MEDMATCH OXYMORPHONE PENDING [employer] [facility] Oxycodone Comments Q [employer] [facility] CREATININE 28.9 > or = 20.0 mg/dL [employer] [facility] PH 5.7 4.5 - 9.0 [employer] [facility] OXIDANT NEGATIVE <200 [employer] [facility] ALCOHOL METABOLITES NEGATIVE <500 [employer] [facility] Urine Urine specimen / Unknown 12/13/2024 5:00 PM EDT 12/13/2024 5:04 PM EDT Narrative [employer] [facility] - 12/17/2024 8:54 AM EDT FASTING:NO [facility] TACK CLEANER LAB URINE AMBULATORY Edited Res ult - Final Performing Organization Address [facility]/ZIP Co de Phone Number [employer] [address] [address], [employer] [address] [address] * HEPATITIS C AB W/RFLX HCV RNA, QT, RT PCR (12/13/2024 5:00 PM EDT) Pathologist [facility] HEPATITIS C ANTIBODY NON-REACT ROBERTO CARLOS NON-REACT ROBERTO CARLOS [employer] [facility] Comment: HCV antibody was non-reactive. There is no laboratory evidence of HCV infection. In most cases, no further action is required. However, if recent HCV exposure is suspected, a test for HCV RNA (test code 07252) is suggested. For additional information please refer to http://education.Coupsta/faq/GIY22m4 (This link is being provided for informational/ educational purposes only.) Blood Blood / Unknown 12/13/2024 5 :00 PM EDT 12/13/2024 5:04 PM EDT Narrative [employer] [facility] - 12/17/2024 8:54 AM EDT FASTING:NO Ani Anderson TACK CLEANER LAB - BLOOD DRAW Edited Result - Final Performing Organization Address [facility]/ZIP Co de Phone Number [employer] [address] [address], [employer] [address] [address] * HIV 1/2 AG & AB W/RFLX (4TH GEN) (12/13/2024 5:00 PM EDT) Pathologist [facility] HIV AG/AB, 4TH GEN NON-REAC TIVE NON-REAC TIVE Dsg[employer]nr Comment: HIV-1 antigen and HIV-1/HIV-2 antibodies were not detected. There is no laboratory evidence of HIV infection. PLEASE NOTE: This information has been disclosed to you from records whose confidentiality may be protected by state law. If your state requires such protection, then the state law prohibits you from making any further disclosure of the information without the specific written consent of the person to whom it pertains, or as otherwise permitted by law. A general authorization for the release of medical or other information is NOT sufficient for this purpose. For additional information please refer to http://education.Coupsta/faq/XFO308 (This link is being provided for informational/ educational purposes only.) The performance of this assay has not been clinically validated in patients less than 2 years old. Blood Blood / Unknown 12/13/2024 5 :00 PM EDT 12/13/2024 5:04 PM EDT Narrative RF Code - 12/17/2024 8:54 AM EDT FASTING:NO Ani Anderson NP LAB - BLOOD DRAW Final Result RF Code [address] [place] [id number], Dsg.nr [address] [place] [id number] * HEMOGLOBIN GLYCOSYLATED A1C (12/13/2024 5:00 PM EDT) HEMOGLOBIN A1C 5.5 <5.7 % Dsg.nr Comment: For the purpose of screening for the presence of diabetes: <5.7% Consistent with the absence of diabetes 5.7-6.4% Consistent with increased risk for diabetes (prediabetes) > or =6.5% Consistent with diabetes This assay result is consistent with a decreased risk of diabetes. Currently, no consensus exists regarding use of hemoglobin A1c for diagnosis of diabetes in children. According to [place] Diabetes Association (ADA) guidelines, hemoglobin A1c <7.0% represents optimal control in non- diabetic patients. Different metrics may apply to specific patient populations. Standards of Medical Care in Diabetes(ADA). Blood Blood / Unknown 12/13/2024 5 :00 PM EDT 12/13/2024 5:04 PM EDT Narrative [employer] [facility] - 12/17/2024 8:54 AM EDT FASTING:NO us Ani Anderson NP LAB - BLOOD DRAW Edited Result - Final Performing Organization Address [facility]/ZIP Co de Phone Number [employer] [address] [address], [employer] [address] [address] * (ABNORMAL) LIPID PANEL (12/13/2024 5:00 PM EDT) [facility] Signature CHOLESTEROL, TOTAL 177 <200 mg/dL [employer] [facility] HDL CHOLESTEROL 51 > OR = 50 mg/dL [employer] [facility] TRIGLYCERIDES 112 <150 mg/dL [employer] [facility] LDL-CHOLESTEROL 105(H) 99 mg/dL (calc) [employer] [facility] Comment: Reference range: <100 Desirable range <100 mg/dL for primary prevention; <70 mg/dL for patients with CHD or diabetic patients with > or = 2 CHD risk factors. LDL-C is now calculated using the Yung-Joseph calculation, which is a validated novel method providing better accuracy than the Friedewald equation in the estimation of LDL-C. Yung SS et al. JENNIFER. 2013;310(19): 7569-1339 (http://education.R2G/faq/USZ218) CHOL/HDLC RATIO 3.5 <5.0 (calc) [employer] [facility] NON-HDL CHOLESTEROL 126 <130 mg/dL (calc) [employer] [facility] Comment: For patients with diabetes plus 1 major ASCVD risk factor, treating to a non-HDL-C goal of <100 mg/dL (LDL-C of <70 mg/dL) is considered a therapeutic option. Blood Blood / Unknown 12/13/2024 5 :00 PM EDT 12/13/2024 5:04 PM EDT Narrative [employer] [facility] - 12/17/2024 8:54 AM EDT FASTING:NO us Ani Anderson NP LAB - BLOOD DRAW Final Result [facility] [address] [address], [facility] [address] [place] [address] from Last 3 Months or Most Recently Relevant to Health Maintenance Insurance [employer] Advance Directives Healthcare Agents on File Name Relationship Healthcare Agent Relationshi p Communication Mckeon Jo Mother Health Care Agent Care Teams Transit Mix Operator Relationship Specialty Start Date End Date Ani Anderson NP [address] [place] [address] PCP - General Family Medicine, TACK CLEANER 10/08/24
--- OUTSIDE RECORDS SUMMARY | 2025-05-21 12:08 | XMS_ITS | Encounter Summary ---
Author Organization [facility] Address [address] [place] [address] Care Team Providers Care Laminated Plastics Assembler And Gluer Name Role Phone Ani Anderson WAITER/WAITRESS ECONOMY CLASS Primary Care Provider [phone] Reason for Visit * Reason Comments Care Coordination Encounter Details Date Type Department Care Team (Late st Contact Info) Description 05/21/2025 Interim Notes [facility] [address] [place] [phone] Maame Pearce [address] [place] [address] Social History Tobacco Use Types Packs/Day Years [...] on file documented as of this encounter Progress Notes * [place] - 05/21/2025 10:46 AM EDT Patient identified through ADT feed. Patient admitted 05/17/25 and discharged 05/17/25 from [facility]. Notification sent to Phyllis BRIONES and Aileen WARD. documented in this encounter Plan of Treatment Not on file documented as of this encounter Visit Diagnoses Not on filedocumented in this encounter Additional Health Concerns Assessment Noted Time PHQ-9 Depression Total Score: 0 10/09/19 8:56 AM PST A Depression follow-up plan has been documented for the patient 04/28/2025 6:37 PM PDT documented as of this encounter Care Teams Laminated Plastics Assembler And Gluer Relationship Specialty Start Date End Date Ani Anderson NP [facility] [place] [address] PCP - General Family Medicine, WAITER/WAITRESS ECONOMY CLASS 10/08/24 documented as of this encounter
== END 2025-05-21 10:26 | disposition home or self-care (01) ==
LOC: HO.HWS 10:15
PROVIDERS: Visit Provider Advanced Practice Midwife
DX: Z30.42 Encounter for surveillance of injectable contraceptive (principal)

== ENCOUNTER → 2025-05-21 10:15 | Outpatient (BNVA) | payer MEDICAID, SELFPAY | PROVIDERS: Visit Provider Advanced Practice Midwife | DX: Z30.42 Encounter for surveillance of injectable contraceptive (principal) | CPT/HCPCS: 96372; 99211; J1050 ==